=== PATIENT | male | born 1955 | race Caucasian/White ===

== ENCOUNTER → 2016-10-15 | Outpatient (CLI) | payer BC, OTHER ==
[~2016-10-15] MED LIST: ASPI81TA28 PO; ATOR-24 PO; CLOP1TAB15 PO; DOXE10CA PO; HYDR-5688 PO; LAMO200T38 PO; LISI-461 PO; METO25TA56 PO
[2016-10-15 12:24] LABS: HEMATOCRIT 45.3 % (42-52); MEAN CELL VOLUME 97.6 fL (80-100); MEAN CORPUSCULAR HEMOGLOBIN 31.5 pg (25-34); MEAN CORPUSCULAR HGB CONC 32.2 g/dl (32-36); MEAN PLATELET VOLUME 12.3 fL (7.4-10.4); PLATELET COUNT 230 K/uL (130-400); RED BLOOD COUNT 4.64 M/uL (4.7-6.1); WHITE BLOOD COUNT 6.57 K/uL (4.8-10.8)
[2016-10-15 12:32] LABS: CALCIUM 9.2 mg/dl (8.5-10.1); ESTIMATED AVERAGE GLUCOSE 157 mg/dl; HA1C FLAG Normal (Normal)
[2016-10-15 13:07] LABS: ALT/SGPT 43 U/L (12-78); BLOOD UREA NITROGEN 10 mg/dl (7-18); BUN/CREATININE RATIO 9.1 (10-20); CARBON DIOXIDE 27 mmol/L (21-32); CHLORIDE 104 mmol/L (98-107); CHOLESTEROL 137 mg/dl (0-200); GLUCOSE 120 mg/dl (70-99); SODIUM 139 mmol/L (136-145); TRIGLYCERIDES 119 mg/dl (0-150); VERY LOW DENSITY LIPOPROT CALC 24 mg/dl
[2016-10-15 13:10] LABS: ALB/GLOB RATIO 1.1 (0.9-2)
[2016-10-15 13:18] LABS: RATIO 7.9 mcg/mg (0-30.0)
[2016-10-15 13:21] LABS: ALKALINE PHOSPHATASE 60 U/L (45-117); AST/SGOT 31 U/L (15-37); CHOLESTEROL/HDL RATIO 3.4; HDL CHOLESTEROL 40 mg/dl; LDL CHOLESTEROL CALCULATED 73 mg/dl
== END | disposition home or self-care (01) ==
LOC: C.LABBFT 09:05
PROVIDERS: ATTEND Internal Medicine
DX: E11.9 Type 2 diabetes mellitus without complications (principal); I25.10 Atherosclerotic heart disease of native coronary artery without angina pectoris

== ENCOUNTER → 2017-05-06 | Outpatient (CLI) | payer BC ==
[2017-05-06 12:16] LABS: HEMATOCRIT 47.5 % (42-52); MEAN CELL VOLUME 97.9 fL (80-100); MEAN CORPUSCULAR HEMOGLOBIN 32.6 pg (25-34); MEAN CORPUSCULAR HGB CONC 33.3 g/dl (32-36); MEAN PLATELET VOLUME 12.1 fL (7.4-10.4); PLATELET COUNT 233 K/uL (130-400); RED BLOOD COUNT 4.85 M/uL (4.7-6.1); WHITE BLOOD COUNT 9.23 K/uL (4.8-10.8)
[2017-05-06 12:20] LABS: ESTIMATED AVERAGE GLUCOSE 174 mg/dl; HA1C FLAG Normal (Normal)
[2017-05-06 12:35] LABS: ALT/SGPT 60 U/L (12-78); AST/SGOT 30 U/L (15-37); BLOOD UREA NITROGEN 14 mg/dl (7-18); BUN/CREATININE RATIO 11.3 (10-20); CARBON DIOXIDE 25 mmol/L (21-32); CHLORIDE 101 mmol/L (98-107); CHOLESTEROL 166 mg/dl (0-200); CREATININE 1.27 mg/dl (0.60-1.40); GLUCOSE 144 mg/dl (70-99); POTASSIUM 4.1 mmol/L (3.5-5.1); SODIUM 133 mmol/L (136-145)
[2017-05-06 12:45] LABS: ALKALINE PHOSPHATASE 65 U/L (45-117); CHOLESTEROL/HDL RATIO 4.5; HDL CHOLESTEROL 37 mg/dl; LDL CHOLESTEROL CALCULATED 97 mg/dl; TRIGLYCERIDES 159 mg/dl (0-150); VERY LOW DENSITY LIPOPROT CALC 32 mg/dl
== END | disposition home or self-care (01) ==
LOC: C.LABBFT 08:51
PROVIDERS: ATTEND Internal Medicine
DX: E11.9 Type 2 diabetes mellitus without complications (principal); E78.5 Hyperlipidemia, unspecified; I25.10 Atherosclerotic heart disease of native coronary artery without angina pectoris; Z12.5 Encounter for screening for malignant neoplasm of prostate

== ENCOUNTER → 2017-10-06 | Outpatient (CLI) | payer BC ==
[~2017-10-06] MED LIST changes: +LAMO200T35 PO; -LAMO200T38 PO
[2017-10-06 12:23] LABS: ALBUMIN 3.8 gm/dl (3.4-5.0); ALT/SGPT 62 U/L (12-78); AST/SGOT 42 U/L (15-37); BLOOD UREA NITROGEN 9 mg/dl (7-18); CALCIUM 8.3 mg/dl (8.5-10.1); CARBON DIOXIDE 23 mmol/L (21-32); CHOLESTEROL 76 mg/dl (0-200); CREATININE 1.23 mg/dl (0.60-1.40); GLUCOSE 128 mg/dl (70-99); POTASSIUM 3.9 mmol/L (3.5-5.1); SODIUM 136 mmol/L (136-145)
[2017-10-06 12:31] LABS: HEMOGLOBIN A1C 7.6 % (4.5-5.6)
[2017-10-06 12:33] LABS: ALKALINE PHOSPHATASE 62 U/L (45-117); LDL CHOLESTEROL CALCULATED 28 mg/dl; TOTAL PROTEIN 7.4 gm/dl (6.4-8.2)
== END | disposition home or self-care (01) ==
LOC: C.LABBFT 08:19
PROVIDERS: ATTEND Internal Medicine
DX: E11.65 Type 2 diabetes mellitus with hyperglycemia (principal)

== ENCOUNTER → 2018-01-13 | Outpatient (CLI) | payer OTHER ==
--- NOTE | 2018-01-13 09:30 | DIAGNOSTIC IMAGING REPORT ---
LUMBAR SPINE MRI HISTORY: Low back pain. Right leg pain. TECHNIQUE: Multiplanar multisequence MRI of the lumbar spine was performed without the use of contrast. COMPARISON: Lumbar spine 01/07/2018. Lumbar spine MRI 06/11/2014. FINDINGS: For the purpose of the report the L5-S1 disc space will be located on axial image 27 of 30. No fracture or subluxation within the lumbar spine. Minimal disc space narrowing at L2-L3 and L4-L5. Postoperative changes consistent with prior L4/L5 laminectomy. This likely explains the mild soft tissue edema posterior to the L4-L5 levels. The visualized retroperitoneal soft tissues are within normal limits. L1-L2: No significant central canal or neural foraminal narrowing. Tiny left foraminal annular tear. L2-L3: Small broad-based posterior disc bulge with mild facet hypertrophy resulting in mild central canal narrowing. No significant neural foraminal narrowing. L3-L4: No significant central canal or neural foraminal narrowing. L4-L5: Prior laminectomy. Small broad-based posterior disc bulge with bilateral facet hypertrophy resulting in mild to moderate central canal narrowing. The disc bulge has slightly progressed on the right. In conjunction with the facet hypertrophy this appears to compress the transiting right L5 nerve root. There is also mild right neural foraminal narrowing. L5-S1: No significant central canal or neural foraminal narrowing. IMPRESSION: 1. Postoperative changes at L4-L5. There is a small broad-based posterior disc bulge with bilateral facet hypertrophy at this level resulting in [id number] central canal narrowing. The disc bulge has slightly progressed on the right and now compresses the transiting right L5 nerve root. 2. Additional mild degenerative changes as described above. 3. No fracture or subluxation. Electronically signed by: Sandip Carranza M.D. 01/13/2018 9:28 AM Dictated Date/Time: 01/13/2018 9:13 AM
== END | disposition home or self-care (01) ==
LOC: C.MRIBC 08:24
PROVIDERS: ATTEND Orthopaedic Surgery Orthopaedic Surgery of the Spine
DX: M48.061 Spinal stenosis, lumbar region without neurogenic claudication (principal)

== ENCOUNTER 2021-04-15 21:03 | Inpatient (IN) ==
[2021-04-15] MEDS ORDERED: ALBUTEROL 0.083% NEBU SOLN 3 ML VIAL NEB STA (21:22)
[2021-04-15 21:43] LABS: Basophils # (auto) 0.05 K/uL (0-0.2); Basophils % (auto) 0.6 %; Eosinophils # (auto) 0.39 K/uL (0-0.5); Eosinophils % (auto) 4.8 %; Hematocrit (blood only) 43.8 % (42-52); Hemoglobin 14.4 g/dL (14.0-18.0); Immature Granulocytes # (auto) 0.02 K/uL (0.00-0.02); Immature Granulocytes % (auto) 0.2 %; Lymphocytes # (auto) 1.64 K/uL (1.2-3.4); Lymphocytes % (auto) 20.2 %; Mean Corpuscular Hemoglobin 32.2 pg (25-34); Mean Corpuscular Hgb Conc 32.9 g/dL (32-36); Mean Platelet Volume 11.5 fL (7.4-10.4); Monocytes # (auto) 0.76 K/uL (0.11-0.59); Monocytes % (auto) 9.3 %; Neutrophils # (auto) 5.27 K/uL (1.4-6.5); Neutrophils % (auto) 64.9 %; Platelet Count 208 K/uL (130-400); RDW Standard Deviation 50.3 fL (36.4-46.3); Red Blood Count 4.47 M/uL (4.7-6.1); White Blood Count 8.13 K/uL (4.8-10.8)
[2021-04-15 22:00] LABS: Albumin Level 3.4 gm/dl (3.4-5.0); BUN Creatinine Ratio 13.3 (10-20); Est GFR (African American) 75.1 ml/min; Est GFR (Non-African American) 64.8 ml/min
[2021-04-15 22:20] LABS: Albumin Globulin Ratio 0.8 (0.9-2); Bilirubin,Total 0.3 mg/dl (0.2-1); Total Protein 7.4 gm/dl (6.4-8.2); Troponin I 0.11 ng/ml (0-0.045)
[2021-04-15 22:39] LABS: Influenza A virus by PCR Negative (Negative); Influenza B virus by PCR Negative (Negative)
--- NOTE | 2021-04-15 23:30 | History & Physical Report ---
Date of Service April 15, 2021 Assessment & Plan (1) Respiratory failure: Plan: 65yo male with history of CAD, HTN, HLP, DM, presenting with 3 days of progressive SOB, cough and wheeze. Patient in acute hypoxic respiratory failure on arrival with RR of 28, saturations of 88% on room air. He was placed on CPAP, given Solumedrol and Albuterol with improvement. Patient with significant smoking history - reports smoking 2ppd x 30 years. He quit approximately 12 years ago. Has never had PFTs performed. No known history of COPD or underlying lung disease, however, suspect he may have undiagnosed COPD. Influenza and Covid-19 testing NEGATIVE -Admit to medical with telemetry -Continue CPAP as needed for respiratory support. Goal SpO2 88-90% -DuoNeb q 4 hours -Albuterol q 2 hours PRN -Mucinex 600mg BID -Incentive spirometry -Solumedrol 40mg IV TID -Doxycycline 100mg IV BID (2) Elevated troponin: Plan: Patient denies chest pain at present. Troponin mildly elevated at 0.110. -Trend troponin -Continue home cardiac medication - ASA, Plavix, Atorvastatin, Lisinopril and Metoprolol (3) Hypertension: Plan: Mildly elevated -Continue Lisinopril, Metoprolol -Monitor (4) Type 2 diabetes mellitus with circulatory disorder: Plan: Blood sugar = 199 currently. Patient on 70/30 55 units BID -Lantus 18u BID -ISS -Continue to monitor (5) Hypercholesteremia: Plan: Chronic -Continue Atorvastatin (6) CAD (coronary artery disease): Plan: Presently chest pain free. Elevated troponin as above. No acute EKG changes. Patient follows with Dr. Eller - last seen 02/19/21 -Continue ASA, Plavix, Atorvastatin, Lisinopril and Metoprolol (7) Depression: Plan: Chronic -Continue Celexa 40mg po daily -Continue Doxepin 10mg po qHS Plan: F/E/N - Heplock. Monitor electrolytes. CC/AHA diet as tolerated Ppx - Lovenox 40 Code -Full Dispo - Admit to medical with telemetry History of Present Illness Chief Complaint: SOB Primary Care Provider: Kye Damian MD [place] is a 65yo male with history of CAD s/p MA with stent placement, DM, HTN, HLP, PVD and JUANJO presenting with 3 days of progressive SOB, cough, wheezing and chest tightness. Patient reports feeling phlegm in his throat 3 days ago - difficulty clearing. He has had a dry cough, SOB with minimal exertion. Denies fever, chills, sweats, purulent sputum. Denies edema, orthopnea, weight gain. Denies sore throat, itchy/watery eyes or runny nose. No urinary complaints. CP associated with coughing. No palpitations. Patient in mild respiratory distress upon arrival with RR of 28. Saturations 88% on room air initially. He was placed on CPAP 8 21% FiO2 in the ER. ER Course: Albuterol, CPAP, Solumedrol Allergies Allergy/AdvReac Type Severity Reaction Status Date / Time Penicillins Allergy Intermediate HIVES Verified 02/19/21 11:06 Home Medications Medication Instructions Recorded Confirmed Type albuterol sulfate 90 mcg/actuation 2 puffs INHALATION Q4H PRN #1 gm 01/11/19 04/15/21 History aerosol inhaler nitroglycerin 0.4 mg sublingual 0.4 mg SL Q5M PRN #25 tab 01/11/19 04/15/21 History tablet lisinopril 20 mg tablet 20 mg PO DAILY #90 tab 09/16/20 04/15/21 Rx citalopram 40 mg tablet 40 mg PO DAILY #90 tab 10/17/20 04/15/21 Rx insulin syringe-needle U-100 0.5 #200 ea 03/05/21 03/05/21 Rx mL 30 gauge x 1/2" (BD Insulin Syringe Ultra-Fine) clopidogrel 75 mg tablet (Plavix) 75 mg PO DAILY #90 tab 03/24/21 04/15/21 Rx doxepin 10 mg capsule 10 mg PO HS #90 cap 03/24/21 04/15/21 Rx metoprolol tartrate 25 mg tablet 25 mg PO BID #180 tab 03/24/21 04/15/21 Rx insulin human U-100 NPH-regulr 55 - 58 unit SUBCUT BID ml 03/26/21 04/15/21 History 70-30 mix 100 unit/mL subcutaneous susp (Novolin 70/30 U-100 Insulin) atorvastatin 80 mg tablet 80 mg PO DAILY #90 tab 03/27/21 04/15/21 Rx blood sugar diagnostic (OneTouch #200 ea 03/28/21 Rx Verio test strips) lamotrigine 200 mg tablet 200 mg PO BID #180 tab 04/02/21 04/15/21 Rx (Lamictal) aspirin 81 mg tablet,delayed 81 mg PO DAILY 04/15/21 04/15/21 History release Past Med/Surg History Medical History (Updated 04/16/21 @ 03:53 by Lian Patel DO) CAD (coronary artery disease) Cancer H/O SKIN CA - REMOVED Depression Diabetes mellitus, type 2 NIDDM Former smoker History of myocardial infarction 2015 - NSTEMI; [facility] X 1 TO RCA Hyperlipidemia Hypertension Lumbar spinal stenosis PAD (peripheral artery disease) Parkinsonism PER RECORDS Seizure LAST SEIZURE 9 YEARS AGO; CONTROLLED ON LAMICTAL Sleep apnea NO CPAP - NON COMPLIANT Unstable angina pectoris Surgical History H/O sinus surgery History of cardiac cath [facility] X 1 TO RCA (2014) History of laminectomy L4-L5 LAMINECTOMY/DISCECTOMY= 04/30/16= GRADE 3 VIEW, MAC 3.0, ETT 8.0 AT [facility] Family History Father Coronary heart disease Dementia Depression Diabetes Myocardial infarction Mother Dementia Kidney disease Grandmother (Paternal) Diabetes Brother Diabetes Brain cancer Denies family history of Ovarian cancer Prostate cancer Breast cancer Colorectal cancer Social History Smoking Status: Former smoker Tobacco Type: Cigarettes Age Started Using Tobacco: 10; Age Quit Using Tobacco: 54; packs per day: 2; Years Smoked: 43; Cigarettes Per Day: 2; Smoking End Date: 2008; Second Hand Exposure: No; Tobacco Cessation Education Requested by Patient: No Hx Alcohol Use: No Hx Substance Use: No Preferred Language: Andorran Communication Ability: Effective Visual Impairment: Limited Hearing Ability: Normal Edge Sawyer Required: No Beliefs That Will Affect Care: None marital status: Current Living Situation: Spouse current occupational status: retired 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 Other Information That Helps Us Care for You: No Feels Safe at Home: Yes Safety Concerns: Feels Safe At This Time Childhood Exposure to Second-Hand Smoke: Yes Dental Care, Regularly: No Physical Activity Frequency: Daily Physical Activity Frequency Comment: seasonal, very active in summer time Seatbelt Use: always Sunscreen Use: No Assistive Devices: Denture - Upper, Denture - Lower and Glasses Review of Systems Review of Systems: All systems reviewed & are unremarkable except as noted in HPI & below Physical Exam Physical Exam: General: patient resting comfortably, NAD, non-toxic in appearance, AA&O x 4 Skin: warm, dry, intact, no rashes or lesions HEENT: NC/AT, PERRL, EOMI, anicteric sclera, conjunctiva without injection, external ear normal to inspection and nontender, nares patent, moist mucus membranes, dentition intact, no oropharyngeal lesions, neck supple, trachea midline, no LAD, no thyromegaly, no JVD Heart: +S1/S2, regular, no m/r/g Lungs: diminished air flow bilaterally, diffuse wheezing bilaterally, +rhonchi in mid lung [place] Abd: +BS, soft, NT/ND, no masses/organomegaly/ascites Ext: warm, 2+ pulses in UE/LE bilaterally, no clubbing/cyanosis or edema Neuro: nonfocal, patient AA&O x 4, speech intact, no facial droop, moving all extremities on command with equal strength 5/5 Results & Data Results & Data ([facility]) Vital Signs (Past 12 Hours) Vital Signs Temp Pulse Pulse Resp BP Pulse Ox 04/15/21 21:35 75 74 20 94 04/15/21 21:32 95 H 30 H 88 L 04/15/21 21:17 37.0 C 88 20 159/84 H 92 Laboratory Results Laboratory Results WBC 8.13 K/uL (4.8-10.8) 04/15/21 21:29 RBC 4.47 M/uL (4.7-6.1) L 04/15/21 21:29 Hgb 14.4 g/dL (14.0-18.0) 04/15/21 21:29 Hct 43.8 % (42-52) 04/15/21 21:29 MCV 98.0 fL (80-100) 04/15/21 21:29 MCH 32.2 pg (25-34) 04/15/21 21:29 MCHC 32.9 g/dL (32-36) 04/15/21: RDW Std Deviation 50.3 fL (36.4-46.3) H 04/15/21: RDW Coeff of Lucas 14.0 % (11.5-14.5) 04/15/21: Plt Count 208 K/uL (130-400) 04/15/21: MPV 11.5 fL (7.4-10.4) H 04/15/21: Immature Gran % (Auto) 0.2 % 04/15/21: Neut % (Auto) 64.9 % 04/15/21: Lymph % (Auto) 20.2 % 04/15/21: [place] % (Auto) 9.3 % 04/15/21: Eos % (Auto) 4.8 % 04/15/21 Baso % (Auto) 0.6 % 04/15/21: Neut # (Auto) 5.27 K/uL (1.4-6.5) 04/15/21: Lymph # (Auto) 1.64 K/uL (1.2-3.4) 04/15/21: [place] # (Auto) 0.76 K/uL (0.11-0.59) H 04/15/21: Eos # (Auto) 0.39 K/uL (0-0.5) 04/15/21: Baso # (Auto) 0.05 K/uL (0-0.2) 04/15/21: Immature Gran # (Auto) 0.02 K/uL (0.00-0.02) 04/15/21: Sodium 136 mmol/L (136-145) 04/15/21: Potassium 4.0 mmol/L (3.5-5.1) 04/15/21: Chloride 105 mmol/L (98-107) 04/15/21: Carbon Dioxide 24 mmol/L (21-32) 04/15/21: Anion Gap 7.0 (3-11) 04/15/21: BUN 15 mg/dl (7-18) 04/15/21: Creatinine 1.16 mg/dl (0.6-1.4) 04/15/21: Est Cr Clr Drug Dosing 75.0 ml/min 04/15/21 21: Est GFR ( Amer) 75.1 ml/min 04/15/21 Est GFR (Non-Af Amer) 64.8 ml/min 04/15/21: BUN/Creatinine Ratio 13.3 (10-20) 04/15/21: Glucose 199 mg/dl (70-99) H 04/15/21: Calcium 9.0 mg/dl (8.5-10.1) 04/15/21: Phosphorus 2.4 mg/dl (2.5-4.9) L 04/15/21: Magnesium 1.8 mg/dl (1.8-2.4) 04/15/21: Total Bilirubin 0.3 mg/dl (0.2-1) 04/15/21: AST 21 U/L (15-37) 04/15/21: ALT 37 U/L (12-78) 04/15/21: Alkaline Phosphatase 65 U/L (45-117) 04/15/21: Troponin I 0.110 ng/ml (0-0.045) H* 04/15/21: NT-Pro-B Natriuret Pep 224 pg/ml (0-900) 04/15/21: Total Protein 7.4 gm/dl (6.4-8.2) 04/15/21: Albumin 3.4 gm/dl (3.4-5.0) 04/15/21: Globulin 4.0 gm/dl (2.5-4.0) 04/15/21: Albumin/Globulin Ratio 0.8 (0.9-2) L 04/15/21: Lipase 138 U/L (73-393) 04/15/21: COVID-19 Eval Order Covid19 at [facility] 04/15/21 21:20 SARS-CoV-2 (PCR) NEGATIVE (Negative) 04/15/21 21: Influ A Molecular Assay Negative (Negative) 04/15/21: Influ B Molecular Assay Negative (Negative) 04/15/21 21:20 Diagnostic Findings CXR with no infiltrate, PTX. Code Status & VTE Plan VTE Prophylaxis Plan VTE Prophylaxis will be ordered: Yes PG Care Time/CCT Total # of Minutes Spent Total Time Spent with Patient: Total time spent is greater than 50% in coordination of care (as documented) at patient's floor/unit and/or counseling patient: Coding Level of Care Code 14076 Initial Inpt Care Lvl 3 Diagnoses Respiratory failure J96.00 Chronicity: acute Respiratory failure complication: unspecified whether with hypoxia or hypercapnia Elevated troponin R77.8 Hypertension I10 Type 2 diabetes mellitus with circulatory disorder E11.59 Hypercholesteremia E78.00 CAD (coronary artery disease) I25.10 Depression F32.9 (1) Respiratory failure Chronicity: acute Respiratory failure complication: unspecified whether with hypoxia or hypercapnia Qualified Code(s): J96.00 - Acute respiratory failure, unspecified whether with hypoxia or hypercapnia
--- NOTE | 2021-04-16 00:39 | Emergency Department Note ---
Impression & Plan Respiratory failure, Hypoxic, Elevated troponin ED Provider Note NAME: FRIDA TINOCO AGE: 65 SEX: M : 1955 ARRIVES VIA: Ambulance INFORMANT: Patient ED PROVIDER(S): Evgeny Torres DO CHIEF COMPLAINT: Shortness of breath HPI: Patient is a six 5-year-old male who presents ER for shortness of breath which has been worsening for the past 3 days. Patient notes that tonight he got significantly worse. He cannot catch his breath. He denies any chest pain b ada pain or nausea vomiting or diarrhea. He does have a cough which is present for the same time. No recent weight gain. No history of CHF. Brought in by EMS and placed on CPAP. Patient was given neb treatments. ROS: See above HPI for pertinent positives & negatives. A total of 10 systems reviewed and were otherwise negative. PAST MEDICAL HISTORY:See Below PAST SURGICAL HISTORY:See Below FAMILY HISTORY:See Below SOCIAL HISTORY:See Below HOME MEDICATIONS:See Below ALLERGIES:See Below VITALS:See Below PHYSICAL EXAMINATION: GENERAL: Sitting up in bed, alert, moderate distress EYE EXAM: normal conjunctiva. OROPHARYNX: no exudate, no erythema, lips, buccal mucosa, and tongue normal and mucous membranes are moist NECK: supple, no nuchal rigidity, no adenopathy, non-tender LUNGS: Diffuse wheezing. Normal chest wall mechanics HEART: no murmurs, S1 normal and S2 normal ABDOMEN: abdomen soft, non-tender, normo-active bowel sounds, no masses, no rebound or guarding. UPPER EXTREMITIES: upper extremities are grossly normal. LOWER EXTREMITIES: No pitting edema. Calves are equal bilateral NEURO EXAM: Normal sensorium, cranial nerves II-XII grossly intact, normal speech, no gross weakness of arms, no gross weakness of legs. MEDICAL DECISION MAKING: Patient is a 65-year-old male who presents the ER for shortness of breath. He was found to be hypoxic on 3 L in the mid 80s. He had asked diffuse wheezing and was extremely tachypneic moving little to no air. He was placed on BiPAP and given hour-long neb treatment as well as steroids. Labs show no significant leukocytosis or anemia. BMP on LFTs bilirubin was unremarkable. Troponin was positive at 0.11. Lipase was normal. Influenza and Covid were negative. Chest x-ray showed some cephalization. Patient improved significantly on BiPAP and neb treatments. Updated bedside discussed with Dr. Patel admitted for further work-up. Triage Nursing notes reviewed. Limited review of prior medical records performed Vital Signs: reviewed and remarkable for hypoxic and tachycardic Differential diagnosis: Differential diagnoses includes but is not limited to pneumonia, bronchitis, COPD/Asthma exacerbation, pneumothorax, pulmonary embolism, congestive heart failure, acute coronary syndrome ER treatment provided: See below Diagnostics interpreted by me: ECG: Sinus rhythm rate 67 Normal axis No PVCs Poor baseline QTC 456 Cardiac Monitoring: An order was placed for continuous cardiac monitoring. The monitor shows a rate of 82 with sinus rhythm. Laboratory studies: As stated above and show below. Imaging studies: Portable AP upright 1 view per my read shows cephalization with no focal infiltrate or pneumothorax Consultation(s): Discussed with Lashawn Patel for further evaluation Procedures: none Critical Care: I have personally spent 32 minutes of critical care time in the direct management of this patient. This includes bedside care, interpretation of diagnostic studies, and testing, discussion with consultants, patient, and family members, and other required patient management activities. This 32 minutes is in excess of all separately billable procedures. Past Med/Surg History Medical History (Updated 04/16/21 @ 00:39 by Evgeny Torres DO) CAD (coronary artery disease) Cancer H/O SKIN CA - REMOVED Depression Diabetes mellitus, type 2 NIDDM Former smoker History of myocardial infarction 2015 - NSTEMI; [facility] X 1 TO RCA Hyperlipidemia Hypertension Lumbar spinal stenosis PAD (peripheral artery disease) Parkinsonism PER RECORDS Seizure LAST SEIZURE 9 YEARS AGO; CONTROLLED ON LAMICTAL Sleep apnea NO CPAP - NON COMPLIANT Unstable angina pectoris Surgical History H/O sinus surgery History of cardiac cath [facility] X 1 TO RCA (2014) History of laminectomy L4-L5 LAMINECTOMY/DISCECTOMY= 04/30/16= GRADE 3 VIEW, MAC 3.0, ETT 8.0 AT [facility] Family History Father Coronary heart disease Dementia Depression Diabetes Myocardial infarction Mother Dementia Kidney disease Grandmother (Paternal) Diabetes Brother Diabetes Brain cancer Denies family history of Ovarian cancer Prostate cancer Breast cancer Colorectal cancer Social History Smoking Status: Never smoker Tobacco Type: Cigarettes Age Started Using Tobacco: 10; Age Quit Using Tobacco: 54; packs per day: 2; Years Smoked: 43; Second Hand Exposure: No; Hx Alcohol Use: No Hx Substance Use: No Preferred Language: Mauritian Communication Ability: Effective Visual Impairment: Limited Hearing Ability: Normal Beliefs That Will Affect Care: None marital status: Current Living Situation: Spouse current occupational status: retired 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 Feels Safe at Home: Yes Childhood Exposure to Second-Hand Smoke: Yes Dental Care, Regularly: No Physical Activity Frequency: Daily Physical Activity Frequency Comment: seasonal, very active in summer time Seatbelt Use: always Sunscreen Use: No Assistive Devices: None Allergies Allergies Allergy/AdvReac Type Severity Reaction Status Date / Time Penicillins Allergy Intermediate HIVES Verified 02/19/21 11:06 Home Meds Home Medications Medication Instructions Recorded Confirmed albuterol sulfate 90 mcg/actuation 2 puffs INHALATION Q4H PRN #1 gm 01/11/19 04/15/21 aerosol inhaler nitroglycerin 0.4 mg sublingual 0.4 mg SL Q5M PRN #25 tab 01/11/19 04/15/21 tablet insulin human U-100 NPH-regulr 55 - 58 unit SUBCUT BID ml 03/26/21 04/15/21 70-30 mix 100 unit/mL subcutaneous susp (Novolin 70/30 U-100 Insulin) aspirin 81 mg tablet,delayed 81 mg PO DAILY 04/15/21 04/15/21 release Previous Rx's Medication Instructions Recorded lisinopril 20 mg tablet 20 mg PO DAILY #90 tab 09/16/20 citalopram 40 mg tablet 40 mg PO DAILY #90 tab 10/17/20 insulin syringe-needle U-100 0.5 #200 ea 03/05/21 mL 30 gauge x 1/2" (BD Insulin Syringe Ultra-Fine) clopidogrel 75 mg tablet (Plavix) 75 mg PO DAILY #90 tab 03/24/21 doxepin 10 mg capsule 10 mg PO HS #90 cap 03/24/21 metoprolol tartrate 25 mg tablet 25 mg PO BID #180 tab 03/24/21 atorvastatin 80 mg tablet 80 mg PO DAILY #90 tab 03/27/21 blood sugar diagnostic (OneTouch #200 ea 03/28/21 Verio test strips) lamotrigine 200 mg tablet 200 mg PO BID #180 tab 04/02/21 (Lamictal) Results & Data (ED) Vital Signs Vital Signs - 24 hr 04/15/21 21:17 04/15/21 21:32 04/15/21 21:35 Temperature 37.0 C Temperature Source Oral Pulse Rate 88 95 H 75 Pulse Rate [Apical] 74 Respiratory Rate 20 30 H 20 Respiratory Effort / Characteristics Labored Pursed Lip Short of Breath Tripoding Non-Labored Spontaneous Respiratory Depth Normal Normal Respiratory Pattern Tachypnea Regular Blood Pressure 159/84 H Blood Pressure Mean 109 Blood Pressure Position Sitting Pulse Oximetry 92 88 L 94 Oxygen Delivery Method Room Air Room Air BiPAP Fraction of Inspired Oxygen 21 Sepsis Recent Fever Within 48 Hours No Sepsis New/Unexplained Change in Mental Status N/A Sepsis Action Taken by Nursing No Action Required Laboratory Data Result diagrams: 04/15/21 21:29 04/15/21 21:29 Lab Results 04/15/21 04/15/21 04/15/21 Range/Units 21:20 21:20 21:20 WBC (4.8-10.8) K/uL RBC (4.7-6.1) M/uL Hgb (14.0-18.0) g/dL Hct (42-52) % MCV (80-100) fL MCH (25-34) pg MCHC (32-36) g/dL RDW Std Deviation (36.4-46.3) fL RDW Coeff of Lucas (11.5-14.5) % Plt Count (130-400) K/uL MPV (7.4-10.4) fL Immature Gran % (Auto) % Neut % (Auto) % Lymph % (Auto) % [place] % (Auto) % Eos % (Auto) % Baso % (Auto) % Neut # (Auto) (1.4-6.5) K/uL Lymph # (Auto) (1.2-3.4) K/uL [place] # (Auto) (0.11-0.59) K/uL Eos # (Auto) (0-0.5) K/uL Baso # (Auto) (0-0.2) K/uL Immature Gran # (Auto) (0.00-0.02) K/uL Sodium (136-145) mmol/L Potassium (3.5-5.1) mmol/L Chloride (98-107) mmol/L Carbon Dioxide (21-32) mmol/L Anion Gap (3-11) BUN (7-18) mg/dl Creatinine (0.6-1.4) mg/dl Est Cr Clr Drug Dosing ml/min Est GFR ( Amer) ml/min Est GFR (Non-Af Amer) ml/min BUN/Creatinine Ratio (10-20) Glucose (70-99) mg/dl Calcium (8.5-10.1) mg/dl Total Bilirubin (0.2-1) mg/dl AST (15-37) U/L ALT (12-78) U/L Alkaline Phosphatase (45-117) U/L Troponin I (0-0.045) ng/ml Total Protein (6.4-8.2) gm/dl Albumin (3.4-5.0) gm/dl Globulin (2.5-4.0) gm/dl Albumin/Globulin Ratio (0.9-2) Lipase (73-393) U/L COVID-19 Eval Order Covid19 at [facility] SARS-CoV-2 (PCR) NEGATIVE (Negative) Influ A Molecular Assay Negative (Negative) Influ B Molecular Assay Negative (Negative) 04/15/21 04/15/21 Range/Units 21:29 21:29 WBC 8.13 (4.8-10.8) K/uL RBC 4.47 L (4.7-6.1) M/uL Hgb 14.4 (14.0-18.0) g/dL Hct 43.8 (42-52) % MCV 98.0 (80-100) fL MCH 32.2 (25-34) pg MCHC 32.9 (32-36) g/dL RDW Std Deviation 50.3 H (36.4-46.3) fL RDW Coeff of Lucas 14.0 (11.5-14.5) % Plt Count 208 (130-400) K/uL MPV 11.5 H (7.4-10.4) fL Immature Gran % (Auto) 0.2 % Neut % (Auto) 64.9 % Lymph % (Auto) 20.2 % [place] % (Auto) 9.3 % Eos % (Auto) 4.8 % Baso % (Auto) 0.6 % Neut # (Auto) 5.27 (1.4-6.5) K/uL Lymph # (Auto) 1.64 (1.2-3.4) K/uL [place] # (Auto) 0.76 H (0.11-0.59) K/uL Eos # (Auto) 0.39 (0-0.5) K/uL Baso # (Auto) 0.05 (0-0.2) K/uL Immature Gran # (Auto) 0.02 (0.00-0.02) K/uL Sodium 136 (136-145) mmol/L Potassium 4.0 (3.5-5.1) mmol/L Chloride 105 (98-107) mmol/L Carbon Dioxide 24 (21-32) mmol/L Anion Gap 7.0 (3-11) BUN 15 (7-18) mg/dl Creatinine 1.16 (0.6-1.4) mg/dl Est Cr Clr Drug Dosing 75.0 ml/min Est GFR ( Amer) 75.1 ml/min Est GFR (Non-Af Amer) 64.8 ml/min BUN/Creatinine Ratio 13.3 (10-20) Glucose 199 H (70-99) mg/dl Calcium 9.0 (8.5-10.1) mg/dl Total Bilirubin 0.3 (0.2-1) mg/dl AST 21 (15-37) U/L ALT 37 (12-78) U/L Alkaline Phosphatase 65 (45-117) U/L Troponin I 0.110 H* (0-0.045) ng/ml Total Protein 7.4 (6.4-8.2) gm/dl Albumin 3.4 (3.4-5.0) gm/dl Globulin 4.0 (2.5-4.0) gm/dl Albumin/Globulin Ratio 0.8 L (0.9-2) Lipase 138 (73-393) U/L COVID-19 Eval Order SARS-CoV-2 (PCR) (Negative) Influ A Molecular Assay (Negative) Influ B Molecular Assay (Negative) Administered Medications Discontinued Medications Albuterol (Albuterol 0.083% Nebu Soln 3 Ml Vial) 10 mg NEB NOW STA Stop: 04/15/21 21:23 Last Admin: 04/15/21 21:34 Dose: 10 mg Documented by: [id number] Methylprednisolone (Methylprednisolone 40 Mg/Ml Vial) 40 mg IV NOW STA Stop: 04/15/21 21:23 Last Admin: 04/15/21 21:33 Dose: 40 mg Documented by: [id number] Discharge Plan Visit Data Chief Complaint: Shortness of Breath/Dyspnea Stated Complaint: SOB ED Provider: Evgeny Torres Discharge Problem: Respiratory failure, Hypoxic, Elevated troponin Forms Stand Alone Forms: My [facility] Prescriptions Prescriptions: No Action lisinopril 20 mg tablet 20 mg PO DAILY Qty: 90 RF: 3 citalopram 40 mg tablet 40 mg PO DAILY Qty: 90 RF: 3 doxepin 10 mg capsule 10 mg PO HS Qty: 90 RF: 1 clopidogrel [Plavix] 75 mg tablet 75 mg PO DAILY Qty: 90 RF: 3 metoprolol tartrate 25 mg tablet 25 mg PO BID Qty: 180 RF: 3 atorvastatin 80 mg tablet 80 mg PO DAILY Qty: 90 RF: 3 (DME) OneTouch Verio test strips Strip See Rx Instructions .ROUTE .MEDSUPPLY Qty: 200 RF: 3 lamotrigine [Lamictal] 200 mg tablet 200 mg PO BID Qty: 180 RF: 3 nitroglycerin 0.4 mg tablet, sublingual 0.4 mg SL Q5M PRN (Reason: chest pain) Qty: 25 RF: 0 albuterol sulfate 90 mcg/actuation HFA aerosol inhaler 2 puffs inhalation Q4H PRN (Reason: Shortness Of Breath) Qty: 1 RF: 0 (DME) insulin syringe-needle U-100 [BD Insulin Syringe Ultra-Fine] 0.5 mL 30 gauge x 1/2" syringe See Rx Instructions .Route Qty: 200 RF: 3 Novolin 70/30 U-100 Insulin 100 unit/mL (70-30) suspension 55 - 58 unit subcut BID RF: 0 aspirin [Aspir-81] 81 mg Tablet,Delayed Release (Dr/Ec) 81 mg PO DAILY RF: 0 Referrals Referrals: Kye Damian III, MD [Primary Care Provider] - Discharge Problem: Respiratory failure Qualifiers: Chronicity: acute Respiratory failure complication: unspecified whether with hypoxia or hypercapnia Qualified Code(s): J96.00 - Acute respiratory failure, unspecified whether with hypoxia or hypercapnia
[2021-04-16] MEDS ORDERED: ACETAMINOPHEN 325 MG TAB PO PRN (02:12)
[2021-04-16] MEDS ORDERED: NITROGLYCERIN SL 0.4 MG/TAB TAB SL PRN (02:12)
[2021-04-16] MEDS ORDERED: ALBUTEROL 0.5% NEB SOLN 2.5 MG/0.5 ML VIAL NEB PRN (02:12)
[2021-04-16] MEDS ORDERED: GLUCAGON FOR INJ 1 MG VIAL SQ PRN (02:12)
[2021-04-16] MEDS ORDERED: CARBOHYDRATES FOR HYPOGLYCEMIA PO PRN (02:12)
[2021-04-16] MEDS ORDERED: GLUCOSE 40% GEL 15 GM TUBE PO PRN (02:12)
[2021-04-16] MEDS ORDERED: DEXTROSE 50% 50 ML SYRINGE IV PRN (02:12)
[2021-04-16] MEDS ORDERED: GLUCOSE 10 TABS/TUBE PO PRN (02:12)
[2021-04-16] MEDS ORDERED: ONDANSETRON INJ 2 MG/ML 2 ML VIAL IV PRN (02:12)
[2021-04-16 03:02] LABS: Magnesium 1.8 mg/dl (1.8-2.4); Phosphorus 2.4 mg/dl (2.5-4.9)
[2021-04-16] MEDS: ALBUT/IPRATROP 3MG/0.5MG NEB 3 ML VIAL NEB SCH ×6 (03:17→22:30)
[2021-04-16] MEDS: DOXYCYCLINE HYCLATE 100 MG in DEXTROSE 5% 100 ML IV SCH ×2 (05:36→18:16)
[2021-04-16] MEDS: ENOXAPARIN INJ 40 MG/0.4 ML SYR SQ SCH (05:44)
[2021-04-16] MEDS: methylPREDNISolone 40 MG in SYRINGE 0 ML IV SCH ×3 (05:44→20:55)
[2021-04-16 07:19] LABS: Basophils # (auto) 0.02 K/uL (0-0.2); Basophils % (auto) 0.3 %; Eosinophils # (auto) 0.01 K/uL (0-0.5); Eosinophils % (auto) 0.2 %; Hematocrit (blood only) 42.8 % (42-52); Hemoglobin 14.3 g/dL (14.0-18.0); Immature Granulocytes # (auto) 0.01 K/uL (0.00-0.02); Immature Granulocytes % (auto) 0.2 %; Lymphocytes # (auto) 0.58 K/uL (1.2-3.4); Lymphocytes % (auto) 9.8 %; Mean Corpuscular Hemoglobin 32.2 pg (25-34); Mean Corpuscular Hgb Conc 33.4 g/dL (32-36); Mean Corpuscular Volume 96.4 fL (80-100); Mean Platelet Volume 11.6 fL (7.4-10.4); Monocytes # (auto) 0.29 K/uL (0.11-0.59); Monocytes % (auto) 4.9 %; Neutrophils # (auto) 4.99 K/uL (1.4-6.5); Neutrophils % (auto) 84.6 %; Platelet Count 241 K/uL (130-400); RDW Coefficient of Variation 14.2 % (11.5-14.5); RDW Standard Deviation 50.2 fL (36.4-46.3); Red Blood Count 4.44 M/uL (4.7-6.1)
[2021-04-16] MEDS ORDERED: INSULIN ASPART 100 UNITS/ML 3 ML PEN SC SCH (07:30)
[2021-04-16 07:43] LABS: BUN Creatinine Ratio 10.5 (10-20); Calcium 9.3 mg/dl (8.5-10.1); Creatinine Clr Calc Pharmacy 64.5 ml/min; Est GFR (African American) 65.4 ml/min; Est GFR (Non-African American) 56.5 ml/min; Potassium 4.7 mmol/L (3.5-5.1)
[2021-04-16 07:48] LABS: Troponin I 1.76 ng/ml (0-0.045)
--- NOTE | 2021-04-16 08:06 | XRay Report ---
SINGLE VIEW CHEST CLINICAL HISTORY: Atypical chest pain. Dyspnea. FINDINGS: 2 AP, portable, upright chest radiographs are compared to study dated 04/22/2015 and correl ated with chest CT dated 02/14/2007. The heart is enlarged noting atherosclerotic calcification of the thoracic aorta. The pulmonary vasculature is noncongested. Emphysema and chronic interstitial thicke willian is similar to previous. No airspace consolidation or large pleural effusion is identified. Scarr ing/atelectasis is noted at the lung bases. No pneumothorax is seen. The skeletal structures are oste openic. The bony thorax is grossly intact. IMPRESSION: Cardiomegaly and emphysema with no acute cardiopulmonary abnormality. ACT 112: Negative or not required by law. Electronically signed by: Laith Go M.D. 04/16/2021 8:05 AM
--- NOTE | 2021-04-16 08:47 | Electrocardiogram Report ---
Test Reason : Blood Pressure : / mmHG Vent. Rate : 085 BPM Atrial Rate : 085 BPM P-R Int : 188 ms QRS Dur : 086 ms QT Int : 384 ms P-R-T Axes : 044 005 044 degrees QTc Int : 456 ms Normal sinus rhythm Diffuse Minor Nonspecific ST abnormality Abnormal ECG When compared with ECG of 24-APR-2015 06:23, Vent. rate has increased BY 32 BPM T wave inversion no longer evident in Inferior leads Confirmed by Asaf Moreno ([id number]) on 04/16/2021 8:46:46 AM Referred By: REFERRED SELF Confirmed By:Asaf Moreno
--- NOTE | 2021-04-16 08:57 | Electrocardiogram Report ---
Test Reason : Blood Pressure : / mmHG Vent. Rate : 074 BPM Atrial Rate : 074 BPM P-R Int : 194 ms QRS Dur : 086 ms QT Int : 420 ms P-R-T Axes : 058 021 043 degrees QTc Int : 466 ms Normal sinus rhythm Diffuse Nonspecific ST abnormality Abnormal ECG When compared with ECG of 15-APR-2021 21:16, No significant change was found Confirmed by Asaf Moreno ([id number]) on 04/16/2021 8:56:45 AM Referred By: REFERRED SELF Confirmed By:Asaf Moreno
[2021-04-16] MEDS ORDERED: INSULIN GLARGINE SOLOSTAR 100 UNITS/ML 3 ML PEN SC SCH (09:00)
[2021-04-16] MEDS ORDERED: PNEUMOCOCCAL POLYSACCHARIDES 25 MCG/0.5 ML VIAL/SYR IM ONE (09:00)
[2021-04-16] MEDS: lamoTRIgine 100 MG TAB PO SCH ×2 (09:09→20:33)
[2021-04-16] MEDS: CLOPIDOGREL BISULFATE 75 MG TAB PO SCH (09:09)
[2021-04-16] MEDS: lisinopril 20 MG TAB PO SCH (09:09)
[2021-04-16] MEDS: CITALOPRAM 40 MG TAB PO SCH (09:09)
[2021-04-16] MEDS: guaiFENesin 600 MG TABCR PO SCH ×2 (09:09→20:32)
[2021-04-16] MEDS: ASPIRIN 81 MG ECTAB PO SCH (09:09)
[2021-04-16] MEDS: ATORVASTATIN 40 MG TAB PO SCH (09:09)
[2021-04-16] MEDS: METOPROLOL TARTRATE 25 MG TAB PO SCH ×2 (09:10→20:32)
[2021-04-16] MEDS: INSULIN GLARGINE SOLOSTAR 100 UNITS/ML 3 ML PEN SC SCH ×2 (09:16→20:39)
[2021-04-16] MEDS: INSULIN ASPART 100 UNITS/ML VIAL SC SCH ×4 (09:16→20:34)
--- NOTE | 2021-04-16 12:21 | Hospitalist Progress Note ---
Date of Service April 16, 2021 Assessment & Plan (1) Acute bronchitis due to respiratory syncytial virus (RSV): Plan: COVID & flu tests at admission negative. Obtained rapid RSV test this afternoon - POSITIVE. Thus, acute bronchitis is 2nd to RSV. Place in droplet isolation. Cont steroids, nebs, supportive care. Patient with significant prior smoking history and CXR with emphysematous changes. No formal dx of COPD, but easily could have such, and thus this could be a "COPD exacerbation." Will need PFTs as outpatient in 6-8 weeks to determine if he indeed has underlying COPD. (2) Respiratory failure: Plan: 2nd RSV bronchitis. Improved s/p CPAP overnight, steroids, nebs, supportive care. Cont solumedrol, doxy (to cover for remote possibility of bacterial superinfection), nebs, etc. (3) Elevated troponin: Plan: No ischemic symptoms. EKG without ischemic changes. At minimum this troponin elevation is myocardial demand ischemia in the setting of #1, #2. However, his troponin ultimately bumped to a high of 1.97 and has fallen since. Cannot exclude a minor NSTEMI in the setting of known CAD (cath 2014 with oc cluded RCA but LAD and L Cx were mainly free of disease). Continue home cardiac medications - ASA, Plavix, Atorvastatin, Lisinopril and Metoprolol. Echo ordered and pending. Formal cardiology consult (sees Dr Eller thus ask [facility] cards to see) tomorrow. For now - due to lack of CAD/ischemic symptoms and normal EKG will defer on heparin infusion unless he has symptoms, further troponin rise, etc (4) Hypertension: Plan: Continue Lisinopril, Metoprolol (5) Type 2 diabetes mellitus with circulatory disorder: Plan: Uncontrolled due to IV steroids for above. Adjust novolog. Cont lantus. (6) Hypercholesteremia: Plan: Continue Atorvastatin (7) CAD (coronary artery disease): Plan: see above. Patient follows with Dr. Lora - last seen 02/19/21 Continue ASA, Plavix, Atorvastatin, Lisinopril and Metoprolol (8) Depression: Plan: celexa 40mg po daily + Doxepin 10mg po qHS (9) Seizure: Plan: Cont home meds no issues at this time Plan: DVT proph - lovenox extensively updated at bedside today Admission and Anticipated Discharge Date Admission Date: April 15, 2021 Subjective patient feeling much better this am than yesterday at presentation he is now in room air still coughing, still with wheezing - but improved chest tightness improved appetite good/normal no chest pain no symptoms similar to his previous CA pain several years ago prior to this illness he denies any limiting dyspnea or chest pain episodes at home Review of Systems Review of Systems: gen - no fever, good appetite, mild fatigue CV - no substernal chest pain pulm - cough is dry, wheezing; dyspnea improved GI - no nausea/emesis Physical Exam Physical Exam: gen - NAD, no respiratory distress mouth - MMM neck - no JVD heart - RRR, s1 s2, no murmur lungs - wheezes b/l, no rales, no increased work of breathing abd - soft NT ND BS+ ext - no edema, pulses 2+ b/l Results & Data Results & Data ([facility]) Vital Signs (Past 12 Hours) Vital Signs Temp Pulse Pulse Resp BP Pulse Ox 04/16/21 07:28 36.6 C 66 20 149/78 H 96 04/16/21 07:06 66 20 96 04/16/21 05:26 89 04/16/21 03:18 89 82 20 95 04/16/21 02:26 36.8 C 88 18 164/87 H 96 04/16/21 01:55 96 H 28 H 98 04/16/21 01:10 72 21 94 04/16/21 01:00 75 22 93 04/16/21 00:50 78 21 93 04/16/21 00:40 85 21 94 04/16/21 00:30 79 25 H 94 Laboratory Results Laboratory Results - last 24 hr 04/15/21 04/15/21 04/15/21 21:20 21:20 21:20 WBC RBC Hgb Hct MCV MCH MCHC RDW Std Deviation RDW Coeff of Lucas Plt Count MPV Immature Gran % (Auto) Neut % (Auto) Lymph % (Auto) [place] % (Auto) Eos % (Auto) Baso % (Auto) Neut # (Auto) Lymph # (Auto) [place] # (Auto) Eos # (Auto) Baso # (Auto) Immature Gran # (Auto) Sodium Potassium Chloride Carbon Dioxide Anion Gap BUN Creatinine Est Cr Clr Drug Dosing Est GFR ( Amer) Est GFR (Non-Af Amer) BUN/Creatinine Ratio Glucose POC Glucose Calcium Phosphorus Magnesium Total Bilirubin AST ALT Alkaline Phosphatase Troponin I NT-Pro-B Natriuret Pep Total Protein Albumin Globulin Albumin/Globulin Ratio Lipase COVID-19 Eval Order Covid19 at [facility] SARS-CoV-2 (PCR) NEGATIVE Influ A Molecular Assay Negative Influ B Molecular Assay Negative 04/15/21 04/15/21 04/16/21 21:29 21:29 06:24 WBC 8.13 5.90 RBC 4.47 L 4.44 L Hgb 14.4 14.3 Hct 43.8 42.8 MCV 98.0 96.4 MCH 32.2 32.2 MCHC 32.9 33.4 RDW Std Deviation 50.3 H 50.2 H RDW Coeff of Lucas 14.0 14.2 Plt Count 208 241 MPV 11.5 H 11.6 H Immature Gran % (Auto) 0.2 0.2 Neut % (Auto) 64.9 84.6 Lymph % (Auto) 20.2 9.8 [place] % (Auto) 9.3 4.9 Eos % (Auto) 4.8 0.2 Baso % (Auto) 0.6 0.3 Neut # (Auto) 5.27 4.99 Lymph # (Auto) 1.64 0.58 L [place] # (Auto) 0.76 H 0.29 Eos # (Auto) 0.39 0.01 Baso # (Auto) 0.05 0.02 Immature Gran # (Auto) 0.02 0.01 Sodium 136 Potassium 4.0 Chloride 105 Carbon Dioxide 24 Anion Gap 7.0 BUN 15 Creatinine 1.16 Est Cr Clr Drug Dosing 75.0 Est GFR ( Amer) 75.1 Est GFR (Non-Af Amer) 64.8 BUN/Creatinine Ratio 13.3 Glucose 199 H POC Glucose Calcium 9.0 Phosphorus 2.4 L Magnesium 1.8 Total Bilirubin 0.3 AST 21 ALT 37 Alkaline Phosphatase 65 Troponin I 0.110 H* NT-Pro-B Natriuret Pep 224 Total Protein 7.4 Albumin 3.4 Globulin 4.0 Albumin/Globulin Ratio 0.8 L Lipase 138 COVID-19 Eval Order SARS-CoV-2 (PCR) Influ A Molecular Assay Influ B Molecular Assay 04/16/21 04/16/21 04/16/21 06:24 08:35 12:13 WBC RBC Hgb Hct MCV MCH MCHC RDW Std Deviation RDW Coeff of Lucas Plt Count MPV Immature Gran % (Auto) Neut % (Auto) Lymph % (Auto) [place] % (Auto) Eos % (Auto) Baso % (Auto) Neut # (Auto) Lymph # (Auto) [place] # (Auto) Eos # (Auto) Baso # (Auto) Immature Gran # (Auto) Sodium 132 L Potassium 4.7 D Chloride 101 Carbon Dioxide 21 Anion Gap 10.0 BUN 14 Creatinine 1.30 Est Cr Clr Drug Dosing 64.5 Est GFR ( Amer) 65.4 Est GFR (Non-Af Amer) 56.5 BUN/Creatinine Ratio 10.5 Glucose 282 H POC Glucose 265 H 224 H Calcium 9.3 Phosphorus Magnesium Total Bilirubin AST ALT Alkaline Phosphatase Troponin I 1.760 H* NT-Pro-B Natriuret Pep Total Protein Albumin Globulin Albumin/Globulin Ratio Lipase COVID-19 Eval Order SARS-CoV-2 (PCR) Influ A Molecular Assay Influ B Molecular Assay Diagnostic Findings EKG - my reading - NSR, no ST Changes PG Care Time/CCT Total # of Minutes Spent Total Time Spent with Patient: Total time spent is greater than 50% in coordination of care (as documented) at patient's floor/unit and/or counseling patient: Coding Level of Care Code 57131 Subseq Hosp Care Lvl 3 Diagnoses Respiratory failure J96.00 Chronicity: acute Respiratory failure complication: unspecified whether with hypoxia or hypercapnia Elevated troponin R77.8 Hypertension I10 Type 2 diabetes mellitus with circulatory disorder E11.59 Hypercholesteremia E78.00 CAD (coronary artery disease) I25.10 Depression F32.9 Acute bronchitis due to respiratory syncytial virus (RSV) J20.5 Seizure R56.9 (1) Respiratory failure Chronicity: acute Respiratory failure complication: unspecified whether with hypoxia or hypercapnia Qualified Code(s): J96.00 - Acute respiratory failure, unspecified whether with hypoxia or hypercapnia
--- NOTE | 2021-04-16 19:10 | XCELERA ---
[id number]
[2021-04-16] MEDS: DOXEPIN HCL 10 MG CAPSULE PO SCH (20:32)
[2021-04-17] MEDS: ALBUT/IPRATROP 3MG/0.5MG NEB 3 ML VIAL NEB SCH ×6 (03:24→23:07)
[2021-04-17] MEDS: ENOXAPARIN INJ 40 MG/0.4 ML SYR SQ SCH (05:36)
[2021-04-17] MEDS: methylPREDNISolone 40 MG in SYRINGE 0 ML IV SCH ×2 (05:37→20:35)
[2021-04-17] MEDS: DOXYCYCLINE HYCLATE 100 MG in DEXTROSE 5% 100 ML IV SCH (05:42)
[2021-04-17 07:32] LABS: BUN Creatinine Ratio 19.8 (10-20); Calcium 9.1 mg/dl (8.5-10.1); Creatinine Clr Calc Pharmacy 66.3 ml/min; Est GFR (African American) 66.7 ml/min; Est GFR (Non-African American) 57.5 ml/min; Potassium 4.2 mmol/L (3.5-5.1)
[2021-04-17] MEDS: CLOPIDOGREL BISULFATE 75 MG TAB PO SCH (08:30)
[2021-04-17] MEDS: ATORVASTATIN 40 MG TAB PO SCH (08:31)
[2021-04-17] MEDS: guaiFENesin 600 MG TABCR PO SCH ×2 (08:31→20:35)
[2021-04-17] MEDS: lamoTRIgine 100 MG TAB PO SCH ×2 (08:31→20:35)
[2021-04-17] MEDS: lisinopril 20 MG TAB PO SCH (08:32)
[2021-04-17] MEDS: ASPIRIN 81 MG ECTAB PO SCH (08:33)
[2021-04-17] MEDS: CITALOPRAM 40 MG TAB PO SCH (08:33)
[2021-04-17] MEDS: INSULIN GLARGINE SOLOSTAR 100 UNITS/ML 3 ML PEN SC SCH ×2 (08:41→20:41)
[2021-04-17] MEDS: INSULIN ASPART 100 UNITS/ML VIAL SC SCH ×4 (08:42→20:42)
[2021-04-17] MEDS: METOPROLOL TARTRATE 50 MG TAB PO SCH ×2 (08:55→20:49)
--- NOTE | 2021-04-17 10:29 | Cardiology Consultation ---
Date of Consultation April 17, 2021 Assessment & Plan (1) Elevated troponin: (2) CAD (coronary artery disease): (3) Hypertension: (4) Hypercholesteremia: (5) Acute bronchitis due to respiratory syncytial virus (RSV): ASSESSMENT/PLAN: 1. Elevated troponin: His presentation is not consistent with an ACS. The troponin elevation appears secondary to supply demand mismatch. Agree with titrating his beta bjorn therapy and continuing antiplatelet, statin, and MIRIAM inhibitor therapy. A stress echocardiogram can be obtained as an outpatient, once he has recovered from his acute illness. 2. Coronary artery disease s/p PCI: No angina. A stress echo can be obtained as an outpatient given his troponin elevation and exertional dyspnea, which he did note prior to his acute illness. Continue aspirin, Plavix, high intensity statin, beta bjorn, and MIRIAM inhibitor. 3. Hypertension: BP has been elevated this admission. Agree with titrating beta bjorn therapy, as noted above. 4. Dyslipidemia: Continue high intensity statin therapy. 5. RSV: As per primary service. Recommend follow-up in the cardiology office 1-2 weeks after discharge. Patient discussed with Dr. Moreno, and the plan was made in collaboration with him. Supervising Physician Co-Signing Physician Notes ADDENDUM (Dr. Moreno): Patient seen and examined. Agree with plan as outlined above by Belgica Leyva PA-C. Patient status post drug-eluting stent mid RCA 2014, had some distal disease and small diagonal vessels but no major vessel occlusions post procedure. He presented with respiratory insufficiency and subsequently tested positive for RSV. He did have a mild peak and decay troponin elevation but he had no anginal chest pain, his ECG and echocardiogram remained unremarkable, and he feels well currently. He had not been having exertional anginal type symptoms prior to his current illness. No evidence of acute cardiac event, suspect supply/demand mismatch. However, given his known coronary artery disease and the degree of troponin elevation, would be prudent to obtain a stress study once he recovers from his RSV infection. Would recommend pharmacologic nuclear study, since he states he cannot walk well on a treadmill (went for only 2 minutes and a stress test in 2013). Okay for discharge from a cardiac standpoint. Routine cardiology follow-up with Dr. Eller. History of Present Illness Reason for Consultation: Elevated troponin Requesting Physician: Dr. Cabello History of Present Illness Mr. Putnam is a 65-year-old male with a past medical history significant for coronary artery disease s/p NSTEMI in 2015 with PCI of mid RCA, dyslipidemia, h ypertension, type 2 diabetes, carotid artery stenosis, peripheral arterial disease, and prior tobacco use who was admitted on the evening of 04/15/21 with RSV infection. He presented with a 3 day history of progressive shortness of breath, cough, and wheeze. He was in hypoxic respiratory failure on arrival with oxygen saturation of 88% on room air. He was placed on CPAP and given Solumedrol and Albuterol with improvement. Troponin was noted to be mildly elevated with a peak of 1.97. ECGs have shown no dynamic ischemic changes. Echo has demonstrated normal LV wall motion and systolic function. He reports that he is feeling improved this morning. He continues to note shortness of breath and wheezing with walking, but his breathing has overall improved. He still has a cough at times, and he can have chest tightness in association with the cough. He denies any actual chest pain, and he has not had any discomfort consistent with his prior angina. He states that he was experiencing increased dyspnea with exertion in late summer, early fall. The shortness of breath appeared worse with increased humidity. He denies orthopnea, PND, or significant lower extremity edema. He denies palpitations. He notes lightheadedness with bending over and standing quickly, but he denies syncope or near syncope. He denies abnormal bleeding such as melena, hematochezia, or hematuria. He denies cerebrovascular symptoms. Family history: Does have a family history of coronary artery disease. Social history: He is and has 1 child and 1 grandchild. He is retired. No alcohol. No current smoking but has a history of smoking for 40 years at up to 2 ppd. Allergies Allergy/AdvReac Type Severity Reaction Status Date / Time Penicillins Allergy Intermediate HIVES Verified 02/19/21 11:06 Home Medications Medication Instructions Recorded Confirmed Type albuterol sulfate 90 mcg/actuation 2 puffs INHALATION Q4H PRN #1 gm 01/11/19 04/15/21 History aerosol inhaler nitroglycerin 0.4 mg sublingual 0.4 mg SL Q5M PRN #25 tab 01/11/19 04/15/21 History tablet lisinopril 20 mg tablet 20 mg PO DAILY #90 tab 09/16/20 04/15/21 Rx citalopram 40 mg tablet 40 mg PO DAILY #90 tab 10/17/20 04/15/21 Rx insulin syringe-needle U-100 0.5 #200 ea 03/05/21 03/05/21 Rx mL 30 gauge x 1/2" (BD Insulin Syringe Ultra-Fine) clopidogrel 75 mg tablet (Plavix) 75 mg PO DAILY #90 tab 03/24/21 04/15/21 Rx doxepin 10 mg capsule 10 mg PO HS #90 cap 03/24/21 04/15/21 Rx metoprolol tartrate 25 mg tablet 25 mg PO BID #180 tab 03/24/21 04/15/21 Rx insulin human U-100 NPH-regulr 55 - 58 unit SUBCUT BID ml 03/26/21 04/15/21 History 70-30 mix 100 unit/mL subcutaneous susp (Novolin 70/30 U-100 Insulin) atorvastatin 80 mg tablet 80 mg PO DAILY #90 tab 03/27/21 04/15/21 Rx blood sugar diagnostic (OneTouch #200 ea 03/28/21 Rx Verio test strips) lamotrigine 200 mg tablet 200 mg PO BID #180 tab 04/02/21 04/15/21 Rx (Lamictal) aspirin 81 mg tablet,delayed 81 mg PO DAILY 04/15/21 04/15/21 History release Patient History Medical History (Updated 04/17/21 @ 05:19 by Glenn Cabello) CAD (coronary artery disease) Cancer H/O SKIN CA - REMOVED Depression Diabetes mellitus, type 2 NIDDM Former smoker History of myocardial infarction 2014 - NSTEMI; [facility] X 1 TO RCA Hyperlipidemia Hypertension Lumbar spinal stenosis PAD (peripheral artery disease) Parkinsonism PER RECORDS Seizure LAST SEIZURE 9 YEARS AGO; CONTROLLED ON LAMICTAL Sleep apnea NO CPAP - NON COMPLIANT Unstable angina pectoris Surgical History H/O sinus surgery History of cardiac cath [facility]UR[facility]A X 1 TO RCA (2014) History of laminectomy L4-L5 LAMINECTOMY/DISCECTOMY= 04/30/16= GRADE 3 VIEW, MAC 3.0, ETT 8.0 AT [facility] Family History Father Coronary heart disease Dementia Depression Diabetes Myocardial infarction Mother Dementia Kidney disease Grandmother (Paternal) Diabetes Brother Diabetes Brain cancer Denies family history of Ovarian cancer Prostate cancer Breast cancer Colorectal cancer Social History Smoking Status: Former smoker Tobacco Type: Cigarettes Age Started Using Tobacco: 10; Age Quit Using Tobacco: 54; packs per day: 2; Years Smoked: 43; Cigarettes Per Day: 2; Smoking End Date: 2008; Second Hand Exposure: No; Tobacco Cessation Education Requested by Patient: No Hx Alcohol Use: No Hx Substance Use: No Preferred Language: Singaporean Communication Ability: Effective Visual Impairment: Limited Hearing Ability: Normal Animal Caretaker Required: No Beliefs That Will Affect Care: None marital status: Current Living Situation: Spouse current occupational status: retired 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 EOMs intact. Sclera non-icteric. Face is symmetric. No perioral cyanosis. Mucous membranes moist Neck: Supple, no JVD Pulmonary: Normal respiratory effort, clear to auscultation throughout Cardiac: Regular rate and rhythm, normal S1 and S2, no gallops, no rubs, no murmurs Extremities: No edema. No clubbing or cyanosis. 2+ radial pulses bilaterally Abdomen: Normal bowel sounds, soft, non-tender, no abdominal masses palpated Skin: Normal skin color, turgor, and pigmentation. No rash or skin lesions Neurological: Oriented to person, place, and time Results & Data ([facility]) Vital Signs (Past 12 Hours) Vital Signs Temp Pulse Pulse Resp BP BP Pulse Ox 04/17/21 07:43 97.7 F 79 18 168/71 H 90 04/17/21 05:50 72 24 92 04/17/21 04:00 98.1 F 79 20 174/69 H 92 04/17/21 03:24 69 20 95 04/16/21 23:50 98.1 F 65 18 153/72 H 91 04/16/21 22:31 67 22 90 04/16/21 22:18 68 Laboratory Results Laboratory Results WBC 5.90 K/uL (4.8-10.8) 04/16/21 06:24 RBC 4.44 M/uL (4.7-6.1) L 04/16/21 06:24 Hgb 14.3 g/dL (14.0-18.0) 04/16/21 06:24 Hct 42.8 % (42-52) 04/16/21 06:24 MCV 96.4 fL (80-100) 04/16/21 06:24 MCH 32.2 pg (25-34) 04/16/21 06:24 MCHC 33.4 g/dL (32-36) 04/16/21 06:24 RDW Std Deviation 50.2 fL (36.4-46.3) H 04/16/21 06:24 RDW Coeff of Lucas 14.2 % (11.5-14.5) 04/16/21 06:24 Plt Count 241 K/uL (130-400) 04/16/21 06:24 MPV 11.6 fL (7.4-10.4) H 04/16/21 06:24 Immature Gran % (Auto) 0.2 % 04/16/21 06:24 Neut % (Auto) 84.6 % 04/16/21 06:24 Lymph % (Auto) 9.8 % 04/16/21 06:24 Kemper % (Auto) 4.9 % 04/16/21 06:24 Eos % (Auto) 0.2 % 04/16/21 06:24 Baso % (Auto) 0.3 % 04/16/21 06:24 Neut # (Auto) 4.99 K/uL (1.4-6.5) 04/16/21 06:24 Lymph # (Auto) 0.58 K/uL (1.2-3.4) L 04/16/21 06:24 Kemper # (Auto) 0.29 K/uL (0.11-0.59) 04/16/21 06:24 Eos # (Auto) 0.01 K/uL (0-0.5) 04/16/21 06:24 Baso # (Auto) 0.02 K/uL (0-0.2) 04/16/21 06:24 Immature Gran # (Auto) 0.01 K/uL (0.00-0.02) 04/16/21 06:24 Sodium 132 mmol/L (136-145) L 04/17/21 06:21 Potassium 4.2 mmol/L (3.5-5.1) 04/17/21 06:21 Chloride 100 mmol/L (98-107) 04/17/21 06:21 Carbon Dioxide 18 mmol/L (21-32) L 04/17/21 06:21 Anion Gap 14.0 (3-11) H 04/17/21 06:21 BUN 25 mg/dl (7-18) H D 04/17/21 06:21 Creatinine 1.28 mg/dl (0.6-1.4) 04/17/21 06:21 Est Cr Clr Drug Dosing 66.3 ml/min 04/17/21 06:21 Est GFR ( Amer) 66.7 ml/min 04/17/21 06:21 Est GFR (Non-Af Amer) 57.5 ml/min 04/17/21 06:21 BUN/Creatinine Ratio 19.8 (10-20) 04/17/21 06:21 Glucose 285 mg/dl (70-99) H 04/17/21 06:21 POC Glucose 299 mg/dl (70-99) H 04/17/21 07:40 Calcium 9.1 mg/dl (8.5-10.1) 04/17/21 06:21 Phosphorus 2.4 mg/dl (2.5-4.9) L 04/15/21 21:29 Magnesium 1.8 mg/dl (1.8-2.4) 04/15/21 21:29 Total Bilirubin 0.3 mg/dl (0.2-1) 04/15/21 21:29 AST 21 U/L (15-37) 04/15/21 21:29 ALT 37 U/L (12-78) 04/15/21 21:29 Alkaline Phosphatase 65 U/L (45-117) 04/15/21 21:29 Troponin I 1.700 ng/ml (0-0.045) H* 04/16/21 18:58 NT-Pro-B Natriuret Pep 224 pg/ml (0-900) 04/15/21 21:29 Total Protein 7.4 gm/dl (6.4-8.2) 04/15/21 21: Albumin 3.4 gm/dl (3.4-5.0) 04/15/21 21: Globulin 4.0 gm/dl (2.5-4.0) 04/15/21 21:29 Albumin/Globulin Ratio 0.8 (0.9-2) L 04/15/21 21: Lipase 138 U/L (73-393) 04/15/21 21: COVID-19 Eval Order Covid19 at [facility] 04/15/21 21:20 SARS-CoV-2 (PCR) NEGATIVE (Negative) 04/15/21 21:20 Influ A Molecular Assay Negative (Negative) 04/15/21 21:20 Influ B Molecular Assay Negative (Negative) 04/15/21 21:20 RSV (Molecular) Positive (Negative) A* 04/16/21 18:00 Diagnostic Findings Chest X-Ray 04/15/21 21:22 SINGLE VIEW CHEST CLINICAL HISTORY: Atypical chest pain. Dyspnea. FINDINGS: 2 AP, portable, upright chest radiographs are compared to study dated 04/22/2015 and correlated with chest CT dated 02/14/2007. The heart is enlarged noting atherosclerotic calcification of the thoracic aorta. The pulmonary vasculature is noncongested. Emphysema and chronic interstitial thickening is similar to previous. No airspace consolidation or large pleural effusion is identified. Scarring/atelectasis is noted at the lung bases. No pneumothorax is seen. The skeletal structures are osteopenic. The bony thorax is grossly intact. IMPRESSION: Cardiomegaly and emphysema with no acute cardiopulmonary abnormality. Telemetry: Normal sinus rhythm. ECGs: Sinus rhythm with diffuse nonspecific ST abnormality. Echo: Normal LV size, wall motion, and systolic function. EF 55-60%. Mild LVH. No significant valvular disease. Normal RVSP. PG Care Time/CCT Total # of Minutes Spent Total Time Spent with Patient: Total time spent is greater than 50% in coordination of care (as documented) at patient's floor/unit and/or counseling patient: Coding Level of Care Code 50719 Initial Inpt Care Lvl 3 Diagnoses Elevated troponin R77.8 CAD (coronary artery disease) I25.10 Hypertension I10 Hypercholesteremia E78.00 Acute bronchitis due to respiratory syncytial virus (RSV) J20.5
--- NOTE | 2021-04-17 20:10 | Hospitalist Progress Note ---
Date of Service April 17, 2021 Assessment & Plan (1) Acute bronchitis due to respiratory syncytial virus (RSV): Plan: Improving. Cont steroids, nebs, supportive care but cut back solumedrol to 40mg BID. Patient with significant prior smoking history and CXR with emphysematous changes. No formal dx of COPD, but easily could have such, and thus this could be a "COPD exacerbation." Will need PFTs as outpatient in 6-8 weeks to determine if he indeed has underly ing COPD. Keep in droplet isolation. (2) Respiratory failure: Plan: 2nd RSV bronchitis. Improved/resolved s/p CPAP at admission. Steroids, nebs, supportive care. Now in room air. Stop doxy. No role for abx at this time since it is viral/RSV. (3) Elevated troponin: Plan: No ischemic symptoms. EKG without ischemic changes. Peak trop 1.9. Likely myocardial demand ischemia in the setting of #1, #2. Has known CAD (cath 2014 with occluded RCA but LAD and L Cx were mainly free of disease). Continue home cardiac medications - ASA, Plavix, Atorvastatin, Lisinopril and Metoprolol. Echo with preserved EF and no WMA. Formal cardiology consult (sees Dr Eller thus ask [facility] cards to see) appreciated - plan - outpatient stress test. (4) Hypertension: Plan: Continue Lisinopril, Metoprolol Increase latter to 50mg BID (5) Type 2 diabetes mellitus with circulatory disorder: Plan: Uncontrolled due to IV steroids for above. Adjust novolog again. Cont lantus. (6) Hypercholesteremia: Plan: Continue Atorvastatin (7) CAD (coronary artery disease): Plan: see above. Patient follows with Dr. Lora - last seen 02/19/21 Continue ASA, Plavix, Atorvastatin, Lisinopril and Metoprolol (8) Depression: Plan: celexa 40mg po daily + Doxepin 10mg po qHS (9) Seizure: Plan: Cont home meds no issues at this time Plan: DVT proph - lovenox extensively updated at bedside yesterday handout on RSV given to patient today Admission and Anticipated Discharge Date Admission Date: April 15, 2021 Subjective pt feeling better overall less cough less dyspnea good appetite still some wheezing tele overnight wnl no chest pain or ischemic symptoms Review of Systems Review of Systems: gen - no fevers or chills, no weakness cv - no cp pulm - minimal sputum, reports that he is allergic to doxy GI - no N/V/abd pain Physical Exam Physical Exam: gen - NAD, no respiratory distress, looks good today mouth - MMM neck - no JVD heart - RRR, s1 s2, no murmur lungs - wheezes b/l but improved; no rales, no increased work of breathing abd - soft NT ND BS+ ext - no edema, pulses 2+ b/l Results & Data Results & Data ([facility]) Vital Signs (Past 12 Hours) Vital Signs Temp Pulse Pulse Resp BP BP Pulse Ox 04/17/21 19:31 77 18 91 04/17/21 19:00 36.7 C 76 18 146/68 H 93 04/17/21 15:12 36.6 C 66 20 158/63 H 94 04/17/21 14:57 68 94 04/17/21 14:18 66 04/17/21 11:05 36.7 C 75 18 148/65 H 91 04/17/21 10:21 68 18 95 Laboratory Results Laboratory Results - last 24 hr 04/17/21 04/17/21 04/17/21 06:21 07:40 11:24 Sodium 132 L Potassium 4.2 Chloride 100 Carbon Dioxide 18 L Anion Gap 14.0 H BUN 25 H D Creatinine 1.28 Est Cr Clr Drug Dosing 66.3 Est GFR ( Amer) 66.7 Est GFR (Non-Af Amer) 57.5 BUN/Creatinine Ratio 19.8 Glucose 285 H POC Glucose 299 H 291 H Calcium 9.1 04/17/21 16:31 Sodium Potassium Chloride Carbon Dioxide Anion Gap BUN Creatinine Est Cr Clr Drug Dosing Est GFR ( Amer) Est GFR (Non-Af Amer) BUN/Creatinine Ratio Glucose POC Glucose 100 H Calcium Diagnostic Findings RSV+ PG Care Time/CCT Total # of Minutes Spent Total Time Spent with Patient: Total time spent is greater than 50% in coordination of care (as documented) at patient's floor/unit and/or counseling patient: Coding Level of Care Code 41652 Subseq Hosp Care Lvl 2 Diagnoses Acute bronchitis due to respiratory syncytial virus (RSV) J20.5 Respiratory failure J96.00 Chronicity: acute Respiratory failure complication: unspecified whether with hypoxia or hypercapnia Elevated troponin R77.8 Hypertension I10 Type 2 diabetes mellitus with circulatory disorder E11.59 Hypercholesteremia E78.00 CAD (coronary artery disease) I25.10 Depression F32.9 Seizure R56.9 (1) Respiratory failure Chronicity: acute Respiratory failure complication: unspecified whether with hypoxia or hypercapnia Qualified Code(s): J96.00 - Acute respiratory failure, unspecified whether with hypoxia or hypercapnia
[2021-04-17] MEDS: DOXEPIN HCL 10 MG CAPSULE PO SCH (20:35)
[2021-04-18] MEDS: ALBUT/IPRATROP 3MG/0.5MG NEB 3 ML VIAL NEB SCH ×4 (02:55→15:15)
[2021-04-18] MEDS: ENOXAPARIN INJ 40 MG/0.4 ML SYR SQ SCH (05:46)
[2021-04-18] MEDS: lisinopril 20 MG TAB PO SCH (08:04)
[2021-04-18] MEDS: ASPIRIN 81 MG ECTAB PO SCH (08:05)
[2021-04-18] MEDS: CLOPIDOGREL BISULFATE 75 MG TAB PO SCH (08:05)
[2021-04-18] MEDS: CITALOPRAM 40 MG TAB PO SCH (08:05)
[2021-04-18] MEDS: METOPROLOL TARTRATE 50 MG TAB PO SCH (08:06)
[2021-04-18] MEDS: ATORVASTATIN 40 MG TAB PO SCH (08:06)
[2021-04-18] MEDS: lamoTRIgine 100 MG TAB PO SCH (08:06)
[2021-04-18] MEDS: INSULIN ASPART 100 UNITS/ML VIAL SC SCH ×3 (08:08→18:00)
[2021-04-18] MEDS: INSULIN GLARGINE SOLOSTAR 100 UNITS/ML 3 ML PEN SC SCH (08:09)
[2021-04-18 08:13] LABS: BUN Creatinine Ratio 25.7 (10-20); Creatinine Clr Calc Pharmacy 62.8 ml/min; Est GFR (African American) 63.1 ml/min; Est GFR (Non-African American) 54.4 ml/min; Potassium 4.5 mmol/L (3.5-5.1)
[2021-04-18 08:28] LABS: Beta-Hydroxybutyrate 1.28 mg/dl (0.2-2.81)
[2021-04-18] MEDS ORDERED: INSULIN GLARGINE SOLOSTAR 100 UNITS/ML 3 ML PEN SC SCH (09:00)
[2021-04-18] MEDS: methylPREDNISolone 40 MG in SYRINGE 0 ML IV SCH (09:39)
[2021-04-18] MEDS: guaiFENesin 600 MG TABCR PO SCH (15:13)
--- NOTE | 2021-04-18 17:55 | Discharge Summary ---
Date of Service date of admission - April 15, 2021 date of discharge - April 18, 2021 Admission HPI Per Admitting Provider Hu Putnam is a 65yo male with history of CAD s/p LA with stent placement, DM, HTN, HLP, PVD and JUANJO presenting with 3 days of progressive SOB, cough, wheezing and chest tightness. Patient reports feeling phlegm in his throat 3 days ago - difficulty clearing. He has had a dry cough, SOB with minimal exertion. Denies fever, chills, sweats, purulent sputum. Denies edema, orthopnea, weight gain. Denies sore throat, itchy/watery eyes or runny nose. No urinary complaints. CP associated with coughing. No palpitations. Patient in mild respiratory distress upon arrival with RR of 28. Saturations 88% on room air initially. He was placed on CPAP 8 21% FiO2 in the ER. ER Course: Albuterol, CPAP, Solumedrol Principal Diagnosis RSV bronchitis Acute hypoxic respiratory failure 2nd to RSV Discharge Exam gen - NAD, no respiratory distress, looks good today mouth - MMM neck - no JVD heart - RRR, s1 s2, no murmur lungs - wheezes b/l much improved; no rales, no increased work of breathing abd - soft NT ND BS+ ext - no edema, pulses 2+ b/l Discharge Data Allergies Allergy/AdvReac Type Severity Reaction Status Date / Time Penicillins Allergy Intermediate HIVES Verified 02/19/21 11:06 Consultations [facility] Procedures Performed Echocardiogram: * EF 55-60% * normal LV wall motion * normal valvular function Ordered Studies Chest X-Ray 04/15/21 21:22 SINGLE VIEW CHEST CLINICAL HISTORY: Atypical chest pain. Dyspnea. FINDINGS: 2 AP, portable, upright chest radiographs are compared to study dated 04/22/2015 and correlated with chest CT dated 02/14/2007. The heart is enlarged noting atherosclerotic calcification of the thoracic aorta. The pulmonary vasculature is noncongested. Emphysema and chronic interstitial thickening is similar to previous. No airspace consolidation or large pleural effusion is identified. Scarring/atelectasis is noted at the lung bases. No pneumothorax is seen. The skeletal structures are osteopenic. The bony thorax is grossly intact. IMPRESSION: Cardiomegaly and emphysema with no acute cardiopulmonary abnormality. ACT 112: Negative or not required by law. Electronically signed by: Laith Go M.D. 04/16/2021 8:05 AM Hospital Course (1) Acute bronchitis due to respiratory syncytial virus (RSV): COVID and influenza testing were both negative. RSV testing was indeed positive. The RSV caused a significant acute bronchitis. This was treated with IV steroids, nebs, and supportive care. Patient with significant prior smoking history and CXR with emphysematous changes. He carries no formal diagnosis of COPD, but easily could have such, and thus this could have been a "COPD exacerbation" due to RSV. Will need PFTs as outpatient in 6-8 weeks to determine if he indeed has underlying COPD. At discharge he will complete a steroid taper and continue with bronchodilators. He was given a prescription for a neb machine and nebulizer treatments. O2 sats were stable in room air on day of discharge. (2) Respiratory failure: ACUTE HYPOXIC RESPIRATORY FAILURE - 2nd RSV bronchitis. Improved/resolved s/p CPAP at admission. He was quickly weaned to room air. He received steroids, nebs, and supportive care as above. (3) Elevated troponin: Peak troponin was 1.9. Despite such he never had ischemic chest symptoms nor any ischemic EKG changes. Echo showed preserved EF with normal LV wall motion. The troponin elevation was likely myocardial demand ischemia in the setting of #1, #2. Has known CAD (cath 2014 with occluded RCA but LAD and L Cx were mainly free of disease) and, given the troponin elevation, [facility] [place] [facility] [place]. They plan to perform an outpatient stress test once he has resolved his RSV illness. He likely will need a nuclear study. In the meantime - continue home cardiac medications including ASA, Plavix, Atorvastatin, Lisinopril and Metoprolol. (4) Hypertension: Continue Lisinopril, Metoprolol but increase the latter to 50mg BID as many of his BP readings were high throughout the stay. (5) Type 2 diabetes mellitus with circulatory disorder: Uncontrolled due to IV steroids for above. Needed multiple adjustments to lantus-novolog. At discharge we advised increasing his novolin 70/30 to 60 units twice daily. HbA1c = 9% in January 2021. (6) Hypercholesteremia: Continue Atorvastatin (7) CAD (coronary artery disease): see above in "elevated troponin." Patient follows with Dr. Lora [facility] [place] [facility] - last seen 02/19/21. Continue ASA, Plavix, Atorvastatin, Lisinopril and Metoprolol. [facility] [place] [facility] [place] in consult this admission and advised outpatient stress test. (8) Depression: Continue celexa 40mg po daily + Doxepin 10mg po qHS (9) Seizure: Continue usual home meds. Total Time Total Time Spent Total Time Spent (In Minutes): 45 Discharge Plan Discharge Items Patient Disposition: Home - Self-Care Reason For Visit: RESPIRATORY DISTRESS Discharge Diagnosis: 1. Respiratory distress due to RSV bronchitis - distress resolved, bronchitis improving 2. Elevated troponin level - likely due to #1 Activity: As commented below Activity Comment: gradually increase your activities over the next 7-10 days Driving/Machine Use: Resume 1 day after discharge Non-emergency contact: Primary Care Provider and Ob Nurse Call non-emergency contact if: you have any medication questions, your symptoms worsen and you have a fever Follow-up/Referrals: [facility] [place] [facility] [place] Group] (please ask Dr Damian's office for a referral to pulmonary to test for COPD) Kye Damian III, MD [Primary Care Provider] - (See Dr Damian or one of his partners ideally early this week before . Please call the office early Wednesday morning to schedule your appointment.) Marbin Eller Jr, MD, FACC [Physician] - (see Dr Eller in 2-3 weeks to discuss nuclear stress test for your heart) Diet: Carb Consistent or DM2 and Heart Healthy Addtl Attending Provider Instructions: Mr Putnam, You were hospitalized for RSV bronchitis (RSV = respiratory syncitial virus). RSV is a common respiratory virus that affects people of all ages (see the handout I gave you). It causes wheezing/cough/shortness of breath. You have improved with steroids & nebulizer breathing treatments. We are concerned that perhaps your former smoking caused the development of COPD. You will need to have PFTs (pulmonary tests) to see if you have underlying COPD. In addition, your blood work for the heart was elevated. Cardiology saw you and felt the troponin test was high because of your illness. However, to be on the safe side, we are recommending a stress test in about a month to ensure your heart is healthy. Recommendations - 1. prednisone - start 04/19 and take for 7 days. This is for your bronchitis. Know that the prednisone will raise your blood sugars. 2. albuterol via spacer device - 2 puffs every 4 hours as needed for cough/wheezing/shortness of breath. 3. once you get your nebulizer machine you can use a neb treatment every 6 hours as needed for cough/wheezing/shortness of breath. If you use the neb machine at home do not use the hand-held albuterol at the same time. 4. INCREASE your metoprolol to 50mg twice daily per cardiology recommendations. 5. INCREASE your 70/30 insulin to -- * 60 units before breakfast * 60 units before your evening meal/dinner 6. May use [id number] mucinex up to 1200mg twice daily as desired for cough. Follow-up -- see separate section Return to [facility] if -- * you develop fevers over 100.4 degrees * you have recurrent, severe shortness of breath * you develop chest pains * your blood sugars are consistently greater than 300 despite your insulin * any other concerns Please continue to feel better and have a happy Thanksgiving! -Dr Cabello Pending Studies at Discharge: No Stand-Alone Forms: My [facility], Smoking Cessation Medications and DC Order Prescriptions: New ipratropium-albuterol 0.5 mg-3 mg(2.5 mg base)/3 mL Solution For Nebulization 3 ml NEB Q6H PRN (Reason: cough/wheeze/shortness of breath) Qty: 1 RF: 0 (DME) nebulizer and compressor Device See Rx Instructions .Route Qty: 1 RF: 0 prednisone 10 mg tablet 10 mg PO .daily as directed Qty: 16 RF: 0 (DME) Aerochamber Plus Flow-Vu Spacer See Rx Instructions .Route Qty: 1 RF: 0 Continued lisinopril 20 mg tablet 20 mg PO DAILY Qty: 90 RF: 3 citalopram 40 mg tablet 40 mg PO DAILY Qty: 90 RF: 3 doxepin 10 mg capsule 10 mg PO HS Qty: 90 RF: 1 clopidogrel [Plavix] 75 mg tablet 75 mg PO DAILY Qty: 90 RF: 3 atorvastatin 80 mg tablet 80 mg PO DAILY Qty: 90 RF: 3 (DME) OneTouch Verio test strips Strip See Rx Instructions .ROUTE .MEDSUPPLY Qty: 200 RF: 3 lamotrigine [Lamictal] 200 mg tablet 200 mg PO BID Qty: 180 RF: 3 nitroglycerin 0.4 mg tablet, sublingual 0.4 mg SL Q5M PRN (Reason: chest pain) Qty: 25 RF: 0 (DME) insulin syringe-needle U-100 [BD Insulin Syringe Ultra-Fine] 0.5 mL 30 gauge x 1/2" syringe See Rx Instructions .Route Qty: 200 RF: 3 aspirin 81 mg Tablet,Delayed Release (Dr/Ec) 81 mg PO DAILY RF: 0 albuterol sulfate 90 mcg/actuation HFA aerosol inhaler 2 puffs inhalation Q4H PRN (Reason: Shortness Of Breath/cough/wheeze) Qty: 8.5 RF: 0 Changed Novolin 70/30 U-100 Insulin 100 unit/mL (70-30) suspension See Rx Instructions .ROUTE .COMPLEX Qty: 10 RF: 0 metoprolol tartrate 25 mg tablet 50 mg PO BID Qty: 180 RF: 3 Discharge Orders: Discharge Order (Routine); Ordered 04/18/21 Ordered By: Glenn Cabello Admission Data Admit Date/Time: 04/15/21 23:22 Attending Provider: Glenn Cabello Admit Provider: Lian Patel Primary Care Provider: Kye Damian III Other Providers: Lian Patel ; Asaf Moreno Other Interventions: Discharge Summary Assessment (RN) Last Done: 04/18/21 18:06 Coding Level of Care Code D/C DAY MANAGEMENT >30 MINS Diagnoses Acute bronchitis due to respiratory syncytial virus (RSV) J20.5 Respiratory failure J96.00 Chronicity: acute Respiratory failure complication: unspecified whether with hypoxia or hypercapnia Elevated troponin R77.8 Hypertension I10 Type 2 diabetes mellitus with circulatory disorder E11.59 Hypercholesteremia E78.00 CAD (coronary artery disease) I25.10 Depression F32.9 Seizure R56.9
== END 2021-04-18 18:30 | disposition home or self-care (01) | DRG 189 ==
LOC: ED 21:03 → SUATTDRO 23:22 → 2N 23:22
DX: T38.0X5A Adverse effect of glucocorticoids and synthetic analogues, initial encounter; R56.9 Unspecified convulsions; Z79.02 Long term (current) use of antithrombotics/antiplatelets; I10 Essential (primary) hypertension; Z79.4 Long term (current) use of insulin; Z79.899 Other long term (current) drug therapy; J20.5 Acute bronchitis due to respiratory syncytial virus; Z20.822 Contact with and (suspected) exposure to COVID-19; E11.51 Type 2 diabetes mellitus with diabetic peripheral angiopathy without gangrene; E78.5 Hyperlipidemia, unspecified; Z88.0 Allergy status to penicillin; J44.1 Chronic obstructive pulmonary disease with (acute) exacerbation; Z95.5 Presence of coronary angioplasty implant and graft; J44.0 Chronic obstructive pulmonary disease with (acute) lower respiratory infection; F32.A Depression, unspecified; Z87.891 Personal history of nicotine dependence; J96.01 Acute respiratory failure with hypoxia; I24.8 Other forms of acute ischemic heart disease; E78.00 Pure hypercholesterolemia, unspecified; G47.33 Obstructive sleep apnea (adult) (pediatric); E11.65 Type 2 diabetes mellitus with hyperglycemia; I25.10 Atherosclerotic heart disease of native coronary artery without angina pectoris; I25.2 Old myocardial infarction; Z79.82 Long term (current) use of aspirin

== ENCOUNTER 2023-04-06 10:15 | Inpatient (IN) ==
[2023-04-06] MEDS ORDERED: HALOPERIDOL LACTATE 5 MG/ML 1 ML VIAL IM PRN (12:02)
[2023-04-06] MEDS ORDERED: LORazepam 2 MG/1 ML VIAL IM PRN (12:02)
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
[2023-04-06 13:14] LABS: Basophils # (auto) 0.12 K/uL (0.00-0.20); Basophils % (auto) 1.2 %; Eosinophils # (auto) 0.19 K/uL (0.00-0.50); Eosinophils % (auto) 1.9 %; Hematocrit (blood only) 47.9 % (42.0-52.0); Hemoglobin 16.4 g/dl (14.0-18.0); Immature Granulocytes # (auto) 0.04 K/uL (0.01-0.20); Immature Granulocytes % (auto) 0.4 %; Lymphocytes # (auto) 2.42 K/uL (1.20-3.40); Lymphocytes % (auto) 24.8 %; Mean Corpuscular Hemoglobin 31.7 pg (25.0-34.0); Mean Corpuscular Hgb Conc 34.2 g/dL (32.0-36.0); Mean Corpuscular Volume 92.5 fL (80.0-100.0); Mean Platelet Volume 11.6 fL (9.4-12.4); Monocytes # (auto) 0.77 K/uL (0.11-0.59); Monocytes % (auto) 7.9 %; Neutrophils # (auto) 6.23 K/uL (1.40-6.50); Neutrophils % (auto) 63.8 %; Platelet Count 289 K/uL (130-400); RDW Coefficient of Variation 13.2 % (11.5-14.5); RDW Standard Deviation 45.1 fL (36.4-46.3); Red Blood Count 5.18 M/uL (4.70-6.10); White Blood Count 9.77 K/ul (4.8-10.8)
--- NOTE | 2023-04-06 13:20 | CT Scan Report ---
CT head/brain wo con CLINICAL HISTORY: 67 years-old Male with Clearance. Acutely altered mental status TECHNIQUE: Multiple axial CT images of the head were obtained without contrast. A dose lowering tech nique was utilized adhering to the principles of ALARA. CT DOSE: 625.8 mGy.cm COMPARISON: 02/14/2007 FINDINGS: No acute intracranial hemorrhage, midline shift, intracranial mass, hydrocephalus, territorial ischem ia or abnormal extra-axial collection. Mild involutional changes with white matter hypodensities sugg estive of chronic microvascular ischemic disease. The calvarium is intact. Prior bilateral lens repair. The paranasal sinuses, mastoid air cells, and middle ear cavities are clear. IMPRESSION: No acute intracranial abnormality. ACT 112: Negative or not required by law. The above report was generated using voice recognition software. It may contain grammatical, syntax o r spelling errors. Electronically signed by: Roberto Lovelace M.D. 04/06/2023 1:17 PM
[2023-04-06 13:25] LABS: Acetaminophen < 3 ug/ml (10-30); Salicylate < 3.0 mg/dl (3.0-30)
[2023-04-06 13:36] LABS: Albumin Globulin Ratio 1.4 (0.9-2); Albumin Level 4.7 gm/dl (3.4-5.0); BUN Creatinine Ratio 13.4 (10-20); Bilirubin,Total 0.9 mg/dl (0.2-1.0); Calcium 10.2 mg/dl (8.6-10.3); Creatinine Clr Calc Pharmacy 58.3 ml/min; Est GFR (African American) 62.2 ml/min; Est GFR (Non-African American) 53.7 ml/min; Globulin 3.4 gm/dl (2.5-4.0); Potassium 4.3 mmol/L (3.5-5.1); Total Protein 8.1 gm/dl (6.0-8.3)
[2023-04-06 13:46] LABS: Thyroid Stimulating Hormone 2.317 uIu/ml (0.300-4.500)
--- NOTE | 2023-04-06 14:05 | XRay Report ---
XR chest 1V portable HISTORY: Altered mental status. COMPARISON: Chest 04/15/2021. FINDINGS: No pneumothorax. No pleural effusions. No focal lung consolidations to suggest a pneumonia. No evidence for pulmonary edema. The cardiac silhouette is top normal in size. There are calcificati ons within the aortic knob. No acute fractures identified. IMPRESSION: No acute process. ACT 112: Negative or not required by law. Electronically signed by: Sandip Carranza M.D. 04/06/2023 2:04 PM
[2023-04-06] MEDS ORDERED: HALOPERIDOL LACTATE 5 MG/ML 1 ML VIAL IM STA (15:04)
--- NOTE | 2023-04-06 15:17 | Electrocardiogram Report ---
Test Reason : Blood Pressure : / mmHG Vent. Rate : 070 BPM Atrial Rate : 070 BPM P-R Int : 200 ms QRS Dur : 086 ms QT Int : 404 ms P-R-T Axes : 041 003 021 degrees QTc Int : 436 ms Normal sinus rhythm Normal ECG When compared with ECG of 16-APR-2021 08:43, No significant change was found Confirmed by Piotr Laboy ([id number]) on 04/06/2023 3:17:21 PM Referred By: Confirmed By:Piotr Laboy
--- NOTE | 2023-04-06 15:23 | History & Physical Report ---
Date of Service April 06, 2023 Assessment & Plan (1) Acute delirium: (2) Hallucinations: Plan: This is a 67-year-old male with PMH of DM II, HTN, depression who presents from PCP's office with worsening hallucinations and agitation. Acute agitation and hallucinations starting this morning, remote h/o visual hallucinations last year and then auditory hallucinations over the past 6-8 weeks, per at bedside Became agitated and aggressive with staff in ED, requiring 5 mg Haldol IM x2 and 1 mg Ativan IM x1 and restraints, now resting comfortably in 4 point restraints Neuro and psych consulted, appreciate recs Zyprexa 2.5mg Q6H PRN for agitation (3) Accidental overdose: (4) Diabetes mellitus, type 2: Plan: Likely took a total of 10.5mg Trucility this morning - found 3 empty single use pens Per discussion with poison control, no concern for severe hypoglycemia. Routine BSG checks. Likely to have some GI upset with N/V/D, recommend symptomatic supportive care Current BSG 99, not reporting any N/V but has not yet eaten Glycemic consult placed BSG AC HS (5) Seizure: Plan: H/o seizure disorder, most recently last spring in setting of hypoglycemia. Continue lamictal (6) Hypertension: Plan: Chronic, stable. Continue lisinopril, lopressor (7) CAD (coronary artery disease): Plan: H/o stent. Stable. Continue aspirin, plavix, statin (8) PAD (peripheral artery disease): Plan: Continue aspirin, statin (9) Depression: Plan: Continue Celexa DVT Ppx: SQ lovenox Code status: FULL PCP: Rosey Dispo: Admit to PCU Patient seen in collaboration with Dr. Murillo. Please see addendum. History of Present Illness Chief Complaint: Hallucinations, agitation Primary Care Provider: Sheldon Currie MD This is a 67-year-old male with PMH of DM II, HTN, depression who presents from PCP's office with worsening hallucinations and agitation. Family was very concerned this morning and took him to see PCP for evaluation of acute confusion, hallucinations and delusions at home. Woke up today convinced that someone was trying to "blow up the neighborhood" and had his hide in the upstairs bathroom. She states this is a significant change from his mentation baseline. He did have some visual hallucinations last winter seeing children playing in the yard with balloons but nothing as violent or intrusive. Over the past 6-8 weeks she endorses he has been responding to voices that are not there but has not become agitated until today. Has not been sleeping well for the last 48 hours. His looked in the trash today and saw multiple empty single-dose Trulicity pens- two 3mg and one 4.5mg for a total of 10.5mg. Patient states he took them all but cannot answer why. Blood sugar was 130 in the office prior to arrival. Knows his name and location as being in the hospital but has no other recollection of preceding events today. Has history of depression on Celexa. Is on lamotrigine for seizure history most recently last spring in setting of hypoglycemia. No other known seizure events since then. Patient was reportedly agitated and impulsively running out of the room earlier while in the ED as well as becoming aggressive with nursing. Is relaxed and cooperative during time of interview after receiving 5 mg Haldol IM x2 and 1 mg Ativan IM x1. Patient denies being in pain but remainder of ROS unobtainable due to reduced consciousness. Allergies Allergy/AdvReac Type Severity Reaction Status Date / Time Penicillins Allergy Intermediate HIVES Verified 02/10/23 14:58 Home Medications Medication Instructions Recorded Confirmed Type nitroglycerin 0.4 mg sublingual 0.4 mg sublingual Q5M PRN chest 01/11/19 04/06/23 History tablet pain #25 tabs aspirin 81 mg tablet,delayed 81 mg PO DAILY 04/15/21 04/06/23 History release albuterol sulfate 90 mcg/actuation 2 puffs inhalation Q4H PRN 04/18/21 04/06/23 Rx aerosol inhaler Shortness Of Breath/cough/wheeze #8.5 grams inhalational spacing device #1 ea 04/18/21 04/06/23 Rx (Aerochamber Plus Flow-Vu) ipratropium 0.5 mg-albuterol 3 mg 3 ml NEB Q6H PRN 04/18/21 04/06/23 Rx (2.5 mg base)/3 mL nebulization cough/wheeze/shortness of breath soln #1 box nebulizer and compressor #1 ea 04/18/21 04/06/23 Rx blood-glucose meter (OneTouch #1 ea 06/30/21 04/06/23 Rx Verio Meter) ketoconazole 2 % topical cream 1 applic topical DAILY PRN facial 07/31/21 04/06/23 Rx lesions #15 grams fluticasone furoate 200 1 inh inhalation DAILY #90 ea 08/20/21 04/06/23 Rx mcg-vilanterol 25 mcg/dose inhalation powder (Breo Ellipta) dulaglutide 0.75 mg/0.5 mL See Rx Instructions subcut .COMPLEX 09/10/21 04/06/23 History subcutaneous pen injector ([facility]) insulin syringe-needle U-100 0.5 #200 ea 11/05/21 04/06/23 Rx mL 30 gauge x 1/2" (BD Insulin Syringe Ultra-Fine) metoprolol tartrate 25 mg tablet 50 mg (2 x 25 mg) PO BID #360 tabs 02/24/22 04/06/23 Rx blood sugar diagnostic (OneTouch #200 ea 04/21/22 04/06/23 Rx Verio test strips) lisinopril 40 mg tablet 40 mg PO DAILY #90 tabs 07/27/22 04/06/23 Rx citalopram 40 mg tablet 40 mg PO DAILY #90 tabs 08/24/22 04/06/23 Rx atorvastatin 80 mg tablet 80 mg PO DAILY #90 tabs 03/29/23 04/06/23 Rx clopidogrel 75 mg tablet (Plavix) 75 mg PO DAILY #90 tabs 03/29/23 04/06/23 Rx lamotrigine 200 mg tablet 200 mg PO BID #180 tabs 03/29/23 04/06/23 Rx (Lamictal) insulin glargine 100 unit/mL (3 30 unit subcut DAILY 04/06/23 04/06/23 History mL) subcutaneous pen (Lantus Solostar U-100 Insulin) Past Med/Surg History Medical History Seizure LAST SEIZURE 9 YEARS AGO; CONTROLLED ON LAMICTAL Acute bronchitis due to respiratory syncytial virus (RSV) Elevated troponin Respiratory failure Screening for malignant neoplasm of prostate Type 2 diabetes mellitus with circulatory disorder PAD (peripheral artery disease) Hypertension Hypercholesteremia CAD (coronary artery disease) History of myocardial infarction 2015 - NSTEMI; [facility] X 1 TO RCA Parkinsonism PER RECORDS CAD (coronary artery disease) Diabetes mellitus, type 2 NIDDM Cancer H/O SKIN CA - REMOVED Depression Sleep apnea NO CPAP - NON COMPLIANT Hyperlipidemia Unstable angina pectoris Lumbar spinal stenosis Former smoker Surgical History History of cataract surgery B/L eyes done Fall 2020 History of laminectomy L4-L5 LAMINECTOMY/DISCECTOMY= 04/30/16= GRADE 3 VIEW, MAC 3.0, ETT 8.0 AT [facility] H/O sinus surgery History of cardiac cath [facility] X 1 TO RCA (2014) Family History Father Coronary heart disease Dementia Depression Diabetes Myocardial infarction Mother Dementia Kidney disease Grandmother (Paternal) Diabetes Brother Diabetes Brain cancer Denies family history of Ovarian cancer Prostate cancer Breast cancer Colorectal cancer Social History Smoking Status: Never smoker Tobacco Type: Cigarettes and Smokeless Tobacco (Dip or Chew) Age Started Using Tobacco: 10; Age Quit Using Tobacco: 54; packs per day: 2; Cigarettes Per Day: 2; Second Hand Exposure: No; Do You Dip or Chew Tobacco: Yes; Hx Alcohol Use: No Hx Substance Use: No Preferred Language: Kyrgyz Communication Ability: Effective Visual Impairment: Limited Hearing Ability: Normal Subway Guard Required: No Beliefs That Will Affect Care: None marital status: Current Living Situation: Spouse current occupational status: retired 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 Feels Safe at Home: Yes Childhood Exposure to Second-Hand Smoke: Yes Diet: regular caffeine: Yes Dental Care, Regularly: No Physical Activity Frequency: Other Physical Activity Frequency Comment: seasonal, very active in summer time Seatbelt Use: always Sunscreen Use: No Gender Identity: Male Assistive Devices: Denture - Upper, Denture - Lower and Glasses Review of Systems Review of Systems: Unobtainable due to reduced consciousness Physical Exam Physical Exam: General Appearance: WD/WN, vitals as above, NAD, lying in bed, sedated but cooperative with simple questions Head: normocephalic, atraumatic Eyes: normal inspection, PERRL, conjunctivae normal, anicteric sclerae ENT: external ear and nose normal, oropharynx normal Neck: normal visual inspection, trachea midline, no thyromegaly Respiratory: normal respiratory effort, lungs clear to auscultation, no wheeze, rales, rhonchi. No accessory muscle use Cardiovascular: regular rate, rhythm, no murmur, normal peripheral pulses, no BLE edema. Vessels: no JVD Chest: normal inspection of chest Abdomen/GI: normal bowel sounds, soft, nontender, no hepatosplenomegaly Extremities/Musculoskeletal: + 4 point in restraints. No cyanosis or clubbing, extremities motor strength 5/5 Neurologic: PERRL, EOMI, accommodation nl, no face palsy, no dysarthria, CN's II-XI intact bilaterally and moves all extremities Psychiatric: A+Ox to person and place, not to situation Skin: no rashes, normal color, warm/dry Results & Data Results & Data Vital Signs (Past 12 Hours) Vital Signs Temp Pulse Pulse Resp BP BP Pulse Ox 04/06/23 14:21 70 17 167/84 H 97 04/06/23 11:25 36.5 C 71 16 146/79 H 97 O2 Del Method 04/06/23 14:21 Room Air 04/06/23 11:25 Room Air Laboratory Results Short CBC 04/06/23 Range/Units 12:25 WBC 9.77 (4.8-10.8) K/ul Hgb 16.4 (14.0-18.0) g/dl Hct 47.9 (42.0-52.0) % Plt Count 289 (130-400) K/uL BMP 04/06/23 12:25 Sodium 136 Potassium 4.3 Chloride 103 Carbon Dioxide 23 BUN 18 Creatinine 1.34 Glucose 99 Calcium 10.2 Liver Function 04/06/23 Range/Units 12:25 Total Bilirubin 0.9 (0.2-1.0) mg/dl AST 25 (13-39) U/L ALT 28 (7-52) U/L Alkaline Phosphatase 62 (34-104) U/L Albumin 4.7 (3.4-5.0) gm/dl Diagnostic Findings Head CT 04/06/23 12:30 CT head/brain wo con CLINICAL HISTORY: 67 years-old Male with Clearance. Acutely altered mental status TECHNIQUE: Multiple axial CT images of the head were obtained without contrast. A dose lowering technique was utilized adhering to the principles of ALARA. CT DOSE: 625.8 mGy.cm COMPARISON: 02/14/2007 FINDINGS: No acute intracranial hemorrhage, midline shift, intracranial mass, hydrocephalus, territorial ischemia or abnormal extra-axial collection. Mild involutional changes with white matter hypodensities suggestive of chronic microvascular ischemic disease. The calvarium is intact. Prior bilateral lens repair. The paranasal sinuses, mastoid air cells, and middle ear cavities are clear. IMPRESSION: No acute intracranial abnormality. ACT 112: Negative or not required by law. The above report was generated using voice recognition software. It may contain grammatical, syntax or spelling errors. Electronically signed by: Roberto Lovelace M.D. 04/06/2023 1:17 PM Chest X-Ray 04/06/23 13:10 XR chest 1V portable HISTORY: Altered mental status. COMPARISON: Chest 04/15/2021. FINDINGS: No pneumothorax. No pleural effusions. No focal lung consolidations to suggest a pneumonia. No evidence for pulmonary edema. The cardiac silhouette is top normal in size. There are calcifications within the aortic knob. No acute fractures identified. IMPRESSION: No acute process. ACT 112: Negative or not required by law. Electronically signed by: Sandip Carranza M.D. 04/06/2023 2:04 PM Supervising Physician Co-Signing Physician Notes 67-year-old male with PMH of T2DM, HTN, depression presented to the ED with worsening hallucination and agitation. Per patient's , he had benign hallucination last winter which resolved on its own. And then there was a normal period until 4 to 6 weeks ago when he again started to have hallucination where he would think that his has said things to him but it has not actually happened. Patient is aware of this happening. Today he woke up with agitation/severe hallucination and thought that the neighborhood is being "blown up " and asked her to stay upstairs and get in the bathtub. In the ED patient was agitated, tried to elope, pulled hair of the staff and hence was put on restraint. He received 10 Mg of haloperidol and 1 Mg Ativan. Acute psychosis: Zyprexa 2.5 mg IM every 6 hours as needed being the first choice, Ativan 0.5 Mg IV every 8 hours as needed being the last resort. Melatonin 6 mg at bedtime scheduled. Psychiatry consult. Restraint for now, re- eval frequently. Acute worsening of the mentation: Especially within the last year, neurology consult, CT head with no acute finding. Overdose on Trulicity: Took 3 doses of his Trulicity, each dose 3.5 mg. Poison control contacted--expect nausea, vomiting, diarrhea. Monitor and symptomatic management. Patient does not have any signs and symptoms of infection. Labs fairly WNL, toxicology screen negative. CXR with no acute finding. UA with no UTI. On examination oral mucosa looks dry, will use gentle IV fluids LR at 65 mL an hour. Per d/w pt's , doxepin has been stopped in november. On exam: GENERAL: Alert and oriented x3. NAD, on RA. On restraint, aware of the situation. HEENT: No pallor, no icterus. Pupils equal, round and reactive to light. Oral mucosa dry. NECK: No JVD, no neck masses. HEART: S1 and S2 heard. Regular rate and rhythm. No murmur, no gallop. RESPIRATORY SYSTEM: Normal AP diameter. No accessory muscle use. No wheezing, no crackles. ABDOMEN: Soft, bowel sounds present, nontender, no distention. CENTRAL NERVOUS SYSTEM: No facial droop. Speech is clear. Obeys simple commands. Moves extremities. EXTREMITIES: No edema, no erythema seen. I have seen and examined the patient and have discussed the case with the provider above. I agree with the assessment and plan as stated.
[2023-04-06] MEDS ORDERED: ALBUT/IPRATROP 3MG/0.5MG NEB 3 ML VIAL NEB PRN (15:44)
[2023-04-06] MEDS ORDERED: ETODOLAC 200 MG PO PRN (15:44)
[2023-04-06] MEDS ORDERED: ALBUTEROL HFA 8 GM INHALER INH PRN (15:44)
[2023-04-06] MEDS ORDERED: CARBOHYDRATES FOR HYPOGLYCEMIA PO PRN (16:16)
[2023-04-06] MEDS ORDERED: PHARMACY GLYCEMIC MGMT CONSULT PRN (16:16)
[2023-04-06] MEDS ORDERED: DEXTROSE 50% 50 ML SYRINGE IV PRN (16:16)
[2023-04-06] MEDS ORDERED: GLUCOSE 10 TAB/TUBE PO PRN (16:16)
[2023-04-06] MEDS ORDERED: GLUCAGON FOR INJ 1 MG VIAL SQ PRN (16:16)
[2023-04-06] MEDS ORDERED: GLUCOSE 40% GEL 15 GM TUBE PO PRN (16:16)
[2023-04-06] MEDS ORDERED: LORazepam 2 MG/1 ML VIAL IV PRN (17:00)
[2023-04-06] MEDS: LACTATED RINGER'S 1,000 ML IV SCH (19:25)
[2023-04-06] MEDS ORDERED: ONDANSETRON INJ 2 MG/ML 2 ML VIAL IV PRN (19:41)
[2023-04-06] MEDS ORDERED: ACETAMINOPHEN 325 MG TAB PO PRN (19:41)
[2023-04-06] MEDS ORDERED: OLANZapine 10 MG/2.1 ML SDV IM PRN (19:41)
[2023-04-06] MEDS: INSULIN ASPART PER UNIT CHARGE SC SCH (20:53)
[2023-04-06] MEDS: MELATONIN 3 MG TAB PO SCH (20:53)
[2023-04-06] MEDS: lamoTRIgine 100 MG TAB PO SCH (20:54)
[2023-04-06] MEDS ORDERED: DOXEPIN HCL 10 MG CAPSULE PO SCH (21:00)
[2023-04-06] MEDS: METOPROLOL TARTRATE 50 MG TAB PO SCH (22:53)
[2023-04-06] MEDS: ENOXAPARIN INJ 40 MG/0.4 ML SYR SQ SCH (23:24)
[2023-04-07 05:35] LABS: Calcium 9.2 mg/dl (8.6-10.3)
[2023-04-07 05:41] LABS: BUN Creatinine Ratio 12.7 (10-20); Creatinine Clr Calc Pharmacy 66.3 ml/min; Est GFR (African American) 72.5 ml/min; Est GFR (Non-African American) 62.6 ml/min
[2023-04-07] MEDS: LACTATED RINGER'S 1,000 ML IV SCH (06:16)
[2023-04-07 06:55] LABS: Hematocrit (blood only) 47.8 % (42.0-52.0); Hemoglobin 16.1 g/dl (14.0-18.0); Mean Corpuscular Hemoglobin 32.1 pg (25.0-34.0); Mean Corpuscular Hgb Conc 33.7 g/dL (32.0-36.0); Mean Corpuscular Volume 95.4 fL (80.0-100.0); Mean Platelet Volume 11.5 fL (9.4-12.4); Platelet Count 193 K/uL (130-400); RDW Coefficient of Variation 13.5 % (11.5-14.5); RDW Standard Deviation 47.8 fL (36.4-46.3); Red Blood Count 5.01 M/uL (4.70-6.10); White Blood Count 7.31 K/ul (4.8-10.8)
[2023-04-07 07:08] LABS: Estimated Average Glucose 126 mg/dl
[2023-04-07 08:21] LABS: Appearance Urine Clear (Clear); Bilirubin Urine Negative (Negative); Blood Urine Negative (Negative); Color Urine Dark Yellow; Glucose Urine UA Negative (Negative); Ketones Urine Trace (Negative); Leukocyte Esterase Urine Negative (Negative); Nitrite Urine Negative (Negative); Protein Urine Negative (Negative); Urobilinogen Urine Negative (Negative)
[2023-04-07] MEDS: INSULIN ASPART PER UNIT CHARGE SC SCH ×4 (08:41→21:00)
[2023-04-07 08:50] LABS: Amphetamines+Metham, Urine Neg (Neg); Barbiturates, Urine Neg (Neg); Benzodiazepine, Urine Neg (Neg); Cocaine, Urine Neg (Neg); MDMA (Ecstacy), Urine Neg (Neg); Methadone, Urine Neg (Neg); Opiate, Urine Neg (Neg); Phencyclidine, Urine Neg (Neg)
[2023-04-07] MEDS: METOPROLOL TARTRATE 50 MG TAB PO SCH ×2 (08:52→21:55)
[2023-04-07] MEDS: CITALOPRAM 40 MG TAB PO SCH (08:52)
[2023-04-07] MEDS: lisinopril 40 MG TAB PO SCH (08:52)
[2023-04-07] MEDS: lamoTRIgine 100 MG TAB PO SCH ×2 (08:52→21:40)
[2023-04-07] MEDS: ASPIRIN 81 MG ECTAB PO SCH (08:52)
[2023-04-07] MEDS: FLUTICASONE/VILANTEROL 200/25MCG 14 PUFFS/INHALER INH SCH (08:52)
[2023-04-07] MEDS: CLOPIDOGREL BISULFATE 75 MG TAB PO SCH (08:52)
[2023-04-07] MEDS: ATORVASTATIN 40 MG TAB PO SCH (08:52)
--- NOTE | 2023-04-07 10:59 | Pharmacy Report ---
Pharmacy Glycemic Short Note 2 - Date of Service April 07, 2023 - Glycemic Short BSG Results (Last 24 hours): 04/06/23 04/06/23 04/06/23 12:25 16:59 19:15 Glucose 99 POC Glucose 96 88 04/06/23 04/07/23 04/07/23 20:51 00:26 03:16 Glucose POC Glucose 84 77 79 04/07/23 04/07/23 04:47 07:37 Glucose 81 POC Glucose 88 OUTPATIENT ANTIDIABETIC REGIMEN: * Lantus 30 units SC daily * Trulicity 4.5 mg SC once weekly * HbA1c: 6.0% (04/07/23) ASSESSMENT: * 67 yo M admitted on 04/06/23 secondary to altered mental status/hallucinations. Pharmacy has been consulted to assist with inpatient glycemic management. Patient is a Type 2 diabetic as an outpatient. Please refer to outpatient regimen and most recent HbA1c above. * Patient self-reports taking 30 units of basal insulin yesterday morning prior to admission. cannot confirm this. reported that 3 empty single-use Trulicity pens were found in the trash yesterday: two 3 mg pens and one 4.5 mg pen. Therefore, it is assumed that patient took total of 10.5 mg of Trulicity yesterday. This is likely responsible for the patient's BSGs so far: 35-80-84-79-88 mg/dL. * Fasting BSG was 88 mg/dL this AM. Will hold off on basal insulin for now. Patient has a history of seizures related to hypoglycemia so want to avoid hypoglycemia at all costs. Should BSGs trend up this afternoon, may add a small basal dose for HS. * Continue with Novolog per weight/stress of 1-2 for now. PLAN FOR INPATIENT GLYCEMIC CONTROL: * Basal insulin * None * Bolus insulin * NovoLog per scale ACHS or Q6hrs while NPO * Goal Range: Low 110 mg/dL - High 140 mg/dL * Correction Factor: 30 mg/dL/unit * Nutritional / Prandial insulin per carb ratio of 1 unit per 10 grams CHO consumed
--- NOTE | 2023-04-07 14:03 | Neurology Consultation ---
Date of Consultation April 07, 2023 Assessment & Plan (1) Cognitive and behavioral changes: 67 y/o male with history of HTN, DM, CAD, PAD, and seizure that presented with agitation and delusions. Pt with a one year history of cognitive/memory decline and poor recall on examination. Suspect behavioral change in the setting of a cognitive disorder. No current indication of infection or significant metabolic derangement and examination without focal findings. Pt would likely benefit from formal neuropsychology testing as outpatient. Will attempt to obtain further history from family to confirm chronicity of changes. 1. TSH and B12 2. MRI brain if able to obtain 3. Psychiatry consultation 4. On lamictal 200 mg bid 5. Would consider no driving pending formal evaluation Telehealth Consultation Telehealth Information Telehealth Information: I performed this visit using a real-time telehealth connection between my location and the patients location ([facility]). After connecting through interactive tele-video, patient was identified by name and date of and/or wristband check.Patient (or authorized healthcare patient relations representative) was informed that this was a telemedicine visit and it was being conducted confidentially over secure lines. My office door was closed and no one else was present in the room with me.Patient (or authorized healthcare patient relations representative) provided consent to proceed with the visit, expressed an understanding of privacy and security of the telemedicine visit, and gave permission to have a hospital patient relations representative in the room in order to assist with the visit and to conduct portions of the visit, as needed. I informed the patient (or authorized healthcare patient relations representative) that I reviewed their record and presented the opportunity for them to ask any questions regarding the visit today. The patient agreed to participate. History of Present Illness Reason for Consultation: agitation and hallucinations Requesting Physician: Dipika Patel PA-C Attending Physician: Vivi Murillo MD History of Present Illness 67 y/o male that presented with agitation. At admission, his family reported that he had been experiencing worsening delusions over the last few weeks. He had reported to them concerns that someone was going to blow their house up. He also reportedly took used there trulicity pens. After arrival in the emergency department, he became agitated and was given ativan and haldol at that time. He states that he was brought to the hospital due to confusion. He states that this started about a year or two ago and he believes that it has worsened over time. He states that he can do most everything he used to be able to do, he just cannot do it as fast. He states that his handles the household finances and she has done so for a long time. They both cook and prepare meals. His usually does the grocery shopping. He will occasionally go to the grocery store alone but will occasionally forget items if he goes by himself. He states that he typically does not drive. He denies headache, recent illness, visual changes, weakness, numbness/tingling, change in speech, or dizziness. He also denies v isual or auditory hallucinations. Reportedly, his had concern for visual hallucinations one year ago and auditory hallucinations over the last six to eight weeks. Allergies Allergy/AdvReac Type Severity Reaction Status Date / Time Penicillins Allergy Intermediate HIVES Verified 02/10/23 14:58 Home Medications Medication Instructions Recorded Confirmed Type nitroglycerin 0.4 mg sublingual 0.4 mg sublingual Q5M PRN chest 01/11/19 04/06/23 History tablet pain #25 tabs aspirin 81 mg tablet,delayed 81 mg PO DAILY 04/15/21 04/06/23 History release albuterol sulfate 90 mcg/actuation 2 puffs inhalation Q4H PRN 04/18/21 04/06/23 Rx aerosol inhaler Shortness Of Breath/cough/wheeze #8.5 grams inhalational spacing device #1 ea 04/18/21 04/06/23 Rx (Aerochamber Plus Flow-Vu) ipratropium 0.5 mg-albuterol 3 mg 3 ml NEB Q6H PRN 04/18/21 04/06/23 Rx (2.5 mg base)/3 mL nebulization cough/wheeze/shortness of breath soln #1 box nebulizer and compressor #1 ea 04/18/21 04/06/23 Rx blood-glucose meter (OneTouch #1 ea 06/30/21 04/06/23 Rx Verio Meter) ketoconazole 2 % topical cream 1 applic topical DAILY PRN facial 07/31/21 04/06/23 Rx lesions #15 grams fluticasone furoate 200 1 inh inhalation DAILY #90 ea 08/20/21 04/06/23 Rx mcg-vilanterol 25 mcg/dose inhalation powder (Breo Ellipta) dulaglutide 0.75 mg/0.5 mL See Rx Instructions subcut .COMPLEX 09/10/21 04/06/23 History subcutaneous pen injector (Monique) insulin syringe-needle U-100 0.5 #200 ea 11/05/21 04/06/23 Rx mL 30 gauge x 1/2" (BD Insulin Syringe Ultra-Fine) metoprolol tartrate 25 mg tablet 50 mg (2 x 25 mg) PO BID #360 tabs 02/24/22 04/06/23 Rx blood sugar diagnostic (OneTouch #200 ea 04/21/22 04/06/23 Rx Verio test strips) lisinopril 40 mg tablet 40 mg PO DAILY #90 tabs 07/27/22 04/06/23 Rx citalopram 40 mg tablet 40 mg PO DAILY #90 tabs 08/24/22 04/06/23 Rx atorvastatin 80 mg tablet 80 mg PO DAILY #90 tabs 03/29/23 04/06/23 Rx clopidogrel 75 mg tablet (Plavix) 75 mg PO DAILY #90 tabs 03/29/23 04/06/23 Rx lamotrigine 200 mg tablet 200 mg PO BID #180 tabs 03/29/23 04/06/23 Rx (Lamictal) insulin glargine 100 unit/mL (3 30 unit subcut DAILY 04/06/23 04/06/23 History mL) subcutaneous pen (Lantus Solostar U-100 Insulin) Patient History Medical History Seizure LAST SEIZURE 9 YEARS AGO; CONTROLLED ON LAMICTAL Acute bronchitis due to respiratory syncytial virus (RSV) Elevated troponin Respiratory failure Screening for malignant neoplasm of prostate Type 2 diabetes mellitus with circulatory disorder PAD (peripheral artery disease) Hypertension Hypercholesteremia CAD (coronary artery disease) History of myocardial infarction 2015 - NSTEMI; [facility] X 1 TO RCA Parkinsonism PER RECORDS CAD (coronary artery disease) Diabetes mellitus, type 2 NIDDM Cancer H/O SKIN CA - REMOVED Depression Sleep apnea NO CPAP - NON COMPLIANT Hyperlipidemia Unstable angina pectoris Lumbar spinal stenosis Former smoker Surgical History History of cataract surgery B/L eyes done Fall 2020 History of laminectomy L4-L5 LAMINECTOMY/DISCECTOMY= 04/30/16= GRADE 3 VIEW, MAC 3.0, ETT 8.0 AT [facility] H/O sinus surgery History of cardiac cath [facility] X 1 TO RCA (2014) Family History Father Coronary heart disease Dementia Depression Diabetes Myocardial infarction Mother Dementia Kidney disease Grandmother (Paternal) Diabetes Brother Diabetes Brain cancer Denies family history of Ovarian cancer Prostate cancer Breast cancer Colorectal cancer Social History Smoking Status: Former smoker Tobacco Type: Cigarettes and Smokeless Tobacco (Dip or Chew) Age Started Using Tobacco: 10; Age Quit Using Tobacco: 54; packs per day: 2; Second Hand Exposure: No; Hx Alcohol Use: No Hx Substance Use: No Preferred Language: [place] Communication Ability: Effective Visual Impairment: Limited Hearing Ability: Normal Care Information Associate Required: No Beliefs That Will Affect Care: None marital status: Current Living Situation: Spouse current occupational status: retired 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 0/3 recall. VFF grossly intact EOMI, no nystagmus Facial sensations intact No facial asymmetry Tongue protrudes midline Motor: Moves all four extremities antigravity, no drift, no involuntary movements Sensation: Intact to light touch throughout Cerebellar: FTN intact Results & Data Vital Signs (Past 12 Hours) Vital Signs Pulse Resp BP Pulse Ox O2 Del Method O2 Flow Rate 04/07/23 07:00 62 17 124/54 L 99 Room Air 04/07/23 06:30 57 L 24 115/86 96 Room Air 04/07/23 06:11 52 L 17 95 Nasal Cannula 2 04/07/23 06:01 120/51 L 04/07/23 06:01 53 L 16 98 Nasal Cannula 2 04/07/23 06:00 61 17 100 Nasal Cannula 2 04/07/23 05:50 63 19 97 Nasal Cannula 2 04/07/23 05:40 62 16 98 Nasal Cannula 2 04/07/23 05:30 63 17 94 Nasal Cannula 2 04/07/23 05:30 138/70 04/07/23 05:20 63 13 94 Nasal Cannula 2 04/07/23 05:10 63 15 94 Nasal Cannula 2 04/07/23 05:01 64 14 96 Nasal Cannula 2 04/07/23 05:01 135/71 04/07/23 05:00 63 13 96 Nasal Cannula 2 04/07/23 04:50 63 17 99 Nasal Cannula 2 04/07/23 04:40 74 19 100 Nasal Cannula 2 04/07/23 04:31 146/86 H 04/07/23 04:31 60 17 99 Nasal Cannula 2 04/07/23 04:30 60 17 97 Nasal Cannula 2 04/07/23 04:20 71 21 93 Nasal Cannula 2 04/07/23 04:10 64 20 98 Nasal Cannula 2 04/07/23 04:01 68 14 98 Nasal Cannula 2 04/07/23 04:01 113/64 04/07/23 04:00 67 22 95 Nasal Cannula 2 04/07/23 03:50 67 19 98 Nasal Cannula 2 04/07/23 03:40 63 19 97 Nasal Cannula 2 04/07/23 03:32 65 16 98 Nasal Cannula 2 04/07/23 03:32 126/62 04/07/23 03:30 60 23 98 Nasal Cannula 2 04/07/23 03:20 66 15 97 Nasal Cannula 2 04/07/23 03:10 64 17 96 Nasal Cannula 2 04/07/23 03:00 62 19 96 Nasal Cannula 2 04/07/23 02:50 62 15 96 Nasal Cannula 04/07/23 02:40 61 16 96 Nasal Cannula 2 04/07/23 02:30 60 13 96 Nasal Cannula 2 04/07/23 02:20 60 17 98 Nasal Cannula 2 04/07/23 02:10 60 15 98 Nasal Cannula 2 Laboratory Results WBC 7.31, HGB 16.1, HCT 47.8, Plts 193, Na 136, Creatinine 1.18, Glucose 81, A1C 6.0, Urine nitrite negative, urine leukocyte esterase negative, UDS negative Diagnostic Findings EKG: Normal Sinus rhythym CTH:No acute intracranial abnormality.
[2023-04-07] MEDS ORDERED: LORazepam 0.5 MG in SYRINGE 0.25 ML IV PRN (14:28)
[2023-04-07] MEDS ORDERED: ALPRAZolam 0.5 MG TABLET PO PRN (16:18)
--- NOTE | 2023-04-07 16:52 | Psychiatric Consultation ---
Date of Consultation April 07, 2023 Impression / Recommendations Impression 67 yo male with progressive cognitive decline, recent onset of hallucinations and paranoia, acute agitation in the setting of suspected delirium around unintentional drug OD. (1) Cognitive and behavioral changes: (2) Accidental overdose: (3) Hallucinations: Plan dementia work up as per neurology, seizure seems unlikely need to confirm if could have taken additional/other meds incorrectly that could drive recent worsening of salazar, no acute evidence of serotonin syndrome (SSRI plus low dose doxepin) sometimes antidepressants and benzodiazepines can have disinhibiting effects as cognitive disorders progress. at least now I'd avoid the Xanax prn, particularly given age/fall risk and suspected superimposed delirium given length of salazar, may require standing agent to preven recurrent of behavioral disturbance and to ensure resolved. Given comorbidities, would likely prefer Seroquel over Zyprexa standing order, 12.5 mg hs and titrate timing of Seroquel trial would be deferred to hospitalist service given that MSE improved significantly from initial presentation and atypicals due carry risks for patient's condition CPT Code Overall, I spent a total of 58 minutes with this case, including review of chart, direct evaluation of the patient, coordination with nursing, and documentation. Psych History Identifying Data 67 yo male from [place], no known formal psychiatric history, presented to ED on 04/06 with hallucinations. Chief Complaint "not sure what you mean, yeah I've seen kids in the yard before." History of Present Illness Patient has been followed by outpatient [facility] for progressive cognitive decline (07/21 mini cog 4/5, 08/19 mini cog 2/5) with some concern for possible rx of Aricept. Patient first experienced visual salazar about 1 year ago but last 6-8 weeks has also been responding to some auditory stimuli and/or becoming more paranoid. On morning before came to ED was concerned that someone might blow up the house and encouraged his to hide. It was determined he took an OD of Trulicity due to confusion. He was referred from PCP office for assessment and after waiting in ED became increasingly agitated. He required 4 pt restraints, Haldol 5 mg IM X2 and Ativan IM. He was trying to elope and was aggressive toward staff pulling hair. Head CT was negative for acute disease, some chronic microvascular changes were noted. Patient apparently has a hx of unspecified depression and has been on Celexa 40 mg maintenance. His QTc was normal. Lamictal is for a hx of seizure due to hypoglycemia, not for mood stabilization. Past Psychiatric History Current Psychiatric Diagnosis: Depression History of Previous Suicide Attempt: No Allergies Allergy/AdvReac Type Severity Reaction Status Date / Time Penicillins Allergy Intermediate HIVES Verified 02/10/23 14:58 Home Medications Medication Instructions Recorded Confirmed Type nitroglycerin 0.4 mg sublingual 0.4 mg sublingual Q5M PRN chest 01/11/19 04/06/23 History tablet pain #25 tabs aspirin 81 mg tablet,delayed 81 mg PO DAILY 04/15/21 04/06/23 History release albuterol sulfate 90 mcg/actuation 2 puffs inhalation Q4H PRN 04/18/21 04/06/23 Rx aerosol inhaler Shortness Of Breath/cough/wheeze #8.5 grams inhalational spacing device #1 ea 04/18/21 04/06/23 Rx (Aerochamber Plus Flow-Vu) ipratropium 0.5 mg-albuterol 3 mg 3 ml NEB Q6H PRN 04/18/21 04/06/23 Rx (2.5 mg base)/3 mL nebulization cough/wheeze/shortness of breath soln #1 box nebulizer and compressor #1 ea 04/18/21 04/06/23 Rx blood-glucose meter (OneTouch #1 ea 06/30/21 04/06/23 Rx Verio Meter) ketoconazole 2 % topical cream 1 applic topical DAILY PRN facial 07/31/21 04/06/23 Rx lesions #15 grams fluticasone furoate 200 1 inh inhalation DAILY #90 ea 08/20/21 04/06/23 Rx mcg-vilanterol 25 mcg/dose inhalation powder (Breo Ellipta) dulaglutide 0.75 mg/0.5 mL See Rx Instructions subcut .COMPLEX 09/10/21 04/06/23 History subcutaneous pen injector (Trulicity) insulin syringe-needle U-100 0.5 #200 ea 11/05/21 04/06/23 Rx mL 30 gauge x 1/2" (BD Insulin Syringe Ultra-Fine) metoprolol tartrate 25 mg tablet 50 mg (2 x 25 mg) PO BID #360 tabs 02/24/22 04/06/23 Rx blood sugar diagnostic (OneTouch #200 ea 04/21/22 04/06/23 Rx Verio test strips) lisinopril 40 mg tablet 40 mg PO DAILY #90 tabs 07/27/22 04/06/23 Rx citalopram 40 mg tablet 40 mg PO DAILY #90 tabs 08/24/22 04/06/23 Rx atorvastatin 80 mg tablet 80 mg PO DAILY #90 tabs 03/29/23 04/06/23 Rx clopidogrel 75 mg tablet (Plavix) 75 mg PO DAILY #90 tabs 03/29/23 04/06/23 Rx lamotrigine 200 mg tablet 200 mg PO BID #180 tabs 03/29/23 04/06/23 Rx (Lamictal) insulin glargine 100 unit/mL (3 30 unit subcut DAILY 04/06/23 04/06/23 History mL) subcutaneous pen (Lantus Solostar U-100 Insulin) Patient History Medical History Seizure LAST SEIZURE 9 YEARS AGO; CONTROLLED ON LAMICTAL Acute bronchitis due to respiratory syncytial virus (RSV) Elevated troponin Respiratory failure Screening for malignant neoplasm of prostate Type 2 diabetes mellitus with circulatory disorder PAD (peripheral artery disease) Hypertension Hypercholesteremia CAD (coronary artery disease) History of myocardial infarction 2015 - NSTEMI; AUR[place]A X 1 TO RCA Parkinsonism PER RECORDS CAD (coronary artery disease) Diabetes mellitus, type 2 NIDDM Cancer H/O SKIN CA - REMOVED Depression Sleep apnea NO CPAP - NON COMPLIANT Hyperlipidemia Unstable angina pectoris Lumbar spinal stenosis Former smoker Surgical History History of cataract surgery B/L eyes done Fall 2020 History of laminectomy L4-L5 LAMINECTOMY/DISCECTOMY= 04/30/16= GRADE 3 VIEW, MAC 3.0, ETT 8.0 AT [facility] H/O sinus surgery History of cardiac cath AUR[place]A X 1 TO RCA (2014) Family History Father Coronary heart disease Dementia Depression Diabetes Myocardial infarction Mother Dementia Kidney disease Grandmother (Paternal) Diabetes Brother Diabetes Brain cancer Denies family history of Ovarian cancer Prostate cancer Breast cancer Colorectal cancer Social History Smoking Status: Former smoker Tobacco Type: Cigarettes and Smokeless Tobacco (Dip or Chew) Age Started Using Tobacco: 10; Age Quit Using Tobacco: 54; packs per day: 2; Second Hand Exposure: No; Hx Alcohol Use: No Hx Substance Use: No Preferred Language: [place] Communication Ability: Effective Visual Impairment: Limited Hearing Ability: Normal Appraiser Auditor Required: No Beliefs That Will Affect Care: None marital status: Current Living Situation: Spouse current occupational status: retired 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 Feels Safe at Home: Yes Childhood Exposure to Second-Hand Smoke: Yes Diet: regular caffeine: Yes Dental Care, Regularly: No Physical Activity Frequency: Other Physical Activity Frequency Comment: seasonal, very active in summer time Seatbelt Use: always Sunscreen Use: No Gender Identity: Male Assistive Devices: None Physical Exam Psychiatric: Orientation: alert, oriented to person and oriented to place Apperance: appropriately groomed Eye Contact: + fair eye contact Speech: normal rate/rhythm/volume of speech Affect: + constricted affect Mood: no anxious mood Thought Process: + concrete thought process Thought Content: + paranoid (minimal, unable to elaborate on delusions) Suicidal Thoughts: de nies suicidal thoughts Homicidal Thoughts: denies homicidal thoughts Hallucinations: no auditory hallucinations and no visual hallucinations Cognition: language grossly intact Estimated Intelligence: consistent with education level Insight: + limited insight Judgment: + limited judgement Vital Signs (Past 24 Hours): Last Vital Signs Temp 36.5 C 04/06/23 11:25 Pulse 62 04/07/23 07:00 Resp 17 04/07/23 07:00 BP 129/71 04/07/23 16:20 Pulse Ox 85 L 04/07/23 16:20 O2 Del Method Room Air 04/07/23 07:00 O2 Flow Rate 2 04/07/23 06:11 Review of Systems All systems reviewed & are unremarkable except as noted in HPI & below Results & Data (PSY) Laboratory Results Labs 04/06/23 04/06/23 04/06/23 12:25 16:59 19:15 WBC 9.77 RBC 5.18 Hgb 16.4 Hct 47.9 MCV 92.5 MCH 31.7 MCHC 34.2 RDW Std Deviation 45.1 RDW Coeff of Lucas 13.2 Plt Count 289 MPV 11.6 Immature Gran % (Auto) 0.4 Neut % (Auto) 63.8 Lymph % (Auto) 24.8 [place] % (Auto) 7.9 Eos % (Auto) 1.9 Baso % (Auto) 1.2 Neut # (Auto) 6.23 Lymph # (Auto) 2.42 [place] # (Auto) 0.77 H Eos # (Auto) 0.19 Baso # (Auto) 0.12 Immature Gran # (Auto) 0.04 Sodium 136 Potassium 4.3 Chloride 103 Carbon Dioxide 23 Anion Gap 10 BUN 18 Creatinine 1.34 Est Cr Clr Drug Dosing 58.3 Est GFR ( Amer) 62.2 Est GFR (Non-Af Amer) 53.7 BUN/Creatinine Ratio 13.4 Glucose 99 POC Glucose 96 88 Estimat Average Glucose Hemoglobin A1c Calcium 10.2 Total Bilirubin 0.9 AST 25 ALT 28 Alkaline Phosphatase 62 Total Protein 8.1 Albumin 4.7 Globulin 3.4 Albumin/Globulin Ratio 1.4 TSH 2.317 Urine Color Urine Appearance Urine pH Ur Specific [place] Urine Protein Urine Glucose (UA) Urine Ketones Urine Blood Urine Nitrite Urine Bilirubin Urine Urobilinogen Ur Leukocyte Esterase Salicylates < 3.0 L Urine Opiates Screen Ur Methadone, Qual Acetaminophen < 3 L Urine Barbiturates Ur Phencyclidine (PCP) U Amphetamin/Meth Scrn MDMA (Ecstasy) Screen U Benzodiazepines Scrn Ur Cocaine Metabolite U Marijuana (THC) Screen Ethyl Alcohol mg/dL < 10.0 SARS-CoV-2, RNA, NAAT NEGATIVE 04/06/23 04/07/23 04/07/23 20:51 00:26 03:16 WBC RBC Hgb Hct MCV MCH MCHC RDW Std Deviation RDW Coeff of Lucas Plt Count MPV Immature Gran % (Auto) Neut % (Auto) Lymph % (Auto) [place] % (Auto) Eos % (Auto) Baso % (Auto) Neut # (Auto) Lymph # (Auto) [place] # (Auto) Eos # (Auto) Baso # (Auto) Immature Gran # (Auto) Sodium Potassium Chloride Carbon Dioxide Anion Gap BUN Creatinine Est Cr Clr Drug Dosing Est GFR ( Amer) Est GFR (Non-Af Amer) BUN/Creatinine Ratio Glucose POC Glucose 84 77 79 Estimat Average Glucose Hemoglobin A1c Calcium Total Bilirubin AST ALT Alkaline Phosphatase Total Protein Albumin Globulin Albumin/Globulin Ratio TSH Urine Color Urine Appearance Urine pH Ur Specific [place] Urine Protein Urine Glucose (UA) Urine Ketones Urine Blood Urine Nitrite Urine Bilirubin Urine Urobilinogen Ur Leukocyte Esterase Salicylates Urine Opiates Screen Ur Methadone, Qual Acetaminophen Urine Barbiturates Ur Phencyclidine (PCP) U Amphetamin/Meth Scrn MDMA (Ecstasy) Screen U Benzodiazepines Scrn Ur Cocaine Metabolite U Marijuana (THC) Screen Ethyl Alcohol mg/dL SARS-CoV-2, RNA, NAAT 04/07/23 04/07/23 04/07/23 04:47 07:37 13:57 WBC 7.31 RBC 5.01 Hgb 16.1 Hct 47.8 MCV 95.4 MCH 32.1 MCHC 33.7 RDW Std Deviation 47.8 H RDW Coeff of Lucas 13.5 Plt Count 193 MPV 11.5 Immature Gran % (Auto) Neut % (Auto) Lymph % (Auto) [place] % (Auto) Eos % (Auto) Baso % (Auto) Neut # (Auto) Lymph # (Auto) [place] # (Auto) Eos # (Auto) Baso # (Auto) Immature Gran # (Auto) Sodium 136 Potassium 4.0 Chloride 105 Carbon Dioxide 24 Anion Gap 7 BUN 15 Creatinine 1.18 Est Cr Clr Drug Dosing 66.3 Est GFR ( Amer) 72.5 Est GFR (Non-Af Amer) 62.6 BUN/Creatinine Ratio 12.7 Glucose 81 POC Glucose 88 77 Estimat Average Glucose 126 Hemoglobin A1c 6.0 H Calcium 9.2 Total Bilirubin AST ALT Alkaline Phosphatase Total Protein Albumin Globulin Albumin/Globulin Ratio TSH Urine Color Urine Appearance Urine pH Ur Specific [place] Urine Protein Urine Glucose (UA) Urine Ketones Urine Blood Urine Nitrite Urine Bilirubin Urine Urobilinogen Ur Leukocyte Esterase Salicylates Urine Opiates Screen Ur Methadone, Qual Acetaminophen Urine Barbiturates Ur Phencyclidine (PCP) U Amphetamin/Meth Scrn MDMA (Ecstasy) Screen U Benzodiazepines Scrn Ur Cocaine Metabolite U Marijuana (THC) Screen Ethyl Alcohol mg/dL SARS-CoV-2, RNA, NAAT 04/07/23 04/07/23 16:35 Unknown WBC RBC Hgb Hct MCV MCH MCHC RDW Std Deviation RDW Coeff of Lucas Plt Count MPV Immature Gran % (Auto) Neut % (Auto) Lymph % (Auto) [place] % (Auto) Eos % (Auto) Baso % (Auto) Neut # (Auto) Lymph # (Auto) [place] # (Auto) Eos # (Auto) Baso # (Auto) Immature Gran # (Auto) Sodium Potassium Chloride Carbon Dioxide Anion Gap BUN Creatinine Est Cr Clr Drug Dosing Est GFR ( Amer) Est GFR (Non-Af Amer) BUN/Creatinine Ratio Glucose POC Glucose 94 Estimat Average Glucose Hemoglobin A1c Calcium Total Bilirubin AST ALT Alkaline Phosphatase Total Protein Albumin Globulin Albumin/Globulin Ratio TSH Urine Color Dark Yellow Urine Appearance Clear Urine pH 6.0 Ur Specific [place] 1.020 Urine Protein Negative Urine Glucose (UA) Negative Urine Ketones Trace H Urine Blood Negative Urine Nitrite Negative Urine Bilirubin Negative Urine Urobilinogen Negative Ur Leukocyte Esterase Negative Salicylates Urine Opiates Screen Neg Ur Methadone, Qual Neg Acetaminophen Urine Barbiturates Neg Ur Phencyclidine (PCP) Neg U Amphetamin/Meth Scrn Neg MDMA (Ecstasy) Screen Neg U Benzodiazepines Scrn Neg Ur Cocaine Metabolite Neg U Marijuana (THC) Screen Neg Ethyl Alcohol mg/dL SARS-CoV-2, RNA, NAAT Medications Administered Aspirin (Aspirin 81 Mg Ectab) 81 mg PO DAILY [facility] Stop: 05/07/23 08:59 Last Admin: 04/07/23 08:52 Dose: 81 mg Documented By: SARAH Atorvastatin Calcium (Atorvastatin 40 Mg Tab) 80 mg PO DAILY [facility] Stop: 05/07/23 08:59 Last Admin: 04/07/23 08:52 Dose: 80 mg Documented By: SARAH Citalopram Hydrobromide (Citalopram 40 Mg Tab) 40 mg PO DAILY [facility] Stop: 05/07/23 08:59 Last Admin: 04/07/23 08:52 Dose: 40 mg Documented By: SARAH Clopidogrel Bisulfate (Clopidogrel Bisulfate 75 Mg Tab) 75 mg PO DAILY [facility] Stop: 05/07/23 08:59 Last Admin: 04/07/23 08:52 Dose: 75 mg Documented By: SARAH Enoxaparin Sodium (Enoxaparin Inj 40 Mg/0.4 Ml Syr) 40 mg SQ Q24H [facility] Stop: 05/06/23 20:29 Last Admin: 04/06/23 23:24 Dose: 40 mg Documented By: JAZ Fluticasone/Vilanterol (Fluticasone/Vilanterol 200/25mcg 14 Puffs/Inhaler) 1 pu ffs INH DAILY [facility] Stop: 05/07/23 08:59 Last Admin: 04/07/23 08:52 Dose: 1 puffs Documented By: SARAH Insulin Aspart (Insulin Aspart Per Unit Charge) 0 units SC ACHS [facility]; Protocol Stop: 05/06/23 20:59 Last Admin: 04/07/23 14:02 Dose: Not Given Documented By: CARLIE Co-signed By: CECILIO Admin: 04/07/23 08:41 Dose: Not Given Documented By: Admin: 04/06/23 20:53 Dose: Not Given Documented By: ALEXANDER Co-signed By: ZARIA Lamotrigine (Lamotrigine 100 Mg Tab) 200 mg PO BID [facility] Stop: 05/06/23 20:59 Last Admin: 04/07/23 08:52 Dose: 200 mg Documented By: Admin: 04/06/23 20:54 Dose: 200 mg Documented By: ALEXANDER Lisinopril (Lisinopril 40 Mg Tab) 40 mg PO DAILY [facility] Stop: 05/07/23 08:59 Last Admin: 04/07/23 08:52 Dose: 40 mg Documented By: SARAH Melatonin (Melatonin 3 Mg Tab) 6 mg PO HS [facility] Stop: 05/06/23 20:59 Last Admin: 04/06/23 20:53 Dose: Not Given Documented By: ALEXANDER Metoprolol Tartrate (Metoprolol Tartrate 50 Mg Tab) 50 mg PO BID [facility] Stop: 05/06/23 20:59 Last Admin: 04/07/23 08:52 Dose: 50 mg Documented By: Admin: 04/06/23 22:53 Dose: Not Given Documented By: ALEXANDER Coding Level of Care Code 35088 U Intl Hosp Care Lvl 2 Diagnoses Cognitive and behavioral changes R41.89; R46.89 Accidental overdose T50.901A Hallucinations R44.3
--- NOTE | 2023-04-07 16:54 | Hospitalist Progress Note ---
Date of Service April 07, 2023 Assessment & Plan (1) Acute delirium: (2) Hallucinations: Plan: This is a 67-year-old male with PMH of DM II, HTN, depression who presents from PCP's office with worsening hallucinations and agitation. Acute agitation and hallucinations starting this morning, remote h/o visual hallucinations last year and then auditory hallucinations over the past 6-8 weeks, per at bedside Became agitated and aggressive with staff in ED, requiring 5 mg Haldol IM x2 and 1 mg Ativan IM x1 and restraints Patient mentation improved overnight Labs reviewed; no acute finding. U tox negative CT head without contrast- no acute finding Chest x-ray personally reviewed; no acute finding. EKG personally reviewed; no acute finding. MRI brain ordered, vitamin B12 level and TSH pending. Maintain delirium precautions. Psych consult pending (3) Accidental overdose: (4) Diabetes mellitus, type 2: Plan: Likely took a total of 10.5mg Trucility this morning - found 3 empty single use pens Per discussion with poison control, no concern for severe hypoglycemia. Routine BSG checks. Likely to have some GI upset with N/V/D, recommend symptomatic supportive care Current BSG 99, not reporting any N/V but has not yet eaten Glycemic consult placed A1c of 6.0% (5) Seizure: Plan: H/o seizure disorder, most recently last spring in setting of hypoglycemia. Continue lamictal (6) Hypertension: Plan: Chronic, stable. Continue lisinopril, lopressor (7) CAD (coronary artery disease): Plan: H/o stent. Stable. Continue aspirin, plavix, statin (8) PAD (peripheral artery disease): Plan: Continue aspirin, statin (9) Depression: Plan: Continue Celexa DVT Ppx: SQ lovenox Code status: FULL PCP: Rosey Dispo: Admit to PCU, psychiatry evaluation pending. Please note the above document was generated using voice recognition software. It may contain grammatical, syntax or spelling errors. Any formal questions or concerns about the content, text or information contained within the body of this dictation should be directly addressed to the provider for clarification Admission and Anticipated Discharge Date Admission Date: April 06, 2023 Subjective Patient seen and examined at bedside. He is calm and cooperative. is at bedside. He is alert oriented x3 Review of Systems Review of Systems: All systems reviewed & are unremarkable except as noted in Subjective Physical Exam Physical Exam: Constitutional: Alert orient x3; not in distress. Respiratory: normal respiratory effort, lungs clear to auscultation, no wheeze, rales, rhonchi. Normal insp/exp effort, no accessory muscle use Cardiovascular: RRR, no murmur, no edema Vessels: no JVD or carotid bruit Chest: normal inspection of chest Abdomen: normal bowel sounds, soft, nontender, no hepatosplenomegaly Musculoskeletal: no cyanosis or clubbing, extremities motor strength 5/5. tear in left arm. Skin: no rashes, warm and dry normal turgor Neurologic: PERRL, EOMI, accommodation nl, no face palsy, no dysarthria CN's II- XI intact bilaterally and moves all extremities Psychiatric: A+Ox3, euthymic affect Results & Data Results & Data Vital Signs (Past 12 Hours) Vital Signs Pulse Resp BP Pulse Ox O2 Del Method O2 Flow Rate 04/07/23 16:20 129/71 85 L 04/07/23 07:00 62 17 124/54 L 99 Room Air 04/07/23 06:30 57 L 24 115/86 96 Room Air 04/07/23 06:11 52 L 17 95 Nasal Cannula 2 04/07/23 06:01 120/51 L 04/07/23 06:01 53 L 16 98 Nasal Cannula 2 04/07/23 06:00 61 17 100 Nasal Cannula 2 04/07/23 05:50 63 19 97 Nasal Cannula 2 04/07/23 05:40 62 16 98 Nasal Cannula 2 04/07/23 05:30 63 17 94 Nasal Cannula 2 04/07/23 05:30 138/70 04/07/23 05:20 63 13 94 Nasal Cannula 2 04/07/23 05:10 63 15 94 Nasal Cannula 2 04/07/23 05:01 64 14 96 Nasal Cannula 2 04/07/23 05:01 135/71 04/07/23 05:00 63 13 96 Nasal Cannula 2 04/07/23 04:50 63 17 99 Nasal Cannula 2 Laboratory Results Laboratory Results WBC 7.31 K/ul (4.8-10.8) 04/07/23 04:47 RBC 5.01 M/uL (4.70-6.10) 04/07/23 04:47 Hgb 16.1 g/dl (14.0-18.0) 04/07/23 04:47 Hct 47.8 % (42.0-52.0) 04/07/23 04:47 MCV 95.4 fL (80.0-100.0) 04/07/23 04:47 MCH 32.1 pg (25.0-34.0) 04/07/23 04:47 MCHC 33.7 g/dL (32.0-36.0) 04/07/23 04:47 RDW Std Deviation 47.8 fL (36.4-46.3) H 04/07/23 04:47 RDW Coeff of Lucas 13.5 % (11.5-14.5) 04/07/23 04:47 Plt Count 193 K/uL (130-400) 04/07/23 04:47 MPV 11.5 fL (9.4-12.4) 04/07/23 04:47 Immature Gran % (Auto) 0.4 % 04/06/23 12:25 Neut % (Auto) 63.8 % 04/06/23 12:25 Lymph % (Auto) 24.8 % 04/06/23 12:25 [place] % (Auto) 7.9 % 04/06/23 12:25 Eos % (Auto) 1.9 % 04/06/23 12:25 Baso % (Auto) 1.2 % 04/06/23 12:25 Neut # (Auto) 6.23 K/uL (1.40-6.50) 04/06/23 12:25 Lymph # (Auto) 2.42 K/uL (1.20-3.40) 04/06/23 12:25 [place] # (Auto) 0.77 K/uL (0.11-0.59) H 04/06/23 12:25 Eos # (Auto) 0.19 K/uL (0.00-0.50) 04/06/23 12:25 Baso # (Auto) 0.12 K/uL (0.00-0.20) 04/06/23 12:25 Immature Gran # (Auto) 0.04 K/uL (0.01-0.20) 04/06/23 12:25 Sodium 136 mmol/L (136-145) 04/07/23 04:47 Potassium 4.0 mmol/L (3.5-5.1) 04/07/23 04:47 Chloride 105 mmol/L (98-107) 04/07/23 04:47 Carbon Dioxide 24 mmol/L (21-32) 04/07/23 04:47 Anion Gap 7 (3-11) 04/07/23 04:47 BUN 15 mg/dl (6-23) 04/07/23 04:47 Creatinine 1.18 mg/dl (0.6-1.4) 04/07/23 04:47 Est Cr Clr Drug Dosing 66.3 ml/min 04/07/23 04:47 Est GFR ( Amer) 72.5 ml/min 04/07/23 04:47 Est GFR (Non-Af Amer) 62.6 ml/min 04/07/23 04:47 BUN/Creatinine Ratio 12.7 (10-20) 04/07/23 04:47 Glucose 81 mg/dl (70-99(Fasting)) 04/07/23 04:47 POC Glucose 94 mg/dl (70-99) 04/07/23 16:35 Estimat Average Glucose 126 mg/dl 04/07/23 04:47 Hemoglobin A1c 6.0 % (4.5-5.6) H 04/07/23 04:47 Calcium 9.2 mg/dl (8.6-10.3) 04/07/23 04:47 Total Bilirubin 0.9 mg/dl (0.2-1.0) 04/06/23 12:25 AST 25 U/L (13-39) 04/06/23 12:25 ALT 28 U/L (7-52) 04/06/23 12:25 Alkaline Phosphatase 62 U/L (34-104) 04/06/23 12:25 Total Protein 8.1 gm/dl (6.0-8.3) 04/06/23 12:25 Albumin 4.7 gm/dl (3.4-5.0) 04/06/23 12:25 Globulin 3.4 gm/dl (2.5-4.0) 04/06/23 12:25 Albumin/Globulin Ratio 1.4 (0.9-2) 04/06/23 12:25 TSH 2.317 uIu/ml (0.300-4.500) 04/06/23 12:25 Urine Color Dark Yellow 04/07/23 Unknown Urine Appearance Clear (Clear) 04/07/23 Unknown Urine pH 6.0 (4.5-7.5) 04/07/23 Unknown Ur Specific [place] 1.020 (1.000-1.030) 04/07/23 Unknown Urine Protein Negative (Negative) 04/07/23 Unknown Urine Glucose (UA) Negative (Negative) 04/07/23 Unknown Urine Ketones Trace (Negative) H 04/07/23 Unknown Urine Blood Negative (Negative) 04/07/23 Unknown Urine Nitrite Negative (Negative) 04/07/23 Unknown Urine Bilirubin Negative (Negative) 04/07/23 Unknown Urine Urobilinogen Negative (Negative) 04/07/23 Unknown Ur Leukocyte Esterase Negative (Negative) 04/07/23 Unknown Salicylates < 3.0 mg/dl (3.0-30) L 04/06/23 12:25 Urine Opiates Screen Neg (Neg) 04/07/23 Unknown Ur Methadone, Qual Neg (Neg) 04/07/23 Unknown Acetaminophen < 3 ug/ml (10-30) L 04/06/23 12:25 Urine Barbiturates Neg (Neg) 04/07/23 Unknown Ur Phencyclidine (PCP) Neg (Neg) 04/07/23 Unknown U Amphetamin/Meth Scrn Neg (Neg) 04/07/23 Unknown MDMA (Ecstasy) Screen Neg (Neg) 04/07/23 Unknown U Benzodiazepines Scrn Neg (Neg) 04/07/23 Unknown Ur Cocaine Metabolite Neg (Neg) 04/07/23 Unknown U Marijuana (THC) Screen Neg (Neg) 04/07/23 Unknown Ethyl Alcohol mg/dL < 10.0 mg/dl (<10.0) 04/06/23 12:25 SARS-CoV-2, RNA, NAAT NEGATIVE (NEGATIVE) 04/06/23 12:[address] 04/06/23 12:30 CT head/brain wo con CLINICAL HISTORY: 67 years-old Male with Clearance. Acutely altered mental status TECHNIQUE: Multiple axial CT images of the head were obtained without contrast. A dose lowering technique was utilized adhering to the principles of ALARA. CT DOSE: 625.8 mGy.cm COMPARISON: 02/14/2007 FINDINGS: No acute intracranial hemorrhage, midline shift, intracranial mass, hydrocephalus, territorial ischemia or abnormal extra-axial collection. Mild involutional changes with white matter hypodensities suggestive of chronic microvascular ischemic disease. The calvarium is intact. Prior bilateral lens repair. The paranasal sinuses, mastoid air cells, and middle ear cavities are clear. IMPRESSION: No acute intracranial abnormality. ACT 112: Negative or not required by law. The above report was generated using voice recognition software. It may contain grammatical, syntax or spelling errors. Electronically signed by: Roberto Lovelace M.D. 04/06/2023 1:17 PM Chest X-Ray 04/06/23 13:10 XR chest 1V portable HISTORY: Altered mental status. COMPARISON: Chest 04/15/2021. FINDINGS: No pneumothorax. No pleural effusions. No focal lung consolidations to suggest a pneumonia. No evidence for pulmonary edema. The cardiac silhouette is top normal in size. There are calcifications within the aortic knob. No acute fractures identified. IMPRESSION: No acute process. ACT 112: Negative or not required by law. Electronically signed by: Sandip Carranza M.D. 04/06/2023 2:04 PM
[2023-04-07] MEDS: MELATONIN 3 MG TAB PO SCH (21:41)
[2023-04-07] MEDS: ENOXAPARIN INJ 40 MG/0.4 ML SYR SQ SCH (21:42)
[2023-04-07] MEDS ORDERED: SODIUM CHLORIDE 0.9% 500 ML IV SCH (22:30)
--- NOTE | 2023-04-08 03:11 | Magnetic Resonance Report ---
Exam(s): MRI HEAD Without Contrast EXAM: MR Head Without Intravenous Contrast CLINICAL HISTORY: Reason for exam: agitation with dementia. TECHNIQUE: Magnetic resonance images of the head/brain without intravenous contrast in multiple planes. COMPARISON: Comparison made to prior brain MRI from December 23, 2009. FINDINGS: Brain: Mild nonspecific white matter changes. The flow voids of the base of the brain are intact. No mass. No hemorrhage. No acute infarct. Ventricles: Unremarkable. No ventriculomegaly. Bones/joints: Unremarkable. Sinuses: Status post endoscopic sinus surgery. Chronic ethmoid sinusitis. No acute sinusitis. Mastoid air cells: Unremarkable as visualized. No mastoid effusion. Orbits: Bilateral lens replacements. IMPRESSION: No evidence of acute intracranial pathology. Mild nonspecific white matter changes. Electronically signed by: Nati Stallings MD 04/08/23 03:10 AM
[2023-04-08 06:07] LABS: Hematocrit (blood only) 39.9 % (42.0-52.0); Hemoglobin 13.3 g/dl (14.0-18.0); Mean Corpuscular Hemoglobin 31.7 pg (25.0-34.0); Mean Corpuscular Hgb Conc 33.3 g/dL (32.0-36.0); Mean Corpuscular Volume 95.2 fL (80.0-100.0); Mean Platelet Volume 11.4 fL (9.4-12.4); Platelet Count 187 K/uL (130-400); RDW Coefficient of Variation 13.2 % (11.5-14.5); RDW Standard Deviation 46.7 fL (36.4-46.3); Red Blood Count 4.19 M/uL (4.70-6.10); White Blood Count 6.08 K/ul (4.8-10.8)
[2023-04-08 06:14] LABS: BUN Creatinine Ratio 15.3 (10-20); Calcium 8.7 mg/dl (8.6-10.3); Creatinine Clr Calc Pharmacy 66.3 ml/min; Est GFR (African American) 72.5 ml/min; Est GFR (Non-African American) 62.6 ml/min; Potassium 3.7 mmol/L (3.5-5.1)
[2023-04-08 06:29] LABS: Thyroid Stimulating Hormone 1.61 uIu/ml (0.300-4.500)
[2023-04-08] MEDS: ASPIRIN 81 MG ECTAB PO SCH (08:47)
[2023-04-08] MEDS: INSULIN ASPART PER UNIT CHARGE SC SCH ×2 (08:47→11:56)
[2023-04-08] MEDS: CITALOPRAM 40 MG TAB PO SCH (08:48)
[2023-04-08] MEDS: ATORVASTATIN 40 MG TAB PO SCH (08:48)
[2023-04-08] MEDS: CLOPIDOGREL BISULFATE 75 MG TAB PO SCH (08:48)
[2023-04-08] MEDS: FLUTICASONE/VILANTEROL 200/25MCG 14 PUFFS/INHALER INH SCH (08:48)
[2023-04-08] MEDS: lisinopril 40 MG TAB PO SCH (08:49)
[2023-04-08] MEDS: METOPROLOL TARTRATE 50 MG TAB PO SCH (08:49)
[2023-04-08] MEDS: lamoTRIgine 100 MG TAB PO SCH (08:49)
[2023-04-08] MEDS ORDERED: CYANOCOBALAMIN (B-12) 500 MCG TABLET PO SCH (12:15)
--- NOTE | 2023-04-08 15:40 | Discharge Summary ---
Date of Service April 08, 2023 Admission HPI Per Admitting Provider This is a 67-year-old male with PMH of DM II, HTN, depression who presents from PCP's office with worsening hallucinations and agitation. Family was very concerned this morning and took him to see PCP for evaluation of acute confusion, hallucinations and delusions at home. Woke up today convinced that someone was trying to "blow up the neighborhood" and had his hide in the upstairs bathroom. She states this is a significant change from his mentation baseline. He did have some visual hallucinations last winter seeing children playing in the yard with balloons but nothing as violent or intrusive. Over the past 6-8 weeks she endorses he has been responding to voices that are not there but has not become agitated until today. Has not been sleeping well for the last 48 hours. His looked in the trash today and saw multiple empty single-dose Trulicity pens- two 3mg and one 4.5mg for a total of 10.5mg. Patient states he took them all but cannot answer why. Blood sugar was 130 in the office prior to arrival. Knows his name and location as being in the hospital but has no other recollection of preceding events today. Has history of depression on Celexa. Is on lamotrigine for seizure history most recently last spring in setting of hypoglycemia. No other known seizure events since then. Patient was reportedly agitated and impulsively running out of the room earlier while in the ED as well as becoming aggressive with nursing. Is relaxed and cooperative during time of interview after receiving 5 mg Haldol IM x2 and 1 mg Ativan IM x1. Patient denies being in pain but remainder of ROS unobtainable due to reduced consciousness. Admission Exam Per Admitting Provider General Appearance: WD/WN, vitals as above, NAD, lying in bed, sedated but cooperative with simple questions Head: normocephalic, atraumatic Eyes: normal inspection, PERRL, conjunctivae normal, anicteric sclerae ENT: external ear and nose normal, oropharynx normal Neck: normal visual inspection, trachea midline, no thyromegaly Respiratory: normal respiratory effort, lungs clear to auscultation, no wheeze, rales, rhonchi. No accessory muscle use Cardiovascular: regular rate, rhythm, no murmur, normal peripheral pulses, no BLE edema. Vessels: no JVD Chest: normal inspection of chest Abdomen/GI: normal bowel sounds, soft, nontender, no hepatosplenomegaly Extremities/Musculoskeletal: + 4 point in restraints. No cyanosis or clubbing, extremities motor strength 5/5 Neurologic: PERRL, EOMI, accommodation nl, no face palsy, no dysarthria, CN's II-XI intact bilaterally and moves all extremities Psychiatric: A+Ox to person and place, not to situation Skin: no rashes, normal color, warm/dry Principal Diagnosis Acute delirium Vitamin B12 deficiency Discharge Exam Constitutional: Alert orient x3; not in distress. Respiratory: normal respiratory effort, lungs clear to auscultation, no wheeze, rales, rhonchi. Normal insp/exp effort, no accessory muscle use Cardiovascular: RRR, no murmur, no edema Vessels: no JVD or carotid bruit Chest: normal inspection of chest Abdomen: normal bowel sounds, soft, nontender, no hepatosplenomegaly Musculoskeletal: no cyanosis or clubbing, extremities motor strength 5/5. tear in left arm. Skin: no rashes, warm and dry normal turgor Neurologic: PERRL, EOMI, accommodation nl, no face palsy, no dysarthria CN's II- XI intact bilaterally and moves all extremities Psychiatric: A+Ox3, euthymic affect Discharge Data Allergies Allergy/AdvReac Type Severity Reaction Status Date / Time Penicillins Allergy Intermediate HIVES Verified 02/10/23 14:58 Consultations 04/06/23 15:26 ED Decision to Admit Stat 04/06/23 15:33 Consult Neurology Routine Consult Psychiatry Routine Ordered Studies 04/06/23 12:30 CT head/brain wo con Stat 04/08/23 01:40 MR brain wo con Routine Hospital Course (1) Acute delirium: (2) Hallucinations: (3) Accidental overdose: (4) Diabetes mellitus, type 2: (5) Seizure: (6) Hypertension: (7) CAD (coronary artery disease): (8) PAD (peripheral artery disease): (9) Depression: Plan This is a 67-year-old male with PMH of DM II, HTN, depression who presents from PCP's office with worsening hallucinations and agitation. Patient woke up on the day of the admission convinced that somebody was trying to " blow up the neighborhood" Patient also was found to have multiple empty single dose Trulicity.; Patient had taken total of 10.5 mg of Trulicity. In the ED, patient was aggressive requiring IM Haldol and Ativan. Patient's mentation improved spontaneously overnight. Labs including CBC and CMP did not show significant finding which would explain the agitation. He was found to have borderline vitamin B12 deficiency for which she was started on supplementation. Neurology was consulted; recommend MRI brain. MRI brain did not show any acute findings. Psychiatry was also consulted; recommended to consider antipsychotic. Discussed with patient's regarding antipsychotics use; patient was at baseline mentation for last 48 hours during the hospitalization with no signs of hallucination. Antipsychotics were not restarted. Patient was asked to follow-up with primary care doctor; recommended to undergo formal neuro psychological testing as outpatient. Discussion was done with to not use Lantus till his fasting glucose is greater than 140. Also recommended to skip the dose of Trulicity for next week. Please note the above document was generated using voice recognition software. It may contain grammatical, syntax or spelling errors. Any formal questions or concerns about the content, text or information contained within the body of this dictation should be directly addressed to the provider for clarification Total Time Total Time Spent Total Time Spent (In Minutes): 45 Total Time Includes: Examination of the Patient, Discharge Planning, Medication Reconciliation, Communication With Other Providers and Other Discharge Plan Discharge Items Patient Disposition: Home - Self-Care Reason For Visit: AGITATED DELERIUM, ?DEMENTIA, TRULICITY OVERDOSE Discharge Diagnosis: Trulicity overdose Delirium Hypoglycemia Activity: Resume your previous activity Non-emergency contact: Primary Care Provider Call non-emergency contact if: you have any medication questions and your symptoms worsen Follow-up/Referrals: Sheldon Currie MD [Primary Care Provider] - (Date & Time 04/13/2023 1:40 PM Provider Sheldon Currie MD Department [facility] ) Diet: Regular Addtl Attending Provider Instructions: You were admitted to the hospital after an episode of delirium. You underwent multiple tests including MRI brain which did not show any acute finding. You were found to have low vitamin B12 level for which you are started on the supplement. Take 1000 mcg every day. An appointment is set up with your primary care doctor for sometime next week. Please obtain a referral for formal neuropsychological testing as outpatient. Blood glucose was found to be in the lower side during the hospitalization. Pl ease stop taking Lantus for now. Measure fasting blood glucose in the morning. If blood glucose level is greater than 140 in the morning; you can restart the Lantus. Please keep the dose of Trulicity for next week. Pending Studies at Discharge: No Stand-Alone Forms: My [facility] [employer] [facility], Smoking Cessation Medications and DC Order Prescriptions: New cyanocobalamin (vitamin B-12) 500 mcg Tablet 1,000 mcg PO QAM Qty: 60 0RF Continued (DME) blood-glucose meter [OneTouch Verio Meter] Misc See Rx Instructions .Route Qty: 1 0RF Rx Instructions: As directed Breo Ellipta 200-25 mcg/dose blister with device 1 inh inhalation DAILY Qty: 90 3RF Rx Instructions: RINSE MOUTH AFTER EACH USE Trulicity 0.75 mg/0.5 mL pen injector See Rx Instructions subcut .COMPLEX Rx Instructions: 4.5mg subcut once weekly; (DME) insulin syringe-needle U-100 [BD Insulin Syringe Ultra-Fine] 0.5 mL 30 gauge x 1/2" syringe See Rx Instructions .Route Qty: 200 3RF Rx Instructions: As directed to inject insulin twice daily metoprolol tartrate 25 mg tablet 50 mg PO BID Qty: 360 3RF (DME) OneTouch Verio test strips Strip See Rx Instructions .ROUTE .MEDSUPPLY Qty: 200 3RF Rx Instructions: Test twice daily lisinopril 40 mg tablet 40 mg PO DAILY Qty: 90 3RF citalopram 40 mg tablet 40 mg PO DAILY Qty: 90 3RF lamotrigine [Lamictal] 200 mg tablet 200 mg PO BID Qty: 180 0RF atorvastatin 80 mg tablet 80 mg PO DAILY Qty: 90 3RF clopidogrel [Plavix] 75 mg tablet 75 mg PO DAILY Qty: 90 3RF nitroglycerin 0.4 mg tablet, sublingual 0.4 mg SL Q5M PRN (Reason: chest pain) Qty: 25 ketoconazole 2 % cream 1 applic topical DAILY PRN (Reason: facial lesions) Qty: 15 1RF insulin glargine [Lantus Solostar U-100 Insulin] 100 unit/mL (3 mL) insulin pen 30 unit SUBCUT DAILY aspirin 81 mg Tablet,Delayed Release (Dr/Ec) 81 mg PO DAILY ipratropium-albuterol 0.5 mg-3 mg(2.5 mg base)/3 mL Solution For Nebulization 3 ml NEB Q6H PRN (Reason: cough/wheeze/shortness of breath) Qty: 1 0RF Rx Instructions: diagnosis - acute RSV bronchitis (DME) nebulizer and compressor Device See Rx Instructions .Route Qty: 1 0RF Rx Instructions: As directed (DME) Aerochamber Plus Flow-Vu Spacer See Rx Instructions .Route Qty: 1 0RF Rx Instructions: As directed with albuterol albuterol sulfate 90 mcg/actuation HFA aerosol inhaler 2 puffs inhalation Q4H PRN (Reason: Shortness Of Breath/cough/wheeze) Qty: 8.5 0RF Discharge Orders: Discharge Order (Routine); Ordered 04/08/23 Ordered By: Pipo Hernandez/Other Patient Handouts: Managing Type 2 Diabetes Admission Data Admit Date/Time: 04/06/23 15:30 Attending Provider: Pipo Fajardo Admit Provider: Vivi Murillo Primary Care Provider: Sheldon Currie Other Providers: Jorge Perkins; Sandra Olivier; Gabby Mullins; Wiliam Ramirez; Vivi Murillo Other Interventions: Discharge Summary Assessment (RN) Last Done: 04/08/23 13:51
--- NOTE | 2023-04-08 18:53 | Communication Note ---
Date of Service: April 08, 2023 Neurology update: 67 y/o male of HTN, DM, CAD, PAD, and seizure that presented with agitation and delusions in the setting of cognitive decline and medication overdose. MRI brain with no acute intracranial findings. B12 188 and pt to be started on replacement. TSH 1.610. No further delusions/hallucinations reported. Pt would likely benefit from neuropsychology testing and neurology follow-up after discharge.
== END 2023-04-08 21:39 | disposition home or self-care (01) | DRG 885 ==
LOC: ED 10:15 → SUATTDRO 15:30 → EDINP 15:30

== ENCOUNTER 2024-07-28 09:06 | Inpatient (IN) ==
--- NOTE | 2024-07-28 09:12 | Emergency Department Note ---
Impression & Plan Acute hypoxic respiratory failure, Right lower lobe pneumonia, Sepsis ED Provider Note NAME: FRIDA TINOCO AGE: 68 SEX: M : 1955 ARRIVES VIA: Ambulance INFORMANT: Patient, nursing report ED PROVIDER(S): Sheldon Su MD CHIEF COMPLAINT: Shortness of breath MEDICAL DECISION MAKING: Patient presents due to concern for shortness of breath with fever. No lung history. Sepsis protocol is initiated in light of the patient's recent fever as well as blood pressure being low 90s over 60s. Patient treated with Rocephin and azithromycin empirically due to concern for likely pulmonary etiology. IV fluids ordered. Patient was ordered total of 30 cc/kg bolus to comply with sepsis criteria. Patient did tolerate his treatments well was feeling improved. The patient's blood work showed a white count of 10 with a hemoglobin 12.6 with a normal platelet count. The patient's kidney function with a creatinine 1.61. Initial lactate of 2.6. Pro-Herve 1.48. BioFire negative. Chest x-ray does show concern for right lower lobe pneumonia. Given the after mentioned deeply the patient would benefit from inpatient treatment at this time. He did speak the on-call hospitalist service Sailaja Toribio PA-C with Dr. Sood. Patient was admitted to the medicine service. Also on reassessment the patient did have improvement of blood pressure and repeat lactate went to 1.6. Critical Care: I have personally spent 40 minutes of critical care time in direct management of this patient. This includes bedside care, interpretation of diagnostic studies, and testing, discussion with consultants, patient, and family members, and other require inpatient management activities. This 40 minutes is in excess of all separately billable procedures. Discussion w/ other healthcare providers: Sailaja Toribio PA-C and Dr. Sood inpatient medicine service Prior /Outside records reviewed: I reviewed part of a discharge summary from Dr. Fajardo from March 2023. History of type 2 diabetes hypertension presented with hallucinations and agitation. Patient reportedly had taken too much Trulicity during this admission. MRI brain negative. Differential diagnosis: Dehydration, UTI, pneumonia, metabolic derangment, electrolyte abnormalities, hypovolemia, anemia, cellulitis among others were considered. Diagnostics, as interpreted by me: ECG: Normal sinus rhythm, rate of 81, normal intervals, normal axis no obvious ST elevations. Cardiac monitoring: An order was placed for continuous cardiac monitoring. The monitor shows a rate of 82 with sinus rhythm. Patient was placed on pulse oximetry Medical decision rules: None Imaging studies: I informally interpreted the patient's chest x-ray does show right lower lobe pneumonia with formal report to follow. HPI: Patient presents due to concern for worsening shortness of breath. Reported fever 101.5 at home the patient had taken some Tylenol. Patient said fever the last 2 days. Reported cough that is nonproductive. Former smoker last moving 30 years ago. Patient has been using nebulizer/inhalers at home but only began using these as he began to feel short of breath. The patient states that his symptoms been ongoing the last several weeks and have gotten progressively worse. Patient denies any chest pains. No abdominal pain. The patient did receive a DuoNeb thereafter and route and states that this did improve his symptoms. Afebrile per nursing on arrival. Patient was noted to be 8089% on room air and was placed on 4 L supplemental nasal cannula and route. PAST MEDICAL HISTORY: See Below PAST SURGICAL HISTORY: See Below SOCIAL HISTORY: See Below HOME MEDICATIONS: See Below ALLERGIES: See Below VITALS: See Below PHYSICAL EXAMINATION: GENERAL: Fatigable, mildly ill in appearance but nontoxic. EYE EXAM: Normal conjunctiva. PERRL, no anisocoria and EOM's grossly intact w/o pain. OROPHARYNX: Dry mucus membranes, grossly normal dentition. NECK: Trachea midline, no stridor. Supple, no nuchal rigidity, no adenopathy, non-tender. No signs of meningismus. FROM of the neck with good chin to chest and neck extension. LUNGS: Diminished breath sounds throughout. Scant wheezes. Normal chest wall mechanics. HEART: NSR, no MRG. ABDOMEN: Abdomen soft, non-tender, no masses, no rebound or guarding. BACK: No CVA TTP. SKIN: No rashes and no bruising. UPPER EXTREMITIES: Upper extremities are grossly normal. LOWER EXTREMITIES: Grossly normal, no edema. NEURO EXAM: A&O x3, cranial nerves II-XII grossly intact, normal speech, moves all 4 extremities. Past Med/Surg History Problem List (Updated 07/29/24 @ 07:26 by Sheldon Su MD) Sepsis (Acute) Right lower lobe pneumonia (Acute) Lactic acid acidosis Hyponatremia RML pneumonia Acute hypoxic respiratory failure (Acute) Seizure LAST SEIZURE 9 YEARS AGO; CONTROLLED ON LAMICTAL Accidental overdose Hallucinations Acute delirium (Acute) Hypertension Normal left ventricular systolic function and wall motion Moderate asthma CAD (coronary artery disease) Former smoker History of myocardial infarction 2015 - NSTEMI; [facility] X 1 TO RCA PAD (peripheral artery disease) Bilateral carotid artery disease Antiplatelet or antithrombotic long-term use Diabetes mellitus, type 2 NIDDM Medical History Cognitive and behavioral changes Acute bronchitis due to respiratory syncytial virus (RSV) Elevated troponin Respiratory failure Screening for malignant neoplasm of prostate Type 2 diabetes mellitus with circulatory disorder Hypertension Hypercholesteremia CAD (coronary artery disease) Parkinsonism PER RECORDS Cancer H/O SKIN CA - REMOVED Depression Sleep apnea NO CPAP - NON COMPLIANT Hyperlipidemia Unstable angina pectoris Lumbar spinal stenosis Surgical History History of cataract surgery B/L eyes done Fall 2020 History of laminectomy L4-L5 LAMINECTOMY/DISCECTOMY= 04/30/16= GRADE 3 VIEW, MAC 3.0, ETT 8.0 AT [facility] H/O sinus surgery History of cardiac cath [facility] X 1 TO RCA (2014) Family History Father Coronary heart disease Dementia Depression Diabetes Myocardial infarction Mother Dementia Kidney disease Grandmother (Paternal) Diabetes Brother Diabetes Brain cancer Denies family history of Ovarian cancer Prostate cancer Breast cancer Colorectal cancer Social History Smoking Status: Former smoker Tobacco Type: Cigarettes Age Started Using Tobacco: 10; Age Quit Using Tobacco: 54; packs per day: 2; Second Hand Exposure: No; Do You Dip or Chew Tobacco: No; Tobacco Cessation Education Requested by Patient: No Hx Alcohol Use: Yes Hx Substance Use: No Preferred Language: Russian Communication Ability: Effective Visual Impairment: Limited Hearing Ability: Normal Mass Spectrometry Manager Required: No Beliefs That Will Affect Care: None marital status: Current Living Situation: Spouse current occupational status: retired 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 Other Information That Helps Us Care for You: No Feels Safe at Home: Yes Safety Concerns: Feels Safe At This Time Childhood Exposure to Second-Hand Smoke: Yes Diet: regular caffeine: Yes Dental Care, Regularly: No Physical Activity Frequency: Other Physical Activity Frequency Comment: seasonal, very active in summer time Seatbelt Use: always Sunscreen Use: No Gender Identity: Male Assistive Devices: None Allergies Allergies Allergy/AdvReac Type Severity Reaction Status Date / Time Penicillins Allergy Intermediate HIVES Verified 03/28/24 15:20 Home Meds Home Medications Medication Instructions Recorded Confirmed nitroglycerin 0.4 mg sublingual 0.4 mg sublingual Q5M PRN chest 01/11/19 07/28/24 tablet pain #25 tabs aspirin 81 mg tablet,delayed 81 mg PO DAILY 04/15/21 07/28/24 release dulaglutide 0.75 mg/0.5 mL 4.5 mg subcut WK 09/10/21 07/28/24 subcutaneous pen injector (Trulicity) atorvastatin 80 mg tablet 80 mg PO HS 07/28/24 07/28/24 lisinopril 40 mg tablet 20 mg PO DAILY 07/28/24 07/28/24 metoprolol tartrate 25 mg tablet 25 mg PO BID 07/28/24 07/28/24 olanzapine 2.5 mg tablet 2.5 mg PO HS 07/28/24 07/28/24 trazodone 100 mg tablet 100 mg PO HS 07/28/24 07/28/24 Previous Rx's Medication Instructions Recorded albuterol sulfate 90 mcg/actuation 2 puffs inhalation Q4H PRN 04/18/21 aerosol inhaler Shortness Of Breath/cough/wheeze #8.5 grams inhalational spacing device #1 ea 04/18/21 (Aerochamber Plus Flow-Vu) ipratropium 0.5 mg-albuterol 3 mg 3 ml NEB Q6H PRN 04/18/21 (2.5 mg base)/3 mL nebulization cough/wheeze/shortness of breath soln #1 box nebulizer and compressor #1 ea 04/18/21 blood-glucose meter (OneTouch #1 ea 06/30/21 Verio Meter) ketoconazole 2 % topical cream 1 applic topical DAILY PRN facial 07/31/21 lesions #15 grams fluticasone furoate 200 1 inh inhalation DAILY #90 ea 08/20/21 mcg-vilanterol 25 mcg/dose inhalation powder (Breo Ellipta) insulin syringe-needle U-100 0.5 #200 ea 11/05/21 mL 30 gauge x 1/2" (BD Insulin Syringe Ultra-Fine) blood sugar diagnostic (OneTouch #200 ea 04/21/22 Verio test strips) citalopram 40 mg tablet 40 mg PO DAILY #90 tabs 08/24/22 lamotrigine 200 mg tablet 200 mg PO BID #180 tabs 03/29/23 (Lamictal) cyanocobalamin (vitamin B-12) 500 1,000 mcg (2 x 500 mcg) PO QAM #60 04/08/23 mcg tablet tabs clopidogrel 75 mg tablet (Plavix) 75 mg PO DAILY #90 tabs 03/20/24 Results & Data (ED) Vital Signs Vital Signs - 24 hr 07/28/24 09:15 07/28/24 09:18 07/28/24 09:19 Temperature Temperature Source Pulse Rate 79 82 Pulse Rate from SpO2 Sensor 82 Respiratory Rate 28 H Respiratory Effort / Characteristics Respiratory Pattern Blood Pressure 99/53 L Blood Pressure Mean 56 Pulse Oximetry 90 Oxygen Delivery Method Nasal Cannula Oxygen Flow Rate 4 Sepsis Recent Fever Within 48 Hours Sepsis New/Unexplained Change in Mental Status Sepsis Action Taken by Nursing Fraction of Inspired Oxygen - Titration Pulse Oximetry Post Tiitration 07/28/24 09:25 07/28/24 09:25 07/28/24 09:27 Temperature 37.2 C Temperature Source Oral Pulse Rate 79 81 Pulse Rate from SpO2 Sensor 87 Respiratory Rate 30 H 21 Respiratory Effort / Characteristics Labored Labored Respiratory Pattern Tachypnea Tachypnea Blood Pressure 99/53 L Blood Pressure Mean 68 Pulse Oximetry 94 Oxygen Delivery Method Nasal Cannula Nasal Cannula Oxygen Flow Rate 4 4 Sepsis Recent Fever Within 48 Hours Yes Sepsis New/Unexplained Change in Mental Status No Sepsis Action Taken by Nursing Physician Notified Fraction of Inspired Oxygen - Titration Pulse Oximetry Post Tiitration 07/28/24 09:35 07/28/24 09:42 07/28/24 09:45 Temperature Temperature Source Pulse Rate Pulse Rate from SpO2 Sensor Respiratory Rate Respiratory Effort / Characteristics Respiratory Pattern Blood Pressure 91/45 L 92/45 L Blood Pressure Mean 76 52 Pulse Oximetry 88 L Oxygen Delivery Method Nasal Cannula Oxygen Flow Rate 0 Sepsis Recent Fever Within 48 Hours Sepsis New/Unexplained Change in Mental Status Sepsis Action Taken by Nursing Fraction of Inspired Oxygen - Titration 4 Pulse Oximetry Post Tiitration 94 07/28/24 09:45 07/28/24 09:48 07/28/24 10:00 Temperature Temperature Source Pulse Rate 76 75 Pulse Rate from SpO2 Sensor 76 75 Respiratory Rate 29 H 26 H Respiratory Effort / Characteristics Respiratory Pattern Blood Pressure 114/63 Blood Pressure Mean 92 Pulse Oximetry 94 91 Oxygen Delivery Method Nasal Cannula Nasal Cannula Oxygen Flow Rate 4 4 Sepsis Recent Fever Within 48 Hours Sepsis New/Unexplained Change in Mental Status Sepsis Action Taken by Nursing Fraction of Inspired Oxygen - Titration Pulse Oximetry Post Tiitration 07/28/24 10:03 07/28/24 10:30 07/28/24 10:33 Temperature Temperature Source Pulse Rate 76 75 Pulse Rate from SpO2 Sensor 74 75 Respiratory Rate 19 29 H Respiratory Effort / Characteristics Respiratory Pattern Blood Pressure 117/58 L Blood Pressure Mean 76 Pulse Oximetry 90 Oxygen Delivery Method Nasal Cannula Oxygen Flow Rate 5 Sepsis Recent Fever Within 48 Hours Sepsis New/Unexplained Change in Mental Status Sepsis Action Taken by Nursing Fraction of Inspired Oxygen - Titration Pulse Oximetry Post Tiitration 07/28/24 10:45 07/28/24 10:57 07/28/24 11:00 Temperature Temperature Source Pulse Rate 76 Pulse Rate from SpO2 Sensor 76 Respiratory Rate 24 Respiratory Effort / Characteristics Respiratory Pattern Blood Pressure 129/60 114/65 Blood Pressure Mean 89 85 Pulse Oximetry Oxygen Delivery Method Oxygen Flow Rate Sepsis Recent Fever Within 48 Hours Sepsis New/Unexplained Change in Mental Status Sepsis Action Taken by Nursing Fraction of Inspired Oxygen - Titration Pulse Oximetry Post Tiitration Home Medications Current Medication List: was personally reviewed by me Laboratory Data Attestation: I reviewed the patient's lab results. 07/29/24 05:52 07/29/24 05:52 Lab Results 07/28/24 07/28/24 07/28/24 Range/Units 09:28 09:36 09:40 WBC 10.35 (4.8-10.8) K/ul RBC 4.01 L (4.70-6.10) M/uL Hgb 12.6 L (14.0-18.0) g/dl Hct 37.2 L (42.0-52.0) % MCV 92.8 (80.0-100.0) fL MCH 31.4 (25.0-34.0) pg MCHC 33.9 (32.0-36.0) g/dL RDW Std Deviation 49.7 H (36.4-46.3) fL RDW Coeff of Lucas 14.6 H (11.5-14.5) % Plt Count 167 (130-400) K/uL MPV 11.7 (9.4-12.4) fL Immature Gran % (Auto) 0.5 % Neut % (Auto) 87.8 % Lymph % (Auto) 3.8 % [place] % (Auto) 7.6 % Eos % (Auto) 0.0 % Baso % (Auto) 0.3 % Neut # (Auto) 9.09 H (1.40-6.50) K/uL Lymph # (Auto) 0.39 L (1.20-3.40) K/uL Radford # (Auto) 0.79 H (0.11-0.59) K/uL Eos # (Auto) 0.00 (0.00-0.50) K/uL Baso # (Auto) 0.03 (0.00-0.20) K/uL Immature Gran # (Auto) 0.05 (0.01-0.20) K/uL Sodium 126 L (136-145) mmol/L Potassium 3.7 (3.5-5.1) mmol/L Chloride 93 L (98-107) mmol/L Carbon Dioxide 21 (21-32) mmol/L Anion Gap 12 H (3-11) BUN 24 H (6-23) mg/dl Creatinine 1.61 H (0.6-1.4) mg/dl Est Cr Clr Drug Dosing 48.2 ml/min eGFR 45.72 BUN/Creatinine Ratio 14.9 (10-20) Glucose 164 H (70-99(Fasting)) mg/dl Lactate 2.6 H* (0.4-2.0) mmol/L Calcium 8.7 (8.6-10.3) mg/dl Magnesium 1.7 (1.7-2.4) mg/dl Total Bilirubin 0.7 (0.2-1.0) mg/dl Direct Bilirubin 0.3 H (0-0.2) mg/dl AST 27 (13-39) U/L ALT 17 (7-52) U/L Alkaline Phosphatase 54 (34-104) U/L Troponin I High Sens 23.3 H (0-20) pg/ml Total Protein 7.1 (6.0-8.3) gm/dl Albumin 3.7 (3.4-5.0) gm/dl Procalcitonin 1.48 H (0-0.5) ng/ml Adenovirus (PCR) Not Detected (NotDetected) B. pertussis DNA (PCR) Not Detected (NotDetected) B.parapertussis DNA PCR Not Detected (NotDetected) C. pneumoniae DNA (PCR) Not Detected (NotDetected) Coronavirus OC43 (PCR) Not Detected (NotDetected) Coronavirus HKU1 (PCR) Not Detected (NotDetected) Coronavirus 229E (PCR) Not Detected (NotDetected) SARS-CoV-2 (PCR) Not Detected (NotDetected) Coronavirus NL63 (PCR) Not Detected (NotDetected) Human Metapneumovir PCR Not Detected (NotDetected) Influenza Type A (PCR) Not Detected (NotDetected) Influenza Type B (PCR) Not Detected (NotDetected) M. pneumoniae (PCR) Not Detected (NotDetected) Parainfluenza 1 (PCR) Not Detected (NotDetected) Parainfluenza 2 (PCR) Not Detected (NotDetected) Parainfluenza 3 (PCR) Not Detected (NotDetected) Parainfluenza 4 (PCR) Not Detected (NotDetected) RSV (PCR) Not Detected (NotDetected) Entero/Rhino (PCR) Not Detected (NotDetected) Administered Medications Albuterol (Albut/Ipratrop 3mg/0.5mg Neb 3 Ml Vial) 3 ml NEB Q6R CLAUDIA; Protocol Stop: 08/27/24 15:44 Last Admin: 07/29/24 00:40 Dose: 3 ml Documented By: Admin: 07/28/24 19:54 Dose: 3 ml Documented By: Admin: 07/28/24 16:55 Dose: Not Given Documented By: KLS Atorvastatin Calcium (Atorvastatin 40 Mg Tab) 80 mg PO HS CLAUDIA Stop: 08/27/24 20:59 Last Admin: 07/28/24 20:37 Dose: 80 mg Documented By: DM Heparin Sodium (Porcine) (Heparin Sod 5,000 Unit/0.5 Ml Vial) 5,000 units SQ Q8 [facility] Stop: 08/27/24 15:13 Last Admin: 07/29/24 05:03 Dose: 5,000 units Documented By: Admin: 07/28/24 21:17 Dose: 5,000 units Documented By: Admin: 07/28/24 17:29 Dose: 5,000 units Documented By: CARRI Sodium Chloride (Nss) 1,000 mls @ 60 mls/hr IV .[id number] [facility] Stop: 07/29/24 07:53 Last Admin: 07/28/24 15:45 Dose: 60 mls/hr Documented By: DIANA Insulin Aspart (Insulin Aspart Per Unit Charge) 0 units SC ACHS [facility] Stop: 08/27/24 16:29 Last Admin: 07/28/24 20:38 Dose: 4 units Documented By: CHAPARRO Co-signed By: ALFREDA Admin: 07/28/24 17:29 Dose: 5 units Documented By: CARRI Co-signed By: Lamotrigine (Lamotrigine 100 Mg Tab) 200 mg PO BID [facility]; Protocol Stop: 08/27/24 20:59 Last Admin: 07/28/24 20:38 Dose: 200 mg Documented By: CHAPARRO Melatonin (Melatonin 3 Mg Tab) 6 mg PO HS PRN PRN Reason: Sleep Stop: 08/27/24 20:59 Last Admin: 07/28/24 20:38 Dose: 6 mg Documented By: DM Metoprolol Tartrate (Metoprolol Tartrate 25 Mg Tab) 25 mg PO BID [facility] Stop: 08/27/24 20:59 Last Admin: 07/28/24 20:43 Dose: 25 mg Documented By: CHAPARRO Olanzapine (Olanzapine 2.5 Mg Tab) 2.5 mg PO HS [facility] Stop: 08/27/24 20:59 Last Admin: 07/28/24 20:43 Dose: 2.5 mg Documented By: CHAPARRO Thiamine HCl (Thiamine Hcl 100 Mg Tab) 100 mg PO QAM [facility] Stop: 08/27/24 15:13 Last Admin: 07/28/24 17:52 Dose: Not Given Documented By: CARRI Trazodone HCl (Trazodone Hcl 100 Mg Tab) 100 mg PO HS [facility] Stop: 08/27/24 20:59 Last Admin: 07/28/24 20:37 Dose: 100 mg Documented By: DM Discontinued Medications Albuterol (Albut/Ipratrop 3mg/0.5mg Neb 3 Ml Vial) 3 ml NEB NOW STA; Protocol Stop: 07/28/24 09:22 Last Admin: 07/28/24 09:44 Dose: 3 ml Documented By: CALE Azithromycin (Azithromycin 250 Mg Tab) 500 mg PO NOW ONE Stop: 07/28/24 09:22 Last Admin: 07/28/24 09:44 Dose: 500 mg Documented By: CALE Sodium Chloride (Nss) 1,000 mls @ 999 mls/hr IV .Q1H1M CLAUDIA Stop: 07/28/24 10:30 Last Infusion: 07/28/24 10:49 Dose: Infused Documented By: Admin: 07/28/24 09:44 Dose: 999 mls/hr Documented By: CALE Ceftriaxone Sodium (Rocephin) 2,000 mg in 50 mls @ 100 mls/hr IV NOW STA Stop: 07/28/24 09:50 Last Infusion: 07/28/24 10:27 Dose: Infused Documented By: Admin: 07/28/24 09:44 Dose: 100 mls/hr Documented By: CALE Sodium Chloride (Nss) 1,000 mls @ 999 mls/hr IV .Q1H1M ONE Stop: 07/28/24 11:45 Last Infusion: 07/28/24 12:25 Dose: Infused Documented By: Admin: 07/28/24 11:01 Dose: 999 mls/hr Documented By: CALE Sodium Chloride (Nss) 250 mls @ 999 mls/hr IV .Q16M ONE Stop: 07/28/24 11:00 Last Infusion: 07/28/24 12:25 Dose: Infused Documented By: Admin: 07/28/24 11:01 Dose: 999 mls/hr Documented By: CALE Methylprednisolone (Methylprednisolone 125 Mg/2 Ml Vial) 125 mg IV NOW STA Stop: 07/28/24 09:22 Last Admin: 07/28/24 09:44 Dose: 125 mg Documented By: CALE Imaging Data Radiologist's Impression: Chest X-Ray 07/28/24 09:21 XR chest 1V portable CLINICAL HISTORY: Sepsis COMPARISON STUDY: 04/06/2023 FINDINGS: Heart size and pulmonary vasculature are normal. There is interval reticular and patchy opacity at the right mid and lower lung. No pleural effusion or pneumothorax. IMPRESSION: Acute pneumonia on the right. Follow-up to resolution recommended. ACT 112: Negative or not required by law. Electronically signed by: Codey Paiz M.D. 07/28/2024 9:38 AM Discharge Plan Visit Data Chief Complaint: Shortness of Breath/Dyspnea ED Provider: Sheldon Su Discharge Problem: Acute hypoxic respiratory failure, Right lower lobe pneumonia, Sepsis Patient Disposition: Admitted As Inpatient Discharge Instructions Interventions: ED Discharge Assessment Last Done: 07/28/24 16:12 Discharge Problem: Right lower lobe pneumonia Qualifiers: Pneumonia type: due to unspecified organism Qualified Code(s): J18.9 - Pneumonia, unspecified organism Sepsis Qualifiers: Sepsis type: sepsis due to unspecified organism Sepsis acute organ dysfunction status: with acute organ dysfunction Severe sepsis acute organ dysfunction type: acute respiratory failure Acute respiratory failure type: with hypoxia Severe sepsis shock status: without septic shock Qualified Code(s): A41.9 - Sepsis, unspecified organism; R65.20 - Severe sepsis without septic shock; J96.01 - Acute respiratory failure with hypoxia
--- NOTE | 2024-07-28 09:39 | XRay Report ---
XR chest 1V portable CLINICAL HISTORY: Sepsis COMPARISON STUDY: 04/06/2023 FINDINGS: Heart size and pulmonary vasculature are normal. There is interval reticular and patchy opa city at the right mid and lower lung. No pleural effusion or pneumothorax. IMPRESSION: Acute pneumonia on the right. Follow-up to resolution recommended. ACT 112: Negative or not required by law. Electronically signed by: Codey Paiz M.D. 07/28/2024 9:38 AM
[2024-07-28] MEDS: AZITHROMYCIN 250 MG TAB PO ONE (09:44)
[2024-07-28] MEDS: ALBUT/IPRATROP 3MG/0.5MG NEB 3 ML VIAL NEB STA (09:44)
[2024-07-28] MEDS: cefTRIAXone SODIUM 2,000 MG/50 ML BAG IV STA (09:44)
[2024-07-28] MEDS: SODIUM CHLORIDE 0.9% 1,000 ML IV SCH ×2 (09:44→15:45)
[2024-07-28] MEDS: methylPREDNISolone 125 MG/2 ML VIAL IV STA (09:44)
[2024-07-28 10:11] LABS: Basophils # (auto) 0.03 K/uL (0.00-0.20); Basophils % (auto) 0.3 %; Hematocrit (blood only) 37.2 % (42.0-52.0); Hemoglobin 12.6 g/dl (14.0-18.0); Immature Granulocytes # (auto) 0.05 K/uL (0.01-0.20); Immature Granulocytes % (auto) 0.5 %; Lymphocytes # (auto) 0.39 K/uL (1.20-3.40); Lymphocytes % (auto) 3.8 %; Mean Corpuscular Hemoglobin 31.4 pg (25.0-34.0); Mean Corpuscular Hgb Conc 33.9 g/dL (32.0-36.0); Mean Corpuscular Volume 92.8 fL (80.0-100.0); Mean Platelet Volume 11.7 fL (9.4-12.4); Monocytes # (auto) 0.79 K/uL (0.11-0.59); Monocytes % (auto) 7.6 %; Neutrophils # (auto) 9.09 K/uL (1.40-6.50); Neutrophils % (auto) 87.8 %; Platelet Count 167 K/uL (130-400); RDW Coefficient of Variation 14.6 % (11.5-14.5); RDW Standard Deviation 49.7 fL (36.4-46.3); Red Blood Count 4.01 M/uL (4.70-6.10); White Blood Count 10.35 K/ul (4.8-10.8)
[2024-07-28 10:27] LABS: Albumin Level 3.7 gm/dl (3.4-5.0); BUN Creatinine Ratio 14.9 (10-20); Bilirubin Direct 0.3 mg/dl (0-0.2); Bilirubin,Total 0.7 mg/dl (0.2-1.0); Calcium 8.7 mg/dl (8.6-10.3); Creatinine Clr Calc Pharmacy 48.2 ml/min; Magnesium 1.7 mg/dl (1.7-2.4); Potassium 3.7 mmol/L (3.5-5.1); Total Protein 7.1 gm/dl (6.0-8.3)
[2024-07-28 10:34] LABS: Troponin I High Sensitivity 23.3 pg/ml (0-20)
[2024-07-28 10:38] LABS: Adenovirus PCR Not Detected (NotDetected); Coronavirus 229E PCR Not Detected (NotDetected); Coronavirus CoV-2 (COVID19)PCR Not Detected (NotDetected); Coronavirus HKU1 PCR Not Detected (NotDetected); Coronavirus NL63 PCR Not Detected (NotDetected); Coronavirus OC43PCR Not Detected (NotDetected); Human Metapneumovirus PCR Not Detected (NotDetected); Influenza A PCR Not Detected (NotDetected); Rhinovirus/Enterovirus PCR Not Detected (NotDetected)
[2024-07-28 10:39] LABS: Bordetella parapertussis PCR Not Detected (NotDetected); Bordetella pertussis PCR Not Detected (NotDetected); Chlamydia pneumoniae PCR Not Detected (NotDetected); Influenza B PCR Not Detected (NotDetected); Mycoplasma pneumoniae PCR Not Detected (NotDetected); Parainfluenza Virus 1 PCR Not Detected (NotDetected); Parainfluenza Virus 2 PCR Not Detected (NotDetected); Parainfluenza Virus 3 PCR Not Detected (NotDetected); Parainfluenza Virus 4 PCR Not Detected (NotDetected); Respiratory Syncytial VirusPCR Not Detected (NotDetected)
[2024-07-28] MEDS: SODIUM CHLORIDE 0.9% 1,000 ML IV ONE (11:01)
[2024-07-28] MEDS: SODIUM CHLORIDE 0.9% 250 ML IV ONE (11:01)
--- NOTE | 2024-07-28 11:06 | History & Physical Report ---
Date of Service July 28, 2024 Assessment & Plan (1) Acute hypoxic respiratory failure: (2) RML pneumonia: (3) Hyponatremia: (4) Lactic acid acidosis: (5) CAD (coronary artery disease): (6) Diabetes mellitus, type 2: Plan This is a 68-year-old male with history of T2DM, Diabetic peripheral angiopathy, HTN, HLD, CAD, Epilepsy, Major neurocognitive disorder, Depression, Personality disorder who presents to ED 2/2 generalized weakness and SOB x 2 days. #Acute hypoxic respiratory Failure #RML and RLL Pneumonia #COPD - not in acute exacerbation admit to PCU IV rocephin, azithromycin and probiotic continue inhalers, scheduled nebs, ISP, flutter valve sputum culture pt does not meet SIRS/Sepsis criteria but did receive appropriate fluids of 30ml/kg #Lactic acidosis suspected in setting of hypotension resolved after fluid administration #Hyponatremia suspect in setting of poor intake obtain urine osm, na and serum osm repeat BMP @ 1500 #PASCUAL: suspect in setting of poor intake, received 2.25L in ED, continue with 60ml/hr x 1L, repeat BMP at 1500 and in a.m., hold lisinopril #Elevated trop: suspect in setting of demand ischemia due to hypotension/infection, 2hrtrop already down trended to normal, #CAD with hx of AURORA #HTN #HLD continue asa, statin, plavix hold lisinopril due to hypotension, but continue metoprolol #T2DM: hold trulicty, ISS per protocol, last a1c 6.6 in january, will repeat a1c in a.m. #Seizure disorder: last was 2 years ago 2/2 hypoglycemia, continue lamictal #Depression/Personality Disorder - continue zyprexa, trazodone #DVT ppx: SQ Heparin, monitor for blood in sputum FULL CODE PCP: fab Currie MD Dispo: admit Pt was seen and examined in collaboration with Dr. Sood, please see addendum I spent a total of 62 minutes coordinating, documenting and providing care for this patient excluding time spent in the performance of separately billed services or time spent by another provider/QHP. History of Present Illness Chief Complaint: Generalized weakness and sob x 2 days. Primary Care Provider: Fab Currie MD This is a 68-year-old male with history of T2DM, Diabetic peripheral angiopathy, HTN, HLD, CAD, Epilepsy, Major neurocognitive disorder, Depression, Personality disorder who presents to ED 2/2 generalized weakness and SOB x 2 days. is at bedside who helps elicit hx. He has fallen 4 x in the last 2 days. His last fall was today. He denies syncope. He did hit his head once, but otherwise denies trauma. Wednesday he had a fever of 101. He reports coughing over the last 2 days. He did have mild hemoptysis. He was SOB today. He does not use oxygen at home. He has a prior hx of smoking. He has no known sick contacts. He generally feels weak and no appetite. He denies FIELD, chest pain, dizziness, n/v/d, abd pain, change in bowel or urinary habits. He didn't sleep at all last night. He was up all night. He went into the bathroom. feels he is more confused. He has hx of seizure disorder. His last seizure was 2 years ago and was related to low blood sugar. Prior to that it was in the early . ED patient was hypotensive on arrival. He was ordered 2250 mL of IVF. Lab work notable for sodium 126, chloride 93, BUN 24, creatinine 1.61, lactic acid 2.6, procalcitonin 1.48, trop 23. CXR concerning for R sided PNA. Resp biofire negative. He is requiring 4L of o2 to maintain saturation. He was started on Azithromycin and IV rocephin along with nebulizer and steroids. Allergies Allergy/AdvReac Type Severity Reaction Status Date / Time Penicillins Allergy Intermediate HIVES Verified 03/28/24 15:20 Home Medications Medication Instructions Recorded Confirmed Type nitroglycerin 0.4 mg sublingual 0.4 mg sublingual Q5M PRN chest 01/11/19 07/28/24 History tablet pain #25 tabs aspirin 81 mg tablet,delayed 81 mg PO DAILY 04/15/21 07/28/24 History release albuterol sulfate 90 mcg/actuation 2 puffs inhalation Q4H PRN 04/18/21 07/28/24 Rx aerosol inhaler Shortness Of Breath/cough/wheeze #8.5 grams inhalational spacing device #1 ea 04/18/21 07/28/24 Rx (Aerochamber Plus Flow-Vu) ipratropium 0.5 mg-albuterol 3 mg 3 ml NEB Q6H PRN 04/18/21 07/28/24 Rx (2.5 mg base)/3 mL nebulization cough/wheeze/shortness of breath soln #1 box nebulizer and compressor #1 ea 04/18/21 07/28/24 Rx blood-glucose meter (OneTouch #1 ea 06/30/21 07/28/24 Rx Verio Meter) ketoconazole 2 % topical cream 1 applic topical DAILY PRN facial 07/31/21 07/28/24 Rx lesions #15 grams fluticasone furoate 200 1 inh inhalation DAILY #90 ea 08/20/21 07/28/24 Rx mcg-vilanterol 25 mcg/dose inhalation powder (Breo Ellipta) dulaglutide 0.75 mg/0.5 mL 4.5 mg subcut WK 09/10/21 07/28/24 History subcutaneous pen injector ([facility]) insulin syringe-needle U-100 0.5 #200 ea 11/05/21 07/28/24 Rx mL 30 gauge x 1/2" (BD Insulin Syringe Ultra-Fine) blood sugar diagnostic (OneTouch #200 ea 04/21/22 07/28/24 Rx Verio test strips) citalopram 40 mg tablet 40 mg PO DAILY #90 tabs 08/24/22 07/28/24 Rx lamotrigine 200 mg tablet 200 mg PO BID #180 tabs 03/29/23 07/28/24 Rx (Lamictal) cyanocobalamin (vitamin B-12) 500 1,000 mcg (2 x 500 mcg) PO QAM #60 04/08/23 07/28/24 Rx mcg tablet tabs clopidogrel 75 mg tablet (Plavix) 75 mg PO DAILY #90 tabs 03/20/24 07/28/24 Rx atorvastatin 80 mg tablet 80 mg PO HS 07/28/24 07/28/24 History lisinopril 40 mg tablet 20 mg PO DAILY 07/28/24 07/28/24 History metoprolol tartrate 25 mg tablet 25 mg PO BID 07/28/24 07/28/24 History olanzapine 2.5 mg tablet 2.5 mg PO HS 07/28/24 07/28/24 History trazodone 100 mg tablet 100 mg PO HS 07/28/24 07/28/24 History Past Med/Surg History Problem List Lactic acid acidosis Hyponatremia RML pneumonia Acute hypoxic respiratory failure Seizure LAST SEIZURE 9 YEARS AGO; CONTROLLED ON LAMICTAL Accidental overdose Hallucinations Acute delirium (Acute) Hypertension Normal left ventricular systolic function and wall motion Moderate asthma CAD (coronary artery disease) Former smoker History of myocardial infarction 2015 - NSTEMI; AURORA X 1 TO RCA PAD (peripheral artery disease) Bilateral carotid artery disease Antiplatelet or antithrombotic long-term use Diabetes mellitus, type 2 NIDDM Medical History Cognitive and behavioral changes Acute bronchitis due to respiratory syncytial virus (RSV) Elevated troponin Respiratory failure Screening for malignant neoplasm of prostate Type 2 diabetes mellitus with circulatory disorder Hypertension Hypercholesteremia CAD (coronary artery disease) Parkinsonism PER RECORDS Cancer H/O SKIN CA - REMOVED Depression Sleep apnea NO CPAP - NON COMPLIANT Hyperlipidemia Unstable angina pectoris Lumbar spinal stenosis Surgical History History of cataract surgery B/L eyes done Fall 2020 History of laminectomy L4-L5 LAMINECTOMY/DISCECTOMY= 04/30/16= GRADE 3 VIEW, MAC 3.0, ETT 8.0 AT [facility] H/O sinus surgery History of cardiac cath AURORA X 1 TO RCA (2014) Family History Father Coronary heart disease Dementia Depression Diabetes Myocardial infarction Mother Dementia Kidney disease Grandmother (Paternal) Diabetes Brother Diabetes Brain cancer Denies family history of Ovarian cancer Prostate cancer Breast cancer Colorectal cancer Social History Smoking Status: Former smoker Tobacco Type: Cigarettes Age Started Using Tobacco: 10; Age Quit Using Tobacco: 54; packs per day: 2; Second Hand Exposure: No; Hx Alcohol Use: No Hx Substance Use: No Preferred Language: Mosotho Communication Ability: Effective Visual Impairment: Limited Hearing Ability: Normal Die Maintenance Technician Required: No Beliefs That Will Affect Care: None marital status: Current Living Situation: Spouse current occupational status: retired 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 Results & Data Results & Data Vital Signs (Past 12 Hours) Vital Signs Temp Pulse Resp BP Pulse Ox O2 Del Method O2 Flow Rate 07/28/24 10:03 76 19 07/28/24 10:00 114/63 07/28/24 09:48 75 26 H 91 Nasal Cannula 4 07/28/24 09:45 76 29 H 94 Nasal Cannula 4 07/28/24 09:45 92/45 L 07/28/24 09:42 91/45 L 07/28/24 09:35 88 L Nasal Cannula 0 07/28/24 09:27 81 21 07/28/24 09:25 37.2 C 79 30 H 99/53 L 94 Nasal Cannula 4 07/28/24 09:25 Nasal Cannula 4 07/28/24 09:19 99/53 L 07/28/24 09:18 82 28 H 90 Nasal Cannula 4 07/28/24 09:15 79 Laboratory Results I have independently reviewed and interpreted patient's admitting labs including CBC, CMP, PTT, PT/INR, Lactic acid, mag and troponin. Diagnostic Findings Chest X-Ray 07/28/24 09:21 XR chest 1V portable CLINICAL HISTORY: Sepsis COMPARISON STUDY: 04/06/2023 FINDINGS: Heart size and pulmonary vasculature are normal. There is interval reticular and patchy opacity at the right mid and lower lung. No pleural effusion or pneumothorax. IMPRESSION: Acute pneumonia on the right. Follow-up to resolution recommended. ACT 112: Negative or not required by law. Electronically signed by: Codey Paiz M.D. 07/28/2024 9:38 AM Medications Administered Medication List Discontinued Medications Albuterol (Albut/Ipratrop 3mg/0.5mg Neb 3 Ml Vial) 3 ml NEB NOW STA; Protocol Stop: 07/28/24 09:22 Last Admin: 07/28/24 09:44 Dose: 3 ml Documented By: CALE Azithromycin (Azithromycin 250 Mg Tab) 500 mg PO NOW ONE Stop: 07/28/24 09:22 Last Admin: 07/28/24 09:44 Dose: 500 mg Documented By: CALE Sodium Chloride (Nss) 1,000 mls @ 999 mls/hr IV .Q1H1M CLAUDIA Stop: 07/28/24 10:30 Last Infusion: 07/28/24 10:49 Dose: Infused Documented By: Admin: 07/28/24 09:44 Dose: 999 mls/hr Documented By: CALE Ceftriaxone Sodium (Rocephin) 2,000 mg in 50 mls @ 100 mls/hr IV NOW STA Stop: 07/28/24 09:50 Last Infusion: 07/28/24 10:27 Dose: Infused Documented By: Admin: 07/28/24 09:44 Dose: 100 mls/hr Documented By: CALE Sodium Chloride (Nss) 1,000 mls @ 999 mls/hr IV .Q1H1M ONE Stop: 07/28/24 11:45 Last Admin: 07/28/24 11:01 Dose: 999 mls/hr Documented By: CALE Sodium Chloride (Nss) 250 mls @ 999 mls/hr IV .Q16M ONE Stop: 07/28/24 11:00 Last Admin: 07/28/24 11:01 Dose: 999 mls/hr Documented By: CALE Methylprednisolone (Methylprednisolone 125 Mg/2 Ml Vial) 125 mg IV NOW STA Stop: 07/28/24 09:22 Last Admin: 07/28/24 09:44 Dose: 125 mg Documented By: CALE ECG Additional Comments: I have independently reviewed and interpreted patient's admitting EKG which revealed: NSR, qtc 448ms, 81bpm, no st or t wave change Code Status & VTE Plan Code Status FULL CODE VTE Prophylaxis Plan VTE Prophylaxis will be ordered: Yes Supervising Physician Co-Signing Physician Notes Patient is a 68-year-old male with history of diabetes mellitus, coronary disease, peripheral vascular disease, COPD, hypertension and other medical problems presents with history of worsening generalized weakness as well as shortness of breath, fever, cough, mild hemoptysis. He also admits to have a fall 2 days ago bumping his forehead. He has been having balance issues secondary to generalized weakness and also reports decreased appetite. Please review HPI for complete details of presentation. I personally reviewed blood work and imaging studies. Blood work showed sodium 106, creatinine 1.6, lactic acid 2.6, procalcitonin 1.48, initial troponin 23.3. BioFire negative. Chest x-ray showed right-sided multifocal lobar pneumonia.EKG showed normal sinus rhythm, nonspecific ST-T wave changes, QTc 448. UA currently pending. Physical Exam: Vitals signs as noted above General Appearance: Obese, no apparent distress Head: normocephalic, Atraumatic Eyes: normal inspection, EOMI Neck: supple, Trachea midline Respiratory/Chest: Decreased coarse breath sounds, No accessory muscle use Cardiovascular: S1, S2, No murmur Abdomen/GI:Soft, Non tender, Bowel sounds present Extremities/Musculoskeletal:normal inspection, trace pedal edema Neurologic/Psych:AAOX3, grossly no focal neurological deficits Skin: normal color, warm Acute respiratory failure with hypoxia Multifocal pneumonia Mild troponin elevation likely demand ischemia secondary to above Acute kidney injury Alcohol use disorder Acute on chronic hyponatremia Started on Rocephin, azithromycin Aggressive pulmonary hygiene Monitor sodium levels closely Blood cultures obtained Supplemental oxygen as needed Trend troponins Monitor renal function Hold lisinopril due to PASCUAL for now PT OT, fall precautions Will obtain urine, serum osmolality, urine sodium Monitor for alcohol withdrawal I personally interviewed and examined the patient at bedside. I have reviewed the advanced practitioner's documentation on the date of service referred in note and agree with plan. Patient's care is coordinated with Sailaja Ansari. Please refer to the documentation above for details of patient's presentation and for discussion of other issues. I spent a total [id number] coordinating, documenting, and providing care for this patient excluding time spent in the performance of separately billed services or time spent by another provider/QHP.
--- OUTSIDE RECORDS SUMMARY | 2024-07-28 12:41 | External Medical Summary | Summary of Care ---
Author Name Unknown Organization [facility] Address [address] [place] [address] Phone [phone] Care Team Providers Care Manager Appointment Name Role Phone SeptemberSkye MD Primary Care Provider [phone] Reason for Visit * Reason Comments Medication Refill Encounter Details Date Type Department Care Team (Late st Contact Info) Description 06/08/2024 Refill [facility] [address] [place] [phone] Skye Coronado MD [address] [facility] [place] [address] Allergies Active Allergy Reactions Criticality Noted Date Comments Penicillins Hives Medium 03/08/2007 documented as of this encounter (statuses as of 06/21/2024) Medications Aspirin 81 MG Oral Tablet Chewable Take 1 Tablet by mouth in the morning. Active Acetaminophen 500 MG Oral Tablet Take 2 Tablets by mouth every 6 hours as needed for Pain, Moderate. Active Ipratropium-Alb uterol 0.5-2.5 (3) MG/3ML Inhalation Solution Inhale 3 mL by mouth every 6 hours as needed. Active Albuterol Sulfate (2.5 MG/3ML) 0.083% Inhalation Nebulization Solution (Proventil)Rebeca cations:SOB (shortness of breath) Inhale 1 Vial via nebulizer every 4 hours as needed for Wheezing for up to 60 doses. 1 mL 06/03/19 23 Active OneTouch Verio In Vitro Strip (Glucose Blood)Indicatio ns:Type 2 diabetes mellitus without complication, with long-term current use of insulin (HCC) Use to check sugars twice daily E 11.9 200 Strip 3 3 8:12 AM EST 12/24/19 23 Active Vitamin B-12 500 MCG Oral Tablet (vitamin B-12) Take 2 Tablets by mouth in the morning. Active OneTouch Verio Flex System w/Device Kit Use as directed. 1 Kit 06/30/19 24 Active Lisinopril 20 MG Oral Tablet (Prinivil)Indic ations:Essentia l (primary) hypertension Take 1 Tablet by mouth in the morning. 90 Tablet 3 4 8:33 AM EST 08/03/19 24 Active Metoprolol Tartrate 25 MG Oral Tablet (Lopressor)Rebeca cations:Essenti al (primary) hypertension Take 1 Tablet by mouth in the morning and 1 Tablet before bedtime. 180 Tablet 30 4 8:33 AM EST 08/03/19 24 Active traMADol HCl 50 MG Oral Tablet (Ultram)Indicat ions:Lumbar back pain Take 1 Tablet by mouth every 6 hours as needed for Pain, Severe. 15 Tablet 08/03/19 24 Active Citalopram Hydrobromide 40 MG Oral Tablet (CeleXA) TAKE ONE TABLET BY MOUTH EVERY DAY 90 Tablet 3 5 7:51 AM EST 09/20/19 24 025 Active traZODone HCl 50 MG Oral Tablet (Desyrel) Take 1 Tablet by mouth at bedtime. 90 Tablet 1 4 1:39 PM EDT 12/08/19 24 Active Dexcom G7 Sensor Use as directed every 10 days. Supplied by [facility] medical- covered on [employer] gold due to hospitalization related to hypoglycemia (PCP note September 2022) Active Fluticasone Furoate-Vilante rol 200-25 MCG/ACT Inhalation Aerosol Powder Breath Activated (BREO ellipta)Indicat ions:Moderate persistent asthma without complication Inhale 1 Puff by mouth in the morning. 180 Each 2 5 5:38 PM EST 02/29/20 24 Active Atorvastatin Calcium 80 MG Oral Tablet (Lipitor) take 1 tablet by mouth daily 90 Tablet 3 5 6:42 PM EST 03/20/20 24 Active Clopidogrel Bisulfate 75 MG Oral Tablet (pLAVix) take 1 tablet by mouth daily 90 Tablet 3 5 6:42 PM EST 03/20/20 24 Active Trulicity 4.5 MG/0.5ML Subcutaneous Solution Auto-injector (Dulaglutide)In dications:Type 2 diabetes mellitus with diabetic peripheral angiopathy without gangrene, without long-term current use of insulin (HCC) Inject 4.5 mg under the skin once a week. 8 mL 4 04/17/20 24 Active Albuterol Sulfate HFA 108 (90 Base) MCG/ACT Inhalation Aerosol Solution Inhale 2 Puffs by mouth every 6 hours as needed. Active Nitroglycerin 0.4 MG Sublingual Tablet Sublingual (Nitrostat) Place 1 Tablet under the tongue every 5 minutes as needed for Pain, Chest. Active OLANZapine 2.5 MG Oral Tablet (zyPREXA)Indica tions:Dementia with psychotic disturbance, unspecified dementia severity, unspecified dementia type (HCC) Take 1 Tablet by mouth at bedtime. 90 Tablet 3 4 3:35 PM EST 05/10/20 24 Active lamoTRIgine 200 MG Oral Tablet (LaMICtal) Take 1 Tablet by mouth 2 times a day. 180 Tablet 06/21/19 25 Active lamoTRIgine 200 MG Oral Tablet (LaMICtal) Take 1 Tablet by mouth 2 times a day. 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 08/03/2023 Pure hypercholesterolemia, unspecified Nonintractable epilepsy without status epileptic us 08/03/2023 COPD, severity to be determined 12/23/2022 Type 2 diabetes mellitus without complication 02 /02/2023 Major depressive disorder with single episode Essential (primary) hypertension 07/10/2022 Hx of nonmelanoma skin cancer 12/20/2017 Overview (12/20/2017): squamous cell carcinoma (site unknown, year unknown) Essential and other specified forms of tremor Major depressive disorder, r ecurrent episode, in partial remission 10/20/2007 PERSONALITY DISORDER NOS: dependent traits 10/11 ANISOCORIA, left larger than right 10/12/2007 documented as of this encounter (statuses as of 06/21/2024) Resolved Problems Problem Noted Date Diagnosed Date Resolved Date Encounter for long-term (current) insulin use 05/04/20 23 08/03/2023 Parkinson's disease 01/22/2012 10/08/19 Economic problem 10/12/2007 07/10/2022 Other forms of epilepsy and recurrent seizures without mention of intractable epilepsy 10/12/2007 10/28/2022 Pathological gambling 10/12/20072022 Recurrent Major Depression 10/11/2007 0 07/02/2022 Overview (07/02/2022): More specified code listed on pl ADVANCE DIRECTIVE INFORMATION 08/22/2007 04/03/2024 Overview (08/22/2007): No, Advance Directive brochure offered , patient declined. Convulsions 03/08/2007 10/07/2022 documented as of this encounter (statuses as of 06/21/2024) Immunizations Name Administration Dates Next Due Pneumococcal Conjugate Vaccine, 20-valent (Prevn ar20) 12/23/2022 Season Influenza, Quad, PF, Adjuvanted, 65+ Yrs, IM (FLUAD) 03/20/2020 Seasonal Influenza, High Dos e, Trivalent, PF, IM (Fluzone HD) 04/10/2022 Seasonal Influenza, Quadrivalent Hd (Fluzone Hd) 02/22/2023 documented as of this encounter Social History Tobacco Use Types Packs/Day Years Used Date Smoking Tobacco: Former Cigarettes 2.5 39 1 971 - 2010 Passive Smoke Exposure: Past Smokeless Tobacco: Never Alcohol Use Standard Drinks/Week Comments No 0 (1 standard drink = 0.6 oz pur e alcohol) Hunger Vital Sign Answer Date Recorded Within the past 12 months, y ou worried that your food would run out before you got the money to buy more. Never true 05/08/20 24 Within the past 12 months, t he food you bought just didn't last and you didn't have money to get more. Never true 05/08/2024 Childcare Answer Date Recorded Do you feel overwhelmed with taking care of a child, family member or friend? No 05/08/2024 Does your family need help f inding childcare? (Household - for ages 0-17 years) Not on file 05/08/2024 Clothing Answer Date Recorded Have you been unable to get clothing when it was really needed? No 05/08/2024 Is your family able to get c lothes or diapers when needed? (Household - for ages 0-17 years) Not on file 05/08/2024 Personal Safety Answer Date Recorded Do you feel unsafe or have concerns for your saf ety? No 05/08/2024 Do you have concerns for you r family's safety? (Household - for ages 0-17 years) Not on file 05/08/2024 Utilities Answer Date Recorded Do you have trouble paying y our heating, water, or electric bill? No 05/08/2024 Is your family able to pay t he heat, water, or electric bill? (Household - for ages 0-17 years) Not on file 05/08/2024 Does your family have access to good internet? (Household - for ages 0-17 years) Not on file 05/08/2024 Employment Status Answer Date Recorded Are you unemployed or without regular income? No 05/08/2024 Does the household have a [facility] source [facility] income? (Household - for ages 0-17 years) Not on file 05/08/2024 Social Connections Answer Date Recorded How often do you feel lonely or isolated from th ose around you? Rarely 05/08/2024 Financial Resource Strain Answer Date R ecorded Do you have any trouble payi ng for your medications, or do you think you might in the future? No 05/08/2024 Does your family have troubl e paying for medicine? (Household - for ages 0-17 years) Not on file 05/08/2024 Transportation Needs Answer Date Record ed Do you have trouble getting a ride to medical visits or work? (Adult - for ages 18 years and over) Not on file 05/08/2024 Does your family have a hard time getting a ride to doctors visits? (Household - for ages 0-17 years) Not on file 05/08/2024 Has lack of transportation k ept you from medical appointments, meetings, work, or from getting things needed for daily living? Check all that apply. No 05/08/2024 Do you (or your family) have trouble finding or paying for a ride (transportation)? (Household - for ages 0-17 years) Not on file 05/08/2024 Housing Stability Answer Date Recorded Do you currently live in a s helter or have no steady place to sleep at night? No 05/08/2024 Do you think you are at risk of becoming homeless? (Adult - for ages 18 years and over) Not on file 05/08/2024 Does your family worry about paying for your home or becoming homeless? (Household - for ages 0-17 years) Not on file 1 07/09/2023 Are you homeless or worried that you might be in the future? No 05/08/2024 Are you (or your family) olga eless or worried that you might be in the future? (Household - for ages 0-17 years) Not on file Food Insecurity Answer Date Recorded Do you need food for this week? No 05/08/2024 Are you able to get enough f ood for your family? (Household - for ages 0-17 years) Not on file 05/08/2024 Does your family need food t his week? (Household - for ages 0-17 years) Not on file 05/08/2024 Do you always have enough fo od for your family? (Household - for ages 0-17 years) Not on file 05/08/2024 Sex and Gender Information Value Date Recorded Sex Assigned at Male 10/26/2022 11:32 AM EDT Legal Sex Male 5:12 AM EST Gender Identity Male 10/26/2022 11:32 AM EDT Sexual Orientation Straight 10/26/2022 11 :32 AM EDT documented as of this encounter Miscellaneous Notes * Telephone Encounter - Skye Coronado MD - 06/21/2024 12:14 PM ESTSigned Prescriptions: Disp Refills lamoTRIgine 200 MG Oral Tablet (LaMICtal) 180 Ta*0 Sig: Take 1 Tablet by mouth 2 times a day. Authorizing Provider: SKYE CORONADO * Telephone Encounter - Skye Coronado MD - 06/21/2024 12:14 PM ESTSigned Prescriptions: Disp Refills lamoTRIgine 200 MG Oral Tablet (LaMICtal) 180 Ta*0 Sig: Take 1 Tablet by mouth 2 times a day. Authorizing Provider: SKYE CORONADO * Telephone Encounter - Catie Modi brass finisher - 06/21/2024 12:07 PM EST Pharmacy is requesting a 90-day supply, pre-edited RXs as such. Please review and approve if appropriate. Pending Prescriptions: Disp Refills lamoTRIgine 200 MG Oral Tablet (LaMICtal) 180 Ta*0 Sig: Take 1 Tablet by mouth 2 times a day. Last Visit: 05/15/2024 (in office), Visit date not found (telemedicine) 11/13/2024 If no future appointments scheduled, and last appointment is greater than a year ago, please schedule patient for an appointment Last date the medication was ordered: 03/10/2024 Patient Phone Numbers Labs: Lab Results Component Value Date/Time CREAT 1.2 07/26/2023 09:27 AM CREAT 1.0 03/22/2012 04:02 PM POTASSIUM 4.7 07/26/2023 09:27 AM POTASSIUM 4.4 10/13/2007 07:00 AM TSH 5.01 (H) 10/13/2013 10:28 AM LDL 63 07/26/2023 09:27 AM LDL 139 (H) 10/13/2007 07:00 AM ALT 29 07/26/2023 09:27 AM ALT 47 10/13/2013 10:28 AM HGBA1C 6.6 (H) 02/07/2024 02:32 PM HGBA1C 6.2 (H) 02/11/2006 10:12 AM documented in this encounter Plan of Treatment Upcoming Encounters Date Type Department Care Team (Late st Contact Info) Description 11/13/2024 1:00 PM EDT [facility] [address] [phone] SeptemberSkye MD [address] [place] [phone] 06/29/2025 10:00 AM EST Office Visit Neurology [facility] [place] [address] [place] [address] Donny Weir, DO [address], [place] [id number] Health Maintenance Due Date Last Done Comments Depression Monitoring 1965 Alpha-1 Antitrypsin 09/01/1971 Hepatitis C Screening 09/01/1971 DTap/Tdap Vaccines (1 - Tdap) 1972 Cologuard 1998 Colonoscopy 1998 Sigmoidoscopy 1998 Zoster Vaccines (1 of 2) 09/01/2003 AAA Screening 2018 Adult Wellness Visit 09/01/2019 Colorectal Cancer Screening 02/16/2023 Fecal Occult Blood Test 02/16/2023 02/16/2022, 02/16 COVID-19 Vaccine ( season) 2024 04/29/2021, 08/19/2020, 07/29/2020 Albumin/Creatinine Ratio 07/26/2024 024, 03/17/2023, 05/01/2022 GFR 07/26/2024 07/26/2023, 09/29, 07/10/2022, Additional history exists HbA1c 08/06/2024 02/07/2024, 07/02, 03/17/2023, Additional history exists Diabetic Eye Exam 10/03/2024 10/04/2023, , 03/08/2023, Additional history exists Diabetic Foot Exam 05/15/2025 05/15/2024, 04/13/2023 O2 ASSESSMENT COMPLETED IN PAST YEAR FOR COPD 05/19/2025 05/19/2024 Pneumococcal Vaccine: 50+ Years Completed 12/23/2022, 02/05/2021, 01/26/2020 Influenza Vaccine (FLU shot) Completed , 02/22/2023, 04/10/2022, Additional history exists HPV (Gardasil) Vaccine Aged Out No lo nger eligible based on patient's age to complete this topic Hepatitis B Vaccine Aged Out No longe r eligible based on patient's age to complete this topic MENINGOCOCCAL (MENACTRA/MENVEO) Aged Out No longer eligible based on patient's age to complete this topic documented as of this encounter Medical Devices Implanted Type 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 Controller Device Identifier Shelf Expiration Date Model / Serial / Lot Lens Intraoc 22.0 - [id number] - [id number] Implanted:Qty: 1 on 09/05/2020 by Roger Gómez MD at OR [facility] Right: Eye [employer] 06/30/2024 [id number] / [id number] / [id number] Lens Intraoc 21.0 - [id number] - [id number] Implanted:Qty: 1 on 09/12/2020 by Roger Gómez MD at OR [facility] Left: Eye [employer]OM[employer] 03/30/2025 [id number] / [id number] / documented as of this encounter Advance Directives Documents on File Type Date Recorded 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
--- OUTSIDE RECORDS SUMMARY | 2024-07-28 12:41 | External Medical Summary | Summary of Care ---
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 extremities. Reflexes: Right Left Biceps 1+ 0 Triceps Brachial radialis 1+ 0 Patellar 2+ 2+ Achilles 0 0 Vargas Babinski Coordination: Finger to Nose : intact b/l Gait: decreased arm swing b/l. Normal stride length and speed. Normal turn. Tandem walking: impaired (few side stepping). Toe walking: intact, Heel Walking: intact, and Romberg: negative ASSESSMENT Mr. Hu Putnam is a 68 year old left handed white male with HS level education presenting for evaluation for chronic memory changes that has been steady for about [address]. [address] Schmitt, last seen 04/2023. 68-year-old left-handed white male with high school education presenting for evaluation of cognitive changes that has been longstanding. He has history significant for chronic personality disorder, anxiety, svere depression s/p ECT and psychiatric hospitalizations, as well as vascular risk factorsincluding hypertension, hyperlipidemia, type 2 diabetes, CAD and tobacco use. In summary, he had a hospitalization at [facility] in summer of 2022 for altered mental status including hallucinations and delusions. This has since resolved. endorses memory problems since around 2013, and problem with judgment, reasoning and complex tasks solving since 1995. He underwent neuropsychological testing in 2008 and did very poorly, acute 71, and impression was major neurocognitive disorder. Outpatient Psychiatry follow-up was recommended but he refused. Functionally, rated him at mild dementia level of functioning. ADLs are intact. IADLs are impaired with shopping, food preparation and medications. His sleep is chronically poor, with both onset and maintenance. He only gets about 5 hours of sleepdaily, and news is throughout the day. He also has dream enactment since 2016. MMSE was 27/30, and Mckean was 22/30 today. In comparison, MMSE improved since 2007 (was 23 and 24 on2 separate occasions) Exam is remarkable for cognitive slowing, mild parkinsonism (decreased facial expression and mild cogwheeling in left upper extremity, decreased arm swing bilaterally) and impaired tandem walk. Major neurocognitive disorder, likely multifactorial related to: Psychiatric comorbidities Chronic poor sleep Medication side effects (olanzapine, tramadol) Vascular risk factors Hypothyroidism Diagnosis: ICD-10-CM 1. Major neurocognitive disorder (HCC) F03.90 2. Parkinsonism, unspecified Parkinsonism type (HCC) G20.C PLAN Major neurocognitive disorder Recheck TSH with reflex as last TSH was elevated and has not been checked since 2013. Optimize cardiovascular risk factors with goal A1c less than 7.0 (at goal) Improve sleep duration and quality. May increase trazodone, which may also help with depression when dose > 150 mg. Hallucinations have resolved, unlikely due to dementing illness. Encouraged physical activity encouraged cognitively stimulating activities such as word search was Recommended reading the book "Improving your memory" Also recommend Psychiatry follow-up for comorbid psychiatric illnesses but pt has historically declined. Mild parkinsonism: Maybe a side effect of olanzapine - Monitor with serial exams. Follow Up: Return in about 1 year (around 05/19/2025) for Clinic Visit. | For: Clinic Visit | Check-out note: With Dr. Weir Patient Instructions There are no Patient Instructions on file for this visit. I spent a total of Greater than 55 mins (exact time 75 mins) on the date of service in preparation,delivery, and documentation of the care provided to Hu Putnam excluding any time spent in the performance of separately billed services or time spent by another provider/QHP. Donny Weir DO Cognitive and Behavioral Neurology [facility] 05/22/2024 5:11 PM documented in this encounter Nursing Notes * Candice Gomez MED ASSIST - 05/19/2024 1:06 PM EST Chief Complaint Patient presents with NEW PATIENT documented in this encounter Plan of Treatment Upcoming Encounters Date Type Department Care Team (Late st Contact Info) Description 11/13/2024 1:00 PM EDT Office Visit [facility] [address] [place] [phone] SeptemberSheldon MD [address] [facility] [address] [place] [address] 06/29/2025 10:00 AM EST Office Visit Neurology [facility] Al[facility] [place] [address] [place] [address] Donny Weir DO [address] [facility] [address] Health Maintenance Due Date Last Done Comments Depression Monitoring 1965 Alpha-1 Antitrypsin 09/01/1971 Hepatitis C Screening 09/01/1971 DTap/Tdap Vaccines (1 - Tdap) 1972 Cologuard 1998 Colonoscopy 1998 Sigmoidoscopy 1998 Lung Cancer Screening 09/01/2003 Zoster Vaccines (1 of 2) 09/01/2003 AAA [...] YEAR FOR COPD 05/19/2025 05/19/2024 Pneumococcal Vaccine: 65+ Years Completed 12/23/2022, 02/05/2021, 01/26/2020 Influenza Vaccine [...] this encounter Medical Devices Implanted Type Area Cognos Architect Device Identifier Shelf Expiration Date Model / Serial / Lot Lens Intraoc 22.0 - [id number] - [id number] Implanted:Qty: 1 on 09/05/2020 by Roger Gómez MD at OR [facility] Right: Eye BAUSCH & LOMB 06/30/2024 [id number] / [id number] / [id number] Lens Intraoc 21.0 - [id number] - [id number] Implanted:Qty: 1 on 09/12/2020 by Roger Gómez MD at OR [facility] Left: Eye BAUSCH & LOMB 03/30/2025 [id number] / [id number] / documented as of this encounter Visit Diagnoses Diagnosis Major neurocognitive disorder (HCC)- Primary Parkinsonism, unspecified Parkinsonism type (HCC) documented in this encounter Advance Directives Documents on File Type Date Recorded 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
--- OUTSIDE RECORDS SUMMARY | 2024-07-28 12:41 | External Medical Summary | Summary of Care ---
Author Name Unknown Organization [facility] Address [address] [facility] [place] [address] Phone [phone] Care Team Providers Care Astronaut Mission Specialist Name Role Phone Sheldon Currie MD Primary Care Provider [phone] Encounter Details Date Type Department Care Team (Late st Contact Info) Description 05/22/2024 Orders Only PATIENT PORTAL DO NOT DELETE THIS DEPT USED BY [place] [id number] Allergies Active Allergy Reactions Criticality Noted Date Comments Penicillins Hives Medium 03/08/2007 documented as of this encounter (statuses as of 05/22/2024) Medications Aspirin 81 MG Oral Tablet Chewable Take 1 Tablet by mouth in the morning. Active Acetaminophen 500 MG Oral Tablet Take 2 Tablets by mouth every 6 hours as needed for Pain, Moderate. Active Ipratropium-Albu terol 0.5-2.5 (3) MG/3ML Inhalation Solution Inhale 3 mL by mouth every 6 hours as needed. Active Albuterol Sulfate (2.5 MG/3ML) 0.083% Inhalation Nebulization Solution (Proventil)Indic ations:SOB (shortness of breath) Inhale 1 Vial via nebulizer every 4 hours as needed for Wheezing for up to 60 doses. 1 mL 06/03/19 23 Active OneTouch Verio In Vitro Strip (Glucose Blood)Indication s:Type 2 diabetes mellitus without complication, with long-term current use of insulin (HCC) Use to check sugars twice daily E 11.9 200 Strip 3 3 8:12 AM EST 12/24/19 23 Active Vitamin B-12 500 MCG Oral Tablet (vitamin B-12) Take 2 Tablets by mouth in the morning. Active ProPerforma System w/Device Kit Use as directed. 1 Kit 06/30/19 24 Active Lisinopril 20 MG Oral Tablet (Prinivil)Indica tions:Essential (primary) hypertension Take 1 Tablet by mouth in the morning. 90 Tablet 3 4 8:33 AM EST 08/03/19 24 Active Metoprolol Tartrate 25 MG Oral Tablet (Lopressor)Indic ations:Essential (primary) hypertension Take 1 Tablet by mouth in the morning and 1 Tablet before bedtime. 180 Tablet 30 4 8:33 AM EST 08/03/19 24 Active traMADol HCl 50 MG Oral Tablet (Ultram)Indicati ons:Lumbar back pain Take 1 Tablet by mouth every 6 hours as needed for Pain, Severe. 15 Tablet 08/03/19 24 Active Citalopram Hydrobromide 40 MG Oral Tablet (CeleXA) TAKE ONE TABLET BY MOUTH EVERY DAY 90 Tablet 3 4 2:16 PM EDT 09/20/19 24 025 Active traZODone HCl 50 MG Oral Tablet (Desyrel) Take 1 Tablet by mouth at bedtime. 90 Tablet 1 4 1:39 PM EDT 12/08/19 24 Active Dexcom G7 Sensor Use as directed every 10 days. Supplied by [facility] medical- covered on [facility] gold due to hospitalization related to hypoglycemia (PCP note September 2022) Active Fluticasone Furoate-Vilanter ol 200-25 MCG/ACT Inhalation Aerosol Powder Breath Activated (BREO ellipta)Indicati ons:Moderate persistent asthma without complication Inhale 1 Puff by mouth in the morning. 180 Each 2 4 6:16 AM EDT 02/29/20 24 Active lamoTRIgine 200 MG Oral Tablet (LaMICtal) Take 1 Tablet by mouth 2 times a day. 180 Tablet 4 2:16 PM EDT 03/10/20 24 Active Ketoconazole 2 % External CreamIndications :Rash and nonspecific skin eruption Apply topically to affected area 2 times a day for 14 days. Apply to rash on face and central chest twice daily until resolved then when flaring 60 g 2 4 3:31 PM EDT 03/13/20 24 025 Active Atorvastatin Calcium 80 MG Oral Tablet (Lipitor) take 1 tablet by mouth daily 90 Tablet 3 4 4:05 PM EDT 03/20/20 24 Active Clopidogrel Bisulfate 75 MG Oral Tablet (pLAVix) take 1 tablet by mouth daily 90 Tablet 3 4 4:05 PM EDT 03/20/20 24 Active Trulicity 4.5 MG/0.5ML Subcutaneous Solution Auto-injector (Dulaglutide)Ind ications:Type 2 diabetes mellitus with diabetic peripheral angiopathy [...] Chest. Active OLANZapine 2.5 MG Oral Tablet (zyPREXA)Indicat ions:Dementia with psychotic disturbance, unspecified dementia severity, unspecified dementia type (HCC) Take 1 Tablet by mouth at bedtime. 90 Tablet 3 4 3:35 PM EST 05/10/20 24 Active documented as of this encounter (statuses as of 05/22/2024) Active Problems Problem Noted Date Diagnosed Date Type 2 diabetes mellitus wit h diabetic peripheral angiopathy without gangrene 08/03/2023 Brief psychotic disorder 08/03/2023 Current severe episode of ma lexa depressive disorder with psychotic features without prior episode 08/03/2023 Atherosclerosis of [place] co ronary artery without angina pectoris 08/03/2023 Pure hypercholesterolemia, unspecified 4 Nonintractable epilepsy without status epileptic us 08/03/2023 [...] AM EDT documented as of this encounter Plan of Treatment Upcoming Encounters Date Type Department Care Team (Late st Contact Info) Description 11/13/2024 1:00 PM EDT [facility] [address] [place] [phone] Sheldon Currie MD [address] [place] [address] 06/29/2025 10:00 AM EST Office Visit Neurology Raj Al[facility] [place] [address] [place] [address] Donny Weir, DO [address] [facility] [address] Health Maintenance Due Date Last Done Comments [...] this encounter Medical Devices Implanted Type Area Digital Content Specialist Device Identifier Shelf Expiration Date Model / Serial / Lot Lens Intraoc 22.0 - [id number] - [id number] Implanted:Qty: 1 on 09/05/2020 by Roger Gómez MD at OR [facility] Right: Eye BAUSCH & LOMB 06/30/2024 [id number] / [id number] / [id number] Lens Intraoc 21.0 - [id number] - [id number] Implanted:Qty: 1 on 09/12/2020 by Roger Gómez MD at OR [facility] Left: Eye BAUSCH & LOMB 03/30/2025 [id number] / [id number] / documented as of this encounter Advance Directives Documents on File Type Date Recorded 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
--- OUTSIDE RECORDS SUMMARY | 2024-07-28 12:41 | External Medical Summary | Summary of Care ---
Author Name Unknown Organization [facility] Address [address] [place] [address] Phone [phone] Care Team Providers Care Associate Store Leader Name Role Phone Sheldon Currie MD Primary Care Provider [phone] Encounter Details Date Type Department Care Team (Late st Contact Info) Description 06/21/2024 Population Health External Data Unspecified Department Allergies Active Allergy Reactions Criticality Noted Date [...] Tablets by mouth in the morning. Active Peloton Interactive System w/Device Kit Use as directed. 1 [...] as directed every 10 days. Supplied by [facility] medical- covered on [facility] gold due to hospitalization related to hypoglycemia [...] a day. 180 Tablet 06/21/19 25 Active documented as of this encounter (statuses as of 06/21/2024) Active Problems Problem Noted Date Diagnosed Date Major neurocognitive disorder 05/22/2024 Type 2 diabetes mellitus wit h diabetic peripheral angiopathy without gangrene 08/03/2023 Brief psychotic disorder 08/03/2023 Current severe episode of ma lexa depressive disorder with psychotic features without prior episode 08/03/2023 Atherosclerosis of [place] co ronary artery without angina pectoris 08/03/2023 [...] No 05/08/2024 Does the household have a [facility] source of income? (Household - for ages [...] Description 11/13/2024 1:00 PM EDT Office Visit [facility] [address] [place] [phone] SeptemberSheldon MD [address] [place] [address] 06/29/2025 10:00 AM EST Office Visit Neurology [facility] [place] [address] [facility] [phone] Donny Weir DO [address] [facility] [place] [address] Health Maintenance Due Date Last Done Comments [...] this encounter Medical Devices Implanted Type Area Licensed Occupational Therapy Assistant Device Identifier Shelf Expiration Date Model / Serial / Lot Lens Intraoc 22.0 - [id number] - [id number] Implanted:Qty: 1 on 09/05/2020 by Roger Gómez MD at OR [facility] Right: Eye BAUSCH & LOMB 06/30/2024 [id number] / [id number] / [id number] Lens Intraoc 21.0 - [id number] - [id number] Implanted:Qty: 1 on 09/12/2020 by Roger Gómez MD at OR [facility] Left: Eye BAUSCH & LOMB 03/30/2025 [id number] / [id number] / documented as of this encounter Advance Directives Documents on File Type Date Recorded Patient Aoc Plans Intelligence Officer Expl anation Power of Weatherization Administrator 10/18/2007 * Full Code (Latest Code Status on File) Date Activated Date Inactivated Comments 10/11/2007 7:54 PM 10/21/2007 6:37 PM Care Teams Associate Store Leader Relationship Specialty Start Date End Date September, Sheldon Alegre MD PCP - General Family Medicine 06/08/22 documented as of this encounter
--- OUTSIDE RECORDS SUMMARY | 2024-07-28 12:41 | External Medical Summary | Summary of Care ---
Author Name Unknown Organization [facility] Address [address] [place] [address] Phone [phone] Care Team Providers Care Water Purifier Operator Name Role Phone Sheldon Currie MD Primary Care Provider [phone] Reason for Visit * Reason Comments NEW PATIENT Encounter Details Date Type Department Care Team (Latest Contact Info) Description 05/19/2024 1:00 PM EST Office Visit Neurology [facility] [address] [place] [address] Donny Weir, DO [address], [place] [id number] Major neurocognitive disorder (HCC)*; Parkinsonism, unspecified Parkinsonism type (HCC) Allergies Active Allergy Reactions Criticality Noted Date Comments Penicillins Hives Medium 03/08/2007 documented as of this encounter (statuses as of 05/23/2024) Medications Aspirin 81 MG Oral Tablet Chewable [...] Tablets by mouth in the morning. Active Animal InnovationsTouch Verio Flex System w/Device Kit Use as [...] as directed every 10 days. Supplied by [facility] medical- covered on [employer] gold [...] 2 times a day. 180 Tablet 03/13/20 2:16 PM EDT Active Ketoconazole 2 % [...] by mouth daily 90 Tablet 3 03/21/20 4:05 PM EDT 024 Active Trulicity 4.5 [...] PM EST 024 Active OneTouch Delica Plus [id number] USE TO CHECK BLOOD SUGAR TWO TIMES A DAY 200 Each 3 07/29/19 24 10:18 AM EST 023 2023 Discontinued documented as of this encounter (statuses as of 05/23/2024) Active Problems Problem Noted Date Diagnosed Date Major neurocognitive disorder 05/22/2024 Type 2 diabetes mellitus wit h diabetic peripheral angiopathy without gangrene 08/03/2023 Brief psychotic disorder 08/03/2023 Current severe episode of ma lexa depressive disorder with psychotic features without prior episode 08/03/2023 Atherosclerosis of [place] co ronary artery without angina pectoris 08/03/2023 [...] as of this encounter (statuses as of 05/23/2024) Resolved Problems Problem Noted Date Diagnosed Date Resolved Date Encounter for long-term (current) insulin use 05/04/20 23 08/03/2023 Parkinson's disease 01/22/2012 10/08/19 23 Economic problem 10/12/2007 07/10/2022 Other forms of epilepsy and recurrent seizures without mention of intractable epilepsy 10/12/2007 10/28/2022 Pathological gambling 10/12/20072022 Recurrent Major Depression 10/11/2007 0 07/02/2022 Overview (07/02/2022): More specified code listed on pl ADVANCE DIRECTIVE INFORMATION 08/22/2007 04/03/2024 Overview (08/22/2007): No, Advance Directive brochure offered , patient declined. Convulsions 03/08/2007 10/07/2022 documented as of this encounter (statuses as of 05/23/2024) Immunizations Name Administration Dates Next Due Pneumococcal [...] Donny Weir, - 05/19/2024 1:00 PM EST [facility] MEMORY [facility] COGNITION PROGRAM New Patient Evaluation [...] in 04/2023: He was recently admitted to [facility] for a change in mental status. He [...] 2007 or 2008. He was admitted at [facility] at that time. He was alsoad[facility] to [facility] on the psychiatry floor. He received ECT [...] prior psychiatric hospitalizations dating back to at [facility] and [facility]), delusions. He had neuropsych testing 2008 and [...] patient and his : was hospitalized at [facility] for AMS. That was the last hospitalization [...] Date Encounter for long-term (current) insulin use ([facility]) 05/04/2023 Major depressive disorder, recurrent episode, in partial remission ([facility]) 10/20/2007 Recurrent Major Depression 10/11/2007 More specified code listed on pl Past Surgical History: Procedure Laterality Date ELECTROCONVUL THERAPY ECT-SNGL 10/14/07 ELECTROCONVULSIVE THERAPY performed by JUDSON BLANCA at OR [facility] ELECTROCONVUL THERAPY ECT-SNGL 10/17/07 ELECTROCONVULSIVE THERAPY performed by JUDSON BLANCA at OR [facility] ELECTROCONVUL THERAPY ECT-SNGL 10/19/07 ELECTROCONVULSIVE THERAPY performed by PIETRO BOCANEGRA at OR [facility] ELECTROCONVUL THERAPY ECT-SNGL 10/21/07 ELECTROCONVULSIVE THERAPY performed by PIETRO BOCANEGRA at OR [facility] ELECTROCONVUL THERAPY ECT-SNGL 10/26/07 ELECTROCONVULSIVE THERAPY performed by PIETRO BOCANEGRA at OR [facility] ELECTROCONVUL THERAPY ECT-SNGL 10/28/07 ELECTROCONVULSIVE THERAPY performed by JUDSON BLANCA at OR [facility] ELECTROCONVUL THERAPY ECT-SNGL 10/31/07 ELECTROCONVULSIVE THERAPY performed by PIETRO BOCANEGRA at OR [facility] ELECTROCONVUL THERAPY ECT-SNGL 11/02/07 ELECTROCONVULSIVE THERAPY performed by PIETRO BOCANEGRA at OR [facility] ELECTROCONVUL THERAPY ECT-SNGL 11/04/07 ELECTROCONVULSIVE THERAPY performed by PIETRO BOCANEGRA at OR [facility] ELECTROCONVUL THERAPY ECT-SNGL 11/07/07 ELECTROCONVULSIVE THERAPY performed by PIETRO BOCANEGRA at OR [facility] ELECTROCONVUL THERAPY ECT-SNGL 11/09/07 ELECTROCONVULSIVE THERAPY performed by PIETRO BOCANEGRA at OR [facility] ELECTROCONVUL THERAPY ECT-SNGL 11/11/07 ELECTROCONVULSIVE THERAPY performed by PIETRO BOCANEGRA at OR [facility] REMOVE CATARACT, INSERT LENS PROSTH Right 09/05/2020 RIGHT EXTRACAPSULAR CATARACT REMOVAL WITH INTRAOCULAR LENS performed by Roger Gómez MD at OR [facility] REMOVE CATARACT, INSERT LENS PROSTH Left 09/12/2020 LEFT EXTRACAPSULAR CATARACT REMOVAL WITH INTRAOCULAR LENS performed by Roger Gómez MD at OR [facility] Social History Tobacco Use Smoking status: [...] as directed every 10 days. Supplied by [facility] medical- covered on [employer] gold [...] Take 1 Tablet by mouth at bedtime. [place] DELEachbaby PLUS [id number] USE TO CHECK BLOOD SUGAR TWO TIMES A DAY [place] VERDermaGen FLEX SYSTEM W/DEVICE KIT Use as directed. [employer] VERDermaGen IN VITRO STRIP (GLUCOSE BLOOD) Use to [...] Vitamin B12 NORMAL No results found for: "HKMR11VPV8" No results found for: "VLGG57KFS4" No results found for: "JZFLMPCD56VQ" No results found for: "25OHVITAMIND" IMAGING STUDIES: [...] trial 2. Executive functions: Clock drawing: intact [place] making: intact Language: fluent. Letter/phenomic fluency: 4 [...] psychiatric hospitalizations, as well as vascular risk factors including hypertension, hyperlipidemia, type 2 diabetes, CAD and tobacco use. In summary, he had a hospitalization [facility] in summer for altered mental status including hallucinations and [...] enactment since 2016. MMSE was 27/30, and Rush was 22/30 today. In comparison, MMSE improved [...] Donny Weir DO Cognitive and Behavioral Neurology [facility] 05/22/2024 5:11 PM documented in this encounter Nursing Notes * Candice Gomez MED ASSIST - 05/19/2024 1:06 PM EST Chief Complaint Patient presents with NEW PATIENT documented in this encounter Plan of Treatment Upcoming Encounters Date Type Department Care Team (Late st Contact Info) Description 11/13/2024 1:00 PM EDT Office Visit [facility] [address] [facility] [place] [phone] SeptemberSheldon MD [address] [facility] [place] [address] 06/29/2025 10:00 AM EST Office Visit Neurology [facility] [place] [address] [place], [place] [address] [facility] [address] [facility] [phone] Health Maintenance Due Date Last Done Comments [...] this encounter Medical Devices Implanted Type Area Resident Care Assistant Device Identifier Shelf Expiration Date Model / Serial / Lot Lens Intraoc 22.0 - [id number] - [id number] Implanted:Qty: 1 on 09/05/2020 by Roger G[facility]mez MD at [facility] Right: Eye [employer]OM[employer] 06/30/2024 [id number] / [id number] / [id number] Lens Intraoc 21.0 - [id number] - [id number] Implanted:Qty: 1 on 09/12/2020 by Roger Gómez MD at OR [facility] Left: Eye BAUSCH [employer] LOMB 03/30/2025 [id number] / [id number] / documented as of this encounter Visit Diagnoses Diagnosis Major neurocognitive disorder (HCC)- Primary Parkinsonism, unspecified Parkinsonism type (HCC) documented in this encounter Advance Directives Documents on File Type Date Recorded Patient Food Service Helper Expl anation Power of Quality Assurance Specialist 10/18/2007 * Full Code (Latest Code Status on File) Date Activated Date Inactivated Comments 10/11/2007 7:54 PM 10/21/2007 6:37 PM Care Teams Water Purifier Operator Relationship Specialty Start Date End Date September, Sheldon Alegre MD PCP - General Family Medicine 06/08/22 documented as of this encounter
--- OUTSIDE RECORDS SUMMARY | 2024-07-28 12:41 | External Medical Summary | Summary of Care ---
Author Name Unknown Organization [facility] Address [address] [place] [address] Phone [phone] Care Team Providers Care Steward Racetrack Name Role Phone SeptemberSkye MD Primary Care Provider [phone] Reason for Visit * Reason Comments Medication Refill Encounter Details Date Type Department Care Team (Late st Contact Info) Description 07/17/2024 Refill [facility] [address] [place] [phone] Skye Coronado MD [address] [facility] [place] [address] Essential (primary) hypertension Allergies Active Allergy Reactions Criticality Noted Date Comments Penicillins Hives Medium 03/08/2007 documented as of this encounter (statuses as of 07/18/2024) Medications Aspirin 81 MG Oral Tablet Chewable [...] Tablets by mouth in the morning. Active [employer] Media Verio Flex System w/Device Kit Use as directed. 1 Kit 06/30/19 24 Active Metoprolol Tartrate 25 MG Oral Tablet (Lopressor)Rebeca cations:Essenti al (primary) hypertension Take 1 Tablet by mouth in the morning and 1 Tablet before bedtime. 180 Tablet 30 4 8:33 AM EST 08/03/19 24 Active Citalopram Hydrobromide 40 MG Oral Tablet (CeleXA) TAKE ONE TABLET BY MOUTH EVERY DAY 90 Tablet 3 5 7:51 AM EST 09/20/19 24 025 Active Dexcom G7 Sensor Use as directed every 10 days. Supplied by [facility] medical- covered on [employer] gold due to [...] mouth 2 times a day. 180 Tablet 5 3:37 PM EST 06/21/19 25 Active traZODone HCl 100 MG Oral Tablet (Desyrel)Indica tions:Primary insomnia Take 1 Tablet by mouth at bedtime. 90 Tablet 3 5 10:13 AM EST 07/10/19 25 Active Lisinopril 20 MG Oral Tablet (Prinivil)Indic ations:Essentia l (primary) hypertension Take 1 Tablet by mouth in the morning. 90 Tablet 1 07/18/19 25 Active Lisinopril 20 MG Oral Tablet (Prinivil)Indic ations:Essentia l (primary) hypertension Take 1 Tablet by mouth in the morning. 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 (Household - for ages [...] ages 0-17 years) Not on file 05/08/2024 Food Insecurity Answer Date Recorded Within the past 12 months, y ou worried that your food would run out before you got the money to buy more. Never true 05/08/20 24 Within the past 12 months, t he food you bought just didn't last and you didn't have money to get more. Never true 05/08/2024 Do you need food for this week? No 05/08/2024 Sex and Gender Information Value Date Recorded Sex Assigned at Male 10/26/2022 11:32 AM EDT Legal Sex Male 5:12 AM EST Gender Identity Male 10/26/2022 11:32 AM EDT Sexual Orientation Straight 10/26/2022 11 :32 AM EDT documented as of this encounter Miscellaneous Notes * Telephone Encounter - Mariaelena Riddle [facility] - 07/18/2024 8:02 AM ESTSigned Prescriptions: Disp Refills Lisinopril 20 MG Oral Tablet (Prinivil) 90 Tab*1 Sig: Take 1 Tablet by mouth in the morning.Authorizing Provider: SKYE CORONADOOrderaurelio User: MARIAELENA RIDDLE- documented in this encounter Plan of Treatment Upcoming Encounters Date Type Department Care Team (Late st Contact Info) Description 11/13/2024 1:00 PM EDT Office Visit [facility] [address] [facility] [place] [phone] Skye Coronado MD [address] [facility] [place] [address] 06/29/2025 10:00 AM EST Office Visit Neurology [facility] [address] [place] [address] Donny Weir, DO [address], [place] [phone] Health Maintenance Due Date Last Done Comments [...] on patient's age to complete this topic Meningitis B Vaccine (Bexsero/Trumemba) Aged Out No longer eligible based on patient's age to complete this topic documented as of this encounter Medical Devices Implanted Type Area Clinical Assistant Professor Device Identifier Shelf Expiration Date Model / Serial / Lot Lens Intraoc 22.0 - [id number] - [id number] Implanted:Qty: 1 on 09/05/2020 by Roger G[facility]mez MD at [facility] Right: Eye [employer] 06/30/2024 [id number] / [id number] / [id number] Lens Intraoc 21.0 - [id number] - [id number] Implanted:Qty: 1 on 09/12/2020 by Roger Gómez MD at [facility] Left: Eye BAUSCH & LOMB 03/30/2025 [id number] / [id number] / documented as of this encounter Visit Diagnoses Diagnosis Essential (primary) hypertension Unspecified essential hypertension documented in this encounter Advance Directives Documents on File Type Date Recorded Patient Commercial Lending Relationship Manager Expl anation Power of Assistant Women'S Tennis Coach 10/18/2007 * Full Code (Latest Code Status on File) Date Activated Date Inactivated Comments 10/11/2007 7:54 PM 10/21/2007 6:37 PM Care Teams Steward Racetrack Relationship Specialty Start Date End Date September, Skye Alegre MD PCP - General Family Medicine 06/08/22 documented as of this encounter
--- OUTSIDE RECORDS SUMMARY | 2024-07-28 12:42 | External Medical Summary | Summary of Care ---
Author Name Unknown Organization [facility] Address [address] [place] [address] Phone [phone] Care Team Providers Care Adding Machine Servicer Name Role Phone SeptemberSheldon MD Primary Care Provider [phone] Reason for Visit * Reason Onset Date Comments Health Maintenance 04/25/2024 Encounter Details Date Type Department Care Team (Late st Contact Info) Description 04/25/[address] [facility] [address] [place] [address] SeptemberSheldon MD [address] [facility] [address] [place], [place] [id number] Health Maintenance Allergies Active Allergy Reactions Criticality Noted Date Comments Penicillins Hives Medium 03/08/2007 documented as of this encounter (statuses as of 05/08/2024) Medications Aspirin 81 MG Oral Tablet Chewable Take 1 Tablet by mouth in the morning. Active Acetaminophen 500 MG Oral Tablet Take 2 Tablets by mouth every 6 hours as needed for Pain, Moderate. Active Ipratropium-Albut agustin 0.5-2.5 (3) MG/3ML Inhalation Solution Inhale 3 mL by mouth every 6 hours as needed. Active Albuterol Sulfate (2.5 MG/3ML) 0.083% Inhalation Nebulization Solution (Proventil)Indica tions:SOB (shortness of breath) Inhale 1 Vial via nebulizer every 4 hours as needed for Wheezing for up to 60 doses. 1 mL 06/03/19 23 Active OneTouch Delica Plus [id number] USE TO CHECK BLOOD SUGAR TWO TIMES A DAY 200 Each 3 4 10:18 AM EST 10/17/19 23 Active OneAdallomuch Verio In Vitro Strip (Glucose Blood)Indications :Type 2 diabetes mellitus without complication, with long-term current use of insulin (HCC) Use to check sugars twice daily E 11.9 200 Strip 3 3 8:12 AM EST 12/24/19 23 Active Zoster Vac Recomb Adjuvanted 50 MCG/0.5ML Intramuscular Suspension Reconstituted (Shingrix)Indicat ions:Immunization due Inject 0.5 mL into a large muscle now and repeat dose in 60 to 180 days 1 Each 1 12/24/19 23 Active Additional Information Patient not taking.Reported on 08/03/2023 Atorvastatin Calcium 80 MG Oral Tablet (Lipitor) Take 1 Tablet by mouth daily. 90 Tablet 3 4 3:38 PM EDT 03/29/20 23 Active Clopidogrel Bisulfate 75 MG Oral Tablet (pLAVix) Take 1 Tablet by mouth daily. 90 Tablet 3 4 3:38 PM EDT 03/29/20 23 Active Vitamin B-12 500 MCG Oral Tablet (vitamin B-12) Take 2 Tablets by mouth in the morning. Active OLANZapine 2.5 MG Oral Tablet (zyPREXA)Indicati ons:Dementia with psychotic disturbance, unspecified dementia severity, unspecified dementia type (HCC) Take 1 Tablet by mouth at bedtime. 90 Tablet 3 4 6:06 PM EDT 05/04/20 23 Active ImmuneWorks Flex System w/Device Kit Use as directed. 1 Kit 06/30/19 24 Active Lisinopril 20 MG Oral Tablet (Prinivil)Indicat ions:Essential (primary) hypertension Take 1 Tablet by mouth in the morning. 90 Tablet 3 4 8:33 AM EST 08/03/19 24 Active Metoprolol Tartrate 25 MG Oral Tablet (Lopressor)Indica tions:Essential (primary) hypertension Take 1 Tablet by mouth in the morning and 1 Tablet before bedtime. 180 Tablet 30 4 8:33 AM EST 08/03/19 24 Active traMADol HCl 50 MG Oral Tablet (Ultram)Indicatio ns:Lumbar back pain Take 1 Tablet by mouth every 6 hours as needed for Pain, Severe. 15 Tablet 08/03/19 24 Active Citalopram Hydrobromide 40 MG Oral Tablet (CeleXA) TAKE ONE TABLET BY MOUTH EVERY DAY 90 Tablet 3 4 2:16 PM EDT 09/20/19 24 025 Active traZODone HCl 50 MG Oral Tablet (Desyrel)Indicati ons:Primary insomnia Take 1 Tablet by mouth at bedtime. 30 Tablet 12/08/19 24 Active traZODone HCl 50 MG Oral Tablet (Desyrel) Take 1 Tablet by mouth at bedtime. 90 Tablet 1 4 1:39 PM EDT 12/08/19 24 Active Dexcom G7 Sensor Use as directed every 10 days. Supplied by [facility] medical- covered on [facility] gold due to hospitalization related to hypoglycemia (PCP note September 2022) Active Fluticasone Furoate-Vilantero l 200-25 MCG/ACT Inhalation Aerosol Powder Breath Activated (BREO ellipta)Indicatio ns:Moderate persistent asthma without complication Inhale 1 Puff by mouth in the morning. 180 Each 2 4 6:16 AM EDT 02/29/20 24 Active lamoTRIgine 200 MG Oral Tablet (LaMICtal) Take 1 Tablet by mouth 2 times a day. 180 Tablet 4 2:16 PM EDT 03/10/20 24 Active Ketoconazole 2 % External CreamIndications: Rash and nonspecific skin eruption Apply topically to [...] Active Trulicity 4.5 MG/0.5ML Subcutaneous Solution Auto-injector (Dulaglutide)Rebeca cations:Type 2 diabetes mellitus with diabetic peripheral angiopathy [...] minutes as needed for Pain, Chest. 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 Never true 04/12/20 23 Within the past 12 months, t he food you bought just didn't last and you didn't have money to get more. Never true 04/12/2023 Childcare Answer Date Recorded Do you feel overwhelmed with taking care of a child, family member or friend? No 04/12/2023 Does your family need help f inding childcare? (Household - for ages 0-17 years) Not on file 04/12/2023 Clothing Answer Date Recorded Have you been unable to get clothing when it was really needed? No 04/12/2023 Is your family able to get c lothes or diapers when needed? (Household - for ages 0-17 years) Not on file 04/12/2023 Personal Safety Answer Date Recorded Do you feel unsafe or have concerns for your saf ety? No 04/12/2023 Do you have concerns for you r family's safety? (Household - for ages 0-17 years) Not on file 04/12/2023 Utilities Answer Date Recorded Do you have trouble paying y our heating, water, or electric bill? No 04/12/2023 Is your family able to pay t he heat, water, or electric bill? (Household - for ages 0-17 years) Not on file 04/12/2023 Does your family have access to good internet? (Household - for ages 0-17 years) Not on file 04/12/2023 Employment Status Answer Date Recorded Are you unemployed or without regular income? No 04/12/2023 Does the household have a re gular source of income? (Household - for ages 0-17 years) Not on file 04/12/2023 Social Connections Answer Date Recorded How often do you feel lonely or isolated from th ose around you? Never 04/12/2023 Financial Resource Strain Answer Date R ecorded Do you have any trouble payi ng for your medications, or do you think you might in the future? No 04/12/2023 Does your family have troubl e paying for medicine? (Household - for ages 0-17 years) Not on file 04/12/2023 Transportation Needs Answer Date Record ed READ ONLY Do you have troubl e getting a ride to medical visits or work? Never True 04/12/2023 Does your family have a hard time getting a ride to doctors visits? (Household - for ages 0-17 years) Not on file 04/12/2023 Has lack of transportation k ept you from medical appointments, meetings, work, or from getting things needed for daily living? Check all that apply. (Adult - for ages 18 years and over) Not on file 04/12/2023 Do you (or your family) have trouble finding or paying for a ride (transportation)? (Household - for ages 0-17 years) Not on file 04/12/2023 Housing Stability Answer Date Recorded Do you currently live in a s helter or have no steady place to sleep at night? No 04/12/2023 READ ONLY Do you think you a re at risk of becoming homeless? No 04/12/2023 Does your family worry about paying for your home or becoming homeless? (Household - for ages 0-17 years) Not on file 1 06/12/2022 Are you homeless or worried that you might be in the future? (Adult - for ages 18 years and over) Not on file Are you (or your family) olga eless or worried that you might be in the future? (Household - for ages 0-17 years) Not on file Food Insecurity Answer Date Recorded Do you need food for this week? No 04/12/2023 Are you able to get enough f ood for your family? (Household - for ages 0-17 years) Not on file 04/12/2023 Does your family need food t his week? (Household - for ages 0-17 years) Not on file 04/12/2023 Do you always have enough fo od for your family? (Household - for ages 0-17 years) Not on file 04/12/2023 Sex and Gender Information Value Date Recorded Sex Assigned at Male 10/26/2022 11:32 AM EDT Legal Sex Male 5:12 AM EST Gender Identity Male 10/26/2022 11:32 AM EDT Sexual Orientation Straight 10/26/2022 11 :32 AM EDT documented as of this encounter Miscellaneous Notes * Telephone Encounter - Padmini Constantino LPN - 04/25/2024 10:06 AM EST Care Gaps Comprehensive Care Outreach Last Office/Telemedicine Visit: Visit date not found (in office), Visit date not found (telemedicine) Next Office Visit: 05/15/2024 Hemoglobin AIC Results: Lab Results Component Value Date/Time HEMOGLOBIN A1C - [facility] 6.7 (H) 07/26/2023 09:27 AM HEMOGLOBIN A1C - [facility] 6.0 (H) 03/17/2023 10:16 AM HEMOGLOBIN A1C - [facility] 7.5 (H) 07/10/2022 02:03 PM HEMOGLOBIN A1C - [facility] 6.2 (H) 02/11/2006 10:12 AM HEMOGLOBIN A1C POCT - [facility] 6.6 (H) 02/07/2024 02:32 PM BP Readings from Last 1 Encounters: 11/03/23 110/72 Reviewed Health Maintenance below: Health Maintenance Topic Date Due Depression Monitoring Never done Alpha-1 Antitrypsin Never done Hepatitis C Screening Never done DTap/Tdap Vaccines (1 - Tdap) Never done Lung Cancer Screening Never done Zoster Vaccines (1 of 2) Never done AAA Screening Never done Adult Wellness Visit Never done Colorectal Cancer Screening 02/16/2023 Influenza Vaccine (FLU shot) (1) 01/30/2024 COVID-19 Vaccine ( season) 2024 Diabetic Foot Exam 04/13/2024 Albumin/Creatinine Ratio 07/26/2024 GFR 07/26/2024 Colon Awv Aaa Care Gap Outreach Action Taken: Unable to reach and [email or web address] message sent documented in this encounter Plan of Treatment Upcoming Encounters Date Type Department Care Team (Late st Contact Info) Description 05/15/2024 1:00 PM EST Office Visit Family [facility], [address] [phone] SeptemberSheldon MD [address] [address] 05/19/2024 1:00 PM EST Office Visit Neurology [facility] [address] [place] [address] Donny Weir, DO [address] [place], [place] [id number] Health Maintenance Due Date Last Done Comments [...] Vaccine ( season) 2024 04/29/2021, 08/19/2020, 07/29/2020 Diabetic Foot Exam 04/13/2024 04/13/2023 Albumin/Creatinine Ratio 07/26/2024 024, 03/17/2023, 05/01/2022 GFR 07/26/2024 07/26/2023, 09/29, 07/10/2022, Additional history exists O2 ASSESSMENT COMPLETED IN PAST YEAR FOR COPD 08/02/2024 08/03/2023 HbA1c 08/06/2024 02/07/2024, 07/02, 03/17/2023, Additional history exists Diabetic Eye Exam 10/03/2024 10/04/2023, , 03/08/2023, Additional history exists Pneumococcal Vaccine: 65+ Years Completed 12/23/2022, 02/05/2021, [...] this encounter Medical Devices Implanted Type Area Evaluation Engineer Device Identifier Shelf Expiration Date Model / Serial / Lot Lens Intraoc 22.0 - [id number] - [id number] Implanted:Qty: 1 on 09/05/2020 by Roger Gómez MD at OR [facility] Right: Eye BAUSCH & LOMB 06/30/2024 [id number] / [id number] / [id number] Lens Intraoc 21.0 - [id number] - [id number] Implanted:Qty: 1 on 09/12/2020 by Roger Gómez MD at OR [facility] Left: Eye BAUSCH & LOMB 03/30/2025 [id number] / [id number] / documented as of this encounter Advance Directives Documents on File Type Date Recorded Patient Minister Assistant Expl anation Power of Consumer Loan Specialist 10/18/2007 * Full Code (Latest Code Status on File) Date Activated Date Inactivated Comments 10/11/2007 7:54 PM 10/21/2007 6:37 PM Care Teams Adding Machine Servicer Relationship Specialty Start Date End Date September, Sheldon Alegre MD [address] [id number] PCP - General Family Medicine 06/08/22 documented as of this encounter
--- OUTSIDE RECORDS SUMMARY | 2024-07-28 12:42 | External Medical Summary | Summary of Care ---
Author Name Unknown Organization [facility] Address [address] [place] [address] Phone [phone] Care Team Providers Care Conservation Scientist Name Role Phone Sheldon Currie MD Primary Care Provider [phone] Encounter Details Date Type Department Care Team (Latest Contact Info) Description 04/24/2024 Medication Management [facility]mar [facility] [address] [place], [place] [phone] Xiomy Williamson, [facility] [address] [place] [address] Referred for medication therapy management* Allergies Active Allergy Reactions Criticality Noted Date Comments Penicillins Hives Medium 03/08/2007 documented as of this encounter (statuses as of 04/24/2024) Medications Aspirin 81 MG Oral Tablet Chewable [...] mL 06/03/19 23 Active OneTouch Delica Plus [id number] USE TO CHECK BLOOD SUGAR TWO TIMES A DAY 200 Each 3 4 10:18 AM EST 10/17/19 23 Active OneTouch Verio In Vitro Strip (Glucose Blood)Indications :Type [...] 4 6:06 PM EDT 05/04/20 23 Active Timber[employer] Technologies[employer] Verio Flex System w/Device Kit Use as directed. 1 Kit 06/30/19 24 Active Lisinopril 20 MG Oral Tablet (Prinivil)Indicat ions:Essential (primary) hypertension Take 1 Tablet by mouth in the morning. 90 Tablet 3 4 7:31 AM EDT 08/03/19 24 Active Metoprolol Tartrate 25 MG Oral Tablet (Lopressor)Indica tions:Essential (primary) hypertension Take 1 Tablet by mouth in the morning and 1 Tablet before bedtime. 180 Tablet 30 4 7:31 AM EDT 08/03/19 24 Active traMADol HCl 50 MG [...] as directed every 10 days. 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 TMR Interventions TMR High Risk Medication - High dose Celexa: CITALOPRAM TAB 40MG TMR Drug Therapy - Rescue Therapy (COPD or Asthma): No rescue inhaler claims Incomplete Encounter MTPs No medication therapy recommendations to display Complete Encounter MTPs Referred for medication therapy management 1 Current Medication: Albuterol Sulfate HFA 108 (90 Base) MCG/ACT Inhalation Aerosol Solution Current Medication Sig: Inhale 2 Puffs by mouth every 6 hours as needed. Rationale: Untreated condition - Needs additional medication therapy - Indication Recommendation: Provide Education Status: No Longer Relevant Identified Date: 04/24/2024 Completed Date: 04/24/2024 Note: TMR for rescue therapy. Patient uses rescue inhaler as needed. Assessment & Plan Indication, effectiveness, safety and convenience of his medications were reviewed today. The patient's medical conditions were assessed, evaluated, and deemed meeting goals of drug therapy, with thefollowing exceptions. AYAD Winn Tech 04/24/2024, 1:51 PM documented in this encounter Plan of Treatment Upcoming Encounters Date Type Department Care Team (Late st Contact Info) Description 05/15/2024 1:00 PM EST Office Visit Family Practice, [address] [phone] Sheldon Currie MD [address] [address] 05/19/2024 1:00 PM EST Office Visit [facility] [place] [address] [facility] [address] Donny Weir, DO [address] [facility] [address] Health Maintenance Due Date Last Done [...] Vaccine ( season) 2024 04/29/2021, 08/19/2020, 07/29/2020 Influenza Vaccine (FLU shot) (#1) 2024 02/22/2023, 04/10/2022, 03/20/2020, Additional history exists Diabetic Foot Exam 04/13/2024 04/13/2023 Albumin/Creatinine Ratio 07/26/2024 024, 03/17/2023, 05/01/2022 GFR 07/26/2024 07/26/2023, 09/29, 07/10/2022, Additional history exists O2 ASSESSMENT COMPLETED IN PAST YEAR FOR COPD 08/02/2024 08/03/2023 HbA1c 08/06/2024 02/07/2024, 02/2 10/2023, 03/17/2023, Additional history exists Diabetic Eye Exam 10/03/2024 10/04/2023, , 03/08/2023, Additional history exists Pneumococcal Vaccine: 65+ Years Completed 12/23/2022, 02/05/2021, 01/26/2020 HPV (Gardasil) Vaccine Aged Out No lo nger eligible based on patient's age to complete this topic Hepatitis B Vaccine Aged Out No longe r eligible based on patient's age to complete this topic MENINGOCOCCAL (MENACTRA/MENVEO) Aged Out No longer eligible based on patient's age to complete this topic documented as of this encounter Medical Devices Implanted Type Area Early Childhood Teacher Assistant Device Identifier Shelf Expiration Date Model / Serial / Lot Lens Intraoc 22.0 - [id number] - [id number] Implanted:Qty: 1 on 09/05/2020 by Roger Gómez MD at OR [facility] Right: Eye BAUSCH & LOMB 06/30/2024 [id number] / [id number] / [id number] Lens Intraoc 21.0 - [id number] - [id number] Implanted:Qty: 1 on 09/12/2020 by Roger Gómez MD at OR [facility] Left: Eye BAUSCH & LOMB 03/30/2025 [id number] / [id number] / documented as of this encounter Visit Diagnoses Diagnosis Referred for medication therapy management- Primary Encounter for long-term (current) use of other medications documented in this encounter Advance Directives Documents on File Type Date Recorded Patient Receiver/Laborer Expl anation Power of Information Technology Security Analyst 10/18/2007 * Full Code (Latest Code Status on File) Date Activated Date Inactivated Comments 10/11/2007 7:54 PM 10/21/2007 6:37 PM Care Teams Conservation Scientist Relationship Specialty Start Date End Date September, Sheldon Alegre MD [address] [facility] [place] [address] PCP - General Family Medicine 06/08/22 documented as of this encounter
--- OUTSIDE RECORDS SUMMARY | 2024-07-28 12:42 | External Medical Summary | Summary of Care ---
Author Name Unknown Organization [facility] Address [address] [place] [address] Phone [phone] Care Team Providers Care Fire Claims Adjuster Name Role Phone SeptemberSheldon MD Primary Care Provider [phone] Reason for Visit * Reason Onset Date Comments Health Maintenance 04/25/2024 Encounter Details Date Type Department Care Team (Late st Contact Info) Description 04/25/2024 Telephone [facility] [address] [place] [phone] SeptemberSheldon MD [address] [facility] [address] [place], [place] [phone] Health Maintenance Allergies Active Allergy Reactions Criticality Noted Date Comments Penicillins Hives Medium 03/08/2007 documented as of this encounter (statuses as of 04/25/2024) Medications Aspirin 81 MG Oral Tablet Chewable [...] mL 06/03/19 23 Active OneTouch Delica Plus [id number] USE TO CHECK BLOOD SUGAR TWO TIMES A DAY 200 Each 3 4 10:18 AM EST 10/17/19 23 Active OneSecure-24uch Verio In Vitro Strip (Glucose Blood)Indications :Type [...] 4 6:06 PM EDT 05/04/20 23 Active Flux Factory Flex System w/Device Kit Use as directed. [...] as directed every 10 days. Supplied by [facility] medical- covered on [facility] gold due to hospitalization related to [...] as of this encounter (statuses as of 04/25/2024) Active Problems Problem Noted Date Diagnosed Date Type 2 diabetes mellitus wit h diabetic peripheral angiopathy without gangrene 08/03/2023 Brief psychotic disorder 08/03/2023 Current severe episode of ma lexa depressive disorder with psychotic features without prior episode 08/03/2023 Atherosclerosis of [place] co ronary artery without angina pectoris 08/03/2023 [...] as of this encounter (statuses as of 04/25/2024) Resolved Problems Problem Noted Date Diagnosed Date [...] as of this encounter (statuses as of 04/25/2024) Immunizations Name Administration Dates Next Due Pneumococcal [...] Outreach Action Taken: Unable to reach and [email or web address] message sent documented in this encounter Plan of Treatment Upcoming Encounters Date Type Department Care Team (Late st Contact Info) Description 05/15/2024 1:00 PM EST Office Visit Family [facility], [address] [phone] SeptemberSheldon MD [address] [address] 05/19/2024 1:00 PM EST Office Visit Neurology [facility] [address] [place] [address] Donny Weir, DO [address] [place], [place] [phone] Health Maintenance Due Date Last Done Comments [...] this encounter Medical Devices Implanted Type Area Beater Head Device Identifier Shelf Expiration Date Model / Serial / Lot Lens Intraoc 22.0 - [id number] - [id number] Implanted:Qty: 1 on 09/05/2020 by Roger Gómez MD at OR [facility] Right: Eye BAUSCH & LOMB 06/30/2024 [id number] / [id number] / [id number] Lens Intraoc 21.0 - [id number] - [id number] Implanted:Qty: 1 on 09/12/2020 by Roger Gómez MD at OR [facility] Left: Eye BAUSCH & LOMB 03/30/2025 [id number] / [id number] / documented as of this encounter Advance Directives Documents on File Type Date Recorded 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
--- OUTSIDE RECORDS SUMMARY | 2024-07-28 12:42 | External Medical Summary | Summary of Care ---
Author Name Unknown Organization [facility] Address [address] [place] [address] Phone [phone] Care Team Providers Care Drawing In Hand Name Role Phone Skye Coronado MD Primary Care Provider [phone] Reason for Visit * Reason Comments Medication Refill Encounter Details Date Type Department Care Team (Late st Contact Info) Description 05/09/2024 [address]ill [facility] [address] [place] [address] Skye Coronado MD [address] [place] [address] Dementia with psychotic disturbance, unspecified dementia severity, unspecified dementia type (HCC) Allergies Active Allergy Reactions Criticality Noted Date Comments Penicillins Hives Medium 03/08/2007 documented as of this encounter (statuses as of 05/10/2024) Medications Aspirin 81 MG Oral Tablet Chewable [...] 60 doses. 1 mL 06/03/19 23 Active Purewire VerPVPower In Vitro Strip (Glucose Blood)Indication s:Type 2 diabetes mellitus without complication, with long-term current use of insulin (HCC) Use to check sugars twice daily E 11.9 200 Strip 3 3 8:12 AM EST 12/24/19 23 Active Zoster Vac Recomb Adjuvanted 50 MCG/0.5ML Intramuscular Suspension Reconstituted (Shingrix)Indica tions:Immunizati on due Inject 0.5 mL into a large [...] Tablets by mouth in the morning. Active Purewire Verio Flex System w/Device Kit Use as [...] Active traZODone HCl 50 MG Oral Tablet (Desyrel)Indicat ions:Primary insomnia Take 1 Tablet by mouth at bedtime. 30 Tablet 12/08/19 24 Active traZODone HCl 50 MG Oral Tablet (Desyrel) Take 1 Tablet by mouth at bedtime. 90 Tablet 1 4 1:39 PM EDT 12/08/19 24 Active Dexcom G7 Sensor Use as directed every 10 days. Supplied by [facility] medical- covered on [employer] gold due [...] by mouth at bedtime. 90 Tablet 3 05/10/20 24 Active OLANZapine 2.5 MG Oral Tablet (zyPREXA)Indicat ions:Dementia with psychotic disturbance, unspecified dementia severity, unspecified dementia type (HCC) Take 1 Tablet by mouth at bedtime. 90 Tablet 3 4 6:06 PM EDT 05/04/20 23 024 Disconti nued(Ref ill) documented as of this encounter (statuses as of 05/10/2024) Active Problems Problem Noted Date Diagnosed Date Type 2 diabetes mellitus wit h diabetic peripheral angiopathy without gangrene 08/03/2023 Brief psychotic disorder 08/03/2023 Current severe episode of ma lexa depressive disorder with psychotic features without prior episode 08/03/2023 Atherosclerosis of [place] ronary artery without angina pectoris 08/03/2023 [...] as of this encounter (statuses as of 05/10/2024) Resolved Problems Problem Noted Date Diagnosed Date Resolved Date Encounter for long-term (current) insulin use 05/04/2008/03/2023 Parkinson's disease 01/22/2012 10/08/19 23 Economic problem [...] as of this encounter (statuses as of 05/10/2024) Immunizations Name Administration Dates Next Due Pneumococcal [...] No 05/08/2024 Does the household have a [facility] source of income? (Household - for ages [...] Telephone Encounter - Skye Coronado MD - 05/10/2024 9:30 AM ESTSigned Prescriptions: Disp Refills OLANZapine 2.5 MG Oral Tablet (zyPREXA) 90 Tab*3 Sig: Take 1 Tablet by mouth at bedtime. Authorizing Provider: SKYE CORONADO * Telephone Encounter - Shivam Brunner [facility] - 05/10/2024 9:29 AM ESTPending Prescriptions: Disp Refills OLANZapine 2.5 MG Oral Tablet (zyPREXA) 90 Tab*3 Sig: Take 1 Tablet by mouth at bedtime. * Telephone Encounter - Shivam Brunner [facility] - 05/10/2024 9:28 AM EST [facility] is currently not authorized to approve refills for the pended medication(s) per refill protocol. Please approve if appropriate. Did you pend patient's preferred pharmacy and medication before forwarding?yes Pharmacy: [facility] Pending Prescriptions: Disp Refills OLANZapine 2.5 MG Oral Tablet (zyPREXA) 90 Tab*3 Sig: Take 1 Tablet by mouth at bedtime. Last Visit: 11/03/2023 (in office), Visit date not found (telemedicine) Next Visit: Visit date not found If no future appointments scheduled, and last appointment is greater than a year ago, please schedule patient for a follow-up appointment Last date the medication was ordered: 05/04/23 Is this request for a controlled substance?No Urine Drug Screen: Results for orders placed or performed during the hospital encounter of 10/11/07 TOX SCREEN, URINE Result Value NOTE: + Screening results are presumptive unless specimen is NOTE: retested by a confirmatory method. Contact Toxicology NOTE: Service for information on confirmatory testing. NOTE: + Screening results qualitatively identify drugs listed NOTE: in the [facility] user's manual for the specimen type indicated. Amphetamine NOT DETECTED Barbiturates NOT DETECTED Benzodiazepines NOT DETECTED Cannabinoids NOT DETECTED Cocaine Metabolite NOT DETECTED Morphine / Codeine NOT DETECTED PCP NOT DETECTED ACETAMINOPHEN, QUAL NOT DETECTED SALICYLATES, QUAL NOT DETECTED DRUGS (HPLC) Clomipramine N-oxide DRUGS (HPLC) Clomipramine,8-OH,N-desmethyl DRUGS (HPLC) NORTRIPTYLINE DETECTION LIMIT DETECTION LIMIT AMPHETAMINES 1000 ng/mL DETECTION LIMIT BARBITURATES 200 ng/mL DETECTION LIMIT BENZODIAZEPINES 300 ng/mL DETECTION LIMIT CANNABINOIDS 50 ng/mL DETECTION LIMIT COCAINE METABOLITE 300 ng/mL DETECTION LIMIT OPIATES 300 ng/mL DETECTION LIMIT PCP 25 ng/mL DETECTION LIMIT ACETAMINOPHEN 10 ug/mL DETECTION LIMIT SALICYLATES 1.0 mg/mL Patient Phone Numbers Labs: Lab Results Component [...] Team (Late st Contact Info) Description 05/15/2024 2:00 PM EST Office Visit [facility] [address] [place] [phone] SeptemberSkye MD [address] [place] [address] 05/19/2024 1:00 PM EST Office Visit Neurology [facility] [address] [place] [address] Donny Weir, DO [address] [place] [address] Health Maintenance Due Date Last Done Comments [...] this encounter Medical Devices Implanted Type Area Street Vendor Device Identifier Shelf Expiration Date Model / Serial / Lot Lens Intraoc 22.0 - [id number] - [id number] Implanted:Qty: 1 on 09/05/2020 by Roger Gómez MD at [facility] Right: Eye [employer] 06/30/2024 [id number] / [id number] / [id number] Lens Intraoc 21.0 - [id number] - [id number] Implanted:Qty: 1 on 09/12/2020 by Roger Gómez MD at OR [facility] Left: Eye [employer] 03/30/2025 [id number] / [id number] / documented as of this encounter Visit Diagnoses Diagnosis Dementia with psychotic disturbance, unspecified dementia severity, unspecified dementia type (HCC) documented in this encounter Advance Directives Documents on File Type Date Recorded 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
--- OUTSIDE RECORDS SUMMARY | 2024-07-28 12:42 | External Medical Summary | Summary of Care ---
Author Name Unknown Organization [facility] Address [address] [place] [address] Phone [phone] Care Team Providers Care Hand Candy Cutter Name Role Phone Sheldon Currie MD Primary Care Provider [phone] Reason for Visit * Reason Comments Follow Up Yarely is here for a 6 month follow up and has no concerns today. Encounter Details Date Type Department Care Team (Late st Contact Info) Description 05/15/2024 2:00 PM EST Office Visit [facility] [address] [place] [phone] SeptemberSheldon MD [address], [place] [id number] Type 2 diabetes mellitus with diabetic peripheral angiopathy without gangrene, without long-term current use of insulin ([facility])*; COPD, severity to be determined ([facility]); Pure hypercholesterolemia, unspecified; Atherosclerosis of [place] coronary artery of [place] heart without angina pectoris; Nonintractable epilepsy without status epilepticus, unspecified epilepsy type ([facility]); Current severe episode of major depressive disorder with psychotic features without prior episode ([facility]); Essential (primary) hypertension Allergies Active Allergy Reactions Criticality Noted Date Comments Penicillins Hives Medium 03/08/2007 documented as of this encounter (statuses as of 05/15/2024) Medications Aspirin 81 MG Oral Tablet Chewable [...] 60 doses. 1 mL 06/03/19 23 Active Symptify Delica Plus [id number] USE TO CHECK BLOOD SUGAR TWO TIMES A DAY 200 Each 3 4 10:18 AM EST 10/17/19 23 Active Symptify Verio In Vitro Strip (Glucose Blood)Indication s:Type 2 diabetes mellitus without complication, with long-term current use of insulin (HCC) Use to check sugars twice daily E 11.9 200 Strip 3 3 8:12 AM EST 12/24/19 23 Active Vitamin B-12 500 MCG Oral Tablet (vitamin B-12) Take 2 Tablets by mouth in the morning. Active Symptify Verio Flex System w/Device Kit Use as [...] as directed every 10 days. Supplied by [facility] medical- covered on [employer] gold due [...] 4 3:35 PM EST 05/10/20 24 Active Zoster Vac Recomb Adjuvanted 50 MCG/0.5ML Intramuscular Suspension Reconstituted (Shingrix)Indica tions:Immunizati on due Inject 0.5 mL into a large muscle now and repeat dose in 60 to 180 days 1 Each 1 12/24/19 23 024 Disconti nued(Med ication List Clean Up) Atorvastatin Calcium 80 MG Oral Tablet (Lipitor) Take 1 Tablet by mouth daily. 90 Tablet 3 4 3:38 PM EDT 03/29/20 23 024 Disconti nued(Med ication List Clean Up) Clopidogrel Bisulfate 75 MG Oral Tablet (pLAVix) Take 1 Tablet by mouth daily. 90 Tablet 3 4 3:38 PM EDT 03/29/20 23 024 Disconti nued(Med ication List Clean Up) traZODone HCl 50 MG Oral Tablet (Desyrel)Indicat ions:Primary insomnia Take 1 Tablet by mouth at bedtime. 30 Tablet 12/08/19 24 024 Disconti nued(Med ication List Clean Up) documented as of this encounter (statuses as of 05/15/2024) Active Problems Problem Noted Date Diagnosed Date Type 2 diabetes mellitus wit h diabetic peripheral angiopathy without gangrene 08/03/2023 Brief psychotic disorder 08/03/2023 Current severe episode of ma lexa depressive disorder with psychotic features without prior episode 08/03/2023 Atherosclerosis of [place] co ronary artery without angina pectoris 08/03/2023 [...] as of this encounter (statuses as of 05/15/2024) Resolved Problems Problem Noted Date Diagnosed Date [...] as of this encounter (statuses as of 05/15/2024) Immunizations Name Administration Dates Next Due Pneumococcal [...] No 05/08/2024 Does the household have a [facility] source of income? (Household - for ages [...] No 05/08/2024 Are you (or your family) loga eless or worried that you might be [...] Sign Reading Time Taken Comments Blood Pressure 124/74 05/15/2024 2:07 PM EST Pulse 64 05/15/2024 2:07 PM EST Temperature 36.5 C (97.7 F) 05/15/2024 2:07 PM ES T Respiratory Rate 17 05/15/2024 2:07 PM EST Oxygen Saturation - - Inhaled Oxygen Concentration - - Weight 98.1 kg (216 lb 3.2 oz) 05/15/2024 2:07 P M EST Height - - Body Mass Index 34.9 11/03/2023 3:10 PM EDT documented in this encounter Progress Notes * Sheldon Currie MD - 05/15/2024 2:13 PM EST Images from the original note were not included. Assessment and Plan 1. Type 2 diabetes mellitus with diabetic peripheral angiopathy without gangrene, without long-termcurrent use of insulin (HCC) (Primary) A1c 6.6 in January 2024. Continue trulicity weekly. Lab work as below prior to next appointment. Diabetic foot exam completed in office today. - HEMOGLOBIN A1C; Future - COMPREHENSIVE METABOLIC PANEL; Future - ALBUMIN / CREATININE RATIO, URINE; Future - DIABETES FOOT EXAM 2. COPD, severity to be determined (HCC) Stable respiratory symptoms. Continue albuterol. 3. Pure hypercholesterolemia, unspecified Continue atorvastatin. - LIPID PANEL WITH DIRECT LDL IF TG IS HIGH; Future 4. Atherosclerosis of [place] coronary artery of [place] heart without angina pectoris S/p AURORA to RCA in 2014. On DAPT. Euvolemic on exam. Stable cardiac symptoms. BP at goal. Continue statin. Stable claudication of the calves. 5. Nonintractable epilepsy without status epilepticus, unspecified epilepsy type (HCC) Continue lamictal. 6. Current severe episode of major depressive disorder with psychotic features without prior episode (HCC) Stable from a mood perspective. No further episodes of psychosis as occurred in 2022. Has evaluation by neuropsychology at the end of the week. 7. Essential (primary) hypertension Blood pressure at goal. Continue lisinopril. Wrap-Up Follow up in 6 months. History of Present Illness The patient is a 68-year-old male with past medical history of type 2 diabetes, COPD, hypertension,depression, brief psychotic disorder who presents for follow up. Patient presents for routine follow up. He has a history of psychosis during which he overdosed on his GLP-1. Currently takes Zyprexa and Citalopram and has been doing well. Also has a history of coronary artery disease with stent placement to the RCA in 2014. He currently is appropriately on atorvastatin, aspirin, plavix. Continues to follow with cardiology. Has been stable from a mood perspective. Has follow up with neuropsychology upcoming this week. Physical Exam Vitals: 05/15/24 1407 Temp: 97.7 F (36.5 C) Pulse: 64 Resp: 17 BP: 124/74 Physical Exam Physical Exam Vitals reviewed. Constitutional: General: He is not in acute distress. Eyes: Comments: Anisocoria. Pulmonary: Effort: Pulmonary effort is normal. No respiratory distress. Neurological: General: No focal deficit present. Mental Status: He is alert. This note has been completed in part utilizing [employer] Speech Voice Recognition Software. Due to technical limitations of the software, grammatical errors, random word insertions, prounoun errors, and incomplete sentences may occur. Any formal questions or concerns about the content, text, or information contained within the body of this dictation should be directly addressed to the provider for clarification. documented in this encounter Nursing Notes * Maite Dowd LPN - 05/15/2024 2:05 PM EST The patient has been properly identified by confirmation of name and date of . Chief Complaint Patient presents with Follow Up Patein is here for a 6 month follow up and has no concerns today. Patient has not had Nitroglycerin 0.4MG filled in a long time- please send refill to [facility]. documented in this encounter Plan of Treatment Upcoming Encounters Date Type Department Care Team (Late st Contact Info) Description 05/19/2024 1:00 PM EST Office Visit [facility] [address] [facility] [address] Donny Weir, DO [address] [place] [address] 11/13/2024 1:00 PM EDT Office Visit [facility] Saeid H[facility] [address] [phone] Sheldon Currie MD [address] [address] Scheduled Orders Name Type Priority Associated Diagnoses Orde r Schedule LIPID PANEL WITH DIRECT LDL IF TG IS HIGH Lab Routine Pure hypercholesterolemia, unspecified Expected: 05/15/2024, Expires: 05/15/2025 HEMOGLOBIN A1C Lab Routine Type 2 diabetes mellitus with diabetic peripheral angiopathy without gangrene, without long-term current use of insulin (HCC) Expected: 05/15/2024 (Approximate), Expires: 05/15/2025 COMPREHENSIVE METABOLIC PANEL Lab Routine Type 2 diabetes mellitus with diabetic peripheral angiopathy without gangrene, without long-term current use of insulin (HCC) Expected: 05/15/2024 (Approximate), Expires: 05/15/2025 ALBUMIN / CREATININE RATIO, URINE Lab Routine Type 2 diabetes mellitus with diabetic peripheral angiopathy without gangrene, without long-term current use of insulin (HCC) Expected: 05/15/2024 (Approximate), Expires: 05/15/2025 Health Maintenance Due Date Last Done Comments [...] exists Diabetic Foot Exam 05/15/2025 05/15/2024, 04/13/2023 Pneumococcal Vaccine: 65+ Years Completed 12/23/2022, 02/05/2021, [...] this encounter Medical Devices Implanted Type Area Sunglass Clip Attacher Device Identifier Shelf Expiration Date Model / Serial / Lot Lens Intraoc 22.0 - [id number] - [id number] Implanted:Qty: 1 on 09/05/2020 by Roger Gómez MD at [facility] Right: Eye [employer] 06/30/2024 [id number] / [id number] / [id number] Lens Intraoc 21.0 - [id number] - [id number] Implanted:Qty: 1 on 09/12/2020 by Roger Gómez MD at OR [facility] Left: Eye [employer] 03/30/2025 [id number] / [id number] / documented as of this encounter Visit Diagnoses Diagnosis Type 2 diabetes mellitus with diabetic peripheral angiopathy without gangrene, without long-term current use of insulin (HCC)- Primary COPD, severity to be determined (HCC) Chronic airway obstruction, not elsewhere classified Pure hypercholesterolemia, unspecified Atherosclerosis of [place] coronary artery of [place] heart without angina pectoris Nonintractable epilepsy without status epilepticus, unspecified epilepsy type (HCC) Current severe episode of major depressive disorder with psychotic features without prior episode (HCC) Essential (primary) hypertension Unspecified essential hypertension documented in this encounter Advance Directives Documents on File Type Date Recorded 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
--- OUTSIDE RECORDS SUMMARY | 2024-07-28 12:43 | External Medical Summary | Summary of Care ---
Author Name Unknown Organization [facility] Address [address] [place] [address] Phone [phone] Care Team Providers Care Computator Name Role Phone Sheldon Currie MD Primary Care Provider [phone] Encounter Details Date Type Department Care Team (Latest Contact Info) Description 04/18/2024 Medication Management [facility] [address], [place] [id number] [facility] [address] [place] [address] Medication management* Allergies Active Allergy Reactions Criticality Noted Date Comments Penicillins Hives Medium 03/08/2007 documented as of this encounter (statuses as of 04/19/2024) Medications Aspirin 81 MG Oral Tablet Chewable [...] mL 06/03/19 23 Active OneTouch Delica Plus [id number] USE TO CHECK BLOOD SUGAR TWO TIMES [...] 4 6:06 PM EDT 05/04/20 23 Active A and A Travel ServiceTouch Verio Flex System w/Device Kit Use as [...] as directed every 10 days. 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 Objective: Review of patient's allergies indicates: Allergen Reactions Pcn [Penicillins] Hives Current Outpatient Medications - WARNING: List may be incomplete due to filtering Medication Sig Dispense Refill Albuterol Sulfate HFA 108 (90 Base) MCG/ACT Inhalation Aerosol Solution Inhale 2 Puffs by mouth every 6 hours as needed. Nitroglycerin 0.4 MG Sublingual Tablet Sublingual (Nitrostat) Place 1 Tablet under the tongue every5 minutes as needed for Pain, Chest. Trulicity 4.5 MG/0.5ML Subcutaneous Solution Auto-injector (Dulaglutide) Inject 4.5 mg under the skin once a week. 8 mL 4 Clopidogrel Bisulfate 75 MG Oral Tablet (pLAVix) take 1 tablet by mouth daily 90 Tablet 3 Ketoconazole 2 % External Cream Apply topically to affected area 2 times a day for 14 days. Apply to rash on face and central chest twice daily until resolved then when flaring 60 g 2 lamoTRIgine 200 MG Oral Tablet (LaMICtal) Take 1 Tablet by mouth 2 times a day. 180 Tablet 0 Fluticasone Furoate-Vilanterol 200-25 MCG/ACT Inhalation Aerosol Powder Breath Activated (BREO ellipta) Inhale 1 Puff by mouth in the morning. 180 Each 2 traZODone HCl 50 MG Oral Tablet (Desyrel) Take 1 Tablet by mouth at bedtime. 90 Tablet 1 Citalopram Hydrobromide 40 MG Oral Tablet (CeleXA) TAKE ONE TABLET BY MOUTH EVERY DAY 90 Tablet 3 Lisinopril 20 MG Oral Tablet (Prinivil) Take 1 Tablet by mouth in the morning. 90 Tablet 3 Metoprolol Tartrate 25 MG Oral Tablet (Lopressor) Take 1 Tablet by mouth in the morning and 1 Tablet before bedtime. 180 Tablet 30 traMADol HCl 50 MG Oral Tablet (Ultram) Take 1 Tablet by mouth every 6 hours as needed for Pain, Severe. 15 Tablet 0 OLANZapine 2.5 MG Oral Tablet (zyPREXA) Take 1 Tablet by mouth at bedtime. 90 Tablet 3 Vitamin B-12 500 MCG Oral Tablet (vitamin B-12) Take 2 Tablets by mouth in the morning. Atorvastatin Calcium 80 MG Oral Tablet (Lipitor) Take 1 Tablet by mouth daily. 90 Tablet 3 Albuterol Sulfate (2.5 MG/3ML) 0.083% Inhalation Nebulization Solution (Proventil) Inhale 1 Vial via nebulizer every 4 hours as needed for Wheezing for up to 60 doses. 1 mL 0 Acetaminophen 500 MG Oral Tablet Take 2 Tablets by mouth every 6 hours as needed for Pain, Moderate. Ipratropium-Albuterol 0.5-2.5 (3) MG/3ML Inhalation Solution Inhale 3 mL by mouth every 6 hours as needed. Aspirin 81 MG Oral Tablet Chewable Take 1 Tablet by mouth in the morning. Atorvastatin Calcium 80 MG Oral Tablet (Lipitor) take 1 tablet by mouth daily 90 Tablet 3 Dexcom G7 Sensor Use as directed every 10 days. Supplied by [facility] medical- covered on [facility] gold due tohospitalization related to hypoglycemia (PCP note September 2022) traZODone HCl 50 MG Oral Tablet (Desyrel) Take 1 Tablet by mouth at bedtime. 30 Tablet 0 Grataio Flex System w/Device Kit Use as directed. 1 Kit 0 Clopidogrel Bisulfate 75 MG Oral Tablet (pLAVix) Take 1 Tablet by mouth daily. 90 Tablet 3 OneTouch Verio In Vitro Strip (Glucose Blood) Use to check sugars twice daily E 11.9 200 Strip 3 Zoster Vac Recomb Adjuvanted 50 MCG/0.5ML Intramuscular Suspension Reconstituted (Shingrix) Inject 0.5 mL into a large muscle now and repeat dose in 60 to 180 days (Patient not taking: Reported on 08/03/2023) 1 Each 1 OneTouch Delica Plus [id number] USE TO CHECK BLOOD SUGAR TWO TIMES A DAY 200 Each 3 Immunization History Administered Date(s) Administered Pneumococcal Conjugate Vaccine, 20-valent ([id number]) 12/23/2022 Season Influenza, Quad, PF, Adjuvanted, 65+ Yrs, IM (FLUAD) 03/20/2020 Seasonal Influenza, High Dose, Trivalent, PF, IM (Fluzone HD) 04/10/2022 Seasonal Influenza, Quadrivalent Hd (Fluzone Hd) 02/22/2023 TMR Interventions TMR High Risk Medication - High dose Celexa: CITALOPRAM TAB 40MG TMR Drug Therapy - Rescue Therapy (COPD or Asthma): No rescue inhaler claims Incomplete Encounter MTPs No medication therapy recommendations to display Complete Encounter MTPs No medication therapy recommendations to display Assessment & Plan Indication, effectiveness, safety and convenience of his medications were reviewed today. The patient's medical conditions were assessed, evaluated, and deemed meeting goals of drug therapy, with thefollowing exceptions. Additional Notes: none Summary Time Spent: 31-45 min Supervising pharmacist who provided the service: Vazquez Ingram Information Who was the recipient of the CMR service: beneficiary Language Template for the Patient Takeaway: Swedish I attest that I have reviewed and updated the patient's conditions, allergies, and medications to the best of my ability. Patient provided medication list gathered by: Vicente Brumfield RPh 04/19/2024, 4:20 PM documented in this encounter Miscellaneous Notes * MTM Personal Medication List - [facility] RPh - 04/19/2024 4:17 PM EST Medication How I take it Why I use it Prescriber Acetaminophen 500 MG Oral Tablet Take 2 Tablets by mouth every 6 hours as needed for Pain, Moderate. Pain Self Albuterol Sulfate (2.5 MG/3ML) 0.083% Inhalation Nebulization Solution (Proventil) Inhale 1 Vial via nebulizer every 4 hours as needed for Wheezing for up to 60 doses. Breathing Juaquin Santiago PA-C Albuterol Sulfate HFA 108 (90 Base) MCG/ACT Inhalation Aerosol Solution Inhale 2 Puffs by mouth every 6 hours as needed. Breathing Sheldon Currie MD Aspirin 81 MG Oral Tablet Chewable Take 1 Tablet by mouth in the morning. Heart health Self Atorvastatin Calcium 80 MG Oral Tablet (Lipitor) Take 1 Tablet by mouth daily. High cholesterol Sheldon Currie MD Citalopram Hydrobromide 40 MG Oral Tablet (CeleXA) TAKE ONE TABLET BY MOUTH EVERY DAY Mood Sheldon Currie MD Clopidogrel Bisulfate 75 MG Oral Tablet (pLAVix) take 1 tablet by mouth daily Blood clot preventionSheldon Currie MD Fluticasone Furoate-Vilanterol 200-25 MCG/ACT Inhalation Aerosol Powder Breath Activated (BREO ellipta) Inhale 1 Puff by mouth in the morning. Asthma Sheldon Currie MD Ipratropium-Albuterol 0.5-2.5 (3) MG/3ML Inhalation Solution Inhale 3 mL by mouth every 6 hours as needed. Breathing Sheldon Currie MD Ketoconazole 2 % External Cream Apply topically to affected area 2 times a day for 14 days. Apply to rash on face and central chest twice daily until resolved then when flaring Rash Sheldon Currie MD lamoTRIgine 200 MG Oral Tablet (LaMICtal) Take 1 Tablet by mouth 2 times a day. Seizure prevention Sheldon Currie MD Lisinopril 20 MG Oral Tablet (Prinivil) Take 1 Tablet by mouth in the morning. High blood pressure Sheldon Currie MD Metoprolol Tartrate 25 MG Oral Tablet (Lopressor) Take 1 Tablet by mouth in the morning and 1 Tablet before bedtime. High blood pressure Sheldon Currie MD Nitroglycerin 0.4 MG Sublingual Tablet Sublingual (Nitrostat) Place 1 Tablet under the tongue every5 minutes as needed for Pain, Chest. Chest pain Sheldon Currie MD OLANZapine 2.5 MG Oral Tablet (zyPREXA) Take 1 Tablet by mouth at bedtime. Mood Sheldon Currie MD traMADol HCl 50 MG Oral Tablet (Ultram) Take 1 Tablet by mouth every 6 hours as needed for Pain, Severe. Pain Sheldon Currie MD traZODone HCl 50 MG Oral Tablet (Desyrel) Take 1 Tablet by mouth at bedtime. Sleep Sheldon Currie MD Trulicity 4.5 MG/0.5ML Subcutaneous Solution Auto-injector (Dulaglutide) Inject 4.5 mg under the skin once a week. Diabetes Sheldon Currie MD Vitamin B-12 500 MCG Oral Tablet (vitamin B-12) Take 2 Tablets by mouth in the morning. General health Self * MTM To-Do-List - [facility] RPh - 04/18/2024 10:07 AM EST Images from the original note were not included. What we talked about: What I should do: The importance of taking your medication as prescribed Your medicine works best when taken as prescribed. It can be hard to remember to take daily medications. Consider making it a part of your daily routine. Pair taking your medication with something you do every day, like brushing your teeth or eating a meal. Consider setting daily alarms to help remind yourself when it is time to take your medicine. Using a pill box can also help you organize your medicines. Pill boxes allow you to fill each day slot with your daily medicine and help you track when your next dose is due. What we talked about: What I should do: Breo This medication works like a vitamin for your lungs. It works best when taken daily and as prescribed, even if you don't feel it working as soon as you take it. It does not work immediately (or in the moment) like your rescue inhaler. You will notice as you take it daily that overtime your breathing should get easier or shouldn't become worst. Your inhaler could put you at an increase risk for throat irritation or even throat fungal infections (called thrush). An easy way to keep your throat healthy is swishing and spitting with water after each use. What we talked about: What I should do: Clopidogrel This medication is meant to thin your blood to prevent clots. Medications that thin your blood can increase risk of bleeds. These medications may cause you to bruise more easily, to have a longer stop time of bleeding if you cut yourself, to have increase in nose bleeds, as well as to make your gums more likely to bleed when brushing your teeth. Advise your doctor of any signs of bleeding such as blood in urine or stool, bruises that begin to bleed, bleeding that is not controlled after a few hours, or a big fall where you hit your head. Also if you do have a bruise, keep an eye on it and make sure it doesn't get any bigger What we talked about: What I should do: Signs of low blood sugar When your blood sugar is 70 mg/dl or below, it is important to increase blood sugar immediately. Low blood sugar could lead to coma and even . When you notice your sugaris low, eat a small snack containing sugar. Some examples include: drink a small amount of orange juice (4 ounces), 4 ounces of regular soda or milk, taking glucose tablets (15 grams), or eat 1 tablespoonful of sugar. Wait 15 minutes, and recheck your blood sugar. If your sugar is still low, try toincrease it again by eating a small amount of sugar. Recheck your blood sugar in 15 minutes. If after two attempts to raise it, and your blood sugar is still low-call your doctor immediately. What we talked about: What I should do: Diabetic foot health When you have diabetes, it could put you at an increased risk for foot infections. Checking your feet at home is a great way to prevent foot infections. Check your feet daily forcuts, scrapes, blisters, sores and signs of infection. Signs of infection could include redness, swelling or skin feeling warm to touch. If you cannot see the bottom of your feet, use a mirror or asksomeone for help. It is also important to keep your feet clean by washing them every day. Always wear socks and shoes. Never go barefoot. Lastly, keep your feet elevated while sitting and don't cross your legs for a long period of time. While your feet are elevated wiggle your toes and move your ankles up and down to keep the blood flowing in your feet. Have your feet checked at your doctor's appointments or at least once a year by a doctor. documented in this encounter Plan of Treatment Upcoming Encounters Date Type Department Care Team (Late st Contact Info) Description 05/15/2024 1:00 PM EST [facility] [address] [facility] [phone] SeptemberSheldon MD [address] [facility] [place] [address] 05/19/2024 1:00 PM EST Office Visit Neurology [facility] [place] [address] [place] [address] Donny Weir, [address] [facility] [place] [address] Health Maintenance Due Date Last Done [...] FOR COPD 08/02/2024 08/03/2023 HbA1c 08/06/2024 02/07/2024, 02/10/2023, 03/17/2023, Additional history exists Diabetic Eye Exam [...] this encounter Medical Devices Implanted Type Area Metalizing Machine Operator Device Identifier Shelf Expiration Date Model / Serial / Lot Lens Intraoc 22.0 - [id number] - [id number] Implanted:Qty: 1 on 09/05/2020 by Roger Gómez MD at [facility] Right: Eye [employer]CH [employer]OM[employer] 06/30/2024 [id number] / [id number] / [id number] Lens Intraoc 21.0 - [id number] - [id number] Implanted:Qty: 1 on 09/12/2020 by Roger Gómez MD at [facility] Left: Eye BAUSCH & LOMB 03/30/2025 [id number] / [id number] / documented as of this encounter Visit Diagnoses Diagnosis Medication management- Primary Encounter for long-term (current) use of other medications documented in this encounter Advance Directives Documents on File Type Date Recorded Patient Restaurant Assistant Expl anation Power of Repairer Shoe Sticks 10/18/2007 * Full Code (Latest Code Status on File) Date Activated Date Inactivated Comments 10/11/2007 7:54 PM 10/21/2007 6:37 PM Care Teams Computator Relationship Specialty Start Date End Date September, Sheldon Alegre MD [address] [facility] [place] [address] PCP - General Family Medicine 06/08/22 documented as of this encounter
--- OUTSIDE RECORDS SUMMARY | 2024-07-28 12:43 | External Medical Summary | Summary of Care ---
Author Name Unknown Organization [facility] Address [address] [place] [address] Phone [phone] Care Team Providers Care Finance Intern Name Role Phone Sheldon Currie MD Primary Care Provider [phone] Encounter Details Date Type Department Care Team (Late st Contact Info) Description 04/06/2024 Population Health External Data Unspecified Department Allergies Active Allergy Reactions Criticality Noted Date Comments Penicillins Hives Medium 03/08/2007 documented as of this encounter (statuses as of 04/07/2024) Medications Aspirin 81 MG Oral Tablet Chewable [...] Additional Information Patient not taking.Reported on 08/03/2023 Trulicity 4.5 MG/0.5ML Subcutaneous Solution Pen-injector (Dulaglutide)Rebeca cations:Type 2 diabetes mellitus without complication, with long-term current use of insulin (HCC),Need for prophylactic vaccination and inoculation against influenza Inject 4.5 mg under the skin once a week. Dose increase 6 mL 3 02/23/20 23 Active Atorvastatin Calcium 80 MG Oral Tablet [...] 4 6:06 PM EDT 05/04/20 23 Active Mpax Flex System w/Device Kit Use as directed. [...] as directed every 10 days. 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 Never true 04/12/2023 Sex and Gender Information Value Date Recorded Sex Assigned at Male 10/26/2022 11:32 AM EDT Legal Sex Male 5:12 AM EST Gender Identity Male 10/26/2022 11:32 AM EDT Sexual Orientation Straight 10/26/2022 11 :32 AM EDT documented as of this encounter Plan of Treatment Upcoming Encounters Date Type Department Care Team (Late st Contact Info) Description 05/15/2024 1:00 PM EST Office Visit [facility] [place] [address] [place] [address] SeptemberSheldon MD [address] [place] [address] 05/19/2024 1:00 PM EST Office Visit Neurology [facility] [address] [place] [address] Donny Weir, DO [address] [place] [address] Health Maintenance Due Date Last Done Comments [...] this encounter Medical Devices Implanted Type Area Sales Assistant Institutional Sales Device Identifier Shelf Expiration Date Model / Serial / Lot Lens Intraoc 22.0 - [id number] - [id number] Implanted:Qty: 1 on 09/05/2020 by [facility] Right: Eye [employer]OM[employer] 06/30/2024 [id number] / [id number] / [id number] Lens Intraoc 21.0 - [id number] - [id number] Implanted:Qty: 1 on 09/12/2020 by Roger Gómez MD at 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
[2024-07-28 12:50] LABS: Appearance Urine Clear (Clear); Bacteria Urine Automated None Seen (None Seen); Bilirubin Urine Negative (Negative); Blood Urine 1+ (Negative); Color Urine Yellow; Epithelial Cell Urine Auto 0-2 /hpf (0-2); Glucose Urine UA Negative (Negative); Ketones Urine 1+ (Negative); Leukocyte Esterase Urine 1+ (Negative); Nitrite Urine Negative (Negative); Protein Urine 1+ (Negative); Specific Gravity Urine 1.022 (1.000-1.030); Urobilinogen Urine Negative (Negative)
[2024-07-28] MEDS ORDERED: GLUCAGON FOR INJ 1 MG VIAL SQ PRN (15:14)
[2024-07-28] MEDS ORDERED: GLUCOSE 10 TAB/TUBE PO PRN (15:14)
[2024-07-28] MEDS ORDERED: POLYETHYLENE (MIRALAX) 17 GM PACK PO PRN (15:14)
[2024-07-28] MEDS ORDERED: ONDANSETRON INJ 2 MG/ML 2 ML VIAL IV PRN (15:14)
[2024-07-28] MEDS ORDERED: DEXTROSE 50% 50 ML SYRINGE IV PRN (15:14)
[2024-07-28] MEDS ORDERED: CARBOHYDRATES FOR HYPOGLYCEMIA PO PRN (15:14)
[2024-07-28] MEDS ORDERED: FAMOTIDINE 20 MG TAB PO PRN (15:14)
[2024-07-28] MEDS ORDERED: GLUCOSE 40% GEL 15 GM TUBE PO PRN (15:14)
[2024-07-28 15:34] LABS: BUN Creatinine Ratio 16.3 (10-20); Calcium 7.8 mg/dl (8.6-10.3); Creatinine Clr Calc Pharmacy 63.1 ml/min; Potassium 3.7 mmol/L (3.5-5.1)
[2024-07-28] MEDS: ALBUT/IPRATROP 3MG/0.5MG NEB 3 ML VIAL NEB SCH (16:55)
[2024-07-28] MEDS: HEPARIN SOD 5,000 UNIT/0.5 ML VIAL SQ SCH (17:29)
[2024-07-28] MEDS: INSULIN ASPART PER UNIT CHARGE SC SCH (17:29)
[2024-07-28] MEDS: THIAMINE HCL 100 MG TAB PO SCH (17:52)
[2024-07-28] MEDS: ATORVASTATIN 40 MG TAB PO SCH (20:37)
[2024-07-28] MEDS: traZODone HCL 100 MG TAB PO SCH (20:37)
[2024-07-28] MEDS: lamoTRIgine 100 MG TAB PO SCH (20:38)
[2024-07-28] MEDS: MELATONIN 3 MG TAB PO PRN (20:38)
[2024-07-28] MEDS: OLANZAPINE 2.5 MG TAB PO SCH (20:43)
[2024-07-28] MEDS: METOPROLOL TARTRATE 25 MG TAB PO SCH (20:43)
[2024-07-28 21:15] LABS: BUN Creatinine Ratio 17.5 (10-20); Creatinine Clr Calc Pharmacy 65.3 ml/min; Potassium 3.4 mmol/L (3.5-5.1)
[2024-07-29 06:34] LABS: Hematocrit (blood only) 31.1 % (42.0-52.0); Hemoglobin 10.6 g/dl (14.0-18.0); Mean Corpuscular Hemoglobin 31.3 pg (25.0-34.0); Mean Corpuscular Hgb Conc 34.1 g/dL (32.0-36.0); Mean Corpuscular Volume 91.7 fL (80.0-100.0); Mean Platelet Volume 11.3 fL (9.4-12.4); Platelet Count 188 K/uL (130-400); RDW Standard Deviation 50.4 fL (36.4-46.3); Red Blood Count 3.39 M/uL (4.70-6.10); White Blood Count 10.64 K/ul (4.8-10.8)
[2024-07-29 06:46] LABS: Albumin Level 2.9 gm/dl (3.4-5.0); BUN Creatinine Ratio 19.1 (10-20); Bilirubin,Total 0.3 mg/dl (0.2-1.0); Calcium 7.5 mg/dl (8.6-10.3); Creatinine Clr Calc Pharmacy 83.4 ml/min; Potassium 3.8 mmol/L (3.5-5.1); Total Protein 5.9 gm/dl (6.0-8.3)
[2024-07-29 07:05] LABS: Basophils # (auto) 0.02 K/uL (0.00-0.20); Basophils % (auto) 0.2 %; Echinocytes 2+; Immature Granulocytes # (auto) 0.05 K/uL (0.01-0.20); Immature Granulocytes % (auto) 0.5 %; Lymphocytes # (auto) 0.28 K/uL (1.20-3.40); Lymphocytes % (auto) 2.6 %; Monocytes # (auto) 0.65 K/uL (0.11-0.59); Monocytes % (auto) 6.1 %; Neutrophils # (auto) 9.64 K/uL (1.40-6.50); Neutrophils % (auto) 90.6 %; Polychromasia 1+
[2024-07-29 08:04] LABS: Estimated Average Glucose 148 mg/dl; Hemoglobin A1C 6.8 % (4.5-5.6)
[2024-07-29] MEDS: CITALOPRAM 40 MG TAB PO SCH (08:07)
[2024-07-29] MEDS: ADVANCED PROBIOTIC 625 MG CAPSULE PO SCH (08:07)
[2024-07-29] MEDS: ASPIRIN 81 MG ECTAB PO SCH (08:08)
[2024-07-29] MEDS: AZITHROMYCIN 250 MG TAB PO SCH (08:08)
[2024-07-29] MEDS: CLOPIDOGREL BISULFATE 75 MG TAB PO SCH (08:08)
[2024-07-29] MEDS: cefTRIAXone SODIUM 2,000 MG/50 ML BAG IV SCH (08:09)
[2024-07-29] MEDS: FLUTICASONE/VILANTEROL 200/25MCG 14 PUFFS/INHALER INH SCH (08:11)
--- NOTE | 2024-07-29 08:30 | Hospitalist Progress Note ---
Date of Service July 29, 2024 Assessment & Plan (1) Acute hypoxic respiratory failure: (2) RML pneumonia: (3) Hyponatremia: (4) Lactic acid acidosis: (5) CAD (coronary artery disease): (6) Diabetes mellitus, type 2: Plan 68 yo M with history of T2DM, Diabetic peripheral angiopathy, HTN, HLD, CAD, Epilepsy, Major neurocognitive disorder, Depression, Personality disorder who presents to ED 2/2 generalized weakness and SOB x 2 days. Acute hypoxic respiratory Failure RML and RLL Pneumonia COPD - not in acute exacerbation Started on IV rocephin, azithromycin on admission, will continue continue inhalers, scheduled nebs, ISP, flutter valve sputum culture currently on 5L of suppl. O2 but reports feeling since yesterday (admission) Lactic acidosis suspected in setting of hypotension resolved after fluid administration Hyponatremia Na 126 on admission suspect in setting of poor intake urine osm, na and serum osm current Na 131 cont. to closely monitor PASCUAL Cr 1.6 on admission suspect in setting of poor intake - received 2.25L in ED, continued with 60ml/hr x 1L - hold lisinopril - Cr now improved to 1 Elevated trop - suspect in setting of demand ischemia due to hypotension/infection, 2hr trop already down trended to normal CAD with hx of [place] HTN HLD continue asa, statin, plavix held lisinopril due to hypotension, and PASCUAL but continue metoprolol T2DM - hold trulicty, ISS per protocol - last A1c 6.6% in January, current A1c 6.8% Seizure disorder last was 2 years ago 2/2 hypoglycemia, continue lamictal Depression/Personality Disorder - continue zyprexa, trazodone DVT ppx: SQ Heparin, monitor for blood in sputum FULL CODE PCP: fab Currie MD Dispo: PCU Admission and Anticipated Discharge Date Admission Date: July 28, 2024 Subjective Pt seen in follow up of acute hypoxic resp. failure, sepsis, secondary to PNA Currently sitting up in bed in NAD, on suppl. O2 5L Pt says he feels much better since he came to hospital yesterday Has a cough but no sputum production denies fever, chills, chest pain, shortness of breath, abd. pain, n/v Per RN pt walked to bathroom and was very short of breath after that Review of Systems Review of Systems: All systems reviewed & are unremarkable except as noted in Subjective Physical Exam Physical Exam: General Appearance: Obese M in NAD, on suppl. O2 5L Head: normocephalic, Atraumatic Eyes: normal inspection, EOMI Neck: supple Respiratory/Chest: + rhonchi, No accessory muscle use Cardiovascular: S1, S2, No murmur Abdomen/GI:Soft, Non tender, Bowel sounds present Extremities/Musculoskeletal:normal inspection, trace pedal edema Neurologic/Psych:AAOX3, grossly no focal neurological deficits Skin: normal color, warm Results & Data Results & Data Vital Signs (Past 12 Hours) Vital Signs Temp Pulse Pulse Resp BP Pulse Ox O2 Del Method 07/29/24 07:29 78 18 94 Nasal Cannula 07/29/24 04:26 36.6 C 70 18 99/59 L 91 Nasal Cannula 07/29/24 00:40 71 16 93 Nasal Cannula 07/28/24 22:58 36.8 C 61 18 108/70 92 Nasal Cannula 07/28/24 22:15 Nasal Cannula 07/28/24 22:04 69 O2 Flow Rate 07/29/24 07:29 4 07/29/24 04:26 5 07/29/24 00:40 5 07/28/24 22:58 07/28/24 22:15 5 07/28/24 22:04 Laboratory Results 07/29/24 07/29/24 07/28/24 Range/Units 07:23 05:52 20:39 WBC 10.64 (4.8-10.8) K/ul RBC 3.39 L (4.70-6.10) M/uL Hgb 10.6 L (14.0-18.0) g/dl Hct 31.1 L (42.0-52.0) % MCV 91.7 (80.0-100.0) fL MCH 31.3 (25.0-34.0) pg MCHC 34.1 (32.0-36.0) g/dL RDW Std Deviation 50.4 H (36.4-46.3) fL RDW Coeff of Lucas 15.0 H (11.5-14.5) % Plt Count 188 (130-400) K/uL MPV 11.3 (9.4-12.4) fL Immature Gran % (Auto) 0.5 % Neut % (Auto) 90.6 % Lymph % (Auto) 2.6 % Rogers % (Auto) 6.1 % Eos % (Auto) 0.0 % Baso % (Auto) 0.2 % Neut # (Auto) 9.64 H (1.40-6.50) K/uL Lymph # (Auto) 0.28 L (1.20-3.40) K/uL Rogers # (Auto) 0.65 H (0.11-0.59) K/uL Eos # (Auto) 0.00 (0.00-0.50) K/uL Baso # (Auto) 0.02 (0.00-0.20) K/uL Immature Gran # (Auto) 0.05 (0.01-0.20) K/uL Polychromasia 1+ Echinocytes 2+ Sodium 131 L 129 L (136-145) mmol/L Potassium 3.8 3.4 L (3.5-5.1) mmol/L Chloride 106 101 (98-107) mmol/L Carbon Dioxide 20 L 20 L (21-32) mmol/L Anion Gap 5 8 (3-11) BUN 18 21 (6-23) mg/dl Creatinine 0.94 1.20 (0.6-1.4) mg/dl Est Cr Clr Drug Dosing 83.4 65.3 ml/min eGFR 87.21 65.06 BUN/Creatinine Ratio 19.1 17.5 (10-20) Glucose 232 H 236 H (70-99(Fasting)) mg/dl POC Glucose 213 H (70-99) mg/dl Estimat Average Glucose 148 mg/dl Hemoglobin A1c 6.8 H (4.5-5.6) % Osmolality (280-300) mOsm/kg Lactate (0.4-2.0) mmol/L Calcium 7.5 L 8.0 L (8.6-10.3) mg/dl Magnesium 2.0 (1.7-2.4) mg/dl Total Bilirubin 0.3 (0.2-1.0) mg/dl Direct Bilirubin (0-0.2) mg/dl AST 31 (13-39) U/L ALT 19 (7-52) U/L Alkaline Phosphatase 42 (34-104) U/L Troponin I High Sens (0-20) pg/ml Total Protein 5.9 L (6.0-8.3) gm/dl Albumin 2.9 L (3.4-5.0) gm/dl Globulin 3.0 (2.5-4.0) gm/dl Albumin/Globulin Ratio 1.0 (0.9-2) Procalcitonin (0-0.5) ng/ml Urine Color Urine Appearance (Clear) Urine pH (4.5-7.5) Ur Specific Holland (1.000-1.030) Urine Protein (Negative) Urine Glucose (UA) (Negative) Urine Ketones (Negative) Urine Blood (Negative) Urine Nitrite (Negative) Urine Bilirubin (Negative) Urine Urobilinogen (Negative) Ur Leukocyte Esterase (Negative) Urine WBC (Auto) (0-5) /hpf Urine RBC (Auto) (0-2) /hpf U Hyaline Cast (Auto) (0-2) /lpf U Epithel Cells (Auto) (0-2) /hpf Urine Bacteria (Auto) (None Seen) Urine Osmolality (500-800) mOsm/kg Adenovirus (PCR) (NotDetected) B. pertussis DNA (PCR) (NotDetected) B.parapertussis DNA PCR (NotDetected) C. pneumoniae DNA (PCR) (NotDetected) Coronavirus OC43 (PCR) (NotDetected) Coronavirus HKU1 (PCR) (NotDetected) Coronavirus 229E (PCR) (NotDetected) SARS-CoV-2 (PCR) (NotDetected) Coronavirus NL63 (PCR) (NotDetected) Human Metapneumovir PCR (NotDetected) Influenza Type A (PCR) (NotDetected) Influenza Type B (PCR) (NotDetected) M. pneumoniae (PCR) (NotDetected) Parainfluenza 1 (PCR) (NotDetected) Parainfluenza 2 (PCR) (NotDetected) Parainfluenza 3 (PCR) (NotDetected) Parainfluenza 4 (PCR) (NotDetected) RSV (PCR) (NotDetected) Entero/Rhino (PCR) (NotDetected) 07/28/24 07/28/24 07/28/24 Range/Units 20:11 16:49 15:05 WBC (4.8-10.8) K/ul RBC (4.70-6.10) M/uL Hgb (14.0-18.0) g/dl Hct (42.0-52.0) % MCV (80.0-100.0) fL MCH (25.0-34.0) pg MCHC (32.0-36.0) g/dL RDW Std Deviation (36.4-46.3) fL RDW Coeff of Lucas (11.5-14.5) % Plt Count (130-400) K/uL MPV (9.4-12.4) fL Immature Gran % (Auto) % Neut % (Auto) % Lymph % (Auto) % Rogers % (Auto) % Eos % (Auto) % Baso % (Auto) % Neut # (Auto) (1.40-6.50) K/uL Lymph # (Auto) (1.20-3.40) K/uL Rogers # (Auto) (0.11-0.59) K/uL Eos # (Auto) (0.00-0.50) K/uL Baso # (Auto) (0.00-0.20) K/uL Immature Gran # (Auto) (0.01-0.20) K/uL Polychromasia Echinocytes Sodium 127 L (136-145) mmol/L Potassium 3.7 (3.5-5.1) mmol/L Chloride 99 (98-107) mmol/L Carbon Dioxide 18 L (21-32) mmol/L Anion Gap 10 (3-11) BUN 20 (6-23) mg/dl Creatinine 1.23 D (0.6-1.4) mg/dl Est Cr Clr Drug Dosing 63.1 ml/min eGFR 63.16 BUN/Creatinine Ratio 16.3 (10-20) Glucose 209 H (70-99(Fasting)) mg/dl POC Glucose 230 H 231 H (70-99) mg/dl Estimat Average Glucose mg/dl Hemoglobin A1c (4.5-5.6) % Osmolality (280-300) mOsm/kg Lactate (0.4-2.0) mmol/L Calcium 7.8 L (8.6-10.3) mg/dl Magnesium (1.7-2.4) mg/dl Total Bilirubin (0.2-1.0) mg/dl Direct Bilirubin (0-0.2) mg/dl AST (13-39) U/L ALT (7-52) U/L Alkaline Phosphatase (34-104) U/L Troponin I High Sens (0-20) pg/ml Total Protein (6.0-8.3) gm/dl Albumin (3.4-5.0) gm/dl Globulin (2.5-4.0) gm/dl Albumin/Globulin Ratio (0.9-2) Procalcitonin (0-0.5) ng/ml Urine Color Urine Appearance (Clear) Urine pH (4.5-7.5) Ur Specific Holland (1.000-1.030) Urine Protein (Negative) Urine Glucose (UA) (Negative) Urine Ketones (Negative) Urine Blood (Negative) Urine Nitrite (Negative) Urine Bilirubin (Negative) Urine Urobilinogen (Negative) Ur Leukocyte Esterase (Negative) Urine WBC (Auto) (0-5) /hpf Urine RBC (Auto) (0-2) /hpf U Hyaline Cast (Auto) (0-2) /lpf U Epithel Cells (Auto) (0-2) /hpf Urine Bacteria (Auto) (None Seen) Urine Osmolality (500-800) mOsm/kg Adenovirus (PCR) (NotDetected) B. pertussis DNA (PCR) (NotDetected) B.parapertussis DNA PCR (NotDetected) C. pneumoniae DNA (PCR) (NotDetected) Coronavirus OC43 (PCR) (NotDetected) Coronavirus HKU1 (PCR) (NotDetected) Coronavirus 229E (PCR) (NotDetected) SARS-CoV-2 (PCR) (NotDetected) Coronavirus NL63 (PCR) (NotDetected) Human Metapneumovir PCR (NotDetected) Influenza Type A (PCR) (NotDetected) Influenza Type B (PCR) (NotDetected) M. pneumoniae (PCR) (NotDetected) Parainfluenza 1 (PCR) (NotDetected) Parainfluenza 2 (PCR) (NotDetected) Parainfluenza 3 (PCR) (NotDetected) Parainfluenza 4 (PCR) (NotDetected) RSV (PCR) (NotDetected) Entero/Rhino (PCR) (NotDetected) 07/28/24 07/28/24 07/28/24 Range/Units 12:26 11:53 09:40 WBC (4.8-10.8) K/ul RBC (4.70-6.10) M/uL Hgb (14.0-18.0) g/dl Hct (42.0-52.0) % MCV (80.0-100.0) fL MCH (25.0-34.0) pg MCHC (32.0-36.0) g/dL RDW Std Deviation (36.4-46.3) fL RDW Coeff of Lucas (11.5-14.5) % Plt Count (130-400) K/uL MPV (9.4-12.4) fL Immature Gran % (Auto) % Neut % (Auto) % Lymph % (Auto) % Rogers % (Auto) % Eos % (Auto) % Baso % (Auto) % Neut # (Auto) (1.40-6.50) K/uL Lymph # (Auto) (1.20-3.40) K/uL Rogers # (Auto) (0.11-0.59) K/uL Eos # (Auto) (0.00-0.50) K/uL Baso # (Auto) (0.00-0.20) K/uL Immature Gran # (Auto) (0.01-0.20) K/uL Polychromasia Echinocytes Sodium (136-145) mmol/L Potassium (3.5-5.1) mmol/L Chloride (98-107) mmol/L Carbon Dioxide (21-32) mmol/L Anion Gap (3-11) BUN (6-23) mg/dl Creatinine (0.6-1.4) mg/dl Est Cr Clr Drug Dosing ml/min eGFR BUN/Creatinine Ratio (10-20) Glucose (70-99(Fasting)) mg/dl POC Glucose (70-99) mg/dl Estimat Average Glucose mg/dl Hemoglobin A1c (4.5-5.6) % Osmolality 274 L (280-300) mOsm/kg Lactate 1.6 2.6 H* (0.4-2.0) mmol/L Calcium (8.6-10.3) mg/dl Magnesium (1.7-2.4) mg/dl Total Bilirubin (0.2-1.0) mg/dl Direct Bilirubin (0-0.2) mg/dl AST (13-39) U/L ALT (7-52) U/L Alkaline Phosphatase (34-104) U/L Troponin I High Sens 19.3 D (0-20) pg/ml Total Protein (6.0-8.3) gm/dl Albumin (3.4-5.0) gm/dl Globulin (2.5-4.0) gm/dl Albumin/Globulin Ratio (0.9-2) Procalcitonin (0-0.5) ng/ml Urine Color Yellow Urine Appearance Clear (Clear) Urine pH 6.0 (4.5-7.5) Ur Specific Holland 1.022 (1.000-1.030) Urine Protein 1+ H (Negative) Urine Glucose (UA) Negative (Negative) Urine Ketones 1+ H (Negative) Urine Blood 1+ H (Negative) Urine Nitrite Negative (Negative) Urine Bilirubin Negative (Negative) Urine Urobilinogen Negative (Negative) Ur Leukocyte Esterase 1+ H (Negative) Urine WBC (Auto) 6-10 H (0-5) /hpf Urine RBC (Auto) 11-20 H (0-2) /hpf U Hyaline Cast (Auto) 3-5 H (0-2) /lpf U Epithel Cells (Auto) 0-2 (0-2) /hpf Urine Bacteria (Auto) None Seen (None Seen) Urine Osmolality 563 (500-800) mOsm/kg Adenovirus (PCR) (NotDetected) B. pertussis DNA (PCR) (NotDetected) B.parapertussis DNA PCR (NotDetected) C. pneumoniae DNA (PCR) (NotDetected) Coronavirus OC43 (PCR) (NotDetected) Coronavirus HKU1 (PCR) (NotDetected) Coronavirus 229E (PCR) (NotDetected) SARS-CoV-2 (PCR) (NotDetected) Coronavirus NL63 (PCR) (NotDetected) Human Metapneumovir PCR (NotDetected) Influenza Type A (PCR) (NotDetected) Influenza Type B (PCR) (NotDetected) M. pneumoniae (PCR) (NotDetected) Parainfluenza 1 (PCR) (NotDetected) Parainfluenza 2 (PCR) (NotDetected) Parainfluenza 3 (PCR) (NotDetected) Parainfluenza 4 (PCR) (NotDetected) RSV (PCR) (NotDetected) Entero/Rhino (PCR) (NotDetected) 07/28/24 07/28/24 Range/Units 09:36 09:28 WBC 10.35 (4.8-10.8) K/ul RBC 4.01 L (4.70-6.10) M/uL Hgb 12.6 L (14.0-18.0) g/dl Hct 37.2 L (42.0-52.0) % MCV 92.8 (80.0-100.0) fL MCH 31.4 (25.0-34.0) pg MCHC 33.9 (32.0-36.0) g/dL RDW Std Deviation 49.7 H (36.4-46.3) fL RDW Coeff of Lucas 14.6 H (11.5-14.5) % Plt Count 167 (130-400) K/uL MPV 11.7 (9.4-12.4) fL Immature Gran % (Auto) 0.5 % Neut % (Auto) 87.8 % Lymph % (Auto) 3.8 % Rogers % (Auto) 7.6 % Eos % (Auto) 0.0 % Baso % (Auto) 0.3 % Neut # (Auto) 9.09 H (1.40-6.50) K/uL Lymph # (Auto) 0.39 L (1.20-3.40) K/uL Rogers # (Auto) 0.79 H (0.11-0.59) K/uL Eos # (Auto) 0.00 (0.00-0.50) K/uL Baso # (Auto) 0.03 (0.00-0.20) K/uL Immature Gran # (Auto) 0.05 (0.01-0.20) K/uL Polychromasia Echinocytes Sodium 126 L (136-145) mmol/L Potassium 3.7 (3.5-5.1) mmol/L Chloride 93 L (98-107) mmol/L Carbon Dioxide 21 (21-32) mmol/L Anion Gap 12 H (3-11) BUN 24 H (6-23) mg/dl Creatinine 1.61 H (0.6-1.4) mg/dl Est Cr Clr Drug Dosing 48.2 ml/min eGFR 45.72 BUN/Creatinine Ratio 14.9 (10-20) Glucose 164 H (70-99(Fasting)) mg/dl POC Glucose (70-99) mg/dl Estimat Average Glucose mg/dl Hemoglobin A1c (4.5-5.6) % Osmolality (280-300) mOsm/kg Lactate (0.4-2.0) mmol/L Calcium 8.7 (8.6-10.3) mg/dl Magnesium 1.7 (1.7-2.4) mg/dl Total Bilirubin 0.7 (0.2-1.0) mg/dl Direct Bilirubin 0.3 H (0-0.2) mg/dl AST 27 (13-39) U/L ALT 17 (7-52) U/L Alkaline Phosphatase 54 (34-104) U/L Troponin I High Sens 23.3 H (0-20) pg/ml Total Protein 7.1 (6.0-8.3) gm/dl Albumin 3.7 (3.4-5.0) gm/dl Globulin (2.5-4.0) gm/dl Albumin/Globulin Ratio (0.9-2) Procalcitonin 1.48 H (0-0.5) ng/ml Urine Color Urine Appearance (Clear) Urine pH (4.5-7.5) Ur Specific Holland (1.000-1.030) Urine Protein (Negative) Urine Glucose (UA) (Negative) Urine Ketones (Negative) Urine Blood (Negative) Urine Nitrite (Negative) Urine Bilirubin (Negative) Urine Urobilinogen (Negative) Ur Leukocyte Esterase (Negative) Urine WBC (Auto) (0-5) /hpf Urine RBC (Auto) (0-2) /hpf U Hyaline Cast (Auto) (0-2) /lpf U Epithel Cells (Auto) (0-2) /hpf Urine Bacteria (Auto) (None Seen) Urine Osmolality (500-800) mOsm/kg Adenovirus (PCR) Not Detected (NotDetected) B. pertussis DNA (PCR) Not Detected (NotDetected) B.parapertussis DNA PCR Not Detected (NotDetected) C. pneumoniae DNA (PCR) Not Detected (NotDetected) Coronavirus OC43 (PCR) Not Detected (NotDetected) Coronavirus HKU1 (PCR) Not Detected (NotDetected) Coronavirus 229E (PCR) Not Detected (NotDetected) SARS-CoV-2 (PCR) Not Detected (NotDetected) Coronavirus NL63 (PCR) Not Detected (NotDetected) Human Metapneumovir PCR Not Detected (NotDetected) Influenza Type A (PCR) Not Detected (NotDetected) Influenza Type B (PCR) Not Detected (NotDetected) M. pneumoniae (PCR) Not Detected (NotDetected) Parainfluenza 1 (PCR) Not Detected (NotDetected) Parainfluenza 2 (PCR) Not Detected (NotDetected) Parainfluenza 3 (PCR) Not Detected (NotDetected) Parainfluenza 4 (PCR) Not Detected (NotDetected) RSV (PCR) Not Detected (NotDetected) Entero/Rhino (PCR) Not Detected (NotDetected) Medications Administered Current Inpatient Medications Acetaminophen (Acetaminophen 325 Mg Tab) 650 mg PO Q4H PRN PRN Reason: Pain or Fever Stop: 08/27/24 15:13 Albuterol (Albuterol 0.083% Nebu Soln 3 Ml Vial) 2.5 mg NEB Q6H PRN; Protocol PRN Reason: Shortness Of Breath Or Wheezing Stop: 08/27/24 15:13 Albuterol (Albut/Ipratrop 3mg/0.5mg Neb 3 Ml Vial) 3 ml NEB Q6R CLAUDIA; Protocol Stop: 08/27/24 15:44 Last Admin: 07/29/24 07:28 Dose: 3 ml Aspirin (Aspirin 81 Mg Ectab) 81 mg PO DAILY CLAUDIA Stop: 08/28/24 08:59 Last Admin: 07/29/24 08:08 Dose: 81 mg Atorvastatin Calcium (Atorvastatin 40 Mg Tab) 80 mg PO HS CLAUDIA Stop: 08/27/24 20:59 Last Admin: 07/28/24 20:37 Dose: 80 mg Azithromycin (Azithromycin 250 Mg Tab) 250 mg PO QA [facility] [place] Stop: 08/01/24 09:01 Last Admin: 07/29/24 08:08 Dose: 250 mg Citalopram Hydrobromide (Citalopram 40 Mg Tab) 40 mg PO DAILY CLAUDIA Stop: 08/28/24 08:59 Last Admin: 07/29/24 08:07 Dose: 40 mg Clopidogrel Bisulfate (Clopidogrel Bisulfate 75 Mg Tab) 75 mg PO DAILY CLAUDIA Stop: 08/28/24 08:59 Last Admin: 07/29/24 08:08 Dose: 75 mg Cyanocobalamin (Cyanocobalamin (B-12) 500 Mcg Tablet) 1,000 mcg PO QAM [facility] [place] Stop: 08/28/24 08:59 Dextrose (Dextrose 50% 50 Ml Syringe) 25 - 50 ml IV UD PRN; Protocol PRN Reason: Hypoglycemia Protocol Stop: 08/27/24 15:13 Famotidine (Famotidine 20 Mg Tab) 20 mg PO DAILY PRN PRN Reason: Heartburn Stop: 08/27/24 15:13 Fluticasone/Vilanterol (Fluticasone/Vilanterol 200/25mcg 14 Puffs/Inhaler) 1 puffs INH DAILY CLAUDIA Stop: 08/28/24 08:59 Last Admin: 07/29/24 08:11 Dose: 1 puffs Glucagon (Glucagon For Inj 1 Mg Vial) 1 mg SQ UD PRN; Protocol PRN Reason: Hypoglycemia Protocol Stop: 08/27/24 15:13 Glucose (Glucose 40% Gel 15 Gm Tube) 15 - 30 gm PO UD PRN; Protocol PRN Reason: Hypoglycemia Protocol Stop: 08/27/24 15:13 Glucose (Glucose 10 Tab/Tube) 4 - 8 tab PO UD PRN; Protocol PRN Reason: Hypoglycemia Protocol Stop: 08/27/24 15:13 Guaifenesin (Guaifenesin 600 Mg Tabcr) 1,200 mg PO Q12 CLAUDIA Stop: 08/28/24 08:59 Last Admin: 07/29/24 11:41 Dose: 1,200 mg Heparin Sodium (Porcine) (Heparin Sod 5,000 Unit/0.5 Ml Vial) 5,000 units SQ Q8 CLAUDIA Stop: 08/27/24 15:13 Last Admin: 07/29/24 05:03 Dose: 5,000 units Ceftriaxone Sodium (Rocephin) 2,000 mg in 50 mls @ 100 mls/hr IV Q24H CLAUDIA Stop: 08/03/24 08:59 Last Infusion: 07/29/24 08:39 Dose: Infused Insulin Aspart (Insulin Aspart Per Unit Charge) 0 units SC ACHS [facility] [place] Stop: 08/27/24 16:29 Last Admin: 07/29/24 11:40 Dose: 6 units Lactobacillus Acidophilus (Advanced Probiotic 625 Mg Capsule) 1,250 mg PO DAILY [facility] [place] Stop: 08/28/24 08:59 Last Admin: 07/29/24 08:07 Dose: 1,250 mg Lamotrigine (Lamotrigine 100 Mg Tab) 200 mg PO BID [facility] [place]; Protocol Stop: 08/27/24 20:59 Last Admin: 07/29/24 08:08 Dose: 200 mg Melatonin (Melatonin 3 Mg Tab) 6 mg PO HS PRN PRN Reason: Sleep Stop: 08/27/24 20:59 Last Admin: 07/28/24 20:38 Dose: 6 mg Metoprolol Tartrate (Metoprolol Tartrate 25 Mg Tab) 25 mg PO BID [facility] [place] Stop: 08/27/24 20:59 Last Admin: 07/29/24 08:08 Dose: 25 mg Miscellaneous (Carbohydrates For Hypoglycemia ) 15 - 30 gm PO UD PRN PRN Reason: Hypoglycemia Protocol Stop: 08/27/24 15:13 Olanzapine (Olanzapine 2.5 Mg Tab) 2.5 mg PO HS [facility] [place] Stop: 08/27/24 20:59 Last Admin: 07/28/24 20:43 Dose: 2.5 mg Ondansetron HCl (Ondansetron Inj 2 Mg/Ml 2 Ml Vial) 4 mg IV Q6H PRN PRN Reason: Nausea Stop: 08/27/24 15:13 Polyethylene Glycol (Polyethylene (Miralax) 17 Gm Pack) 17 gm PO DAILY PRN PRN Reason: Constipation Stop: 08/27/24 15:13 Thiamine HCl (Thiamine Hcl 100 Mg Tab) 100 mg PO QAM [facility] [place] Stop: 08/27/24 15:13 Last Admin: 07/29/24 08:08 Dose: 100 mg Trazodone HCl (Trazodone Hcl 100 Mg Tab) 100 mg PO HS [facility] [place] Stop: 08/27/24 20:59 Last Admin: 07/28/24 20:37 Dose: 100 mg
[2024-07-29] MEDS: guaiFENesin 600 MG TABCR PO SCH (11:41)
--- NOTE | 2024-07-29 12:51 | Electrocardiogram Report ---
Test Reason : Blood Pressure : */* mmHG Vent. Rate : 81 BPM Atrial Rate : 81 BPM P-R Int : 164 ms QRS Dur : 84 ms QT Int : 386 ms P-R-T Axes : 56 13 37 degrees QTcB Int : 448 ms Normal sinus rhythm Nonspecific ST abnormality Abnormal ECG When compared with ECG of 06-Apr-2023 12:46, No significant change was found Confirmed by Edison Heard ([id number]) on 07/29/2024 12:51:32 PM Referred By: REFERRED SELF Confirmed By: Edison Heard
[2024-07-29] MEDS: CYANOCOBALAMIN (B-12) 500 MCG TABLET PO SCH (13:12)
[2024-07-29] MEDS: ALBUTEROL 0.083% NEBU SOLN 3 ML VIAL NEB PRN (17:02)
[2024-07-29] MEDS: ACETAMINOPHEN 500 MG TAB PO ONE (17:22)
[2024-07-29] MEDS: GABAPENTIN 100 MG CAP PO SCH (17:38)
[2024-07-29] MEDS: LORazepam 2 MG/1 ML VIAL IV STA (18:10)
[2024-07-29] MEDS: KETOROLAC TROMETHAMINE 15 MG/ML VIAL IV ONE (19:04)
[2024-07-29] MEDS: LORazepam 0.5 MG TAB PO STA (19:04)
[2024-07-29] MEDS: THIAMINE HCL 200 MG in SODIUM CHLORIDE 0.9% 50 ML IV SCH (19:31)
[2024-07-29] MEDS: FOLIC ACID 1 MG in SYRINGE 9.8 ML IV SCH (19:31)
[2024-07-30] MEDS: ACETAMINOPHEN 325 MG TAB PO PRN (03:30)
--- NOTE | 2024-07-30 07:46 | Hospitalist Progress Note ---
Date of Service July 30, 2024 Assessment & Plan (1) Acute hypoxic respiratory failure: (2) RML pneumonia: (3) Hyponatremia: (4) Lactic acid acidosis: (5) CAD (coronary artery disease): (6) Diabetes mellitus, type 2: Plan 68 yo M with history of T2DM, Diabetic peripheral angiopathy, HTN, HLD, CAD, Epilepsy, Major neurocognitive disorder, Depression, Personality disorder who presents to ED 2/2 generalized weakness and SOB x 2 days. Acute hypoxic respiratory Failure RML and RLL Pneumonia COPD - not in acute exacerbation Started on IV rocephin, azithromycin on admission, will continue continue inhalers, scheduled nebs, ISP, flutter valve sputum culture currently on 5L of suppl. O2 but reports feeling since yesterday (admission) Lactic acidosis suspected in setting of hypotension resolved after fluid administration Hyponatremia Na 126 on admission suspect in setting of poor intake urine osm, na and serum osm current Na 131/130 cont. to closely monitor PASCUAL Cr 1.6 on admission suspect in setting of poor intake - received 2.25L in ED, continued with 60ml/hr x 1L - hold lisinopril - Cr now improved to 1 Elevated trop - suspect in setting of demand ischemia due to hypotension/infection, 2hr trop already down trended to normal CAD with hx of AURORA HTN HLD continue asa, statin, plavix held lisinopril due to hypotension, and PASCUAL but continue metoprolol T2DM - hold trulicty, ISS per protocol - last A1c 6.6% in January, current A1c 6.8% Seizure disorder last was 2 years ago 2/2 hypoglycemia, continue lamictal Depression/Personality Disorder - continue zyprexa, trazodone DVT ppx: SQ Heparin, monitor for blood in sputum FULL CODE PCP: fab Currie MD Dispo: PCU Admission and Anticipated Discharge Date Admission Date: July 28, 2024 Subjective Pt seen in follow up of acute hypoxic resp. failure, sepsis, secondary to PNA Currently sitting up in bed in NAD, on suppl. O2 5L Has a cough, now w/ sputum production denies fever, chills, chest pain, shortness of breath, abd. pain, n/v Review of Systems Review of Systems: All systems reviewed & are unremarkable except as noted in Subjective Physical Exam Physical Exam: General Appearance: Obese M in NAD, on suppl. O2 5L Head: normocephalic, Atraumatic Eyes: normal inspection, EOMI Neck: supple Respiratory/Chest: + rhonchi, No accessory muscle use Cardiovascular: S1, S2, No murmur Abdomen/GI:Soft, Non tender, Bowel sounds present Extremities/Musculoskeletal:normal inspection, trace pedal edema Neurologic/Psych:AAOX3, grossly no focal neurological deficits Skin: normal color, warm Results & Data Results & Data Vital Signs (Past 12 Hours) Vital Signs Temp Pulse Pulse Resp BP BP Pulse Ox 07/30/24 07:37 75 07/30/24 07:08 37.0 C 71 20 123/70 89 L 07/30/24 06:28 07/30/24 06:00 77 18 91 07/30/24 03:27 37.5 C 83 18 166/74 H 91 07/30/24 02:09 68 17 96 07/29/24 23:42 72 07/29/24 22:51 36.8 C 70 18 104/65 96 07/29/24 21:30 07/29/24 21:04 88 94 07/29/24 19:58 37.6 C H O2 Del Method O2 Flow Rate 07/30/24 07:37 07/30/24 07:08 Nasal Cannula 5.0 07/30/24 06:28 Nasal Cannula 5 07/30/24 06:00 Nasal Cannula 5 07/30/24 03:27 Nasal Cannula 5 07/30/24 02:09 Nasal Cannula 5 07/29/24 23:42 07/29/24 22:51 Nasal Cannula 6 07/29/24 21:30 Nasal Cannula 5 07/29/24 21:04 Nasal Cannula 5 07/29/24 19:58 Laboratory Results 07/30/24 07/30/24 07/29/24 Range/Units 07:19 07:11 20:16 WBC 8.71 (4.8-10.8) K/ul RBC 3.52 L (4.70-6.10) M/uL Hgb 11.0 L (14.0-18.0) g/dl Hct 32.7 L (42.0-52.0) % MCV 92.9 (80.0-100.0) fL MCH 31.3 (25.0-34.0) pg MCHC 33.6 (32.0-36.0) g/dL RDW Std Deviation 52.4 H (36.4-46.3) fL RDW Coeff of Lucas 15.3 H (11.5-14.5) % Plt Count 199 (130-400) K/uL MPV 11.6 (9.4-12.4) fL Sodium 130 L (136-145) mmol/L Potassium 4.2 (3.5-5.1) mmol/L Chloride 99 (98-107) mmol/L Carbon Dioxide 25 (21-32) mmol/L Anion Gap 6 (3-11) BUN 16 (6-23) mg/dl Creatinine 1.06 (0.6-1.4) mg/dl Est Cr Clr Drug Dosing 73.1 ml/min eGFR 75.50 BUN/Creatinine Ratio 15.1 (10-20) Glucose 190 H (70-99(Fasting)) mg/dl POC Glucose 176 H 177 H (70-99) mg/dl Calcium 7.7 L (8.6-10.3) mg/dl Phosphorus 2.6 (2.5-4.9) mg/dl Magnesium 1.7 (1.7-2.4) mg/dl 07/29/24 07/29/24 Range/Units 16:15 11:22 WBC (4.8-10.8) K/ul RBC (4.70-6.10) M/uL Hgb (14.0-18.0) g/dl Hct (42.0-52.0) % MCV (80.0-100.0) fL MCH (25.0-34.0) pg MCHC (32.0-36.0) g/dL RDW Std Deviation (36.4-46.3) fL RDW Coeff of Lucas (11.5-14.5) % Plt Count (130-400) K/uL MPV (9.4-12.4) fL Sodium (136-145) mmol/L Potassium (3.5-5.1) mmol/L Chloride (98-107) mmol/L Carbon Dioxide (21-32) mmol/L Anion Gap (3-11) BUN (6-23) mg/dl Creatinine (0.6-1.4) mg/dl Est Cr Clr Drug Dosing ml/min eGFR BUN/Creatinine Ratio (10-20) Glucose (70-99(Fasting)) mg/dl POC Glucose 119 H 235 H (70-99) mg/dl Calcium (8.6-10.3) mg/dl Phosphorus (2.5-4.9) mg/dl Magnesium (1.7-2.4) mg/dl Medications Administered Current Inpatient Medications Acetaminophen (Acetaminophen 325 Mg Tab) 650 mg PO Q4H PRN PRN Reason: Pain or Fever Stop: 08/27/24 15:13 Last Admin: 07/30/24 03:30 Dose: 650 mg Albuterol (Albuterol 0.083% Nebu Soln 3 Ml Vial) 2.5 mg NEB Q6H PRN; Protocol PRN Reason: Shortness Of Breath Or Wheezing Stop: 08/27/24 15:13 Last Admin: 07/29/24 17:02 Dose: 2.5 mg Albuterol (Albut/Ipratrop 3mg/0.5mg Neb 3 Ml Vial) 3 ml NEB Q6R CLAUDIA; Protocol Stop: 08/27/24 15:44 Last Admin: 07/30/24 06:00 Dose: 3 ml Aspirin (Aspirin 81 Mg Ectab) 81 mg PO DAILY [facility] Stop: 08/28/24 08:59 Last Admin: 07/30/24 09:06 Dose: 81 mg Atorvastatin Calcium (Atorvastatin 40 Mg Tab) 80 mg PO HS [facility] Stop: 08/27/24 20:59 Last Admin: 07/29/24 20:04 Dose: 80 mg Azithromycin (Azithromycin 250 Mg Tab) 250 mg PO QAM CLAUDIA Stop: 08/01/24 09:01 Last Admin: 07/30/24 09:07 Dose: 250 mg Citalopram Hydrobromide (Citalopram 40 Mg Tab) 40 mg PO DAILY [facility] Stop: 08/28/24 08:59 Last Admin: 07/30/24 09:06 Dose: 40 mg Clopidogrel Bisulfate (Clopidogrel Bisulfate 75 Mg Tab) 75 mg PO DAILY [facility] Stop: 08/28/24 08:59 Last Admin: 07/30/24 09:07 Dose: 75 mg Cyanocobalamin (Cyanocobalamin (B-12) 500 Mcg Tablet) 1,000 mcg PO QAM CLAUDIA Stop: 08/28/24 08:59 Last Admin: 07/30/24 09:07 Dose: 1,000 mcg Dextrose (Dextrose 50% 50 Ml Syringe) 25 - 50 ml IV UD PRN; Protocol PRN Reason: Hypoglycemia Protocol Stop: 08/27/24 15:13 Famotidine (Famotidine 20 Mg Tab) 20 mg PO DAILY PRN PRN Reason: Heartburn Stop: 08/27/24 15:13 Fluticasone/Vilanterol (Fluticasone/Vilanterol 200/25mcg 14 Puffs/Inhaler) 1 puffs INH DAILY CLAUDIA Stop: 08/28/24 08:59 Last Admin: 07/30/24 09:08 Dose: 1 puffs Glucagon (Glucagon For Inj 1 Mg Vial) 1 mg SQ UD PRN; Protocol PRN Reason: Hypoglycemia Protocol Stop: 08/27/24 15:13 Glucose (Glucose 40% Gel 15 Gm Tube) 15 - 30 gm PO UD PRN; Protocol PRN Reason: Hypoglycemia Protocol Stop: 08/27/24 15:13 Glucose (Glucose 10 Tab/Tube) 4 - 8 tab PO UD PRN; Protocol PRN Reason: Hypoglycemia Protocol Stop: 08/27/24 15:13 Guaifenesin (Guaifenesin 600 Mg Tabcr) 1,200 mg PO Q12 CLAUDIA Stop: 08/28/24 08:59 Last Admin: 07/30/24 09:07 Dose: 1,200 mg Heparin Sodium (Porcine) (Heparin Sod 5,000 Unit/0.5 Ml Vial) 5,000 units SQ Q8 CLAUDIA Stop: 08/27/24 15:13 Last Admin: 07/30/24 05:10 Dose: 5,000 units Ceftriaxone Sodium (Rocephin) 2,000 mg in 50 mls @ 100 mls/hr IV Q24H CLAUDIA Stop: 08/03/24 08:59 Last Admin: 07/30/24 09:05 Dose: 100 mls/hr Thiamine HCl 200 mg/ Sodium (Chloride) 52 mls @ 210 mls/hr IV QAM CLAUDIA Stop: 08/28/24 18:59 Last Admin: 07/30/24 09:05 Dose: 210 mls/hr Folic Acid 1 mg/ Syringe 10 mls @ 5 mls/min IV QAM CLAUDIA Stop: 08/28/24 18:59 Last Admin: 07/30/24 09:04 Dose: 5 mls/min Insulin Aspart (Insulin Aspart Per Unit Charge) 0 units SC ACHS CLAUDIA Stop: 08/27/24 16:29 Last Admin: 07/30/24 08:11 Dose: 6 units Lactobacillus Acidophilus (Advanced Probiotic 625 Mg Capsule) 1,250 mg PO DAILY [facility] Stop: 08/28/24 08:59 Last Admin: 07/30/24 09:06 Dose: 1,250 mg Lamotrigine (Lamotrigine 100 Mg Tab) 200 mg PO BID [facility]; Protocol Stop: 08/27/24 20:59 Last Admin: 07/30/24 09:07 Dose: 200 mg Melatonin (Melatonin 3 Mg Tab) 6 mg PO HS PRN PRN Reason: Sleep Stop: 08/27/24 20:59 Last Admin: 07/29/24 20:57 Dose: 6 mg Metoprolol Tartrate (Metoprolol Tartrate 25 Mg Tab) 25 mg PO BID [facility] Stop: 08/27/24 20:59 Last Admin: 07/30/24 09:07 Dose: 25 mg Miscellaneous (Carbohydrates For Hypoglycemia ) 15 - 30 gm PO UD PRN PRN Reason: Hypoglycemia Protocol Stop: 08/27/24 15:13 Olanzapine (Olanzapine 2.5 Mg Tab) 2.5 mg PO HS [facility] Stop: 08/27/24 20:59 Last Admin: 07/29/24 20:04 Dose: 2.5 mg Ondansetron HCl (Ondansetron Inj 2 Mg/Ml 2 Ml Vial) 4 mg IV Q6H PRN PRN Reason: Nausea Stop: 08/27/24 15:13 Polyethylene Glycol (Polyethylene (Miralax) 17 Gm Pack) 17 gm PO DAILY PRN PRN Reason: Constipation Stop: 08/27/24 15:13 Thiamine HCl (Thiamine Hcl 100 Mg Tab) 100 mg PO QAM [facility] Stop: 08/27/24 15:13 Last Admin: 07/30/24 09:06 Dose: 100 mg Trazodone HCl (Trazodone Hcl 100 Mg Tab) 100 mg PO HS [facility] Stop: 08/27/24 20:59 Last Admin: 07/29/24 20:04 Dose: 100 mg
[2024-07-30 07:50] LABS: Hematocrit (blood only) 32.7 % (42.0-52.0); Mean Corpuscular Hemoglobin 31.3 pg (25.0-34.0); Mean Corpuscular Hgb Conc 33.6 g/dL (32.0-36.0); Mean Corpuscular Volume 92.9 fL (80.0-100.0); Mean Platelet Volume 11.6 fL (9.4-12.4); Platelet Count 199 K/uL (130-400); RDW Coefficient of Variation 15.3 % (11.5-14.5); RDW Standard Deviation 52.4 fL (36.4-46.3); Red Blood Count 3.52 M/uL (4.70-6.10); White Blood Count 8.71 K/ul (4.8-10.8)
[2024-07-30 08:01] LABS: BUN Creatinine Ratio 15.1 (10-20); Calcium 7.7 mg/dl (8.6-10.3); Creatinine Clr Calc Pharmacy 73.1 ml/min; Magnesium 1.7 mg/dl (1.7-2.4); Phosphorus 2.6 mg/dl (2.5-4.9); Potassium 4.2 mmol/L (3.5-5.1)
[2024-07-30] MEDS ORDERED: methylPREDNISolone 125 MG/2 ML VIAL IV STA (11:56)
--- NOTE | 2024-07-30 12:17 | XRay Report ---
XR chest 1V portable HISTORY: 68 years-old Male hypoxia, acute shortness of breath COMPARISON: 07/28/2024 TECHNIQUE: AP view of the chest FINDINGS: Cardiac silhouette is enlarged. Pulmonary vascular congestion. Progressively worsened consolidation o f the right mid lung and right greater than left lung bases. No pneumothorax. Probable small pleural effusions. Bones appear intact. IMPRESSION: 1. Cardiomegaly with pulmonary vascular congestion. 2. Progressively worsened consolidation throughout the right lung which may represent pneumonia. ACT 112: Negative or not required by law. The above report was generated using voice recognition software. It may contain grammatical, syntax o r spelling errors. Electronically signed by: Roberto Lovelace M.D. 07/30/2024 12:16 PM
[2024-07-30] MEDS: KETOROLAC TROMETHAMINE 15 MG/ML VIAL IV ONE (12:39)
[2024-07-30] MEDS: methylPREDNISolone 80 MG in SYRINGE 0 ML IV ONE (12:51)
--- NOTE | 2024-07-30 13:16 | Pulmonary Consultation ---
Date of Consultation July 30, 2024 Assessment & Plan (1) Right lower lobe pneumonia: Pneumonia type: due to unspecified organism Qualified Code(s): J 18.9 - Pneumonia, unspecified organism (2) Acute hypoxic respiratory failure: (3) Former smoker: (4) COPD with emphysema: Plan PFT 07/16/2021: Moderate obstructive lung dysfunction with significant bronchodilator response, normal TLC, air trapping, moderate decrease in DLCO FVC 2.8 L 68%, FEV1 1.72 L 53%, FEV1/FVC 61%, RV 119%, TLC 83%, RV/TLC 142%, DLCO 41% 2D echo 04/16/2021: EF 55-60%, mild concentric LVH, RV normal in size and function -- Acute hypoxic respiratory failure Secondary to right-sided multilobar pneumonia Respiratory BioFire negative for everything on 07/28/2024 Procalcitonin 1.48, nasal MRSA QTc 448 -- COPD with emphysema Moderate Does not seem to be in exacerbation On Breo 200 at home Absolute eosinophil count as high as 590 on 07/31/2021 Plan: Follow-up nasal MRSA. If the nasal MRSA is positive would recommend MRSA coverage added to the antibiotic Continue with azithromycin for atypical coverage Follow BNP Patient does have history of JUANJO and I do think is good to benefit from BiPAP given for his pneumonia but he is not interested in it right now He is going to let us know if he changes his mind Nebulized bronchodilators while in the hospital Await further path given that he had mild hemoptysis today. Antitussive medication [id number] Case was discussed with primary team Please note the above document was generated using voice recognition software. It may contain grammatical, syntax or spelling errors.Any formal questions or concerns about the content, text or information contained within the body of this dictation should be directly addressed to the provider for clarification. History of Present Illness Attending Physician: Derrick Kate MD History of Present Illness 68-year-old male presented to the hospital for shortness of breath and generalized weakness Past medical history: Hypertension, dyslipidemia, epilepsy, diabetes type 2, personality disorder, JUANJO noncompliant with CPAP Pulmonary consulted for hypoxia At the time of examination patient was saturating 90-91% on 6 L nasal cannula Patient's brother, [id number] as well as are in the room at the time of examination He was not in any distress. Heart rate was in the mid to high 70s. He stated that he has been having issues with breathing for approximately 2 weeks. Subjective fever at home Does complain of cough and has difficulty bringing it up. He did have blood-tinged phlegm today in the hospital No recent travel history No dysuria, no diarrhea No unusual headache or blurry vision Social history: [id number] smoking history, quit at the age of 38. No pets at home. No birds or poultry nearby Allergies Allergy/AdvReac Type Severity Reaction Status Date / Time Penicillins Allergy Intermediate HIVES Verified 03/28/24 15:20 Home Medications Medication Instructions Recorded Confirmed Type nitroglycerin 0.4 mg sublingual 0.4 mg sublingual Q5M PRN chest 01/11/19 07/28/24 History tablet pain #25 tabs aspirin 81 mg tablet,delayed 81 mg PO DAILY 04/15/21 07/28/24 History release albuterol sulfate 90 mcg/actuation 2 puffs inhalation Q4H PRN 04/18/21 07/28/24 Rx aerosol inhaler Shortness Of Breath/cough/wheeze #8.5 grams inhalational spacing device #1 ea 04/18/21 07/28/24 Rx (Aerochamber Plus Flow-Vu) ipratropium 0.5 mg-albuterol 3 mg 3 ml NEB Q6H PRN 04/18/21 07/28/24 Rx (2.5 mg base)/3 mL nebulization cough/wheeze/shortness of breath soln #1 box nebulizer and compressor #1 ea 04/18/21 07/28/24 Rx blood-glucose meter (OneTouch #1 ea 06/30/21 07/28/24 Rx Verio Meter) ketoconazole 2 % topical cream 1 applic topical DAILY PRN facial 07/31/21 07/28/24 Rx lesions #15 grams fluticasone furoate 200 1 inh inhalation DAILY #90 ea 08/20/21 07/28/24 Rx mcg-vilanterol 25 mcg/dose inhalation powder (Breo Ellipta) dulaglutide 0.75 mg/0.5 mL 4.5 mg subcut WK 09/10/21 07/28/24 History subcutaneous pen injector ([facility]) insulin syringe-needle U-100 0.5 #200 ea 11/05/21 07/28/24 Rx mL 30 gauge x 1/2" (BD Insulin Syringe Ultra-Fine) blood sugar diagnostic (OneTouch #200 ea 04/21/22 07/28/24 Rx Verio test strips) citalopram 40 mg tablet 40 mg PO DAILY #90 tabs 08/24/22 07/28/24 Rx lamotrigine 200 mg tablet 200 mg PO BID #180 tabs 03/29/23 07/28/24 Rx (Lamictal) cyanocobalamin (vitamin B-12) 500 1,000 mcg (2 x 500 mcg) PO QAM #60 04/08/23 07/28/24 Rx mcg tablet tabs clopidogrel 75 mg tablet (Plavix) 75 mg PO DAILY #90 tabs 03/20/24 07/28/24 Rx atorvastatin 80 mg tablet 80 mg PO HS 07/28/24 07/28/24 History lisinopril 40 mg tablet 20 mg PO DAILY 07/28/24 07/28/24 History metoprolol tartrate 25 mg tablet 25 mg PO BID 07/28/24 07/28/24 History olanzapine 2.5 mg tablet 2.5 mg PO HS 07/28/24 07/28/24 History trazodone 100 mg tablet 100 mg PO HS 07/28/24 07/28/24 History Patient History Medical History Cognitive and behavioral changes Acute bronchitis due to respiratory syncytial virus (RSV) Elevated troponin Respiratory failure Screening for malignant neoplasm of prostate Type 2 diabetes mellitus with circulatory disorder Hypertension Hypercholesteremia CAD (coronary artery disease) Parkinsonism PER RECORDS Cancer H/O SKIN CA - REMOVED Depression Sleep apnea NO CPAP - NON COMPLIANT Hyperlipidemia Unstable angina pectoris Lumbar spinal stenosis Surgical History History of cataract surgery B/L eyes done Fall 2020 History of laminectomy L4-L5 LAMINECTOMY/DISCECTOMY= 04/30/16= GRADE 3 VIEW, MAC 3.0, ETT 8.0 AT [facility] H/O sinus surgery History of cardiac cath AURORA X 1 TO RCA (2014) Family History Father Coronary heart disease Dementia Depression Diabetes Myocardial infarction Mother Dementia Kidney disease Grandmother (Paternal) Diabetes Brother Diabetes Brain cancer Denies family history of Ovarian cancer Prostate cancer Breast cancer Colorectal cancer Social History Smoking Status: Former smoker Tobacco Type: Cigarettes Age Started Using Tobacco: 10; Age Quit Using Tobacco: 54; packs per day: 2; Second Hand Exposure: No; Do You Dip or Chew Tobacco: No; Tobacco Cessation Education Requested by Patient: No Hx Alcohol Use: Yes Hx Substance Use: No Preferred Language: Estonian Communication Ability: Effective Visual Impairment: Limited Hearing Ability: Normal Bear Keeper Required: No Beliefs That Will Affect Care: None marital status: Current Living Situation: Spouse current occupational status: retired 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 Other Information That Helps Us Care for You: No Feels Safe at Home: Yes Safety Concerns: Feels Safe At This Time Childhood Exposure to Second-Hand Smoke: Yes Diet: regular caffeine: Yes Dental Care, Regularly: No Physical Activity Frequency: Other Physical Activity Frequency Comment: seasonal, very active in summer time Seatbelt Use: always Sunscreen Use: No Gender Identity: Male Assistive Devices: None Review of Systems 2 Review of Systems: All systems reviewed & are unremarkable except as noted in HPI & below Physical Exam 2 Physical Exam: Constitutional: No acute distress HEENT: EOMI, PERRLA Respiratory system: Decreased air entry bilaterally, no wheeze, no rhonchi, positive crackles right lower lobe CVS: S1-S2 positive, no murmurs or gallops Abdomen: Soft, nontender, nondistended, positive bowel sounds x4, obese Extremities: +2 pulses bilaterally radialis/ dorsalis pedis, no cyanosis, no edema Neuro: Awake alert oriented x3 Psych: Normal mood and affect G/U: No Hernandez Skin: no rashes, warm and dry Lymphatic: no cervical or axillary lymphadenopathy Results & Data Results & Data Vital Signs (Past 12 Hours) Vital Signs Temp Pulse Pulse Resp BP BP Pulse Ox 07/30/24 11:43 76 20 92 07/30/24 10:55 37.8 C H 80 32 H 114/66 91 07/30/24 07:37 75 07/30/24 07:08 37.0 C 71 20 123/70 89 L 07/30/24 06:28 07/30/24 06:00 77 18 91 07/30/24 03:27 37.5 C 83 18 166/74 H 91 07/30/24 02:09 68 17 96 O2 Del Method O2 Flow Rate 07/30/24 11:43 Nasal Cannula 6 07/30/24 10:55 Nasal Cannula 5.0 07/30/24 07:37 07/30/24 07:08 Nasal Cannula 5.0 07/30/24 06:28 Nasal Cannula 5 07/30/24 06:00 Nasal Cannula 5 07/30/24 03:27 Nasal Cannula 5 07/30/24 02:09 Nasal Cannula 5 Laboratory Results 07/30/24 07:19 07/30/24 07:19 PG Care Time/CCT Total # of Minutes Spent Total Time Spent with Patient: Total time spent is greater than 50% in coordination of care (as documented) at patient's floor/unit and/or counseling patient: Coding Level of Care Code 58875 INT INP/OBS CARE 375MIN Diagnoses Right lower lobe pneumonia J18.9 Pneumonia type: due to unspecified organism Acute hypoxic respiratory failure J96.01 Former smoker Z87.891 COPD with emphysema J43.9
[2024-07-30] MEDS: PIPERACILLIN/TAZOBACTAM 4.5 GM/100 ML BAG IV ONE (14:49)
[2024-07-30] MEDS: PIPERACILLIN/TAZOBACTAM 4.5 GM/100 ML BAG IV SCH (19:33)
[2024-07-30] MEDS: BUDESONIDE 0.25 MG/2 ML VIAL (PULMICORT) NEB SCH (19:39)
[2024-07-30] MEDS: FORMOTEROL 20 MCG/2 ML VIAL NEB SCH (19:40)
[2024-07-31 06:47] LABS: Hematocrit (blood only) 31.1 % (42.0-52.0); Mean Corpuscular Hemoglobin 32.1 pg (25.0-34.0); Mean Corpuscular Hgb Conc 35.4 g/dL (32.0-36.0); Mean Corpuscular Volume 90.7 fL (80.0-100.0); Mean Platelet Volume 11.6 fL (9.4-12.4); Platelet Count 235 K/uL (130-400); Red Blood Count 3.43 M/uL (4.70-6.10)
[2024-07-31 07:12] LABS: BUN Creatinine Ratio 15.5 (10-20); Calcium 8.2 mg/dl (8.6-10.3); Creatinine Clr Calc Pharmacy 90.9 ml/min; Magnesium 1.9 mg/dl (1.7-2.4); Phosphorus 2.7 mg/dl (2.5-4.9)
--- NOTE | 2024-07-31 07:42 | Hospitalist Progress Note ---
Date of Service July 31, 2024 Assessment & Plan (1) Acute hypoxic respiratory failure: (2) RML pneumonia: (3) Hyponatremia: (4) Lactic acid acidosis: (5) CAD (coronary artery disease): (6) Diabetes mellitus, type 2: Plan 68 yo M with history of T2DM, Diabetic peripheral angiopathy, HTN, HLD, CAD, Epilepsy, Major neurocognitive disorder, Depression, Personality disorder who presents to ED 2/2 generalized weakness and SOB x 2 days. Acute hypoxic respiratory Failure RML and RLL Pneumonia COPD - not in acute exacerbation Started on IV rocephin, azithromycin on admission continue inhalers, scheduled nebs, ISP, flutter valve sputum culture 3/2 on 5L of suppl. O2 Antibiotics switched to zosyn as repeat CXR showed worsening PNA Pulmonary medicine was consulted 3/3 Pt on 4L of suppl. O2, seems to be feeling little better Lactic acidosis suspected in setting of hypotension resolved after fluid administration Hyponatremia Na 126 on admission suspect in setting of poor intake urine osm, na and serum osm current Na 134 cont. to closely monitor PASCUAL Cr 1.6 on admission suspect in setting of poor intake - received 2.25L in ED, continued with 60ml/hr x 1L - hold lisinopril - Cr now improved to 9.8 Elevated trop - suspect in setting of demand ischemia due to hypotension/infection, 2hr trop already down trended to normal CAD with hx of AURORA HTN HLD continue asa, statin, plavix held lisinopril due to hypotension, and PASCUAL but continue metoprolol T2DM - hold trulicty, ISS per protocol - last A1c 6.6% in January, current A1c 6.8% Seizure disorder last was 2 years ago 2/2 hypoglycemia, continue lamictal Depression/Personality Disorder - continue zyprexa, trazodone DVT ppx: SQ Heparin, monitor for blood in sputum FULL CODE PCP: fab Currie MD Dispo: PCU Admission and Anticipated Discharge Date Admission Date: July 28, 2024 Subjective Pt seen in follow up of acute hypoxic resp. failure, sepsis, secondary to PNA Currently sitting up in bed in NAD, on suppl. O2 4L Has a cough denies fever, chills, chest pain, shortness of breath, abd. pain, n/v Pulmonary med was consulted yesterday discussed w/ RN at the bedside Review of Systems Review of Systems: All systems reviewed & are unremarkable except as noted in Subjective Physical Exam Physical Exam: General Appearance: Obese M in NAD, on suppl. O2 4L Head: normocephalic, Atraumatic Eyes: normal inspection, EOMI Neck: supple Respiratory/Chest: + rhonchi, No accessory muscle use Cardiovascular: S1, S2, No murmur Abdomen/GI:Soft, Non tender, Bowel sounds present Extremities/Musculoskeletal:normal inspection, trace pedal edema Neurologic/Psych:AAOX3, grossly no focal neurological deficits Skin: normal color, warm Results & Data Results & Data Vital Signs (Past 12 Hours) Vital Signs Temp Pulse Pulse Resp BP Pulse Ox O2 Del Method 07/31/24 06:53 68 22 96 Oxymask 07/31/24 04:03 36.8 C 72 18 142/67 H 91 Nasal Cannula 07/31/24 00:28 61 18 96 Nasal Cannula 07/30/24 22:58 70 18 129/72 90 Nasal Cannula 07/30/24 22:00 36.5 C 07/30/24 21:48 Nasal Cannula 07/30/24 21:46 68 07/30/24 19:43 70 17 92 Nasal Cannula O2 Flow Rate 07/31/24 06:53 4 07/31/24 04:03 4 07/31/24 00:28 4 07/30/24 22:58 4 07/30/24 22:00 07/30/24 21:48 5 07/30/24 21:46 07/30/24 19:43 6 Laboratory Results 07/31/24 07/31/24 07/30/24 Range/Units 07:14 06:17 Unknown WBC 11.40 H (4.8-10.8) K/ul RBC 3.43 L (4.70-6.10) M/uL Hgb 11.0 L (14.0-18.0) g/dl Hct 31.1 L (42.0-52.0) % MCV 90.7 (80.0-100.0) fL MCH 32.1 (25.0-34.0) pg MCHC 35.4 (32.0-36.0) g/dL RDW Std Deviation 50.0 H (36.4-46.3) fL RDW Coeff of Lucas 15.0 H (11.5-14.5) % Plt Count 235 (130-400) K/uL MPV 11.6 (9.4-12.4) fL Sodium 134 L (136-145) mmol/L Potassium 4.0 (3.5-5.1) mmol/L Chloride 102 (98-107) mmol/L Carbon Dioxide 25 (21-32) mmol/L Anion Gap 7 (3-11) BUN 13 (6-23) mg/dl Creatinine 0.84 (0.6-1.4) mg/dl Est Cr Clr Drug Dosing 90.9 ml/min eGFR 93.81 BUN/Creatinine Ratio 15.5 (10-20) Glucose 238 H (70-99(Fasting)) mg/dl POC Glucose 235 H (70-99) mg/dl Calcium 8.2 L (8.6-10.3) mg/dl Phosphorus 2.7 (2.5-4.9) mg/dl Magnesium 1.9 (1.7-2.4) mg/dl Nasal Screen MRSA (PCR) Negative (Negative) 07/30/24 07/30/24 07/30/24 Range/Units 20:40 16:25 10:54 WBC (4.8-10.8) K/ul RBC (4.70-6.10) M/uL Hgb (14.0-18.0) g/dl Hct (42.0-52.0) % MCV (80.0-100.0) fL MCH (25.0-34.0) pg MCHC (32.0-36.0) g/dL RDW Std Deviation (36.4-46.3) fL RDW Coeff of Lucas (11.5-14.5) % Plt Count (130-400) K/uL MPV (9.4-12.4) fL Sodium (136-145) mmol/L Potassium (3.5-5.1) mmol/L Chloride (98-107) mmol/L Carbon Dioxide (21-32) mmol/L Anion Gap (3-11) BUN (6-23) mg/dl Creatinine (0.6-1.4) mg/dl Est Cr Clr Drug Dosing ml/min eGFR BUN/Creatinine Ratio (10-20) Glucose (70-99(Fasting)) mg/dl POC Glucose 288 H 313 H* 167 H (70-99) mg/dl Calcium (8.6-10.3) mg/dl Phosphorus (2.5-4.9) mg/dl Magnesium (1.7-2.4) mg/dl Nasal Screen MRSA (PCR) (Negative) 07/30/24 Range/Units 07:19 WBC 8.71 (4.8-10.8) K/ul RBC 3.52 L (4.70-6.10) M/uL Hgb 11.0 L (14.0-18.0) g/dl Hct 32.7 L (42.0-52.0) % MCV 92.9 (80.0-100.0) fL MCH 31.3 (25.0-34.0) pg MCHC 33.6 (32.0-36.0) g/dL RDW Std Deviation 52.4 H (36.4-46.3) fL RDW Coeff of Lucas 15.3 H (11.5-14.5) % Plt Count 199 (130-400) K/uL MPV 11.6 (9.4-12.4) fL Sodium 130 L (136-145) mmol/L Potassium 4.2 (3.5-5.1) mmol/L Chloride 99 (98-107) mmol/L Carbon Dioxide 25 (21-32) mmol/L Anion Gap 6 (3-11) BUN 16 (6-23) mg/dl Creatinine 1.06 (0.6-1.4) mg/dl Est Cr Clr Drug Dosing 73.1 ml/min eGFR 75.50 BUN/Creatinine Ratio 15.1 (10-20) Glucose 190 H (70-99(Fasting)) mg/dl POC Glucose (70-99) mg/dl Calcium 7.7 L (8.6-10.3) mg/dl Phosphorus 2.6 (2.5-4.9) mg/dl Magnesium 1.7 (1.7-2.4) mg/dl Nasal Screen MRSA (PCR) (Negative) Medications Administered Current Inpatient Medications Acetaminophen (Acetaminophen 325 Mg Tab) 650 mg PO Q4H PRN PRN Reason: Pain or Fever Stop: 08/27/24 15:13 Last Admin: 07/30/24 11:01 Dose: 650 mg Albuterol (Albuterol 0.083% Nebu Soln 3 Ml Vial) 2.5 mg NEB Q6H PRN; Protocol PRN Reason: Shortness Of Breath Or Wheezing Stop: 08/27/24 15:13 Last Admin: 07/29/24 17:02 Dose: 2.5 mg Albuterol (Albut/Ipratrop 3mg/0.5mg Neb 3 Ml Vial) 3 ml NEB Q6R [facility]; Protocol Stop: 08/27/24 15:44 Last Admin: 07/31/24 06:53 Dose: Not Given Aspirin (Aspirin 81 Mg Ectab) 81 mg PO DAILY [facility] Stop: 08/28/24 08:59 Last Admin: 07/30/24 09:06 Dose: 81 mg Atorvastatin Calcium (Atorvastatin 40 Mg Tab) 80 mg PO HS [facility] Stop: 08/27/24 20:59 Last Admin: 07/30/24 20:17 Dose: 80 mg Azithromycin (Azithromycin 250 Mg Tab) [facility] Stop: 08/01/24 09:01 Last Admin: 07/30/24 09:07 Dose: 250 mg Budesonide (Budesonide 0.25 Mg/2 Ml Vial (Pulmicort)) 0.25 mg NEB BIDR [facility] Stop: 08/29/24 18:59 Last Admin: 07/31/24 06:52 Dose: 0.25 mg Citalopram Hydrobromide (Citalopram 40 Mg Tab) 40 mg PO DAILY [facility] Stop: 08/28/24 08:59 Last Admin: 07/30/24 09:06 Dose: 40 mg Clopidogrel Bisulfate (Clopidogrel Bisulfate 75 Mg Tab) 75 mg PO DAILY [facility] Stop: 08/28/24 08:59 Last Admin: 07/30/24 09:07 Dose: 75 mg Cyanocobalamin (Cyanocobalamin (B-12) 500 Mcg Tablet) 1,000 mcg PO QAM [facility] Stop: 08/28/24 08:59 Last Admin: 07/30/24 09:07 Dose: 1,000 mcg Dextrose (Dextrose 50% 50 Ml Syringe) 25 - 50 ml IV UD PRN; Protocol PRN Reason: Hypoglycemia Protocol Stop: 08/27/24 15:13 Famotidine (Famotidine 20 Mg Tab) 20 mg PO DAILY PRN PRN Reason: Heartburn Stop: 08/27/24 15:13 Formoterol Fumarate (Formoterol 20 Mcg/2 Ml Vial) 20 mcg NEB BIDR [facility] Stop: 08/29/24 18:59 Last Admin: 07/31/24 06:52 Dose: 20 mcg Glucagon (Glucagon For Inj 1 Mg Vial) 1 mg SQ UD PRN; Protocol PRN Reason: Hypoglycemia Protocol Stop: 08/27/24 15:13 Glucose (Glucose 40% Gel 15 Gm Tube) 15 - 30 gm PO UD PRN; Protocol PRN Reason: Hypoglycemia Protocol Stop: 08/27/24 15:13 Glucose (Glucose 10 Tab/Tube) 4 - 8 tab PO UD PRN; Protocol PRN Reason: Hypoglycemia Protocol Stop: 08/27/24 15:13 Guaifenesin (Guaifenesin 600 Mg Tabcr) 1,200 mg PO Q12 [facility] Stop: 08/28/24 08:59 Last Admin: 07/30/24 20:17 Dose: 1,200 mg Heparin Sodium (Porcine) (Heparin Sod 5,000 Unit/0.5 Ml Vial) 5,000 units SQ Q8 [facility] Stop: 08/27/24 15:13 Last Admin: 07/31/24 05:25 Dose: 5,000 units Thiamine HCl 200 mg/ Sodium (Chloride) 52 mls @ 210 mls/hr IV QAM [facility] Stop: 08/28/24 18:59 Last Infusion: 07/30/24 09:39 Dose: Infused Folic Acid 1 mg/ Syringe 10 mls @ 5 mls/min IV QAM [facility] Stop: 08/28/24 18:59 Last Admin: 07/30/24 09:04 Dose: 5 mls/min Piperacillin Sod/Tazobactam Sod (Zosyn) 4.5 gm in 100 mls @ 25 mls/hr IV Q8H [facility]; Protocol Stop: 08/04/24 18:59 Last Infusion: 07/31/24 05:57 Dose: Infused Insulin Aspart (Insulin Aspart Per Unit Charge) 0 units SC ACHS [facility] Stop: 08/27/24 16:29 Last Admin: 07/30/24 21:06 Dose: 4 units Lactobacillus Acidophilus (Advanced Probiotic 625 Mg Capsule) 1,250 mg PO DAILY [facility] Stop: 08/28/24 08:59 Last Admin: 07/30/24 09:06 Dose: 1,250 mg Lamotrigine (Lamotrigine 100 Mg Tab) 200 mg PO BID [facility]; Protocol Stop: 08/27/24 20:59 Last Admin: 07/30/24 20:18 Dose: 200 mg Melatonin (Melatonin 3 Mg Tab) 6 mg PO HS PRN PRN Reason: Sleep Stop: 08/27/24 20:59 Last Admin: 07/30/24 21:30 Dose: 6 mg Metoprolol Tartrate (Metoprolol Tartrate 25 Mg Tab) 25 mg PO BID [facility] Stop: 08/27/24 20:59 Last Admin: 07/30/24 20:17 Dose: 25 mg Miscellaneous (Carbohydrates For Hypoglycemia ) 15 - 30 gm PO UD PRN PRN Reason: Hypoglycemia Protocol Stop: 08/27/24 15:13 Olanzapine (Olanzapine 2.5 Mg Tab) 2.5 mg PO HS [facility] Stop: 08/27/24 20:59 Last Admin: 07/30/24 20:18 Dose: 2.5 mg Ondansetron HCl (Ondansetron Inj 2 Mg/Ml 2 Ml Vial) 4 mg IV Q6H PRN PRN Reason: Nausea Stop: 08/27/24 15:13 Polyethylene Glycol (Polyethylene (Miralax) 17 Gm Pack) 17 gm PO DAILY PRN PRN Reason: Constipation Stop: 08/27/24 15:13 Thiamine HCl (Thiamine Hcl 100 Mg Tab) 100 mg PO QAM [facility] Stop: 08/27/24 15:13 Last Admin: 07/30/24 09:06 Dose: 100 mg Trazodone HCl (Trazodone Hcl 100 Mg Tab) 100 mg PO HS [facility] Stop: 08/27/24 20:59 Last Admin: 07/30/24 20:18 Dose: 100 mg
--- NOTE | 2024-07-31 10:42 | Pulmonology Progress Note ---
Date of Service July 31, 2024 Assessment & Plan (1) Right lower lobe pneumonia: Pneumonia type: due to unspecified organism Qualified Code(s): J 18.9 - Pneumonia, unspecified organism (2) Acute hypoxic respiratory failure: (3) Former smoker: (4) COPD with emphysema: Plan Impression: 68-year-old male with COPD admitted with community-acquired pneumonia of the right lower lobe and hypoxemic respiratory failure. Recommendations: 1. Community acquired pneumonia: Patient was transitioned from Rocephin to Zosyn yesterday. He is already on azithromycin. He has not had gram-negative resistant rods in the past and has not been on antibiotics recently or been in the hospital so de-escalation from antipseudomonal penicillins to Rocephin would be appropriate. Trend white blood cell count, oxygen requirement, and fever curve. Additional chest imaging if clinically worsens. 2. COPD: Not bronchospastic currently. Currently on DuoNebs, Perforomist, and budesonide. Will add Incruse. 3. Hypoxemia: Continue supplemental oxygen titrated to keep saturations at or above 90%. The patient may require supplemental oxygen at discharge. Continue incentive spirometry 4. Would recommend discontinuation of Hernandez catheter and ambulation of patient. 5. Hemoptysis: Resolved. Continue to follow clinically Thank you for the opportunity to participate in the care of this patient. Will continue to follow with you. Feel free to contact us with questions or concerns Admission and Anticipated Discharge Date Admission Date: July 28, 2024 Subjective Patient seen and examined. EMR reviewed. Discussed with off going transportation mechanic. The patient states he is breathing better. He does desaturate with significant physical activity. He is not using oxygen at baseline. He is followed by the [facility] outpatient pulmonary group. He does not report any recurrence of hemoptysis and is coughing but not producing any phlegm. He denies any chest pain. No significant lower extremity edema. Review of Systems 2 Review of Systems: All systems reviewed & are unremarkable except as noted in Subjective Physical Exam 2 Constitutional: WD/WN, vitals as above Neck: trachea midline, no thyromegaly Respiratory: no respiratory distress, no labored breathing, no cough and not tachypneic Auscultation: + diminished lung sounds; no crackles and no wheezes Cardiovascular: RRR, no murmur, no edema Gastrointestinal (Abdomen): normal bowel sounds, soft, nontender, no hepatosplenomegaly Musculoskeletal: Extremities: extremities normal to inspection Skin: no rashes, warm and dry Neurologic: Nonfocal exam Lymphatic: no cervical lymphadenopathy Results & Data Results & Data Vital Signs (Past 12 Hours) Vital Signs Temp Pulse Pulse Resp BP Pulse Ox O2 Del Method 07/31/24 10:30 Nasal Cannula 07/31/24 09:24 77 07/31/24 07:15 36.7 C 81 20 147/72 H 91 Oxymask 07/31/24 06:53 68 22 96 Oxymask 07/31/24 04:03 36.8 C 72 18 142/67 H 91 Nasal Cannula 07/31/24 00:28 61 18 96 Nasal Cannula 07/30/24 22:58 70 18 129/72 90 Nasal Cannula O2 Flow Rate 07/31/24 10:30 4 07/31/24 09:24 07/31/24 07:15 4.0 07/31/24 06:53 4 07/31/24 04:03 4 07/31/24 00:28 4 07/30/24 22:58 4 Laboratory Results 07/31/24 06:17 07/31/24 06:17 Microbiology 07/30/24 14:27 Sputum, Expectorated Gram Stain - Final 07/28/24 09:40 Blood Aerobic Blood Culture - Preliminary No growth in Aerobic bottle after 48 hours. 07/28/24 09:40 Blood Anaerobic Blood Culture - Final 07/28/24 09:40 Blood Aerobic Blood Culture - Preliminary No growth in Aerobic bottle after 48 hours. 07/28/24 09:40 Blood Anaerobic Blood Culture - Final Diagnostic Findings Chest x-ray from today was independently reviewed. There is increasing consolidation of the right lower lobe PG Care Time/CCT Total # of Minutes Spent Total Time Spent with Patient: Total time spent is greater than 50% in coordination of care (as documented) at patient's floor/unit and/or counseling patient: Coding Level of Care Code 93617 SUB INP/OBS CARE 2/35MIN Diagnoses Right lower lobe pneumonia J18.9 Pneumonia type: due to unspecified organism Acute hypoxic respiratory failure J96.01 Former smoker Z87.891 COPD with emphysema J43.9
[2024-07-31] MEDS: UMECLIDINIUM BROMIDE 62.5MCG/BLISTER 7 PUFFS/INHALER INH SCH (11:30)
[2024-07-31] MEDS: cefTRIAXone SODIUM 2,000 MG/50 ML BAG IV SCH (11:30)
[2024-07-31] MEDS: BUDESONIDE 0.25 MG/2 ML VIAL (PULMICORT) NEB SCH (19:57)
--- NOTE | 2024-08-01 06:36 | Hospitalist Progress Note ---
Date of Service August 01, 2024 Assessment & Plan (1) Acute hypoxic respiratory failure: (2) RML pneumonia: (3) Hyponatremia: (4) Lactic acid acidosis: (5) CAD (coronary artery disease): (6) Diabetes mellitus, type 2: Plan 68 yo M with history of T2DM, Diabetic peripheral angiopathy, HTN, HLD, CAD, Epilepsy, Major neurocognitive disorder, Depression, Personality disorder who presents to ED 2/2 generalized weakness and SOB x 2 days. Acute hypoxic respiratory Failure RML and RLL Pneumonia COPD - not in acute exacerbation Started on IV rocephin, azithromycin on admission continue inhalers, scheduled nebs, ISP, flutter valve sputum culture 3/2 on 5L of suppl. O2 Antibiotics switched to zosyn as repeat CXR showed worsening PNA Pulmonary medicine was consulted - switched back to Rocephin 3/3 Pt on 4L of suppl. O2, seems to be feeling little better 3/4 Pt on 4L, reports feeling little better Lactic acidosis suspected in setting of hypotension resolved after fluid administration Hyponatremia Na 126 on admission suspect in setting of poor intake urine osm, na and serum osm current Na 133 cont. to closely monitor PASCUAL Cr 1.6 on admission suspect in setting of poor intake - received 2.25L in ED, continued with 60ml/hr x 1L - hold lisinopril - Cr now improved to 0.9 Elevated trop - suspect in setting of demand ischemia due to hypotension/infection, 2hr trop already down trended to normal CAD with hx of AURORA HTN HLD continue asa, statin, plavix held lisinopril due to hypotension, and PASCUAL but continue metoprolol T2DM - hold trulicty, ISS per protocol - last A1c 6.6% in January, current A1c 6.8% Seizure disorder last was 2 years ago 2/2 hypoglycemia, continue lamictal Depression/Personality Disorder - continue zyprexa, trazodone DVT ppx: SQ Heparin, monitor for blood in sputum FULL CODE PCP: fab Currie MD Dispo: PCU Admission and Anticipated Discharge Date Admission Date: July 28, 2024 Subjective Pt seen in follow up of acute hypoxic resp. failure, sepsis, secondary to PNA Currently sitting up in bed in NAD, on suppl. O2 4L Has a cough denies fever, chills, chest pain, shortness of breath, abd. pain, n/v Pulmonary med consulted discussed w/ RN at the bedside Pt reports feeling better Review of Systems Review of Systems: All systems reviewed & are unremarkable except as noted in Subjective Physical Exam Physical Exam: General Appearance: Obese M in NAD, on suppl. O2 4L Head: normocephalic, Atraumatic Eyes: normal inspection, EOMI Neck: supple Respiratory/Chest: + rhonchi, No accessory muscle use Cardiovascular: S1, S2, No murmur Abdomen/GI:Soft, Non tender, Bowel sounds present Extremities/Musculoskeletal:normal inspection, trace pedal edema Neurologic/Psych:AAOX3, grossly no focal neurological deficits Skin: normal color, warm Results & Data Results & Data Vital Signs (Past 12 Hours) Vital Signs Temp Pulse Pulse Resp BP Pulse Ox O2 Del Method 08/01/24 04:34 37.0 C 69 18 137/75 88 L Oxymask 07/31/24 22:51 37.6 C H 71 18 133/69 91 Oxymask 07/31/24 21:52 75 07/31/24 20:48 Nasal Cannula, Aerosol Mask 07/31/24 19:58 75 18 90 Nasal Cannula 07/31/24 19:14 37.1 C 82 18 153/74 H 96 Nasal Cannula O2 Flow Rate 08/01/24 04:34 3 07/31/24 22:51 4 07/31/24 21:52 07/31/24 20:48 4 07/31/24 19:58 3 07/31/24 19:14 4 Laboratory Results 08/01/24 08/01/24 07/31/24 Range/Units 08:14 07:28 20:12 WBC 11.25 H (4.8-10.8) K/ul RBC 3.77 L (4.70-6.10) M/uL Hgb 11.7 L (14.0-18.0) g/dl Hct 35.0 L (42.0-52.0) % MCV 92.8 (80.0-100.0) fL MCH 31.0 (25.0-34.0) pg MCHC 33.4 (32.0-36.0) g/dL RDW Std Deviation 53.4 H (36.4-46.3) fL RDW Coeff of Lucas 15.9 H (11.5-14.5) % Plt Count 296 (130-400) K/uL MPV 11.3 (9.4-12.4) fL Sodium 133 L (136-145) mmol/L Potassium 3.8 (3.5-5.1) mmol/L Chloride 100 (98-107) mmol/L Carbon Dioxide 26 (21-32) mmol/L Anion Gap 7 (3-11) BUN 13 (6-23) mg/dl Creatinine 0.88 (0.6-1.4) mg/dl Est Cr Clr Drug Dosing 87.2 ml/min eGFR 92.51 BUN/Creatinine Ratio 14.8 (10-20) Glucose 198 H (70-99(Fasting)) mg/dl POC Glucose 171 H 136 H (70-99) mg/dl Calcium 8.1 L (8.6-10.3) mg/dl Phosphorus 2.2 L (2.5-4.9) mg/dl Magnesium 1.7 (1.7-2.4) mg/dl 07/31/24 07/31/24 Range/Units 16:09 11:45 WBC (4.8-10.8) K/ul RBC (4.70-6.10) M/uL Hgb (14.0-18.0) g/dl Hct (42.0-52.0) % MCV (80.0-100.0) fL MCH (25.0-34.0) pg MCHC (32.0-36.0) g/dL RDW Std Deviation (36.4-46.3) fL RDW Coeff of Lucas (11.5-14.5) % Plt Count (130-400) K/uL MPV (9.4-12.4) fL Sodium (136-145) mmol/L Potassium (3.5-5.1) mmol/L Chloride (98-107) mmol/L Carbon Dioxide (21-32) mmol/L Anion Gap (3-11) BUN (6-23) mg/dl Creatinine (0.6-1.4) mg/dl Est Cr Clr Drug Dosing ml/min eGFR BUN/Creatinine Ratio (10-20) Glucose (70-99(Fasting)) mg/dl POC Glucose 152 H 149 H (70-99) mg/dl Calcium (8.6-10.3) mg/dl Phosphorus (2.5-4.9) mg/dl Magnesium (1.7-2.4) mg/dl Medications Administered Current Inpatient Medications Acetaminophen (Acetaminophen 325 Mg Tab) 650 mg PO Q4H PRN PRN Reason: Pain or Fever Stop: 08/27/24 15:13 Last Admin: 08/01/24 02:06 Dose: 650 mg Albuterol (Albut/Ipratrop 3mg/0.5mg Neb 3 Ml Vial) 3 ml NEB Q6R PRN; Protocol PRN Reason: Wheezing Stop: 08/27/24 15:44 Aspirin (Aspirin 81 Mg Ectab) 81 mg PO DAILY [facility] Stop: 08/28/24 08:59 Last Admin: 07/31/24 08:35 Dose: 81 mg Atorvastatin Calcium (Atorvastatin 40 Mg Tab) 80 mg PO HS [facility] Stop: 08/27/24 20:59 Last Admin: 07/31/24 20:08 Dose: 80 mg Azithromycin (Azithromycin 250 Mg Tab) 250 mg PO QAM [facility] Stop: 08/01/24 09:01 Last Admin: 07/31/24 08:36 Dose: 250 mg Budesonide (Budesonide 0.25 Mg/2 Ml Vial (Pulmicort)) 0.5 mg NEB BIDR [facility] Stop: 08/30/24 18:59 Last Admin: 07/31/24 19:57 Dose: 0.5 mg Citalopram Hydrobromide (Citalopram 40 Mg Tab) 40 mg PO DAILY [facility] Stop: 08/28/24 08:59 Last Admin: 07/31/24 08:36 Dose: 40 mg Clopidogrel Bisulfate (Clopidogrel Bisulfate 75 Mg Tab) 75 mg PO DAILY [facility] Stop: 08/28/24 08:59 Last Admin: 07/31/24 08:36 Dose: 75 mg Cyanocobalamin (Cyanocobalamin (B-12) 500 Mcg Tablet) 1,000 mcg PO QAM [facility] Stop: 08/28/24 08:59 Last Admin: 07/31/24 08:36 Dose: 1,000 mcg Dextrose (Dextrose 50% 50 Ml Syringe) 25 - 50 ml IV UD PRN; Protocol PRN Reason: Hypoglycemia Protocol Stop: 08/27/24 15:13 Famotidine (Famotidine 20 Mg Tab) 20 mg PO DAILY PRN PRN Reason: Heartburn Stop: 08/27/24 15:13 Formoterol Fumarate (Formoterol 20 Mcg/2 Ml Vial) 20 mcg NEB BIDR [facility] Stop: 08/29/24 18:59 Last Admin: 07/31/24 19:57 Dose: 20 mcg Glucagon (Glucagon For Inj 1 Mg Vial) 1 mg SQ UD PRN; Protocol PRN Reason: Hypoglycemia Protocol Stop: 08/27/24 15:13 Glucose (Glucose 40% Gel 15 Gm Tube) 15 - 30 gm PO UD PRN; Protocol PRN Reason: Hypoglycemia Protocol Stop: 08/27/24 15:13 Glucose (Glucose 10 Tab/Tube) 4 - 8 tab PO UD PRN; Protocol PRN Reason: Hypoglycemia Protocol Stop: 08/27/24 15:13 Guaifenesin (Guaifenesin 600 Mg Tabcr) 1,200 mg PO Q12 [facility] Stop: 08/28/24 08:59 Last Admin: 07/31/24 20:08 Dose: 1,200 mg Heparin Sodium (Porcine) (Heparin Sod 5,000 Unit/0.5 Ml Vial) 5,000 units SQ Q8 [facility] Stop: 08/27/24 15:13 Last Admin: 08/01/24 05:07 Dose: 5,000 units Thiamine HCl 200 mg/ Sodium (Chloride) 52 mls @ 210 mls/hr IV QAM [facility] Stop: 08/28/24 18:59 Last Infusion: 07/31/24 09:12 Dose: Infused Folic Acid 1 mg/ Syringe 10 mls @ 5 mls/min IV QAM [facility] Stop: 08/28/24 18:59 Last Admin: 07/31/24 08:32 Dose: 5 mls/min Ceftriaxone Sodium (Rocephin) 2,000 mg in 50 mls @ 100 mls/hr IV Q24H [facility] Stop: 08/03/24 11:14 Last Infusion: 07/31/24 12:02 Dose: Infused Insulin Aspart (Insulin Aspart Per Unit Charge) 0 units SC ACHS [facility] Stop: 08/27/24 16:29 Last Admin: 07/31/24 20:13 Dose: Not Given Lactobacillus Acidophilus (Advanced Probiotic 625 Mg Capsule) 1,250 mg PO DAILY [facility] Stop: 08/28/24 08:59 Last Admin: 07/31/24 08:36 Dose: 1,250 mg Lamotrigine (Lamotrigine 100 Mg Tab) 200 mg PO BID [facility]; Protocol Stop: 08/27/24 20:59 Last Admin: 07/31/24 20:08 Dose: 200 mg Melatonin (Melatonin 3 Mg Tab) 6 mg PO HS PRN PRN Reason: Sleep Stop: 08/27/24 20:59 Last Admin: 07/31/24 20:09 Dose: 6 mg Metoprolol Tartrate (Metoprolol Tartrate 25 Mg Tab) 25 mg PO BID CLAUDIA Stop: 08/27/24 20:59 Last Admin: 07/31/24 20:09 Dose: 25 mg Miscellaneous (Carbohydrates For Hypoglycemia ) 15 - 30 gm PO UD PRN PRN Reason: Hypoglycemia Protocol Stop: 08/27/24 15:13 Olanzapine (Olanzapine 2.5 Mg Tab) 2.5 mg PO HS CLAUDIA Stop: 08/27/24 20:59 Last Admin: 07/31/24 20:09 Dose: 2.5 mg Ondansetron HCl (Ondansetron Inj 2 Mg/Ml 2 Ml Vial) 4 mg IV Q6H PRN PRN Reason: Nausea Stop: 08/27/24 15:13 Polyethylene Glycol (Polyethylene (Miralax) 17 Gm Pack) 17 gm PO DAILY PRN PRN Reason: Constipation Stop: 08/27/24 15:13 Thiamine HCl (Thiamine Hcl 100 Mg Tab) 100 mg PO QAM [facility] Stop: 08/27/24 15:13 Last Admin: 07/31/24 08:38 Dose: 100 mg Trazodone HCl (Trazodone Hcl 100 Mg Tab) 100 mg PO HS CLAUDIA Stop: 08/27/24 20:59 Last Admin: 07/31/24 20:08 Dose: 100 mg Umeclidinium [place] (Umeclidinium [place] 62.5mcg/Blister 7 Puffs/Inhaler) 1 puffs INH DAILY CLAUDIA Stop: 08/30/24 10:59 Last Admin: 07/31/24 11:30 Dose: 1 puffs
[2024-08-01 08:55] LABS: Hemoglobin 11.7 g/dl (14.0-18.0); Mean Corpuscular Hgb Conc 33.4 g/dL (32.0-36.0); Mean Corpuscular Volume 92.8 fL (80.0-100.0); Mean Platelet Volume 11.3 fL (9.4-12.4); Platelet Count 296 K/uL (130-400); RDW Coefficient of Variation 15.9 % (11.5-14.5); RDW Standard Deviation 53.4 fL (36.4-46.3); Red Blood Count 3.77 M/uL (4.70-6.10); White Blood Count 11.25 K/ul (4.8-10.8)
[2024-08-01 09:03] LABS: BUN Creatinine Ratio 14.8 (10-20); Calcium 8.1 mg/dl (8.6-10.3); Creatinine Clr Calc Pharmacy 87.2 ml/min; Magnesium 1.7 mg/dl (1.7-2.4); Phosphorus 2.2 mg/dl (2.5-4.9); Potassium 3.8 mmol/L (3.5-5.1)
[2024-08-01] MEDS ORDERED: POTASSIUM PHOS 3 MMOL/1 ML INFUSION IV STA (09:12)
[2024-08-01] MEDS: MAGNESIUM SULFATE / D5W 1 GM/100 ML BAG IV ONE (09:35)
[2024-08-01] MEDS: POTASSIUM PHOSPHATE 6 MMOL in SODIUM CHLORIDE 0.9% 250 ML IV ONE (10:57)
--- NOTE | 2024-08-01 10:57 | Pulmonology Progress Note ---
Date of Service August 01, 2024 Assessment & Plan (1) Right lower lobe pneumonia: Pneumonia type: due to unspecified organism Qualified Code(s): J 18.9 - Pneumonia, unspecified organism (2) Acute hypoxic respiratory failure: (3) Former smoker: (4) COPD with emphysema: Plan Impression: 68-year-old male with COPD admitted with community-acquired pneumonia of the right lower lobe and hypoxemic respiratory failure. Recommendations: 1. Community acquired pneumonia: Currently on Rocephin and azithromycin. Fever curve improved. White blood cell count stable to slightly decreased today. Clinically stable. Complete 7 days antimicrobial therapy. Will need follow-up chest imaging in the outpatient setting in 2 to 3 weeks. Will repeat chest x- ray in a.m. 2. COPD: Not bronchospastic currently. Currently on DuoNebs, Perforomist, and budesonide. Continue Incruse. 3. Hypoxemia: Continue supplemental oxygen titrated to keep saturations at or above 90%. The patient may require supplemental oxygen at discharge. Continue incentive spirometry 4. Hemoptysis: Resolved. Continue to follow clinically Thank you for the opportunity to participate in the care of this patient. Will continue to follow with you. Feel free to contact us with questions or concerns Admission and Anticipated Discharge Date Admission Date: July 28, 2024 Subjective Patient seen and examined. EMR reviewed. Patient is sleeping comfortably. He remains on 4 L of oxygen. He feels his breathing is about the same. He continues to cough but is not expectorating any phlegm. He denies any chest pain. No fevers chills night sweats or other constitutional symptoms overnight. Review of Systems 2 Review of Systems: All systems reviewed & are unremarkable except as noted in Subjective Physical Exam 2 Constitutional: WD/WN, vitals as above Neck: trachea midline, no thyromegaly Respiratory: no respiratory distress, no labored breathing, no cough and not tachypneic Auscultation: + diminished lung sounds; no crackles and no wheezes Cardiovascular: RRR, no murmur, no edema Gastrointestinal (Abdomen): normal bowel sounds, soft, nontender, no hepatosplenomegaly Musculoskeletal: Extremities: extremities normal to inspection Skin: no rashes, warm and dry Lymphatic: no cervical lymphadenopathy Results & Data Results & Data Vital Signs (Past 12 Hours) Vital Signs Temp Pulse Pulse Resp BP Pulse Ox O2 Del Method 08/01/24 08:16 Nasal Cannula 08/01/24 07:38 36.8 C 73 18 138/76 90 Nasal Cannula 08/01/24 07:17 61 08/01/24 07:12 69 20 91 Oxymask 08/01/24 04:34 37.0 C 69 18 137/75 88 L Oxymask O2 Flow Rate 08/01/24 08:16 4 08/01/24 07:38 6.0 08/01/24 07:17 08/01/24 07:12 4 08/01/24 04:34 3 Laboratory Results 08/01/24 08:14 08/01/24 08:14 Diagnostic Findings No new imaging PG Care Time/CCT Total # of Minutes Spent Total Time Spent with Patient: Total time spent is greater than 50% in coordination of care (as documented) at patient's floor/unit and/or counseling patient: Coding Level of Care Code 30641 SUB INP/OBS CARE 2/35MIN Diagnoses Right lower lobe pneumonia J18.9 Pneumonia type: due to unspecified organism Acute hypoxic respiratory failure J96.01 Former smoker Z87.891 COPD with emphysema J43.9
[2024-08-01] MEDS: POTASSIUM CHLORIDE CRTAB 20 MEQ TABCR PO STA (15:17)
[2024-08-01] MEDS: FUROSEMIDE INJ 20 MG/2 ML VIAL IV ONE (15:18)
[2024-08-01] MEDS: FUROSEMIDE 40 MG/4 ML VIAL IV ONE (22:43)
[2024-08-01 22:53] LABS: Base Excess VBG 4.6 mEq/L; HCO3 VBG 28 mmol/L; Oxygen Saturation VBG 64.2 %; PCO2 VBG 38 mmHg (38-50); PO2 VBG 37 mmHg; pH VBG 7.48 (7.36-7.41)
[2024-08-01] MEDS: CEFEPIME 2000MG 2,000 MG/20 ML SYR IV SCH (22:57)
--- NOTE | 2024-08-02 00:18 | XRay Report ---
Exam(s): XR CXR 1 VIEW EXAM: XR Chest, 1 View CLINICAL HISTORY: Reason for exam: sob. TECHNIQUE: Frontal view of the chest. COMPARISON: Prior chest x-ray from July 30, 2024. FINDINGS: Lungs: Infiltrate in the right upper and right lower lobes. There is a consolidation at the left lung base. Pleural space: Unremarkable. No pneumothorax. Heart: Unremarkable. No cardiomegaly. Mediastinum: Unremarkable. Normal mediastinal contour. Bones/joints: Unremarkable. No acute fracture. IMPRESSION: Right pulmonary infiltrate. Consolidation at the left lung base. Electronically signed by: Nati Stallings MD 08/02/24 00:17 AM
[2024-08-02] MEDS: ALBUT/IPRATROP 3MG/0.5MG NEB 3 ML VIAL NEB PRN (00:45)
[2024-08-02] MEDS: FUROSEMIDE INJ 20 MG/2 ML VIAL IV ONE (02:42)
--- NOTE | 2024-08-02 07:39 | XRay Report ---
EXAM: XR chest 1V portable CLINICAL HISTORY: Follow-up pneumonia TECHNIQUE: An X-ray image of the chest is obtained in AP projection. COMPARISON: 07/30/2024 FINDINGS: Pulmonary Parenchyma: Patchy airspace opacity seen infiltrating most of the right lung Prominent right hilar shadow, Suggesting congestion Blunting of the left costophrenic angle suggesting effusion No evidence of right pleural effusion or pleural thickening. Heart and Mediastinum: Heart size and shape are normal. No mediastinal widening or masses. No hilar or mediastinal lymphadenopathy. Bony Thorax: Bony thorax appears intact without fractures or deformities. Soft Tissues: Soft tissues overlying the chest wall are unremarkable. IMPRESSION: 1. Compared to prior study there is increase in the extension of the airspace opacity now seen involving most of the right lung, 2. Stable left small pleural effusion. Electronically signed by Bonilla Chaudhry 08-02-2024 07:38 AM
[2024-08-02 08:19] LABS: Hemoglobin 11.6 g/dl (14.0-18.0); Mean Corpuscular Hemoglobin 32.2 pg (25.0-34.0); Mean Corpuscular Hgb Conc 35.2 g/dL (32.0-36.0); Mean Corpuscular Volume 91.7 fL (80.0-100.0); Mean Platelet Volume 10.9 fL (9.4-12.4); Platelet Count 323 K/uL (130-400); RDW Coefficient of Variation 14.8 % (11.5-14.5); RDW Standard Deviation 50.3 fL (36.4-46.3); White Blood Count 9.98 K/ul (4.8-10.8)
[2024-08-02 08:31] LABS: BUN Creatinine Ratio 14.1 (10-20); Calcium 8.2 mg/dl (8.6-10.3); Creatinine Clr Calc Pharmacy 90.3 ml/min; Magnesium 1.8 mg/dl (1.7-2.4); Phosphorus 3.5 mg/dl (2.5-4.9); Potassium 3.7 mmol/L (3.5-5.1)
--- NOTE | 2024-08-02 10:10 | Pulmonology Progress Note ---
Date of Service August 02, 2024 Assessment & Plan (1) Right lower lobe pneumonia: Pneumonia type: due to unspecified organism Qualified Code(s): J 18.9 - Pneumonia, unspecified organism (2) Acute hypoxic respiratory failure: (3) Former smoker: (4) COPD with emphysema: Plan Impression: 68-year-old male with COPD admitted with community-acquired pneumonia of the right lower lobe and hypoxemic respiratory failure. Recommendations: 1. Community acquired pneumonia: Currently on Rocephin and azithromycin. Fever curve improved. White blood cell count decreasing. Clinically stable. Complete 7 days antimicrobial therapy. Will need follow-up chest imaging in the outpatient setting in 2 to 3 weeks. Will repeat chest x-ray in a.m. 2. COPD: Not bronchospastic currently. Currently on DuoNebs, Perforomist, and budesonide. Continue Incruse. 3. Hypoxemia: Continue supplemental oxygen titrated to keep saturations at or above 90%. The patient may require supplemental oxygen at discharge. Continue incentive spirometry. The patient needs to get out of bed and sit in a chair and ambulate. Will start low-dose Lasix. 4. Hemoptysis: Resolved. Continue to follow clinically Thank you for the opportunity to participate in the care of this patient. Will continue to follow with you. Feel free to contact us with questions or concerns Admission and Anticipated Discharge Date Admission Date: July 28, 2024 Subjective Patient seen and examined. EMR reviewed. The patient continues to remain essentially in bed. He is not having any new breathing issues. His oxygen requirement slightly increased compared to yesterday. He is coughing but not expectorating any phlegm. He denies chest pain. Review of Systems 2 Review of Systems: All systems reviewed & are unremarkable except as noted in Subjective Physical Exam 2 Constitutional: WD/WN, vitals as above Neck: trachea midline, no thyromegaly Respiratory: no respiratory distress, no labored breathing, no cough and not tachypneic Auscultation: + diminished lung sounds; no crackles and no wheezes Cardiovascular: RRR, no murmur, no edema Gastrointestinal (Abdomen): normal bowel sounds, soft, nontender, no hepatosplenomegaly Musculoskeletal: Extremities: extremities normal to inspection Skin: no rashes, warm and dry Lymphatic: no cervical lymphadenopathy Results & Data Results & Data Vital Signs (Past 12 Hours) Vital Signs Temp Pulse Resp BP BP Pulse Ox O2 Del Method 08/02/24 08:00 36.7 C 77 19 145/74 H 91 High Flow Nasal Cannula 08/02/24 07:13 67 17 90 Nasal Cannula 08/02/24 03:03 92 High Flow Nasal Cannula 08/02/24 02:45 92 High Flow Nasal Cannula 08/02/24 02:15 36.8 C 64 18 124/68 94 Nasal Cannula 08/02/24 00:50 91 High Flow Nasal Cannula 08/02/24 00:46 102 H 18 91 High Flow Nasal Cannula 08/01/24 23:21 37 C 63 16 104/63 92 Nasal Cannula 08/01/24 22:41 93/55 L 08/01/24 22:14 Nasal Cannula, Oxymask O2 Flow Rate 08/02/24 08:00 6.0 08/02/24 07:13 5 08/02/24 03:03 6 08/02/24 02:45 7 08/02/24 02:15 7 08/02/24 00:50 8 08/02/24 00:46 8 08/01/24 23:21 7 08/01/24 22:41 08/01/24 22:14 7 Laboratory Results 08/02/24 07:22 08/02/24 07:22 Diagnostic Findings Chest x-ray from today was independently reviewed. The consolidation is better however there is diffuse increase in bronchovascular markings.. Blunting of the costophrenic angle on the left is noted possibly consistent with the small effusion. PG Care Time/CCT Total # of Minutes Spent Total Time Spent with Patient: Total time spent is greater than 50% in coordination of care (as documented) at patient's floor/unit and/or counseling patient: Coding Level of Care Code 11742 SUB INP/OBS CARE 2/35MIN Diagnoses Right lower lobe pneumonia J18.9 Pneumonia type: due to unspecified organism Acute hypoxic respiratory failure J96.01 Former smoker Z87.891 COPD with emphysema J43.9
[2024-08-02] MEDS: OXYMETAZOLINE 0.05% 30 ML BTL ONE (10:36)
[2024-08-02] MEDS: FUROSEMIDE 40 MG/4 ML VIAL IV ONE (10:41)
--- NOTE | 2024-08-02 14:35 | Hospitalist Progress Note ---
Date of Service August 02, 2024 Assessment & Plan (1) Acute hypoxic respiratory failure: (2) RML pneumonia: (3) Hyponatremia: (4) Lactic acid acidosis: (5) CAD (coronary artery disease): (6) Diabetes mellitus, type 2: Plan 68 yo M with history of T2DM, Diabetic peripheral angiopathy, HTN, HLD, CAD, Epilepsy, Major neurocognitive disorder, Depression, Personality disorder who presents to ED 2/2 generalized weakness and SOB x 2 days. Acute hypoxic respiratory Failure Sepsis RML and RLL Pneumonia COPD Hx of JUANJO Pt with significantly increased oxygen requirement at this time Chest XRAYs from admission noting progressive worsening of pneumonia on the right and now left VBG unremarkable Respiratory viral panel negative CTA chest ordered and pending sputum culture from admission with NGTD Given acute worsening on 08/01, repeat sputum culture ordered Procalcitonin elevated on admission, repeat pending Continue with IV cefepime at this time, completed azithromycin course continue inhalers, scheduled nebs, ISP, flutter valve Pulmonology was consulted, appreciate further recs Congestive Heart Failure Pt with increased oxygen requirement Chest xray concerning for pulm edema, pleural effusions BNP pending Echo pending Has been receiving doses of IV Lasix Monitor Is and Os- currently in positive balance Scheduled IV Lasix 20mg daily, monitor kidney function Continue to monitor Episode of Epistaxis Hemoptysis Acute on 08/02 Afrin per protocol CTA chest as above for hemoptysis Hold heparin SQ at this time On plavix as well, continue at this time Continue to monitor Hyponatremia Na 126 on admission suspect in setting of poor intake urine osm, na and serum osm Improving Continue to monitor Acute Kidney Injury Cr 1.6 on admission suspect in setting of poor intake received 2.25L in ED, continued with 60ml/hr x 1L hold lisinopril Avoid nephrotoxins as able Continue to monitor Currently resolved Elevated trop Demand Ischemia suspect in setting of demand ischemia due to hypotension/infection EKG noting NSR, no acute ischemic changes Echo pending as above Continue to monitor on telemetry Doubt ACS CAD with hx of [place] HTN HLD continue asa, statin, plavix held lisinopril due to hypotension, and PASCUAL but continue metoprolol T2DM hold trulicty, ISS per protocol last A1c 6.6% in January, current A1c 6.8% Seizure disorder last was 2 years ago 2/2 hypoglycemia, continue lamictal Depression/Personality Disorder continue zyprexa, trazodone Diet: DMII DVT ppx: SQ Heparin- holding with epistaxis FULL CODE Dispo: PT/OT recommending home once medically stable Admission and Anticipated Discharge Date Admission Date: July 28, 2024 Subjective pt was seen in the AM. Was having a nosebleed at the time. AAOx3 watching tv Overnight with an increased oxygen requirement, improved after IV Lasix Discussion with pt's about his progress so far She is concerned that he is not improving and that he has been coughing up blood Notes no prior hx of epistaxis Review of Systems Review of Systems: All systems reviewed & are unremarkable except as noted in Subjective Physical Exam Physical Exam: General: Alert, oriented. Psych: Appropriate mood and affect HEENT: NC/AT, bleeding nostrils easily controlled with pressure Chest: Nontender to palpation. CV: RRR Resp: Breath sounds clear bilaterally, no increased effort of breathing Abdomen: Soft, nontender Extremities: No edema in lower extremities bilaterally. Results & Data Results & Data Vital Signs (Past 12 Hours) Vital Signs Temp Pulse Resp BP Pulse Ox O2 Del Method O2 Flow Rate 08/02/24 11:44 37.0 C 67 18 126/69 92 High Flow Nasal Cannula 6.0 08/02/24 08:00 36.7 C 77 19 145/74 H 91 High Flow Nasal Cannula 6.0 08/02/24 07:13 67 17 90 Nasal Cannula 5 08/02/24 03:03 92 High Flow Nasal Cannula 6 08/02/24 02:45 92 High Flow Nasal Cannula 7 Diagnostic Findings Chest X-Ray 07/28/24 09:21 XR chest 1V portable CLINICAL HISTORY: Sepsis COMPARISON STUDY: 04/06/2023 FINDINGS: Heart size and pulmonary vasculature are normal. There is interval reticular and patchy opacity at the right mid and lower lung. No pleural effusion or pneumothorax. IMPRESSION: Acute pneumonia on the right. Follow-up to resolution recommended. ACT 112: Negative or not required by law. Electronically signed by: Codey Paiz M.D. 07/28/2024 9:38 AM Chest X-Ray 07/30/24 11:56 XR chest 1V portable HISTORY: 68 years-old Male hypoxia, acute shortness of breath COMPARISON: 07/28/2024 TECHNIQUE: AP view of the chest FINDINGS: Cardiac silhouette is enlarged. Pulmonary vascular congestion. Progressively worsened consolidation of the right mid lung and right greater than left lung bases. No pneumothorax. Probable small pleural effusions. Bones appear intact. IMPRESSION: 1. Cardiomegaly with pulmonary vascular congestion. 2. Progressively worsened consolidation throughout the right lung which may represent pneumonia. ACT 112: Negative or not required by law. The above report was generated using voice recognition software. It may contain grammatical, syntax or spelling errors. Electronically signed by: Roberto Lovelace M.D. 07/30/2024 12:16 PM Chest X-Ray 08/01/24 21:44 Exam(s): XR CXR 1 VIEW EXAM: XR Chest, 1 View CLINICAL HISTORY: Reason for exam: sob. TECHNIQUE: Frontal view of the chest. COMPARISON: Prior chest x-ray from July 30, 2024. FINDINGS: Lungs: Infiltrate in the right upper and right lower lobes. There is a consolidation at the left lung base. Pleural space: Unremarkable. No pneumothorax. Heart: Unremarkable. No cardiomegaly. Mediastinum: Unremarkable. Normal mediastinal contour. Bones/joints: Unremarkable. No acute fracture. IMPRESSION: Right pulmonary infiltrate. Consolidation at the left lung base. Electronically signed by: Nati Stallings MD 08/02/24 00:17 AM Chest X-Ray 08/02/24 07:00 EXAM: XR chest 1V portable CLINICAL HISTORY: Follow-up pneumonia TECHNIQUE: An X-ray image of the chest is obtained in AP projection. COMPARISON: 07/30/2024 FINDINGS: Pulmonary Parenchyma: Patchy airspace opacity seen infiltrating most of the right lung Prominent right hilar shadow, Suggesting congestion Blunting of the left costophrenic angle suggesting effusion No evidence of right pleural effusion or pleural thickening. Heart and Mediastinum: Heart size and shape are normal. No mediastinal widening or masses. No hilar or mediastinal lymphadenopathy. Bony Thorax: Bony thorax appears intact without fractures or deformities. Soft Tissues: Soft tissues overlying the chest wall are unremarkable. IMPRESSION: 1. Compared to prior study there is increase in the extension of the airspace opacity now seen involving most of the right lung, 2. Stable left small pleural effusion. Electronically signed by Bonilla Chaudhry 08-02-2024 07:38 AM
[2024-08-02] MEDS: OPTIRAY 320 125ml IV ONE (19:49)
--- NOTE | 2024-08-02 20:59 | CT Scan Report ---
Exam(s): CTA CHEST IV Amt: 115ml opti 320 EXAM: CT Angiography Chest With Intravenous Contrast CLINICAL HISTORY: Reason for exam: PE. TECHNIQUE: Axial computed tomographic angiography images of the chest with intravenous contrast. CTDI is 42 mGy and DLP is 903.25 mGy-cm. Automated exposure control was utilized for the study. A dose lowering technique was utilized adhering to the principles of ALARA. MIP reconstructed images were created and reviewed. COMPARISON: No relevant prior studies available. FINDINGS: Pulmonary arteries: Unremarkable. No pulmonary embolism. Aorta: No acute findings. No thoracic aortic aneurysm. Lungs: Patchy consolidative densities are seen in bilateral lower lobes and right upper lobe. Pleural space: Small right and trace left pleural effusion. No pneumothorax. Heart: Unremarkable. No cardiomegaly. No significant pericardial effusion. No evidence of RV dysfunction. Bones/joints: No acute fracture. No dislocation. Soft tissues: Unremarkable. Lymph nodes: There is right hilar lymphadenopathy. IMPRESSION: 1. Bilateral multifocal pneumonia 2. Reactive right hilar lymphadenopathy 3. Small right and trace left pleural effusion Electronically signed by: Abdifatah Cortes MD 08/02/24 20:59 PM
[2024-08-03 06:57] LABS: Hemoglobin 11.6 g/dl (14.0-18.0); Mean Corpuscular Hemoglobin 31.9 pg (25.0-34.0); Mean Corpuscular Hgb Conc 35.2 g/dL (32.0-36.0); Mean Corpuscular Volume 90.7 fL (80.0-100.0); Mean Platelet Volume 10.7 fL (9.4-12.4); Platelet Count 317 K/uL (130-400); RDW Coefficient of Variation 15.5 % (11.5-14.5); RDW Standard Deviation 51.6 fL (36.4-46.3); Red Blood Count 3.64 M/uL (4.70-6.10); White Blood Count 8.29 K/ul (4.8-10.8)
[2024-08-03 07:37] LABS: BUN Creatinine Ratio 13.9 (10-20); Calcium 8.1 mg/dl (8.6-10.3); Creatinine Clr Calc Pharmacy 96.6 ml/min; Phosphorus 3.6 mg/dl (2.5-4.9); Potassium 3.4 mmol/L (3.5-5.1)
[2024-08-03] MEDS: FUROSEMIDE INJ 20 MG/2 ML VIAL IV SCH (08:34)
[2024-08-03] MEDS: FOLIC ACID 1 MG TAB PO SCH (08:34)
--- NOTE | 2024-08-03 10:40 | Hospitalist Progress Note ---
Date of Service August 03, 2024 Assessment & Plan (1) Acute hypoxic respiratory failure: (2) RML pneumonia: (3) Hyponatremia: (4) Lactic acid acidosis: (5) CAD (coronary artery disease): (6) Diabetes mellitus, type 2: Plan 68 yo M with history of T2DM, Diabetic peripheral angiopathy, HTN, HLD, CAD, Epilepsy, Major neurocognitive disorder, Depression, Personality disorder who presents to ED 2/2 generalized weakness and SOB x 2 days. Acute hypoxic respiratory Failure Sepsis RML and RLL Pneumonia COPD Hx of JUANJO Pt with significantly increased oxygen requirement at this time Chest XRAYs from admission noting progressive worsening of pneumonia on the right and now left VBG unremarkable Respiratory viral panel negative CTA chest ordered and noting bilateral multifocal pneumonia sputum culture from admission with NGTD Given acute worsening on 08/01, repeat sputum culture ordered Procalcitonin elevated on admission, repeat noting improvement Continue with IV cefepime at this time, completed azithromycin course continue inhalers, scheduled nebs, ISP, flutter valve Pulmonology was consulted, appreciate further recs Pt agreeable to trying cpap once more- states he was supposed to in the past but refused Congestive Heart Failure Pt with increased oxygen requirement Chest xray concerning for pulm edema, pleural effusions BNP elevated Echo with EF 60-65%, mild LVH, Grade 1 diastolic dysfunction Has been receiving doses of IV Lasix- transitioned to po lasix 40mg daily Monitor Is and Os- currently in positive balance Continue to monitor Episode of Epistaxis Hemoptysis Acute on 08/02 Afrin per protocol CTA chest as above for hemoptysis Hold heparin SQ at this time On plavix as well, continue at this time Continue to monitor Improved Hyponatremia Na 126 on admission suspect in setting of poor intake urine osm, na and serum osm Improving Continue to monitor Acute Kidney Injury Cr 1.6 on admission suspect in setting of poor intake received 2.25L in ED, continued with 60ml/hr x 1L hold lisinopril Avoid nephrotoxins as able Continue to monitor Currently resolved Elevated trop Demand Ischemia suspect in setting of demand ischemia due to hypotension/infection EKG noting NSR, no acute ischemic changes Echo pending as above Continue to monitor on telemetry Doubt ACS CAD with hx of AURORA HTN HLD continue asa, statin, plavix held lisinopril due to hypotension, and PASCUAL but continue metoprolol T2DM hold trulicty, ISS per protocol last A1c 6.6% in January, current A1c 6.8% Seizure disorder last was 2 years ago 2/2 hypoglycemia, continue lamictal Depression/Personality Disorder continue zyprexa, trazodone Diet: DMII DVT ppx: SQ Heparin- holding with epistaxis FULL CODE Dispo: PT/OT recommending home once medically stable Admission and Anticipated Discharge Date Admission Date: July 28, 2024 Subjective pt was seen sitting in a chair near his bed States his breathing was better but still requiring very high amounts of hi jose juan oxygen Agreeable to using the cpap/bipap as needed Review of Systems Review of Systems: All systems reviewed & are unremarkable except as noted in Subjective Physical Exam Physical Exam: General: Alert, oriented. Psych: Appropriate mood and affect HEENT: NC/AT, bleeding nostrils easily controlled with pressure Chest: Nontender to palpation. CV: RRR Resp: Breath sounds clear bilaterally, no increased effort of breathing Abdomen: Soft, nontender Extremities: No edema in lower extremities bilaterally. Results & Data Results & Data Vital Signs (Past 12 Hours) Vital Signs Temp Pulse Pulse Resp BP Pulse Ox O2 Del Method 08/03/24 07:56 36.5 C 69 22 115/69 90 High Flow Nasal Cannula 08/03/24 06:58 59 L 19 89 L Nasal Cannula 08/03/24 03:54 36.4 C L 51 L 18 117/68 92 High Flow Nasal Cannula 08/02/24 23:26 61 O2 Flow Rate 08/03/24 07:56 14 08/03/24 06:58 15 08/03/24 03:54 10 08/02/24 23:26 Diagnostic Findings Chest X-Ray 07/28/24 09:21 XR chest 1V portable CLINICAL HISTORY: Sepsis COMPARISON STUDY: 04/06/2023 FINDINGS: Heart size and pulmonary vasculature are normal. There is interval reticular and patchy opacity at the right mid and lower lung. No pleural effusion or pneumothorax. IMPRESSION: Acute pneumonia on the right. Follow-up to resolution recommended. ACT 112: Negative or not required by law. Electronically signed by: Codey Paiz M.D. 07/28/2024 9:38 AM Chest X-Ray 07/30/24 11:56 XR chest 1V portable HISTORY: 68 years-old Male hypoxia, acute shortness of breath COMPARISON: 07/28/2024 TECHNIQUE: AP view of the chest FINDINGS: Cardiac silhouette is enlarged. Pulmonary vascular congestion. Progressively worsened consolidation of the right mid lung and right greater than left lung bases. No pneumothorax. Probable small pleural effusions. Bones appear intact. IMPRESSION: 1. Cardiomegaly with pulmonary vascular congestion. 2. Progressively worsened consolidation throughout the right lung which may represent pneumonia. ACT 112: Negative or not required by law. The above report was generated using voice recognition software. It may contain grammatical, syntax or spelling errors. Electronically signed by: Roberto Lovelace M.D. 07/30/2024 12:16 PM Chest X-Ray 08/01/24 21:44 Exam(s): XR CXR 1 VIEW EXAM: XR Chest, 1 View CLINICAL HISTORY: Reason for exam: sob. TECHNIQUE: Frontal view of the chest. COMPARISON: Prior chest x-ray from July 30, 2024. FINDINGS: Lungs: Infiltrate in the right upper and right lower lobes. There is a consolidation at the left lung base. Pleural space: Unremarkable. No pneumothorax. Heart: Unremarkable. No cardiomegaly. Mediastinum: Unremarkable. Normal mediastinal contour. Bones/joints: Unremarkable. No acute fracture. IMPRESSION: Right pulmonary infiltrate. Consolidation at the left lung base. Electronically signed by: Nati Stallings MD 08/02/24 00:17 AM Chest X-Ray 08/02/24 07:00 EXAM: XR chest 1V portable CLINICAL HISTORY: Follow-up pneumonia TECHNIQUE: An X-ray image of the chest is obtained in AP projection. COMPARISON: 07/30/2024 FINDINGS: Pulmonary Parenchyma: Patchy airspace opacity seen infiltrating most of the right lung Prominent right hilar shadow, Suggesting congestion Blunting of the left costophrenic angle suggesting effusion No evidence of right pleural effusion or pleural thickening. Heart and Mediastinum: Heart size and shape are normal. No mediastinal widening or masses. No hilar or mediastinal lymphadenopathy. Bony Thorax: Bony thorax appears intact without fractures or deformities. Soft Tissues: Soft tissues overlying the chest wall are unremarkable. IMPRESSION: 1. Compared to prior study there is increase in the extension of the airspace opacity now seen involving most of the right lung, 2. Stable left small pleural effusion. Electronically signed by Bonilla Chaudhry 08-02-2024 07:38 AM Chest CTA 08/02/24 18:36 Exam(s): CTA CHEST IV Amt: 115ml opti 320 EXAM: CT Angiography Chest With Intravenous Contrast CLINICAL HISTORY: Reason for exam: PE. TECHNIQUE: Axial computed tomographic angiography images of the chest with intravenous contrast. CTDI is 42 mGy and DLP is 903.25 mGy-cm. Automated exposure control was utilized for the study. A dose lowering technique was utilized adhering to the principles of ALARA. MIP reconstructed images were created and reviewed. COMPARISON: No relevant prior studies available. FINDINGS: Pulmonary arteries: Unremarkable. No pulmonary embolism. Aorta: No acute findings. No thoracic aortic aneurysm. Lungs: Patchy consolidative densities are seen in bilateral lower lobes and right upper lobe. Pleural space: Small right and trace left pleural effusion. No pneumothorax. Heart: Unremarkable. No cardiomegaly. No significant pericardial effusion. No evidence of RV dysfunction. Bones/joints: No acute fracture. No dislocation. Soft tissues: Unremarkable. Lymph nodes: There is right hilar lymphadenopathy. IMPRESSION: 1. Bilateral multifocal pneumonia 2. Reactive right hilar lymphadenopathy 3. Small right and trace left pleural effusion Electronically signed by: Abdifatah Cortes MD 08/02/24 20:59 PM
--- NOTE | 2024-08-03 11:27 | Pulmonology Progress Note ---
Date of Service August 03, 2024 Assessment & Plan (1) Right lower lobe pneumonia: Pneumonia type: due to unspecified organism Qualified Code(s): J 18.9 - Pneumonia, unspecified organism (2) Acute hypoxic respiratory failure: (3) Former smoker: (4) COPD with emphysema: Plan Impression: 68-year-old male with COPD admitted with community-acquired pneumonia of the right lower lobe and hypoxemic respiratory failure. Recommendations: 1. Community acquired pneumonia: Currently on Rocephin and azithromycin. Fever curve improved. White blood cell count normal. Procalcitonin now normal. I have de-escalated the antibiotics on 2 separate occasions however the primary admitting service continues to escalate therapy to antipseudomonal drugs. He is now on cefepime. At this point time I will defer antimicrobial choices to them. From my perspective, the patient was responding appropriately to antibiotics ATS recommended for community-acquired pneumonia. 2. COPD: Not bronchospastic currently. Currently on DuoNebs, Perforomist, and budesonide. Continue Incruse. 3. Hypoxemia: CT scan shows pneumonia with small bilateral effusions. Recommend continued diuresis. Follow kidney function and replete electrolytes. 1.2 L negative yesterday. There is no role for noninvasive positive pressure ventilation in hypoxemic respiratory failure related to pneumonia. 4. Hemoptysis: Resolved. Continue to follow clinically Thank you for the opportunity to participate in the care of this patient. Will continue to follow with you. Feel free to contact us with questions or concerns Admission and Anticipated Discharge Date Admission Date: July 28, 2024 Subjective Patient seen and examined. EMR reviewed. The patient is currently sitting in a chair. I found him with his oxygen on the floor. He denied any complaints of but his oxygen saturation on my assessment was 78% on room air. He was placed on oxygen at 10 L/min and rapidly recovered with oxygen saturations of 97 to 98%. We turned him down to 6 L and he maintained an oxygen saturation above 90%. He is not really coughing or expectorating phlegm. Review of Systems 2 Review of Systems: All systems reviewed & are unremarkable except as noted in Subjective Physical Exam 2 Constitutional: WD/WN, vitals as above Neck: trachea midline, no thyromegaly Respiratory: no respiratory distress, no labored breathing, no cough and not tachypneic Auscultation: + diminished lung sounds; no crackles and no wheezes Cardiovascular: RRR, no murmur, no edema Gastrointestinal (Abdomen): normal bowel sounds, soft, nontender, no hepatosplenomegaly Musculoskeletal: Extremities: extremities normal to inspection Skin: no rashes, warm and dry Lymphatic: no cervical lymphadenopathy Results & Data Results & Data Vital Signs (Past 12 Hours) Vital Signs Temp Pulse Pulse Resp BP Pulse Ox O2 Del Method 08/03/24 07:56 36.5 C 69 22 115/69 90 High Flow Nasal Cannula 08/03/24 06:58 59 L 19 89 L Nasal Cannula 08/03/24 03:54 36.4 C L 51 L 18 117/68 92 High Flow Nasal Cannula 08/02/24 23:26 61 O2 Flow Rate 08/03/24 07:56 14 08/03/24 06:58 15 08/03/24 03:54 10 08/02/24 23:26 Laboratory Results 08/03/24 06:30 08/03/24 06:30 BNP 118 Procalcitonin 0.12 down from 1.48 Diagnostic Findings CTA performed last evening showed no evidence of PE. There was airspace opacity in the right upper lobe and right lower lobe with small bilateral effusions. PG Care Time/CCT Total # of Minutes Spent Total Time Spent with Patient: Total time spent is greater than 50% in coordination of care (as documented) at patient's floor/unit and/or counseling patient: Coding Level of Care Code 95711 SUB INP/OBS CARE 2/35MIN Diagnoses Right lower lobe pneumonia J18.9 Pneumonia type: due to unspecified organism Acute hypoxic respiratory failure J96.01 Former smoker Z87.891 COPD with emphysema J43.9
[2024-08-03] MEDS: FUROSEMIDE 40 MG TAB PO SCH (12:11)
[2024-08-03] MEDS: POTASSIUM CHLORIDE CRTAB 20 MEQ TABCR PO STA (17:09)
[2024-08-04 06:49] LABS: Hematocrit (blood only) 34.3 % (42.0-52.0); Hemoglobin 11.6 g/dl (14.0-18.0); Mean Corpuscular Hemoglobin 30.8 pg (25.0-34.0); Mean Corpuscular Hgb Conc 33.8 g/dL (32.0-36.0); Mean Platelet Volume 10.3 fL (9.4-12.4); Platelet Count 357 K/uL (130-400); RDW Coefficient of Variation 15.6 % (11.5-14.5); RDW Standard Deviation 51.4 fL (36.4-46.3); Red Blood Count 3.77 M/uL (4.70-6.10); White Blood Count 8.57 K/ul (4.8-10.8)
[2024-08-04 07:10] LABS: Albumin Globulin Ratio 0.8 (0.9-2); Albumin Level 2.7 gm/dl (3.4-5.0); BUN Creatinine Ratio 12.9 (10-20); Bilirubin,Total 0.7 mg/dl (0.2-1.0); Calcium 8.1 mg/dl (8.6-10.3); Creatinine Clr Calc Pharmacy 89.8 ml/min; Globulin 3.4 gm/dl (2.5-4.0); Magnesium 1.9 mg/dl (1.7-2.4); Phosphorus 2.6 mg/dl (2.5-4.9); Potassium 3.7 mmol/L (3.5-5.1); Total Protein 6.1 gm/dl (6.0-8.3)
[2024-08-04 07:12] LABS: Basophils # (auto) 0.04 K/uL (0.00-0.20); Basophils % (auto) 0.5 %; Eosinophils # (auto) 0.25 K/uL (0.00-0.50); Eosinophils % (auto) 2.9 %; Immature Granulocytes # (auto) 0.58 K/uL (0.01-0.20); Immature Granulocytes % (auto) 6.8 %; Lymphocytes # (auto) 1.07 K/uL (1.20-3.40); Lymphocytes % (auto) 12.5 %; Monocytes # (auto) 0.65 K/uL (0.11-0.59); Monocytes % (auto) 7.6 %; Neutrophils # (auto) 5.98 K/uL (1.40-6.50); Neutrophils % (auto) 69.7 %; RBC Morphology Unremarkable
--- NOTE | 2024-08-04 10:31 | Pulmonology Progress Note ---
Date of Service August 04, 2024 Assessment & Plan (1) Right lower lobe pneumonia: Pneumonia type: due to unspecified organism Qualified Code(s): J 18.9 - Pneumonia, unspecified organism (2) Acute hypoxic respiratory failure: (3) Former smoker: (4) COPD with emphysema: Plan Impression: 68-year-old male with COPD admitted with community-acquired pneumonia of the right lower lobe and hypoxemic respiratory failure. His prior PFTs suggest a severe decrease in diffusion capacity and the patient may have required supplemental oxygen at baseline Recommendations: 1. Community acquired pneumonia: Completed 5 days of azithromycin and 8 days of combination of gram-negative coverage. Antibiotics can be discontinued at this point in time. Follow-up chest x-ray in 2 to 4 weeks 2. COPD: Not bronchospastic currently. Currently on DuoNebs, Perforomist, and budesonide. Continue Incruse. 3. Hypoxemia: Continue diuresis recommended. Not sure that his intake and output numbers are being accurately tracked. Follow kidney function and would decrease diuretics if renal function bumps. The patient may require supplemental oxygen at discharge. Again reiterated to the patient the importance of being out of bed in a chair and ambulating. Can ask respiratory therapy whether assessment for a pendant Oxymizer might be appropriate. Target oxygen saturations at or above 88%. May need to look into high capacity oxygen concentrator at home for the patient as he recuperates. 4. Hemoptysis: Resolved. Continue to follow clinically Will continue to follow peripherally. Feel free to contact us with questions or concerns Admission and Anticipated Discharge Date Admission Date: July 28, 2024 Subjective Patient seen and examined. EMR reviewed. The patient is lying supine. He states he is feeling better. He is coughing less. He feels the shortness of breath is improved. He reports compliance with his incentive spirometer however its across the room. He has not really been ambulatory Review of Systems 2 Review of Systems: All systems reviewed & are unremarkable except as noted in Subjective Physical Exam 2 Constitutional: WD/WN, vitals as above Neck: trachea midline, no thyromegaly Respiratory: no respiratory distress, no labored breathing, no cough and not tachypneic Auscultation: + diminished lung sounds; no crackles and no wheezes Cardiovascular: RRR, no murmur, no edema Gastrointestinal (Abdomen): normal bowel sounds, soft, nontender, no hepatosplenomegaly Musculoskeletal: Extremities: extremities normal to inspection Skin: no rashes, warm and dry Lymphatic: no cervical lymphadenopathy Results & Data Results & Data Vital Signs (Past 12 Hours) Vital Signs Temp Pulse Pulse Resp BP Pulse Ox O2 Del Method 08/04/24 07:30 57 L 08/04/24 07:26 36.3 C L 62 19 127/69 93 High Flow Nasal Cannula 08/04/24 07:20 70 16 93 Nasal Cannula 08/04/24 03:39 36.8 C 61 18 112/60 90 High Flow Nasal Cannula 08/03/24 23:17 62 08/03/24 23:08 36.8 C 55 L 18 100/61 94 High Flow Nasal Cannula 08/03/24 22:28 High Flow Nasal Cannula O2 Flow Rate 08/04/24 07:30 08/04/24 07:26 7 08/04/24 07:20 8 08/04/24 03:39 13 08/03/24 23:17 08/03/24 23:08 11 08/03/24 22:28 13 Laboratory Results 08/04/24 06:06 08/04/24 06:06 Diagnostic Findings Echo reviewed. PG Care Time/CCT Total # of Minutes Spent Total Time Spent with Patient: Total time spent is greater than 50% in coordination of care (as documented) at patient's floor/unit and/or counseling patient: Coding Level of Care Code 21089 SUB INP/OBS CARE 2/35MIN Diagnoses Right lower lobe pneumonia J18.9 Pneumonia type: due to unspecified organism Acute hypoxic respiratory failure J96.01 Former smoker Z87.891 COPD with emphysema J43.9
--- NOTE | 2024-08-04 11:41 | Hospitalist Progress Note ---
Date of Service August 04, 2024 Assessment & Plan (1) Acute hypoxic respiratory failure: (2) RML pneumonia: (3) Hyponatremia: (4) Lactic acid acidosis: (5) CAD (coronary artery disease): (6) Diabetes mellitus, type 2: Plan 68 yo M with history of T2DM, Diabetic peripheral angiopathy, HTN, HLD, CAD, Epilepsy, Major neurocognitive disorder, Depression, Personality disorder who presents to ED 2/2 generalized weakness and SOB x 2 days. Acute hypoxic respiratory Failure Sepsis RML and RLL Pneumonia COPD Hx of JUANJO Pt with significantly increased oxygen requirement at this time Chest XRAYs from admission noting progressive worsening of pneumonia on the right and now left VBG unremarkable Respiratory viral panel negative CTA chest ordered and noting bilateral multifocal pneumonia sputum culture from admission with NGTD Given acute worsening on 08/01, repeat sputum culture ordered Procalcitonin elevated on admission, repeat noting improvement Treated with IV gram negative coverage, completed azithromycin course- abx course discontinued by pulmonology. continue inhalers, scheduled nebs, ISP, flutter valve Pulmonology was consulted, appreciate further recs Pt agreeable to trying cpap once more- states he was supposed to in the past but refused Congestive Heart Failure Pt with increased oxygen requirement Chest xray concerning for pulm edema, pleural effusions BNP elevated Echo with EF 60-65%, mild LVH, Grade 1 diastolic dysfunction Has been receiving doses of IV Lasix- transitioned to po lasix 40mg daily Monitor Is and Os- currently in positive balance Continue to monitor Episode of Epistaxis Hemoptysis Acute on 08/02 Afrin per protocol CTA chest as above for hemoptysis Hold heparin SQ at this time On plavix as well, continue at this time Continue to monitor Improved Hyponatremia Na 126 on admission suspect in setting of poor intake urine osm, na and serum osm Improving Continue to monitor Acute Kidney Injury Cr 1.6 on admission suspect in setting of poor intake received 2.25L in ED, continued with 60ml/hr x 1L hold lisinopril Avoid nephrotoxins as able Continue to monitor Currently resolved Elevated trop Demand Ischemia suspect in setting of demand ischemia due to hypotension/infection EKG noting NSR, no acute ischemic changes Echo pending as above Continue to monitor on telemetry Doubt ACS CAD with hx of AURORA HTN HLD continue asa, statin, plavix held lisinopril due to hypotension, and PASCUAL but continue metoprolol T2DM hold Trulicity, ISS per protocol last A1c 6.6% in January, current A1c 6.8% Seizure disorder last was 2 years ago 2/2 hypoglycemia, continue lamictal Depression/Personality Disorder continue zyprexa, trazodone Diet: DMII DVT ppx: SQ Heparin- holding with epistaxis FULL CODE Dispo: PT/OT recommending home once medically stable Admission and Anticipated Discharge Date Admission Date: July 28, 2024 Subjective pt was seen laying in bed in the AM Stated that he walked with PT earlier Notes he has been using the cpap machine updated today Review of Systems Review of Systems: All systems reviewed & are unremarkable except as noted in Subjective Physical Exam Physical Exam: General: Alert, oriented. Psych: Appropriate mood and affect HEENT: NC/AT, bleeding nostrils easily controlled with pressure Chest: Nontender to palpation. CV: RRR Resp: Breath sounds clear bilaterally, no increased effort of breathing Abdomen: Soft, nontender Extremities: No edema in lower extremities bilaterally. Results & Data Results & Data Vital Signs (Past 12 Hours) Vital Signs Temp Pulse Pulse Resp BP Pulse Ox O2 Del Method 08/04/24 11:24 36.6 C 53 L 19 122/69 93 High Flow Nasal Cannula 08/04/24 09:00 High Flow Nasal Cannula 08/04/24 07:30 57 L 08/04/24 07:26 36.3 C L 62 19 127/69 93 High Flow Nasal Cannula 08/04/24 07:20 70 16 93 Nasal Cannula 08/04/24 03:39 36.8 C 61 18 112/60 90 High Flow Nasal Cannula O2 Flow Rate 08/04/24 11:24 9 08/04/24 09:00 9 08/04/24 07:30 08/04/24 07:26 7 08/04/24 07:20 8 08/04/24 03:39 13
[2024-08-05 06:27] LABS: Hematocrit (blood only) 32.2 % (42.0-52.0); Hemoglobin 10.9 g/dl (14.0-18.0); Mean Corpuscular Hemoglobin 31.4 pg (25.0-34.0); Mean Corpuscular Hgb Conc 33.9 g/dL (32.0-36.0); Mean Corpuscular Volume 92.8 fL (80.0-100.0); Mean Platelet Volume 10.6 fL (9.4-12.4); Platelet Count 397 K/uL (130-400); RDW Coefficient of Variation 15.4 % (11.5-14.5); RDW Standard Deviation 52.7 fL (36.4-46.3); Red Blood Count 3.47 M/uL (4.70-6.10); White Blood Count 7.85 K/ul (4.8-10.8)
[2024-08-05 06:52] LABS: Albumin Globulin Ratio 0.8 (0.9-2); Albumin Level 2.7 gm/dl (3.4-5.0); BUN Creatinine Ratio 11.8 (10-20); Basophils # (auto) 0.05 K/uL (0.00-0.20); Basophils % (auto) 0.6 %; Bilirubin,Total 0.8 mg/dl (0.2-1.0); Calcium 7.8 mg/dl (8.6-10.3); Creatinine Clr Calc Pharmacy 82.5 ml/min; Eosinophils # (auto) 0.28 K/uL (0.00-0.50); Eosinophils % (auto) 3.6 %; Globulin 3.2 gm/dl (2.5-4.0); Immature Granulocytes # (auto) 0.45 K/uL (0.01-0.20); Immature Granulocytes % (auto) 5.7 %; Lymphocytes # (auto) 1.45 K/uL (1.20-3.40); Lymphocytes % (auto) 18.5 %; Monocytes % (auto) 7.6 %; Neutrophils # (auto) 5.02 K/uL (1.40-6.50); Phosphorus 2.6 mg/dl (2.5-4.9); Polychromasia 1+; Total Protein 5.9 gm/dl (6.0-8.3)
--- NOTE | 2024-08-05 09:39 | Pulmonology Progress Note ---
Date of Service August 05, 2024 Assessment & Plan (1) Right lower lobe pneumonia: Pneumonia type: due to unspecified organism Qualified Code(s): J 18.9 - Pneumonia, unspecified organism (2) Acute hypoxic respiratory failure: (3) Former smoker: (4) COPD with emphysema: Plan Impression: 68-year-old male with COPD admitted with community-acquired pneumonia of the right lower lobe and hypoxemic respiratory failure. His prior PFTs demonstrate a severe decrease in diffusion capacity and the patient may have required supplemental oxygen at baseline Recommendations: 1. Community acquired pneumonia: Completed 5 days of azithromycin and 8 days of combination of gram-negative coverage. Off antibiotics currently follow-up chest x-ray in 2 to 4 weeks 2. COPD: Not bronchospastic currently. Currently on DuoNebs, Perforomist, and budesonide. Continue Incruse. 3. Hypoxemia: Continue diuresis recommended. Significant improvement over the last 24 hours. If the patient's oxygen needs can be met at home, he can be dismissed from the hospital. Formal two-step should be obtained to determine oxygen requirement at baseline, with activity, and at night. 4. Hemoptysis: Resolved. Continue to follow clinically Patient appears to be on appropriate trajectory and can likely dismiss from the hospital once his oxygen needs can safely be met at home. Pulmonary will sign off. Feel free to contact us with questions or concerns Admission and Anticipated Discharge Date Admission Date: July 28, 2024 Subjective Patient seen and examined. EMR reviewed. Patient sitting up in a chair. He feels his breathing is better. He is been able to get up to the restroom. He denies any shortness of breath with ambulation. His oxygen was just recently decreased down to 7 L/min and he is maintaining oxygen saturations at or above 95%. He is not coughing or expectorating significant phlegm. He overall has no new complaints Review of Systems 2 Review of Systems: All systems reviewed & are unremarkable except as noted in Subjective Physical Exam 2 Constitutional: WD/WN, vitals as above Neck: trachea midline, no thyromegaly Respiratory: no respiratory distress, no labored breathing, no cough and not tachypneic Auscultation: + diminished lung sounds; no crackles and no wheezes Cardiovascular: RRR, no murmur, no edema Gastrointestinal (Abdomen): normal bowel sounds, soft, nontender, no hepatosplenomegaly Musculoskeletal: Extremities: extremities normal to inspection Skin: no rashes, warm and dry Lymphatic: no cervical lymphadenopathy Results & Data Results & Data Vital Signs (Past 12 Hours) Vital Signs Temp Pulse Pulse Resp BP Pulse Ox O2 Del Method 08/05/24 07:00 56 L 08/05/24 07:00 37.1 C 63 20 125/71 95 Room Air 08/05/24 07:00 63 18 91 Nasal Cannula 08/05/24 02:43 37.1 C 55 L 18 95/49 L 94 High Flow Nasal Cannula 08/04/24 23:02 37.0 C 54 L 18 106/66 91 High Flow Nasal Cannula 08/04/24 21:49 57 L O2 Flow Rate 08/05/24 07:00 08/05/24 07:00 08/05/24 07:00 10 08/05/24 02:43 10 08/04/24 23:02 10 08/04/24 21:49 Laboratory Results 08/05/24 05:51 08/05/24 05:51 PG Care Time/CCT Total # of Minutes Spent Total Time Spent with Patient: Total time spent is greater than 50% in coordination of care (as documented) at patient's floor/unit and/or counseling patient: Coding Level of Care Code 56545 SUB INP/OBS CARE 2/35MIN Diagnoses Right lower lobe pneumonia J18.9 Pneumonia type: due to unspecified organism Acute hypoxic respiratory failure J96.01 Former smoker Z87.891 COPD with emphysema J43.9
--- NOTE | 2024-08-05 12:05 | Hospitalist Progress Note ---
Date of Service August 05, 2024 Assessment & Plan (1) Acute hypoxic respiratory failure: (2) RML pneumonia: (3) Hyponatremia: (4) Lactic acid acidosis: (5) CAD (coronary artery disease): (6) Diabetes mellitus, type 2: Plan 68 yo M with history of T2DM, Diabetic peripheral angiopathy, HTN, HLD, CAD, Epilepsy, Major neurocognitive disorder, Depression, Personality disorder who presents to ED 2/2 generalized weakness and SOB x 2 days. Acute hypoxic respiratory Failure Sepsis RML and RLL Pneumonia COPD Hx of JUANJO Pt with significantly increased oxygen requirement at this time Chest XRAYs from admission noting progressive worsening of pneumonia on the right and now left VBG unremarkable Respiratory viral panel negative CTA chest ordered and noting bilateral multifocal pneumonia sputum culture from admission with NGTD Given acute worsening on 08/01, repeat sputum culture ordered Procalcitonin elevated on admission, repeat noting improvement Treated with IV gram negative coverage, completed azithromycin course- abx course discontinued by pulmonology. continue inhalers, scheduled nebs, ISP, flutter valve Pulmonology was consulted, appreciate further recs Pt agreeable to trying cpap once more- states he was supposed to in the past but refused Congestive Heart Failure Pt with increased oxygen requirement Chest xray concerning for pulm edema, pleural effusions BNP elevated Echo with EF 60-65%, mild LVH, Grade 1 diastolic dysfunction Has been receiving doses of IV Lasix- transitioned to po lasix 40mg daily Monitor Is and Os- currently in positive balance Continue to monitor Episode of Epistaxis Hemoptysis Acute on 08/02 Afrin per protocol CTA chest as above for hemoptysis Hold heparin SQ at this time On plavix as well, continue at this time Continue to monitor Improved Hyponatremia Na 126 on admission suspect in setting of poor intake urine osm, na and serum osm Improving Continue to monitor Acute Kidney Injury Cr 1.6 on admission suspect in setting of poor intake received 2.25L in ED, continued with 60ml/hr x 1L hold lisinopril Avoid nephrotoxins as able Continue to monitor Currently resolved Elevated trop Demand Ischemia suspect in setting of demand ischemia due to hypotension/infection EKG noting NSR, no acute ischemic changes Echo pending as above Continue to monitor on telemetry Doubt ACS Elevated Liver enzymes LFTs trending up Us liver ordered continue to trend LFTs CAD with hx of AURORA HTN HLD continue asa, statin, plavix held lisinopril due to hypotension, and PASCUAL but continue metoprolol T2DM hold Trulicity, ISS per protocol last A1c 6.6% in January, current A1c 6.8% Seizure disorder last was 2 years ago 2/2 hypoglycemia, continue lamictal Depression/Personality Disorder continue zyprexa, trazodone Diet: DMII DVT ppx: SQ Heparin- holding with epistaxis FULL CODE Dispo: PT/OT recommending home once medically stable Admission and Anticipated Discharge Date Admission Date: July 28, 2024 Subjective pt was seen with at bedside Wants to go home However still on 6L of oxygen at the time of exam Otherwise denied acute concerns Review of Systems Review of Systems: All systems reviewed & are unremarkable except as noted in Subjective Physical Exam Physical Exam: General: Alert, oriented. Psych: Appropriate mood and affect HEENT: NC/AT, bleeding nostrils easily controlled with pressure Chest: Nontender to palpation. CV: RRR Resp: Breath sounds clear bilaterally, no increased effort of breathing Abdomen: Soft, nontender Extremities: No edema in lower extremities bilaterally. Results & Data Results & Data Vital Signs (Past 12 Hours) Vital Signs Temp Pulse Pulse Resp BP Pulse Ox O2 Del Method 08/05/24 10:57 36.7 C 53 L 18 111/73 97 Nasal Cannula 08/05/24 08:00 High Flow Nasal Cannula 08/05/24 07:00 56 L 08/05/24 07:00 37.1 C 63 20 125/71 95 Room Air 08/05/24 07:00 63 18 91 Nasal Cannula 08/05/24 02:43 37.1 C 55 L 18 95/49 L 94 High Flow Nasal Cannula O2 Flow Rate 08/05/24 10:57 6 08/05/24 08:00 6 08/05/24 07:00 08/05/24 07:00 08/05/24 07:00 10 08/05/24 02:43 10
--- NOTE | 2024-08-06 08:09 | Ultrasound Report ---
US liver CLINICAL HISTORY: elevtaed LFTs COMPARISON STUDY: CT chest of 08/02/2024 FINDINGS: Pancreatic tail is obscured. Visualized pancreatic body is grossly unremarkable. Liver demo nstrates mild diffusely increased echogenicity consistent with fatty liver. There is normal direction of flow in the portal vein. Liver measures 17 cm. Gallbladder is contracted. There is mild prominenc e of the gallbladder wall due to contraction. There is mild ring down artifact at the gallbladder fun dus, possible mild adenomyomatosis. No gallstones seen. No pericholecystic fluid or ascites. Right ki dney shows no hydronephrosis. Common bile duct measures normal diameter of 4 mm. IMPRESSION: Mild fatty liver. ACT 112: Negative or not required by law. Electronically signed by: Coedy Paiz M.D. 08/06/2024 8:07 AM
[2024-08-06 08:37] LABS: Basophils # (auto) 0.04 K/uL (0.00-0.20); Basophils % (auto) 0.5 %; Eosinophils # (auto) 0.21 K/uL (0.00-0.50); Eosinophils % (auto) 2.7 %; Hemoglobin 11.9 g/dl (14.0-18.0); Immature Granulocytes # (auto) 0.27 K/uL (0.01-0.20); Immature Granulocytes % (auto) 3.5 %; Lymphocytes # (auto) 1.56 K/uL (1.20-3.40); Lymphocytes % (auto) 20.2 %; Mean Corpuscular Hemoglobin 31.5 pg (25.0-34.0); Mean Corpuscular Hgb Conc 33.1 g/dL (32.0-36.0); Mean Corpuscular Volume 95.2 fL (80.0-100.0); Mean Platelet Volume 10.3 fL (9.4-12.4); Monocytes # (auto) 0.54 K/uL (0.11-0.59); Neutrophils # (auto) 5.12 K/uL (1.40-6.50); Neutrophils % (auto) 66.1 %; Platelet Count 454 K/uL (130-400); RDW Coefficient of Variation 15.3 % (11.5-14.5); RDW Standard Deviation 53.6 fL (36.4-46.3); Red Blood Count 3.78 M/uL (4.70-6.10); White Blood Count 7.74 K/ul (4.8-10.8)
[2024-08-06 08:44] LABS: Albumin Globulin Ratio 0.8 (0.9-2); Albumin Level 3.1 gm/dl (3.4-5.0); BUN Creatinine Ratio 10.6 (10-20); Bilirubin,Total 0.8 mg/dl (0.2-1.0); Calcium 8.5 mg/dl (8.6-10.3); Creatinine Clr Calc Pharmacy 89.9 ml/min; Globulin 3.8 gm/dl (2.5-4.0); Potassium 4.1 mmol/L (3.5-5.1); Total Protein 6.9 gm/dl (6.0-8.3)
--- NOTE | 2024-08-06 09:51 | Hospitalist Progress Note ---
Date of Service August 06, 2024 Assessment & Plan (1) Acute hypoxic respiratory failure: (2) RML pneumonia: (3) Hyponatremia: (4) Lactic acid acidosis: (5) CAD (coronary artery disease): (6) Diabetes mellitus, type 2: Plan 68 yo M with history of T2DM, Diabetic peripheral angiopathy, HTN, HLD, CAD, Epilepsy, Major neurocognitive disorder, Depression, Personality disorder who presents to ED 2/2 generalized weakness and SOB x 2 days. Extended hospitalization due to significant oxygen use at this time. Currently being weaned down to at least 3L before discharge. Acute hypoxic respiratory Failure Sepsis RML and RLL Pneumonia COPD Hx of JUANJO Pt with significantly increased oxygen requirement at this time Chest XRAYs from admission noting progressive worsening of pneumonia on the right and now left VBG unremarkable Respiratory viral panel negative CTA chest ordered and noting bilateral multifocal pneumonia sputum culture from admission with NGTD Given acute worsening on 08/01, repeat sputum culture ordered Procalcitonin elevated on admission, repeat noting improvement Treated with IV gram negative coverage, completed azithromycin course- abx course discontinued by pulmonology. continue inhalers, scheduled nebs, ISP, flutter valve Pulmonology was consulted, appreciate further recs Pt agreeable to trying cpap once more- states he was supposed to in the past but refused Wean oxygen as tolerated- pt currently 93% at 5L Congestive Heart Failure Pt with increased oxygen requirement Chest xray concerning for pulm edema, pleural effusions BNP elevated Echo with EF 60-65%, mild LVH, Grade 1 diastolic dysfunction Has been receiving doses of IV Lasix- transitioned to po lasix 40mg daily Monitor Is and Os- currently in positive balance Continue to monitor Episode of Epistaxis Hemoptysis Acute on 08/02 Afrin per protocol CTA chest as above for hemoptysis Hold heparin SQ at this time On plavix as well, continue at this time Continue to monitor Improved Hyponatremia Na 126 on admission suspect in setting of poor intake urine osm, na and serum osm Improving Continue to monitor Acute Kidney Injury Cr 1.6 on admission suspect in setting of poor intake received 2.25L in ED, continued with 60ml/hr x 1L hold lisinopril Avoid nephrotoxins as able Continue to monitor Currently resolved Elevated trop Demand Ischemia suspect in setting of demand ischemia due to hypotension/infection EKG noting NSR, no acute ischemic changes Echo pending as above Continue to monitor on telemetry Doubt ACS Elevated Liver enzymes LFTs trending up Us liver ordered continue to trend LFTs CAD with hx of AURORA HTN HLD continue asa, statin, plavix held lisinopril due to hypotension, and PASCUAL but continue metoprolol T2DM hold Trulicity, ISS per protocol last A1c 6.6% in January, current A1c 6.8% Seizure disorder last was 2 years ago 2/2 hypoglycemia, continue lamictal Depression/Personality Disorder continue zyprexa, trazodone Diet: DMII DVT ppx: SQ Heparin- holding with epistaxis FULL CODE Dispo: PT/OT recommending home once medically stable Admission and Anticipated Discharge Date Admission Date: July 28, 2024 Subjective pt was seen laying in bed Anxious for discharge but agreeable to staying for continued oxygen wean to at least 3L Denied chest pain, SOB, palpitations Would like to go home tomorrow Review of Systems Review of Systems: All systems reviewed & are unremarkable except as noted in Subjective Physical Exam Physical Exam: General: Alert, oriented. Psych: Appropriate mood and affect HEENT: NC/AT, bleeding nostrils easily controlled with pressure Chest: Nontender to palpation. CV: RRR Resp: Breath sounds clear bilaterally, no increased effort of breathing Abdomen: Soft, nontender Extremities: No edema in lower extremities bilaterally. Results & Data Results & Data Vital Signs (Past 12 Hours) Vital Signs Temp Pulse Pulse Resp BP Pulse Ox O2 Del Method 08/06/24 07:05 68 16 89 L Nasal Cannula 08/06/24 07:00 36.5 C 56 L 18 120/73 95 Nebulizer 08/06/24 04:05 36.6 C 53 L 18 104/58 L 96 Nasal Cannula 08/05/24 23:21 36.7 C 60 18 126/70 94 Nasal Cannula 08/05/24 21:50 63 O2 Flow Rate 08/06/24 07:05 6 08/06/24 07:00 08/06/24 04:05 6 08/05/24 23:21 8 08/05/24 21:50 Diagnostic Findings Chest X-Ray 07/28/24 09:21 XR chest 1V portable CLINICAL HISTORY: Sepsis COMPARISON STUDY: 04/06/2023 FINDINGS: Heart size and pulmonary vasculature are normal. There is interval reticular and patchy opacity at the right mid and lower lung. No pleural effusion or pneumothorax. IMPRESSION: Acute pneumonia on the right. Follow-up to resolution recommended. ACT 112: Negative or not required by law. Electronically signed by: Codey Paiz M.D. 07/28/2024 9:38 AM Chest X-Ray 07/30/24 11:56 XR chest 1V portable HISTORY: 68 years-old Male hypoxia, acute shortness of breath COMPARISON: 07/28/2024 TECHNIQUE: AP view of the chest FINDINGS: Cardiac silhouette is enlarged. Pulmonary vascular congestion. Progressively worsened consolidation of the right mid lung and right greater than left lung bases. No pneumothorax. Probable small pleural effusions. Bones appear intact. IMPRESSION: 1. Cardiomegaly with pulmonary vascular congestion. 2. Progressively worsened consolidation throughout the right lung which may represent pneumonia. ACT 112: Negative or not required by law. The above report was generated using voice recognition software. It may contain grammatical, syntax or spelling errors. Electronically signed by: Roberto Lovelace M.D. 07/30/2024 12:16 PM Chest X-Ray 08/01/24 21:44 Exam(s): XR CXR 1 VIEW EXAM: XR Chest, 1 View CLINICAL HISTORY: Reason for exam: sob. TECHNIQUE: Frontal view of the chest. COMPARISON: Prior chest x-ray from July 30, 2024. FINDINGS: Lungs: Infiltrate in the right upper and right lower lobes. There is a consolidation at the left lung base. Pleural space: Unremarkable. No pneumothorax. Heart: Unremarkable. No cardiomegaly. Mediastinum: Unremarkable. Normal mediastinal contour. Bones/joints: Unremarkable. No acute fracture. IMPRESSION: Right pulmonary infiltrate. Consolidation at the left lung base. Electronically signed by: Nati Stallings MD 08/02/24 00:17 AM Chest X-Ray 08/02/24 07:00 EXAM: XR chest 1V portable CLINICAL HISTORY: Follow-up pneumonia TECHNIQUE: An X-ray image of the chest is obtained in AP projection. COMPARISON: 07/30/2024 FINDINGS: Pulmonary Parenchyma: Patchy airspace opacity seen infiltrating most of the right lung Prominent right hilar shadow, Suggesting congestion Blunting of the left costophrenic angle suggesting effusion No evidence of right pleural effusion or pleural thickening. Heart and Mediastinum: Heart size and shape are normal. No mediastinal widening or masses. No hilar or mediastinal lymphadenopathy. Bony Thorax: Bony thorax appears intact without fractures or deformities. Soft Tissues: Soft tissues overlying the chest wall are unremarkable. IMPRESSION: 1. Compared to prior study there is increase in the extension of the airspace opacity now seen involving most of the right lung, 2. Stable left small pleural effusion. Electronically signed by Bonilla Chaudhry 08-02-2024 07:38 AM Chest CTA 08/02/24 18:36 Exam(s): CTA CHEST IV Amt: 115ml opti 320 EXAM: CT Angiography Chest With Intravenous Contrast CLINICAL HISTORY: Reason for exam: PE. TECHNIQUE: Axial computed tomographic angiography images of the chest with intravenous contrast. CTDI is 42 mGy and DLP is 903.25 mGy-cm. Automated exposure control was utilized for the study. A dose lowering technique was utilized adhering to the principles of ALARA. MIP reconstructed images were created and reviewed. COMPARISON: No relevant prior studies available. FINDINGS: Pulmonary arteries: Unremarkable. No pulmonary embolism. Aorta: No acute findings. No thoracic aortic aneurysm. Lungs: Patchy consolidative densities are seen in bilateral lower lobes and right upper lobe. Pleural space: Small right and trace left pleural effusion. No pneumothorax. Heart: Unremarkable. No cardiomegaly. No significant pericardial effusion. No evidence of RV dysfunction. Bones/joints: No acute fracture. No dislocation. Soft tissues: Unremarkable. Lymph nodes: There is right hilar lymphadenopathy. IMPRESSION: 1. Bilateral multifocal pneumonia 2. Reactive right hilar lymphadenopathy 3. Small right and trace left pleural effusion Electronically signed by: Abdifatah Cortes MD 08/02/24 20:59 PM Liver Ultrasound 08/06/24 00:00 US liver CLINICAL HISTORY: elevtaed LFTs COMPARISON STUDY: CT chest of 08/02/2024 FINDINGS: Pancreatic tail is obscured. Visualized pancreatic body is grossly unremarkable. Liver demonstrates mild diffusely increased echogenicity consistent with fatty liver. There is normal direction of flow in the portal vein. Liver measures 17 cm. Gallbladder is contracted. There is mild prominence of the gallbladder wall due to contraction. There is mild ring down artifact at the gallbladder fundus, possible mild adenomyomatosis. No gallstones seen. No pericholecystic fluid or ascites. Right kidney shows no hydronephrosis. Common bile duct measures normal diameter of 4 mm. IMPRESSION: Mild fatty liver. ACT 112: Negative or not required by law. Electronically signed by: Codey Piaz M.D. 08/06/2024 8:07 AM
[2024-08-06 10:58] VITALS: RESP 18
[2024-08-06] MEDS: POT PHOSPHATE MONOBASIC W/ SOD TAB PO SCH (12:49)
[2024-08-07 07:16] VITALS: TEMP 97.7
[2024-08-07 07:23] LABS: Basophils # (auto) 0.05 K/uL (0.00-0.20); Basophils % (auto) 0.7 %; Eosinophils # (auto) 0.19 K/uL (0.00-0.50); Eosinophils % (auto) 2.6 %; Hematocrit (blood only) 34.6 % (42.0-52.0); Hemoglobin 11.6 g/dl (14.0-18.0); Immature Granulocytes # (auto) 0.15 K/uL (0.01-0.20); Immature Granulocytes % (auto) 2.1 %; Lymphocytes # (auto) 1.54 K/uL (1.20-3.40); Lymphocytes % (auto) 21.1 %; Mean Corpuscular Hemoglobin 31.9 pg (25.0-34.0); Mean Corpuscular Hgb Conc 33.5 g/dL (32.0-36.0); Mean Corpuscular Volume 95.1 fL (80.0-100.0); Mean Platelet Volume 10.5 fL (9.4-12.4); Monocytes # (auto) 0.61 K/uL (0.11-0.59); Monocytes % (auto) 8.4 %; Neutrophils # (auto) 4.76 K/uL (1.40-6.50); Neutrophils % (auto) 65.1 %; Platelet Count 432 K/uL (130-400); RDW Coefficient of Variation 15.2 % (11.5-14.5); RDW Standard Deviation 53.2 fL (36.4-46.3); Red Blood Count 3.64 M/uL (4.70-6.10)
[2024-08-07 08:04] LABS: Albumin Globulin Ratio 0.9 (0.9-2); BUN Creatinine Ratio 10.7 (10-20); Bilirubin,Total 0.6 mg/dl (0.2-1.0); Calcium 8.2 mg/dl (8.6-10.3); Creatinine Clr Calc Pharmacy 91.3 ml/min; Globulin 3.3 gm/dl (2.5-4.0); Magnesium 1.9 mg/dl (1.7-2.4); Phosphorus 2.8 mg/dl (2.5-4.9); Total Protein 6.3 gm/dl (6.0-8.3)
--- NOTE | 2024-08-07 12:44 | Discharge Summary ---
Discharge Summary Date of Service August 07, 2024 Principal Dx & Hospital Course #1 = Principal Diagnosis (1) Acute hypoxic respiratory failure: (2) RML pneumonia: (3) Hyponatremia: (4) Lactic acid acidosis: (5) CAD (coronary artery disease): (6) Diabetes mellitus, type 2: Plan 68 yo M with history of T2DM, Diabetic peripheral angiopathy, HTN, HLD, CAD, Epilepsy, Major neurocognitive disorder, Depression, Personality disorder who presents to ED 2/2 generalized weakness and SOB x 2 days. Extended hospitalization due to significant oxygen use. Acute hypoxic respiratory Failure Sepsis RML and RLL Pneumonia COPD Hx of JUANJO Pt with significantly increased oxygen requirement at times as high as 10L on hi-jose juan Chest XRAYs from admission noting progressive worsening of pneumonia on the right and now left VBG unremarkable Respiratory viral panel negative CTA chest ordered and noting bilateral multifocal pneumonia sputum culture from admission with NGTD Procalcitonin elevated on admission, repeat noting improvement Treated with IV gram negative coverage, completed azithromycin course- completed antibiotics in the hospital. treated with inhalers, scheduled nebs, ISP, flutter valve Pt agreeable to trying cpap once more- states he was supposed to in the past but refused Weaned oxygen as tolerated Pulmonology was consulted, recommended/stated the following on 08/04/24: "...1. Community acquired pneumonia: Completed 5 days of azithromycin and 8 days of combination of gram-negative coverage. Off antibiotics currently follow-up chest x-ray in 2 to 4 weeks 2. COPD: Not bronchospastic currently. Currently on DuoNebs, Perforomist, and budesonide. Continue Incruse. 3. Hypoxemia: Continue diuresis recommended. Significant improvement over the last 24 hours. If the patient's oxygen needs can be met at home, he can be dismissed from the hospital. Formal two-step should be obtained to determine oxygen requirement at baseline, with activity, and at night. 4. Hemoptysis: Resolved. Continue to follow clinically Patient appears to be on appropriate trajectory and can likely dismiss from the hospital once his oxygen needs can safely be met at home..." On the day of discharge, pt anxious for discharge, wanting to go home. Two-step completed and noted he needed 2L oxygen at rest and 6L with ambulation. CM was able to set the pt up with oxygen for home use. He will need close pulmonology and PCP follow up after discharge. Congestive Heart Failure Pt with increased oxygen requirement Chest xray concerning for pulm edema, pleural effusions BNP elevated Echo with EF 60-65%, mild LVH, Grade 1 diastolic dysfunction IV Lasix- transitioned to po lasix 40mg daily Discharged home with po lasix 40mg daily. Hypertension Pt on metoprolol tartrate 25mg BID at home with lisinopril 20mg daily Lisinopril was on hold during the hospitalization as pt presented with an PASCUAL Was started on po lasix 40mg daily as above and BP though normal was on the lower end, 115/75 at the time of discharge Lisinopril dose decreased to 10mg daily on discharge, continue with lasix 40mg, lopressor 25mg BID Pt and agreeable to BP monitoring at home Close PCP followup for continued BP monitoring and medication adjustment as needed Acute Kidney Injury Cr 1.6 on admission suspect in setting of poor intake IV fluids held lisinopril Avoided nephrotoxins as able Resolved on discharge, lisinopril to resume at 10mg after discharge Episode of Epistaxis Hemoptysis Acute on 08/02 Afrin per protocol CTA chest as above for hemoptysis Held heparin SQ On plavix as well, continue Resolved on discharge Hyponatremia Na 126 on admission suspect in setting of poor intake urine osm, na and serum osm Improving resolved on discharge Elevated trop Demand Ischemia suspect in setting of demand ischemia due to hypotension/infection EKG noting NSR, no acute ischemic changes Echo with EF 60-65%, mild LVH, Grade 1 diastolic dysfunction Doubt ACS Elevated Liver enzymes LFTs trended up before downtrending Us liver noting mild fatty change Held home atorvastatin, resumed on discharge PCP/Cardiology f/u for possible statin dose decrease? continue to follow LFTs, AST 73/ALT 87 and t bili and alk phos normal on day of discharge CAD with hx of [place] HLD continue asa, statin, plavix, metoprolol, lisinopril at reduced dose as noted above T2DM held Trulicity, ISS per protocol last A1c 6.6% in January, current A1c 6.8% Resume home meds on discharge Seizure disorder last was 2 years ago 2/2 hypoglycemia, continue lamictal Depression/Personality Disorder continue zyprexa, trazodone Notes For Next Care Provider Per pulmonology: -repeat chest imaging in 2-4 weeks -will need nocturnal oxygen testing Pulmonology followup needed Close BP monitoring and adjust antihypertensives as needed with addition of lasix 40mg daily Medication Changes From Visit Lasix 40mg daily Lisinopril dose decreased to 10mg from 20mg Admission HPI Per Admitting Provider This is a 68-year-old male with history of T2DM, Diabetic peripheral angiopathy, HTN, HLD, CAD, Epilepsy, Major neurocognitive disorder, Depression, Personality disorder who presents to ED 2/2 generalized weakness and SOB x 2 days. is at bedside who helps elicit hx. He has fallen 4 x in the last 2 days. His last fall was today. He denies syncope. He did hit his head once, but otherwise denies trauma. Wednesday he had a fever of 101. He reports coughing over the last 2 days. He did have mild hemoptysis. He was SOB today. He does not use oxygen at home. He has a prior hx of smoking. He has no known sick contacts. He generally feels weak and no appetite. He denies FIELD, chest pain, dizziness, n/v/d, abd pain, change in bowel or urinary habits. He didn't sleep at all last night. He was up all night. He went into the bathroom. feels he is more confused. He has hx of seizure disorder. His last seizure was 2 years ago and was related to low blood sugar. Prior to that it was in the early 1999s. ED patient was hypotensive on arrival. He was ordered 2250 mL of IVF. Lab work notable for sodium 126, chloride 93, BUN 24, creatinine 1.61, lactic acid 2.6, procalcitonin 1.48, trop 23. CXR concerning for R sided PNA. Resp biofire negative. He is requiring 4L of o2 to maintain saturation. He was started on Az ithromycin and IV rocephin along with nebulizer and steroids. Admission Exam Per Admitting Provider General Appearance: Obese, no apparent distress Head: normocephalic, Atraumatic Eyes: normal inspection, EOMI Neck: supple, Trachea midline Respiratory/Chest: Decreased coarse breath sounds, No accessory muscle use Cardiovascular: S1, S2, No murmur Abdomen/GI:Soft, Non tender, Bowel sounds present Extremities/Musculoskeletal:normal inspection, trace pedal edema Neurologic/Psych:AAOX3, grossly no focal neurological deficits Skin: normal color, warm Discharge Exam General: Alert, oriented. Psych: Appropriate mood and affect HEENT: NC/AT CV: RRR Resp: Breath sounds clear bilaterally, no increased effort of breathing Abdomen: Soft, nontender Extremities: No edema in lower extremities bilaterally. Updated Medication List Medication Instructions Recorded Confirmed Type nitroglycerin 0.4 mg sublingual 0.4 mg sublingual Q5M PRN chest 01/11/19 07/28/24 History tablet pain #25 tabs aspirin 81 mg tablet,delayed 81 mg PO DAILY 04/15/21 07/28/24 History release albuterol sulfate 90 mcg/actuation 2 puffs inhalation Q4H PRN 04/18/21 07/28/24 Rx aerosol inhaler Shortness Of Breath/cough/wheeze #8.5 grams ipratropium 0.5 mg-albuterol 3 mg 3 ml NEB Q6H PRN 04/18/21 07/28/24 Rx (2.5 mg base)/3 mL nebulization cough/wheeze/shortness of breath soln #1 box ketoconazole 2 % topical cream 1 applic topical DAILY PRN facial 07/31/21 07/28/24 Rx lesions #15 grams fluticasone furoate 200 1 inh inhalation DAILY #90 ea 08/20/21 07/28/24 Rx mcg-vilanterol 25 mcg/dose inhalation powder (Breo Ellipta) dulaglutide 0.75 mg/0.5 mL 4.5 mg subcut WK 09/10/21 07/28/24 History subcutaneous pen injector (Trulicity) citalopram 40 mg tablet 40 mg PO DAILY #90 tabs 08/24/22 07/28/24 Rx lamotrigine 200 mg tablet 200 mg PO BID #180 tabs 03/29/23 07/28/24 Rx (Lamictal) cyanocobalamin (vitamin B-12) 500 1,000 mcg (2 x 500 mcg) PO QAM #60 04/08/23 07/28/24 Rx mcg tablet tabs clopidogrel 75 mg tablet (Plavix) 75 mg PO DAILY #90 tabs 03/20/24 07/28/24 Rx atorvastatin 80 mg tablet 80 mg PO HS 07/28/24 07/28/24 History metoprolol tartrate 25 mg tablet 25 mg PO BID 07/28/24 07/28/24 History olanzapine 2.5 mg tablet 2.5 mg PO HS 07/28/24 07/28/24 History trazodone 100 mg tablet 100 mg PO HS 07/28/24 07/28/24 History furosemide 40 mg tablet 40 mg PO QAM #30 tabs 08/07/24 Rx lisinopril 10 mg tablet 10 mg PO DAILY #30 tabs 08/07/24 Rx Hospital Stay Data Consultations 07/28/24 10:45 ED Decision to Admit Stat 07/30/24 13:15 Consult Pulmonology Routine Diagnostic Imagining Performed 08/02/24 18:36 CT angio chest PE protocol Urgent 08/06/24 US liver Urgent Chest X-Ray 07/28/24 09:21 XR chest 1V portable CLINICAL HISTORY: Sepsis COMPARISON STUDY: 04/06/2023 FINDINGS: Heart size and pulmonary vasculature are normal. There is interval reticular and patchy opacity at the right mid and lower lung. No pleural effusion or pneumothorax. IMPRESSION: Acute pneumonia on the right. Follow-up to resolution recommended. ACT 112: Negative or not required by law. Electronically signed by: Codey Paiz M.D. 07/28/2024 9:38 AM Chest X-Ray 07/30/24 11:56 XR chest 1V portable HISTORY: 68 years-old Male hypoxia, acute shortness of breath COMPARISON: 07/28/2024 TECHNIQUE: AP view of the chest FINDINGS: Cardiac silhouette is enlarged. Pulmonary vascular congestion. Progressively worsened consolidation of the right mid lung and right greater than left lung bases. No pneumothorax. Probable small pleural effusions. Bones appear intact. IMPRESSION: 1. Cardiomegaly with pulmonary vascular congestion. 2. Progressively worsened consolidation throughout the right lung which may represent pneumonia. ACT 112: Negative or not required by law. The above report was generated using voice recognition software. It may contain grammatical, syntax or spelling errors. Electronically signed by: Roberto Lovelace M.D. 07/30/2024 12:16 PM Chest X-Ray 08/01/24 21:44 Exam(s): XR CXR 1 VIEW EXAM: XR Chest, 1 View CLINICAL HISTORY: Reason for exam: sob. TECHNIQUE: Frontal view of the chest. COMPARISON: Prior chest x-ray from July 30, 2024. FINDINGS: Lungs: Infiltrate in the right upper and right lower lobes. There is a consolidation at the left lung base. Pleural space: Unremarkable. No pneumothorax. Heart: Unremarkable. No cardiomegaly. Mediastinum: Unremarkable. Normal mediastinal contour. Bones/joints: Unremarkable. No acute fracture. IMPRESSION: Right pulmonary infiltrate. Consolidation at the left lung base. Electronically signed by: Nati Stallings MD 08/02/24 00:17 AM Chest X-Ray 08/02/24 07:00 EXAM: XR chest 1V portable CLINICAL HISTORY: Follow-up pneumonia TECHNIQUE: An X-ray image of the chest is obtained in AP projection. COMPARISON: 07/30/2024 FINDINGS: Pulmonary Parenchyma: Patchy airspace opacity seen infiltrating most of the right lung Prominent right hilar shadow, Suggesting congestion Blunting of the left costophrenic angle suggesting effusion No evidence of right pleural effusion or pleural thickening. Heart and Mediastinum: Heart size and shape are normal. No mediastinal widening or masses. No hilar or mediastinal lymphadenopathy. Bony Thorax: Bony thorax appears intact without fractures or deformities. Soft Tissues: Soft tissues overlying the chest wall are unremarkable. IMPRESSION: 1. Compared to prior study there is increase in the extension of the airspace opacity now seen involving most of the right lung, 2. Stable left small pleural effusion. Electronically signed by Bonilla Chaudhry 08-02-2024 07:38 AM Chest CTA 08/02/24 18:36 Exam(s): CTA CHEST IV Amt: 115ml opti 320 EXAM: CT Angiography Chest With Intravenous Contrast CLINICAL HISTORY: Reason for exam: PE. TECHNIQUE: Axial computed tomographic angiography images of the chest with intravenous contrast. CTDI is 42 mGy and DLP is 903.25 mGy-cm. Automated exposure control was utilized for the study. A dose lowering technique was utilized adhering to the principles of ALARA. MIP reconstructed images were created and reviewed. COMPARISON: No relevant prior studies available. FINDINGS: Pulmonary arteries: Unremarkable. No pulmonary embolism. Aorta: No acute findings. No thoracic aortic aneurysm. Lungs: Patchy consolidative densities are seen in bilateral lower lobes and right upper lobe. Pleural space: Small right and trace left pleural effusion. No pneumothorax. Heart: Unremarkable. No cardiomegaly. No significant pericardial effusion. No evidence of RV dysfunction. Bones/joints: No acute fracture. No dislocation. Soft tissues: Unremarkable. Lymph nodes: There is right hilar lymphadenopathy. IMPRESSION: 1. Bilateral multifocal pneumonia 2. Reactive right hilar lymphadenopathy 3. Small right and trace left pleural effusion Electronically signed by: Abdifatah Cortes MD 08/02/24 20:59 PM Liver Ultrasound 08/06/24 00:00 US liver CLINICAL HISTORY: elevtaed LFTs COMPARISON STUDY: CT chest of 08/02/2024 FINDINGS: Pancreatic tail is obscured. Visualized pancreatic body is grossly unremarkable. Liver demonstrates mild diffusely increased echogenicity consistent with fatty liver. There is normal direction of flow in the portal vein. Liver measures 17 cm. Gallbladder is contracted. There is mild prominence of the gallbladder wall due to contraction. There is mild ring down artifact at the gallbladder fundus, possible mild adenomyomatosis. No gallstones seen. No pericholecystic fluid or ascites. Right kidney shows no hydronephrosis. Common bile duct measures normal diameter of 4 mm. IMPRESSION: Mild fatty liver. ACT 112: Negative or not required by law. Electronically signed by: Codey Paiz M.D. 08/06/2024 8:07 AM Discharge Instructions Given to Patient (Per Discharging Provider) Hu, You were seen and admitted for trouble breathing in the setting of a pneumonia. You completed antibiotic treatment for the pneumonia in the hospital. You were seen by the graphics specialist who recommended discharge home with oxygen. You were tested and at the time of discharge it was noted that you require 2L of oxygen at rest and 6L with ambulation. They would like you to repeat chest imaging in 2-4 weeks. You will need nighttime oxygen testing. Please keep close followup with pulmonology after discharge. We also made some medication changes. Your home lisinopril has been on hold as your kidney function recovered. You were started on lasix, a "water pill" that also affects your blood pressure. Your blood pressure though normal was on the lower side with the use of the lasix and your home metoprolol. Therefore your lisinopril dose was decreased to 10mg from 20mg so as not to affect your blood pressure too much. Please monitor your blood pressure closely at home and let your primary care provider know if the levels are below 100/80. Please keep close follow up with your primary care provider after discharge. Please do not hesitate to come back to the emergency room if your symptoms worsen or return. It was a pleasure taking care of you while you were here. Total Time Total Time Spent Total Time Spent (In Minutes): 60
[2024-08-07 13:49] VITALS: BP 115/75; PULSE 53; O2SAT 90
== END 2024-08-07 16:00 | disposition home or self-care (01) | DRG 871 ==
LOC: ED 09:06 → EDINP 11:03 → SUATTDRO 11:03 → 2S 16:12